=== PATIENT | male | born 1950 | race Caucasian/White ===

== ENCOUNTER → 2024-03-08 09:50 | Outpatient (REF) | payer MEDICARE, OTHER, SELFPAY ==
[2024-03-08 14:44] LABS: Albumin 4.2 g/dl (3.5-5.0); Blood Urea Nitrogen 36 mg/dl (9-20); Calcium 9.9 mg/dl (8.4-10.2); Carbon Dioxide 25 mmol/L (22-30); Chloride 101 mmol/L (98-107); Glucose 124 mg/dl (70-99); HDL Cholesterol 44 mg/dl; LDL Cholesterol, Calculated 93 mg/dl; Magnesium 2.2 mg/dl (1.6-2.3); Phosphorus 4.2 mg/dl (2.5-4.5); Potassium 4.4 mmol/L (3.5-5.1); Sodium 137 mmol/L (135-145); Total Cholesterol 161 mg/dl (50-199); Triglyceride 122 mg/dl (10-149); Very Low Density Lipoprotein 24 mg/dl (0-30); eGFR 29.07
[2024-03-08 16:13] LABS: Vitamin D, 25-OH*** 88.9 ng/mL (30-80)
[2024-03-08 16:55] LABS: Free T4 1.22 ng/dl (0.78-2.19)
== END ==
LOC: REG 09:50
PROVIDERS: ATTENDING PHYSICIAN Internal Medicine; FAMILY PHYSICIAN Internal Medicine; REFERRING PHYSICIAN Internal Medicine Cardiovascular Disease
DX: I25.5 Ischemic cardiomyopathy (principal); I10 Essential (primary) hypertension; N25.81 Secondary hyperparathyroidism of renal origin; N18.32 Chronic kidney disease, stage 3b; E87.3 Alkalosis; E87.6 Hypokalemia
CPT/HCPCS: 36415; 80061; 80069; 82306; 83735; 84439; 84443

== ENCOUNTER → 2024-05-04 15:22 | Outpatient (REF) | payer MEDICARE, OTHER, SELFPAY | LOC: RCS 15:22 | PROVIDERS: ATTENDING PHYSICIAN Internal Medicine Cardiovascular Disease; FAMILY PHYSICIAN Internal Medicine | DX: I25.5 Ischemic cardiomyopathy (principal) | CPT/HCPCS: 93306 ==

== ENCOUNTER 2024-07-07 16:34 | Inpatient (IN) | payer MEDICARE, OTHER, SELFPAY ==
[2024-07-07] VITALS (10 sets, daily range): BP systolic 110–149; BP diastolic 63–77; BMI 23.1
--- NOTE | 2024-07-07 13:05 | ED.GENMED ---
History of Present Illness
General
Chief Complaint: Swelling
Source: patient
Exam Limitations: none
Time Seen by Provider: 07/07/24 12:24
Nursing documentation reviewed up to this point in time: agreed with
History of Present Illness
History of Present Illness:
Patient with history of CAD and congestive heart failure on Lasix, presents ED secondary to increased leg swelling despite increased Lasix recently, along with worsening kidney function. Denies chest pain. Patient reports intermittent shortness of
breath. Denies nausea or vomiting. Denies fever. Denies recent travel or surgery. Denies back pain. Denies leg pain.
Past History
Past History
ED Past Medical History: Arrthythmia (paf), CAD, Cancer (prostate), HTN, Hypercholesterolemia, ND and Other (BRIHGT)
ED Past Surgical History: Cardiac (ablation, cah, pacer)
Social History
Tobacco: Non-smoker
Alcohol: Occasional
Drug: None
Personal:
Living: with family
Review of Systems
Review of Systems
Allergies reviewed?: Yes
All Other Systems: ROS reviewed and negative except as documented in HPI and ROS
Constitutional: Reports no symptoms
EENT: Reports no symptoms
Respiratory: Reports trouble breathing; Denies cough
Cardiac: Reports no symptoms
ABD/GI: Reports no symptoms
Musculoskeletal: Reports edema
Skin: Reports no symptoms
Neurological: Reports no symptoms
Phy Exam
Physical Exam
Physical Exam:
Physical Exam
General: no apparent distress, not acutely ill. afebrile
Head: nc/at. eomi
Neck: supple. normal range of motion.
Heart: s1/s2 regular rate and rhythm, no murmur. equal radial pulses.
Lungs: no acute respiratory distress. diminished breath sounds bilaterally
Abdomen: normal bowel sounds. not tender.
Neuro: alert and oriented. no focal neurological deficits
Skin: no rash
Psychiatric: well kept. interactive and cooperative
Extremities: LE edema, R>L. no calf tenderness.
Scores
Heart Failure Risk
Heart Failure Risk Score: Yes
History of Stroke or TIA: No
History of intubation for respiratory distress: No
Heart rate on ED arrival >/= 110: No
SaO2 <90% on arrival on room air: No
HR >/=110 during 3min walk test (or too ill to perform test): No
ECG has acute ischemic changes: No
Urea >/=12mmol/L (BUN 33.6mg/dL): No
Serum CO2>/=35mmol/L: No
Troponin I or T elevated to ND Level (0.4mg/dL): No
NT-proBNP >/=5,000ng/L (5,000pg/ml): Yes
HF Risk Score: 1
Admission Status: MEDIUM RISK 5.1% Consider observation or discharge to home with homecare & f/u visit to PCP/Food Service Counter Clerk, or SNF for treatment
Course
Orders/Labs/Results
Orders:
Orders
07/07/24 Breakfast
Cholesterol Lowering
At Your Request: Full Participation
Fluid Restriction: 1200 mL/day (40 oz)
Cholesterol Lowering: Sodium, 2 Gram
07/07/24 13:17
Complete Blood Count/With Diff Urgent
07/07/24 14:42
Basic Metabolic Panel Urgent
Magnesium Urgent
NT-proBNP Urgent
07/07/24 15:33
CR Chest - 2 Views Stat
Comment:
Reason For Exam: sob
07/07/24 15:35
EKG [Electrocardiogram (*1)] Stat
Reason for Study: Atrial Fibrillation
07/07/24 15:37
Admit/Transfer Patient As Directed
Co-Sign Provider:
Level of Care: Inpatient admission
Assign to:: Telemetry
Physician / Group: sheu
Diagnosis: CHF exacerbation
Reason for Telemetry: Subacute Heart Failure
Date to Stop Telemetry: 07/09/24
Time to Stop Telemetry: 11:00
Reason for Hospitalization: CHF exacerbation
Expected length of stay greater than two midnights?: Yes
ELOS- Estimated Length of Stay in days: 3
I certify the patient meets the requirements for IP care: Yes
PRN Pain Medication Management As Directed
May give lesser potent ordered pain med per pt: Yes
preference::
Protocol:: Medication orders for pain may be administered in a
manner that supports deferring to patient preference
when the pt is:
- Requesting an ordered lesser potent pain medication.
Least to most potent pain medications are defined
as: acetaminophen < NSAID < tramadol < opioids
(morphine, oxycodone, hydromorphone).
- Requesting a lesser dose of the same medication IF
ORDERED.
- Requesting a less intrusive route of administration
if both routes are prescribed by the provider (PO <
IV).
07/07/24 15:38
Code Status As Directed
Resuscitation Status: Full Code
07/07/24 18:49
Albuterol [ProAIR HFA INHALER] 1 puff INH R Q6HPRN PRN
Atorvastatin [Lipitor] 20 mg PO QPM
Ipratropium/Albuterol Sulfate [Duoneb] 3 ml INH R Q6HPRN PRN
Melatonin 5 mg PO HSPRN PRN
Montelukast Sodium [Singulair] 10 mg PO QPM
Rivaroxaban [Xarelto] 15 mg PO QPM
07/07/24 18:49
CARDIOLOGY CONSULT Routine
Consulting Provider: Avila Gillis
Was physician already notified: Yes
HF DIETARY CONSULT Routine
HF EDUCATOR CONSULT Routine
Comment:
Activity As Directed
Activity Level: As Tolerated
Intake/ Output As Directed
Frequency: Per unit guidelines
Patient Education As Directed
Type: CHF folder
Comment: give on admission. Document in Interdisciplinary Education record
Sleep Apnea Assessment by RN As Directed
Comment:
Physician Instructions:
Venous Foot Pumps As Directed
Location: Bilateral feet
Vital Signs As Directed
Frequency: Other
Additional Instructions:: Q12 or per unit guidelines if more frequent.
Weight As Directed
Frequency: Daily
Type of Scale: Standing Scale
Comment: Daily morning weight. If unable to stand, use balanced bed scale.
Weight As Directed
Frequency: Once
Type of Scale: Standing Scale
Comment: Upon Admission. If unable to stand, use balanced bed scale.
Pulse Ox/cont/shift [RESP] Routine
Quantity: 1
Special Instructions: Daily pulse oximetry at rest. If greater than 92% at rest also obtain pulse oximetry
while ambulating as tolerated.
Ot Eval And Treat Routine
Pt Eval And Treat Routine
Activity Level: As Tolerated
Venous Doppler Lwr Ext Rt [US Periph Venous LOWER Ext RT] Urgent
Comment:
Reason For Exam: RIght LE edema
DX Deep Vein Thrombosis Video Routine
07/07/24 19:00
Midodrine [ProAmatine] 10 mg PO TID @ 0800,1200,1700
07/07/24 19:03
Artificial Tears (Pf) [Refresh Eye Drops (Pf)] 1 drops BOTH EYES Q6HPRN PRN
07/07/24 20:00
Budesonide/Formoterol 160/4.5 [Symbicort 160/4.5 Mcg Inhaler] 2 puff INH R BID
Potassium Chloride [KCl] 20 meq PO BID
07/07/24 22:00
Diphenhydramine [Benadryl] 25 mg PO HS
Metoprolol Xl [Toprol Xl] 12.5 mg PO HS
07/08/24 06:00
Basic Metabolic Panel IN AM
Cardiovascular Evaluation IN AM
Complete Blood Count/No Diff IN AM
[id number]-[id number] IN AM
Magnesium IN AM
TSH Reflex To Free T4 IN AM
07/08/24 08:00
Amiodarone [Pacerone] 200 mg PO DAILY
Aspirin Chewable [Low Strength Aspirin] 81 mg PO DAILY
Pantoprazole [Protonix] 40 mg PO DAILY
Sertraline HCl [Zoloft] 25 mg PO DAILY
07/09/24 06:00
Basic Metabolic Panel IN AM
Complete Blood Count/No Diff IN AM
07/09/24 11:00
DC Protocol for Telemetry ONCE
07/10/24 06:00
Basic Metabolic Panel IN AM
Complete Blood Count/No Diff IN AM
07/11/24 06:00
Complete Blood Count/No Diff IN AM
07/12/24 06:00
Complete Blood Count/No Diff IN AM
Abnormal Lab Results
07/07/24 07/07/24
13:17 14:42
RBC 4.13 L 10^6/uL
(4.70-6.10)
Hgb 10.4 L g/dL
(13.0-18.0)
Hct 33.3 L %
(39.0-52.0)
MCH 25.2 L pg
(27.0-31.0)
MCHC 31.2 L g/dL
(33.0-37.0)
RDW 16.0 H %
(11.5-14.5)
MPV 13.1 H fL
(7.4-10.4)
Absolute Lymphs (auto) 0.9 L 10^3/uL
(1.2-3.4)
Absolute Monos (auto) 1.0 H 10^3/uL
(0.1-0.6)
Lymphocytes % 14.5 L %
(20.5-51.1)
Monocytes % 15.9 H %
(1.7-9.3)
BUN 46 H mg/dl
(9-20)
Creatinine 2.3 H mg/dL
(0.7-1.3)
07/07/24 13:17
07/07/24 14:42
Vital Signs
Initial and Last Documented VS:
Initial Vital Signs
Temp Pulse Resp BP Pulse Ox
97.9 F 65 16 149/76 100
07/07/24 11:47 07/07/24 11:47 07/07/24 11:47 07/07/24 11:47 07/07/24 11:47
Last Documented Vital Signs
Temp Pulse Resp BP Pulse Ox
98.5 F 66 20 124/63 98
07/07/24 19:00 07/07/24 20:30 07/07/24 20:30 07/07/24 20:19 07/07/24 17:59
MDM/Problems Addressed
MDM/Problems Addressed:
Patient with worsening lower extremity edema despite increasing Lasix as an outpatient. In light of patient's chronic kidney disease, patient will be admitted for IV diuresis, at recommendation of cardiology
*EKG
Interpreted by ED Provider?: Yes
EKG Intrepretation Date: 07/07/24
Heart Rate: 63
Rhythm: sinus
QRS Pattern: right bundle branch block
*Critical Care Note
Total Time (30-74mins, 75-104mins- exclusive of procedures): Not Applicable
ED Attending Note
-
Portions of this chart may have been created with voice recognition software.� Occasional wrong word or��sound alike� substitutions may have occurred due to the inherent limitations of voice recognition software.
Discharge Plan
Departure
Patient Disposition: Admit
Date of Disposition: 07/07/24
Time of Disposition: 15:08
Admit to: Telemetry
Presentation/result/management discussed w/ accepting MD/DO: Hospitalist
Discharge Problem:
Fluid overload
Interventions
Interventions:
*Risk Screen - Suicide Last Done: 07/07/24 13:21
*General Assessment Last Done: 07/07/24 13:21
*Neglect/Abuse Screening Last Done: 07/07/24 13:21
*ED COVID-19 Vaccine History Last Done: 07/07/24 13:23
ED- Cardiac Assessment Last Done: 07/07/24 13:23
ED- Pulmonary Assessment Last Done: 07/07/24 13:23
ED-Skin Assessment Last Done: 07/07/24 13:23
[2024-07-07 14:08] LABS: Hematocrit 33.3 % (39.0-52.0); Hemoglobin 10.4 g/dL (13.0-18.0); Mean Corp Hgb Conc. 31.2 g/dL (33.0-37.0); Mean Corpuscular Hgb 25.2 pg (27.0-31.0); Mean Corpuscular Volume 80.6 fL (80.0-94.0); Mean Platelet Volume 13.1 fL (7.4-10.4); Red Blood Cell Count 4.13 10^6/uL (4.70-6.10)
[2024-07-07 14:25] LABS: % Basophils 0.8 % (0-2); % Eosinophils 0.5 % (0-6); % Immature Granulocytes 0.5 % (0-0.5); % Lymphocytes 14.5 % (20.5-51.1); % Monocytes 15.9 % (1.7-9.3); % Neutrophils 67.8 % (42.2-75.2); Absolute Basophils 0.1 10^3/uL (0-0.2); Absolute Lymphocytes 0.9 10^3/uL (1.2-3.4); Absolute Neutrophils 4.1 10^3/uL (1.4-6.5); Nucleated Red Blood Cells % 0 % (-)
[2024-07-07 14:49] LABS: Platelet Count 154 10^3/uL (130-400)
[2024-07-07 15:10] LABS: Blood Urea Nitrogen 46 mg/dl (9-20); Calcium 9.2 mg/dl (8.4-10.2); Carbon Dioxide 28 mmol/L (22-30); Chloride 101 mmol/L (98-107); Estimated Creatinine Clearance 27 ml/min; Glucose 95 mg/dl (70-99); Magnesium 1.9 mg/dl (1.6-2.3); Potassium 4.4 mmol/L (3.5-5.1); Sodium 140 mmol/L (135-145); eGFR 28.89
[2024-07-07 15:12] LABS: NT-proBNP 10100 pg/ml
--- NOTE | 2024-07-07 15:17 | HPS.HSE ---
Addendum entered and electronically signed by Amelia Peguero MD 07/08/24 01:07:
date of service 07/07/24
I saw and examined the patient.
The SLEEVER or PA's note was reviewed and I agree with the note.
Comment:
74M CAD HFrEF AICD CKD p/w increased leg swelling and weight gain 2 weeks despite increased Lasix. Denies respiratory issues, ambulatory with cane at baseline. Noted significantly elevated BNP. Likely acute on chronic HFrEF
Physical Exam
General: Well Developed, Well Nourished and No Apparent Distress
HEENT: NormoCephalic, Moist mucous membranes and Atraumatic
Respiratory: Clear
Cardiac: S1/S2 and Regular Rhythm; No Murmur or Rub
GI: Soft, Non Tender, Non Distended and Normal Bowel Sounds; No Organomegaly
Musculoskeletal: No Clubbing, No Cyanosis, b/l lower ext edema +2 pitting R calf appears bigger than Left no calf tenderness
Skin: No Rash
Neuro: AO x 3 and Nonfocal/grossly intact
Psych: Calm
# Worsening lower extremities edema likely CHF exacerbation
# History of ischemic cardiomyopathy
# Anemia of chronic disease
# Chronic kidney disease stage 3B
# History of CAD status post CABG. Will continue with aspirin.
#. Paroxysmal atrial fibrillation
#History of prostate cancer status post robotic prostatectomy.
# Essential hypertension with a history of orthostatic hypotension
#. Gastroesophageal reflux disease
# Obstructive sleep apnea on BiPAP 07/15
#HLD
#anxiety
IV lasix diuresis
daily weights I/O
venous duplex appreciated RLE neg for DVT
Cardio Nephro eval
PT/OT
cont Xarelto Amiodarone
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
Original Note:
Family Physician
-
Family Physician: Talib Song
Chief Complaint
-
LE edema
History of Present Illness
74 year old with history of CAD and congestive heart failure on Lasix, presents ED secondary to increased leg swelling despite increased Lasix. patient stated LE swelling for past two weeks. his Lasix was increased since the with no relief in
his symptoms. he gained 4-5lbs Denies chest pain. Denies short of breath , Denies nausea or vomiting. Denies fever.
In ER noted elevated BNP. Admitting for further management
Medical History
Past Medical History
Past Medical History: Reports Other
Additional Past Medical History:
Stage IIIa chronic kidney disease
Atrial fibrillation
Hypertension
Ischemic cardiomyopathy
Hyperlipidemia
Chronic heart failure
Defibrillator
Sleep apnea
BPH
Orthostatic hypotension
Hyperparathyroidism
Past Surgical History: Reports Other
Additional Past Surgical History:
Coronary artery bypass graft x 3 vessels
Left carotid stent
Right carotid stent
Inguinal hernia repair with mesh
Prostatectomy
Social History
Tobacco: Former Smoker
Alcohol: Occasional
Drug: None
Family History
Family History: Not pertinent
Allergies / Home Medications
Allergies reflects when Allergies were last updated in [facility].
Home Medications with original date entered in [facility]
Allergy/Medication List:
Allergies
Allergy/AdvReac Type Severity Reaction Status Date / Time
Iodinated Contrast Media Allergy Hives Verified 07/07/24 11:49
[IV Dye, Iodine Containing
Contrast ]
iodine Allergy Hives Verified 07/07/24 11:49
potassium clavulanate Allergy Itching Verified 07/07/24 11:49
[From Augmentin]
seasonal Allergy sneezing Uncoded 07/07/24 11:49
Home Medications
coenzyme [id number] 100 mg-100 unit capsule 100 mg PO NOON Supplement 01/10/15
omega [id number]-fish oil 300 mg-1,000 mg capsule (Fish Oil) 2 ea PO NOON Supplement 02/19/17
budesonide-formoterol HFA 160 mcg-4.5 mcg/actuation aerosol inhaler (Symbicort) 2 puff inhalation R BID Lung/breathing issues 11/30/19
albuterol sulfate 90 mcg/actuation aerosol inhaler 1 puff inhalation R Q4HPRN PRN sob 06/23/20
amiodarone 200 mg tablet (Pacerone) 200 mg PO DAILY Heart disease/condition 06/23/20
melatonin 5 mg tablet 5 mg PO HSPRN PRN sleep 06/23/20
metoprolol succinate 25 mg tablet,extended release 24 hr 12.5 mg PO HS Blood pressure 06/23/20
multivitamin with folic acid 400 mcg tablet (Tab-A-Rickey) 1 tab PO NOON Supplement 06/23/20
nitroglycerin 0.4 mg sublingual tablet 0.4 mg sublingual [id number] PRN chest pain 06/23/20
sertraline 25 mg tablet 25 mg PO DAILY Mental Health/Anxiety 06/23/20
aspirin 81 mg chewable tablet 81 mg PO DAILY Blood clot prevention/tx 06/30/20
pantoprazole 40 mg tablet,delayed release 40 mg PO DAILY Gastrointestinal issue ##0 06/30/20
docusate sodium 100 mg capsule 100 mg PO PRN PRN constipation 08/08/20
furosemide 20 mg tablet 40 mg PO BID AT 0800,1600 Fluid retention/Swelling 08/08/20
midodrine 5 mg tablet 5 mg PO TID Blood pressure 08/08/20
potassium chloride 20 mEq tablet,extended release(part/cryst) (Klor-Con M) 20 meq PO BID Supplement 08/08/20
rivaroxaban 15 mg tablet (Xarelto) 15 mg PO QPM Blood clot prevention/tx 08/08/20
metolazone 2.5 mg tablet 2.5 mg PO WEEKLY Heart Failure 03/13/23
montelukast 10 mg tablet (Singulair) 10 mg PO DAILY 03/13/23
cholecalciferol (vitamin D3) 25 mcg (1,000 unit) capsule (Vitamin D3) 25 mcg PO DAILY 03/18/23
Review of Systems
-
Constitutional: Reports No Symptoms
EENT: Reports No Symptoms
Respiratory: Reports No Symptoms
Cardiac: Reports No Symptoms
Abdomen/GI: Reports No Symptoms
: Reports No Symptoms
Musculoskeletal: Reports Edema (Lower extremities edema)
Skin: Reports No Symptoms
Neurological: Reports No Symptoms
Endocrine: Reports No Symptoms
Hematologic/Lymphatic: Reports No Symptoms
Psych: Reports No Symptoms
Physical Exam
Vital Signs
Vital Signs
Temp Pulse Resp BP Pulse Ox
97.9 F 57 21 110/73 98
07/07/24 11:47 07/07/24 14:15 07/07/24 14:15 07/07/24 13:02 07/07/24 14:15
Physical Exam
General: Well Developed, Well Nourished and No Apparent Distress
HEENT: NormoCephalic, Moist mucous membranes and Atraumatic
Respiratory: Clear
Cardiac: S1/S2 and Regular Rhythm; No Murmur or Rub
GI: Soft, Non Tender, Non Distended and Normal Bowel Sounds; No Organomegaly
Rectal: Deferred by Provider
Musculoskeletal: No Clubbing, No Cyanosis and Other (Right lower extremities +3 edema)
Skin: No Rash
Neuro: AO x 3 and Nonfocal/grossly intact
Psych: Calm
Laboratory Results
-
07/07/24 13:17
07/07/24 14:42
Laboratory Results
Total Bilirubin Cancelled 07/07/24 13:17
AST Cancelled 07/07/24 13:17
ALT Cancelled 07/07/24 13:17
Alkaline Phosphatase Cancelled 07/07/24 13:17
Data Reviewed
-
Lab Data: Labs Reviewed by me
Impression/Plan
-
# Worsening lower extremities edema likely CHF exacerbation
# History of ischemic cardiomyopathy
-proBNP 10 100
-Recent echo on 05/04 with Normal left ventricular size. Severely reduced systolic function. LV ejection
fraction is 30%.
-IV Lasix 4o bid continued
-Strict RACHEL
-Daily weight
-Fluid restriction
-Cardiology consult
# Anemia of chronic disease
-Hemoglobin stable at 10.4
-No active bleeding
-Continue to monitor
# Chronic kidney disease stage 3B
-Creatinine 2.3
-Continue to monitor
# History of CAD status post CABG. Will continue with aspirin.
#. Paroxysmal atrial fibrillation. We will continue with Xarelto
and amiodarone.
-Obtain EKG
#History of prostate cancer status post robotic prostatectomy.
# Essential hypertension with a history of hypotension. We will
continue with Toprol and Midodrine.
#. Gastroesophageal reflux disease. Continue PPI.
# Obstructive sleep apnea on BiPAP 07/15. Continue with outpatient
inhalers.
#HLD
-statin continued
#anxiety
-sertraline continued
#DVT prophylaxis: The patient is on Xarelto which will be
continued.
#.The patient is a full code.
--- NOTE | 2024-07-07 16:38 | CON.CAR ---
Addendum entered and electronically signed by Esau Kramer MD 07/07/24 17:59:
I saw and examined the patient.
The Finance Business Partner's note was reviewed and I agree with the note.
Comment: Briefly, 74-year-old man past medical history history of ischemic cardiomyopathy and heart failure with reduced ejection fraction status post AICD who presents with weight gain and worsening lower extremity edema concerning for
decompensated heart failure
Presentation seems most consistent with right-sided heart failure, patient is not hypoxic and chest x-ray does not show any overt pulmonary edema or pleural effusions
However proBNP is elevated over 10,000 and he does have significant lower extremity edema
Plan for IV diuresis 40 mg twice daily
Monitor renal function closely given CKD
Continue low-dose beta-ulices
Renal function will likely limit additional GDMT. Would consider hydralazine/nitrate, but may be limited by chronic hypotension.
Original Note:
Consultation
Consultation Request
Date/Time Consultation Requested: 07/07/24
Date/Time Consultation Performed: 07/07/24
Requesting Provider: Darshana RAYGOZA
Performing Provider: Preeti Holder PA-C for Dr. Kramer
Reason for Consultation: CHF
Medical History
-
Chief Complaint: LE edema
History of Present Illness:
Patient came to [facility] today with increased LE edema and cardiology has been consulted for acute CHF. Patient with PMH of CABG 09/2010 with COLEMAN to LAD and SVG seq to OM and PLB. He then had a Xience JENIFFER to the sequential SVG in 10/29/11. He was then
admitted to 12/20/19 until 12/29/19 with plan for redo sternotomy and CABG with SVG to OM and then to the PLB of the RCA. He had RV tear and repair as a complication. His CABG ended up being a left saphenous vein as sequential graft to LAD then to
OM1. He had a newly reduced EF 15% at that time and developed cardiorenal syndrome and cardiogenic shock. He was transferred to [place] for LVAD evaluation 12/29/19 and was hospitalized for 46 days and was ultimately not an LVAD candidate, but was
diuresed and had a [place] single chamber ICD placed. He then went to [facility] acute care rehab. He continues to follow with Dr. Gillis in the office and was seen 06/25/24 and recommend admission for IV diuresis, but patient declined so that
he could have previously scheduled cataract surgery in August 19 and so his lasix was increased from 20mg daily to 20mg BID for 1 week. Patient called the office today to report no improvement and increased LE edema with weight up to 157.9
lbs today and he was recommended to go to the ER for admission. Cre is 2.3 in the ER today which is close to his baseline. Weight is up another 8 lbs from last office visit.
PMH:
chronic HFrEF
ICM EF 30% by echo 05/04/24
h/o Cardiorenal syndrome
CKD 4
CAD
s/p CABG x 3 (COLEMAN - LAD, seq SVG to OM1 to RPLB) 09/19
s/p PCI with JENIFFER to SVG to OM1 to RPLB 10/29/11
s/p acute inferior CO S/P PCI with RCA stent (02/19/17)
s/p Re-op CABG x 2 (left saphenous vein as sequential graft to LAD then to OM1) vein graft tear, anterior wall of RV tear and divided COLEMAN at time of CABG 12/20/19
h/o long admission (46 days) to [place] for LVAD eval and eventual ICD placement at time of complicated redo CABG 12/2019
h/o left groin abscess with flap closure and VAC treatment 06/2020
s/p [employer] single chamber ICD
Paroxysmal Afib
s/p PVI 08/04/17
Chronic Xarelto OAC
HTN
Orthostasis on midodrine
Hyperlipidemia
Former tobacco use
ELI
GERD/Caballero's esophagus
S/p Schatzki's ring dilatation
Severe LAUREN stenosis S/p stent (01/10/2015)
Severe LICA stenosis S/p stent (10/05/2010)
Hx Prostate Ca S/p robotic prostatectomy (2009)
s/p right inguinal herniorrhaphy (1992)
Past Medical History
Past Medical History: Other (in HPI)
Past Surgical History: Cardiac (ABG) and Other (prostatectomy, herniorrhaphy, B/L carotid stents)
Social History
Tobacco: Former Smoker
Alcohol: None
Drug: None
Personal:
Living: With Family
Family History
Family History: CAD
Allergies / Home Medications
Allergy/AdvReac Type Severity Reaction Status Date / Time
Iodinated Contrast Media Allergy Hives Verified 07/07/24 11:49
[IV Dye, Iodine Containing
Contrast ]
iodine Allergy Hives Verified 07/07/24 11:49
potassium clavulanate Allergy Itching Verified 07/07/24 11:49
[From Augmentin]
seasonal Allergy sneezing Uncoded 07/07/24 11:49
�Medication �Instructions �Recorded �Confirmed �Type
omega 1-wkc-fmi-fish oil 300 2 ea PO NOON Supplement 02/19/17 07/07/24 History
mg-1,000 mg capsule (Fish Oil)
amiodarone 200 mg tablet (Pacerone) 200 mg PO DAILY Heart 06/23/20 07/07/24 History
disease/condition
melatonin 5 mg tablet 5 mg PO HSPRN PRN sleep 06/23/20 07/07/24 History
metoprolol succinate 25 mg 12.5 mg PO HS Blood pressure 06/23/20 07/07/24 History
tablet,extended release 24 hr
multivitamin with folic acid 400 1 tab PO NOON Supplement 06/23/20 07/07/24 History
mcg tablet (Tab-A-Rickey)
nitroglycerin 0.4 mg sublingual 0.4 mg sublingual [id number] PRN 06/23/20 07/07/24 History
tablet chest pain
sertraline 25 mg tablet 25 mg PO DAILY Mental 06/23/20 07/07/24 History
Health/Anxiety
aspirin 81 mg chewable tablet 81 mg PO DAILY Blood clot 06/30/20 07/07/24 Rx
prevention/tx
pantoprazole 40 mg tablet,delayed 40 mg PO DAILY Gastrointestinal 06/30/20 07/07/24 Rx
release issue ##0
docusate sodium 100 mg capsule 100 mg PO DAILYPRN PRN constipation 08/08/20 07/07/24 History
potassium chloride 20 mEq 20 meq PO BID Supplement 08/08/20 07/07/24 History
tablet,extended
release(part/cryst) (Klor-Con M)
rivaroxaban 15 mg tablet (Xarelto) 15 mg PO QPM Blood clot 08/08/20 07/07/24 History
prevention/tx
montelukast 10 mg tablet 10 mg PO QPM 03/13/23 07/07/24 History
(Singulair)
albuterol sulfate 90 mcg/actuation 1 inh inhalation R Q6HPRN PRN sob 07/07/24 07/07/24 History
aerosol inhaler
atorvastatin 20 mg tablet 20 mg PO QPM 07/07/24 07/07/24 History
budesonide-formoterol HFA 160 2 puff inhalation R BID 07/07/24 07/07/24 History
mcg-4.5 mcg/actuation aerosol
inhaler (Symbicort)
cholecalciferol (vitamin D3) 50 100 mcg PO DAILY 07/07/24 07/07/24 History
mcg (2,000 unit) tablet (Vitamin
D3)
coenzyme Q10 100 mg capsule 100 mg PO DAILY 07/07/24 07/07/24 History
(CoQ-10)
diphenhydramine 25 1 tab PO HS 07/07/24 07/07/24 History
mg-acetaminophen 500 mg tablet
(Tylenol PM Extra Strength)
furosemide 40 mg tablet 40 mg PO BID 07/07/24 07/07/24 History
ipratropium 0.5 mg-albuterol 3 mg 3 ml inhalation R Q6HPRN PRN sob 07/07/24 07/07/24 History
(2.5 mg base)/3 mL nebulization
soln
midodrine 10 mg tablet 10 mg PO TID 07/07/24 07/07/24 History
peg 400-propylene glycol (PF) 0.4 1 drp BOTH EYES Q6HPRN PRN dry eyes 07/07/24 07/07/24 History
%-0.3 % eye drops in a dropperette
(Systane (PF))
Review of Systems
-
History Source: Patient
All other systems: Negative unless noted
Physical Exam
Vital Signs
Temp Pulse Resp BP Pulse Ox
97.9 F 62 16 122/70 98
07/07/24 11:47 07/07/24 16:00 07/07/24 16:00 07/07/24 16:00 07/07/24 16:00
Lab Results
07/07/24 13:17
07/07/24 14:42
Fkn-[id number] Pept 20921 pg/ml 07/07/24 14:42
Physical Exam
General: No Apparent Distress and Comfortable
HEENT: Normocephalic, Anicteric and Moist Mucous Membranes
Respiratory: Crackles (LLB)
Cardiac: S1/S2, Irregular Rhythm and Murmur
GI: Soft, Non Tender, Non Distended and Normal Bowel Sounds
Musculoskeletal: No Clubbing, No Cyanosis and Edema (2+ of B/L LE)
Skin: Warm, Dry and Other (scattered ecchymoses of B/L UE and back)
Neuro: AO x 3
Impression / Plan
-
PCP: Dr. Song
Cardiology: Dr. Gillis
IMPRESSION:
Presentation with LE edema
Acute on chronic HFrEF
ICM EF 30% by echo 05/04/24
h/o Cardiorenal syndrome
CKD 4
CAD
s/p CABG x 3 (COLEMAN - LAD, seq SVG to OM1 to RPLB) 09/19
s/p PCI with JENIFFER to SVG to OM1 to RPLB 10/29/11
s/p acute inferior CO S/P PCI with RCA stent (02/19/17)
s/p Re-op CABG x 2 (left saphenous vein as sequential graft to LAD then to OM1) vein graft tear, anterior wall of RV tear and divided COLEMAN at time of CABG 12/20/19
h/o long admission (46 days) to [place] for LVAD eval and eventual ICD placement at time of complicated redo CABG 12/2019
h/o left groin abscess with flap closure and VAC treatment 06/2020
s/p [place] single chamber ICD
Paroxysmal Afib
s/p PVI 08/04/17
Chronic Xarelto OAC
HTN
Orthostasis on midodrine
Hyperlipidemia
Former tobacco use
ELI
GERD/Caballero's esophagus
S/p Schatzki's ring dilatation
Severe LAUREN stenosis S/p stent (01/10/2015)
Severe LICA stenosis S/p stent (10/05/2010)
Hx Prostate Ca S/p robotic prostatectomy (2009)
s/p right inguinal herniorrhaphy (1992)
ECHO 12/23/19: with severe left ventricular systolic dysfunction ejection fraction 15�20%. New compared to preoperative echocardiogram
Echo at [place] 02/2020: EF 36%
Echo 06/26/20: Mildly dilated LV, EF 25-30%, inferior, septal, anteroseptal, apical akinesis with hypokinesis remaining. EF was 40% by Valle, 25-30% visually, mildly dilated and hypokinetic RV, ICD wire, dilated left atrium, mild MR, aortic
sclerosis, moderate TR, pulmonary artery pressure 37-42 mmHg
Echo 05/04/24: EF 30%, akinesis of the septum and inferior de jesus, stage III diastolic dysfunction, moderate to severe MR, moderate TR with PAP 45 mmHg
PLAN:
-Patient presents with worsening LE edema and acute HF with h/o cardiorenal syndrome. Agree with Lasix 40 mg IV BID diuresis for now. Patient was taking Lasix 20mg daily prior to admission (although his med list has po lasix 40mg BID, he states his
baseline dose in 20mg daily). If no significant diuresis overnight then consider increasing dose.
-awaiting CXR
-Cont outpatient dose of midodrine 10 mg TID
-consider Nephrology consult
-Cre is 2.3 in the ER on 07/07/24 which is close to his baseline.
-At last office visit he was recommended admission and consideration for RHC, hold off for now as appears to be clearly volume overloaded
-Also recently recommended a THANH to reassess MR and evaluated for possible MitraClip, would wait until he has diuresed more and consider repeating echo to reassess. He is not keen on procedures at this time
-Known paroxysmal Afib, but none was seen on device check in the office 06/25/24.
-Cont renally dosed Xarelto 15 mg daily. CrCl is 27.
-d/w patient and son at bedside
.
Data Reviewed
-
EKG: Tracing Personally Visualized and interpreted
Medical Tests (Nuc Med, Echo etc): Report Reviewed by me
Labs: Labs Reviewed by me
Old Records: Reviewed
--- NOTE | 2024-07-07 17:09 | W.CON.NEPH ---
Consultation
-
Date/Time Consultation Requested: 07/07/24 1644
Date/Time Consultation Performed: 07/07/24 1715
Requesting Provider: Darshana Nolasco
Performing Provider: Alley Alvarez
Reason for Consultation: CKD
Medical History
-
Chief Complaint: increasing leg edema
History of Present Illness:
The patient is 74 years of age who has ischemic cardiomyopathy s/p CABG, EF 30% on lasix, mod to severe MR, mod TR, on lasix, CKD stage 2 baseline cr [address] Garcia, chr orthostatic hypotension on midodrine therapy, Afib on low dose BB, Amio
and with Xarelto, GERD on PPI, prostate ca s/p surgery who lately noticed increasing LE edema despite increase in lasix dose 20mg BID by cards from 06/25. he was asked to come to ER if no response noted. he gained 4-5lbs and Denies chest pain or
short of breath. , Denies nausea or vomiting. Denies fever, has increased cough for few days. He first noticed wt gain after he completed steroid course in April. took extra lasix in May with little improvement but never went back to his DW. He
also has decreased appetite. HIs cr is at 2.3 today.
Past Medical History
. CAD
s/p CABG x 3 (COLEMAN - LAD, seq SVG to OM1 to RPLB) 09/19
s/p PCI with JENIFFER to SVG to OM1 to RPLB 10/29/11
s/p acute inferior MO S/P PCI with RCA stent (02/19/17)
s/p Re-op CABG x 2 (left saphenous vein as sequential graft to LAD then to OM1) vein graft tear, anterior wall of RV tear and divided COLEMAN at time of CABG 12/20/19h/o long admission (46 days) to [place] for LVAD eval and eventual ICD placement at time
of complicated redo CABG 12/2019
h/o left groin abscess with flap closure and VAC treatment 06/2020
. Prostate cancer, status post prostatectomy in 2009.
. Bilateral internal carotid artery stenoses, status post stents, right in 2014, left in 2009.
. Paroxysmal atrial fibrillation, status post ablation in 2016 and cardioversion in 2019.
.Caballero's esophagus.
.Schatzki's ring dilatation.
.Sleep apnea
.Right inguinal herniorrhaphy with mesh.
.GERD.
.Hyperlipidemia.
.Hypertension.
.Prediabetes.
.Urinary incontinence.
.Biventricular ICD in 2019.
CKD4
Past Surgical History: Other (Coronary artery bypass graft x 3 vessels Left carotid stent Right carotid stent Inguinal hernia repair with mesh Prostatectomy)
Social History
He resides at home with his . 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 Negligible remote smoking history as a teenager.
Tobacco: Non-Smoker
Alcohol: Occasional
Personal:
Living: With Family
Employment: Retired
Family History
Father sustained an MO at 59, at 89.
Mother at 92 with CAD and hypertension.
Allergies / Home Medications
Allergy/AdvReac Type Severity Reaction Status Date / Time
Iodinated Contrast Media Allergy Hives Verified 07/07/24 11:49
[IV Dye, Iodine Containing
Contrast ]
iodine Allergy Hives Verified 07/07/24 11:49
potassium clavulanate Allergy Itching Verified 07/07/24 11:49
[From Augmentin]
seasonal Allergy sneezing Uncoded 07/07/24 11:49
�Medication �Instructions �Recorded �Confirmed �Type
omega 3-uvt-atu-fish oil 300 2 ea PO NOON Supplement 02/19/17 07/07/24 History
mg-1,000 mg capsule (Fish Oil)
amiodarone 200 mg tablet (Pacerone) 200 mg PO DAILY Heart 06/23/20 07/07/24 History
disease/condition
melatonin 5 mg tablet 5 mg PO HSPRN PRN sleep 06/23/20 07/07/24 History
metoprolol succinate 25 mg 12.5 mg PO HS Blood pressure 06/23/20 07/07/24 History
tablet,extended release 24 hr
multivitamin with folic acid 400 1 tab PO NOON Supplement 06/23/20 07/07/24 History
mcg tablet (Tab-A-Rickey)
nitroglycerin 0.4 mg sublingual 0.4 mg sublingual [id number] PRN 06/23/20 07/07/24 History
tablet chest pain
sertraline 25 mg tablet 25 mg PO DAILY Mental 06/23/20 07/07/24 History
Health/Anxiety
aspirin 81 mg chewable tablet 81 mg PO DAILY Blood clot 06/30/20 07/07/24 Rx
prevention/tx
pantoprazole 40 mg tablet,delayed 40 mg PO DAILY Gastrointestinal 06/30/20 07/07/24 Rx
release issue ##0
docusate sodium 100 mg capsule 100 mg PO DAILYPRN PRN constipation 08/08/20 07/07/24 History
potassium chloride 20 mEq 20 meq PO BID Supplement 08/08/20 07/07/24 History
tablet,extended
release(part/cryst) (Klor-Con M)
rivaroxaban 15 mg tablet (Xarelto) 15 mg PO QPM Blood clot 08/08/20 07/07/24 History
prevention/tx
montelukast 10 mg tablet 10 mg PO QPM 03/13/23 07/07/24 History
(Singulair)
albuterol sulfate 90 mcg/actuation 1 inh inhalation R Q6HPRN PRN sob 07/07/24 07/07/24 History
aerosol inhaler
atorvastatin 20 mg tablet 20 mg PO QPM 07/07/24 07/07/24 History
budesonide-formoterol HFA 160 2 puff inhalation R BID 07/07/24 07/07/24 History
mcg-4.5 mcg/actuation aerosol
inhaler (Symbicort)
cholecalciferol (vitamin D3) 50 100 mcg PO DAILY 07/07/24 07/07/24 History
mcg (2,000 unit) tablet (Vitamin
D3)
coenzyme Q10 100 mg capsule 100 mg PO DAILY 07/07/24 07/07/24 History
(CoQ-10)
diphenhydramine 25 1 tab PO HS 07/07/24 07/07/24 History
mg-acetaminophen 500 mg tablet
(Tylenol PM Extra Strength)
furosemide 40 mg tablet 40 mg PO BID 07/07/24 07/07/24 History
ipratropium 0.5 mg-albuterol 3 mg 3 ml inhalation R Q6HPRN PRN sob 07/07/24 07/07/24 History
(2.5 mg base)/3 mL nebulization
soln
midodrine 10 mg tablet 10 mg PO TID 07/07/24 07/07/24 History
peg 400-propylene glycol (PF) 0.4 1 drp BOTH EYES Q6HPRN PRN dry eyes 07/07/24 07/07/24 History
%-0.3 % eye drops in a dropperette
(Systane (PF))
Review of Systems
-
All complete 12 point ROS have been inquired and found negative other than stated in HPI
Physical Exam
Vital Signs
Vital Signs
Temp Pulse Resp BP Pulse Ox
97.9 F 62 16 122/70 98
07/07/24 11:47 07/07/24 16:00 07/07/24 16:00 07/07/24 16:00 07/07/24 16:00
Lab Results
WBC 6.0 10^3/uL (4.8-10.8) 07/07/24 13:17
RBC 4.13 10^6/uL (4.70-6.10) L 07/07/24 13:17
Hgb 10.4 g/dL (13.0-18.0) L 07/07/24 13:17
Hct 33.3 % (39.0-52.0) L 07/07/24 13:17
Plt Count 154 10^3/uL (130-400) 07/07/24 13:17
Sodium 140 mmol/L (135-145) 07/07/24 14:42
Potassium 4.4 mmol/L (3.5-5.1) 07/07/24 14:42
Chloride 101 mmol/L (98-107) 07/07/24 14:42
Carbon Dioxide 28 mmol/L (22-30) 07/07/24 14:42
BUN 46 mg/dl (9-20) H 07/07/24 14:42
Creatinine 2.3 mg/dL (0.7-1.3) H 07/07/24 14:42
eGFR 28.89 07/07/24 14:42
Glucose 95 mg/dl (70-99) 07/07/24 14:42
Calcium 9.2 mg/dl (8.4-10.2) 07/07/24 14:42
Pcz-[id number]-Bpeqlqdzjjz Pept 04793 pg/ml 07/07/24 14:42
Albumin Cancelled 07/07/24 13:17
CXR:
IMPRESSION:
No acute cardiopulmonary abnormality.
Physical Exam
General: Awake, Alert, Oriented, AOx3 and No Distress
HEENT: EOMI, Anicteric, Neck Supple and Trachea Midline
Respiratory: Clear, Normal Excursion and Nonlabored Respirations
Cardiac: S1/S2 and Regular Rate/Rhythm
Breast: Deferred by me
Abdomen: Soft, Nontender and Nondistended
Musculoskeletal: No Cyanosis and Edema (2+)
Skin: No Rash
Neuro: Nonfocal/Grossly Intact
Psych: Mood/afflect pleasant, Insight/judgement good and Appropriate
Data Reviewed
-
Radiology: Image Personally Visualized and interpreted, Report Reviewed by me and Discussed with Patient
Labs: Labs Reviewed by me and Discussed with Patient
Assessment/Plan
-
IMP:
Acute on chronic HFrEF
ICM EF 30% by echo 05/04/24
h/o Cardiorenal syndrome
Ischemic cardiomyopathy EF 30%, DD stage3, mod to severe MR, mod TR
CKD 4-baseline cr 2, Dr Garcia
CAD complex history s/p CABG
s/p [employer] single chamber ICD
Paroxysmal Afib
HTN
Orthostasis on midodrine
Hyperlipidemia
Former tobacco use
ELI
GERD/Caballero's esophagus
S/p Schatzki's ring dilatation
Severe LAUREN stenosis S/p stent (01/10/2015)
Severe LICA stenosis S/p stent (10/05/2010)
Hx Prostate Ca S/p robotic prostatectomy (2009)
Plan;
A/w increasing LE edema despite increasing lasix
CKD-cr seem to be stable at baseline
cont IV lasix per cards
BP stable, cont midodrine with known orthostatic hypotension
follow labs , if cr increases may consider RHC
agree likely benefit from eval of MR
d/w pt
[2024-07-07] MEDS: ProAmatine 10 MG PO (20:28)
[2024-07-07] MEDS: KCL 20 MEQ PO (20:28)
[2024-07-07] MEDS: LIPITOR 20 MG PO (20:29)
[2024-07-07] MEDS: LASIX 40 MG IV (20:29)
[2024-07-07] MEDS: XARELTO 15 MG PO (20:29)
[2024-07-07] MEDS: SINGULAIR 10 MG PO (20:29)
[2024-07-07] MEDS: SYMBICORT 160/4.5 MCG INHALER 2 PUFF INH (21:49)
[2024-07-07] MEDS: MELATONIN 5 MG PO (22:16)
[2024-07-07] MEDS: TYLENOL 500 MG PO (22:16)
[2024-07-07] MEDS: BENADRYL 25 MG PO (22:16)
[2024-07-07] MEDS: TOPROL XL 12.5 MG PO (22:16)
[2024-07-08] VITALS (13 sets, daily range): BP systolic 105–125; BP diastolic 62–83; PULSE 2–67; BMI 22.1
[2024-07-08 06:39] LABS: Hematocrit 28.9 % (39.0-52.0); Hemoglobin 9.1 g/dL (13.0-18.0); Mean Corp Hgb Conc. 31.5 g/dL (33.0-37.0); Mean Corpuscular Hgb 24.8 pg (27.0-31.0); Mean Corpuscular Volume 78.7 fL (80.0-94.0); Mean Platelet Volume 12.9 fL (7.4-10.4); Platelet Count 139 10^3/uL (130-400); Red Blood Cell Count 3.67 10^6/uL (4.70-6.10); Red Cell Dist. Width 15.9 % (11.5-14.5); White Blood Cell Count 5.3 10^3/uL (4.8-10.8)
[2024-07-08 07:13] LABS: ALT (SGPT) 34 U/L (0-50); AST (SGOT) 39 U/L (17-59); Albumin 3.4 g/dl (3.5-5.0); Alkaline Phosphatase 109 U/L (38-126); Blood Urea Nitrogen 46 mg/dl (9-20); Calcium 9.1 mg/dl (8.4-10.2); Carbon Dioxide 27 mmol/L (22-30); Chloride 101 mmol/L (98-107); Direct Bilirubin 0.7 mg/dl (0.0-0.4); Estimated Creatinine Clearance 29 ml/min; Glucose 83 mg/dl (70-99); HDL Cholesterol 32 mg/dl; LDL Cholesterol, Calculated 44 mg/dl; Potassium 3.9 mmol/L (3.5-5.1); Sodium 140 mmol/L (135-145); Total Bilirubin 1.2 mg/dl (0.2-1.3); Total Cholesterol 90 mg/dl (50-199); Triglyceride 74 mg/dl (10-149); Very Low Density Lipoprotein 14 mg/dl (0-30); eGFR 32.22
[2024-07-08] MEDS: SYMBICORT 160/4.5 MCG INHALER 2 PUFF INH ×2 (08:00→19:27)
[2024-07-08] MEDS: PACERONE 200 MG PO (08:51)
[2024-07-08] MEDS: ZOLOFT 25 MG PO (08:51)
[2024-07-08] MEDS: PROTONIX 40 MG PO (08:51)
[2024-07-08] MEDS: KCL 20 MEQ PO ×2 (08:53→20:50)
[2024-07-08] MEDS: LASIX 40 MG IV ×3 (08:53→17:41)
[2024-07-08] MEDS: LOW STRENGTH ASPIRIN 81 MG PO (08:53)
--- NOTE | 2024-07-08 09:01 | W.PN.HOSP.TC ---
Today's Communication/Plan
-
IV Lasix.
Assessment / Plan
Assessment / Plan
Physical exam:
General: Acute on chronically ill
HEENT: Normocephalic, Atraumatic and Moist Mucous Membranes
Respiratory: Clear to Auscultation except few crackles in the bases; Negative Wheezes, or Rhonchi
Cardiac: Regular Rhythm and S1/S2
GI: Soft, Nontender and Nondistended
Musculoskeletal: No Clubbing, No Cyanosis and presence of bilateral edema
Neuro: Awake, Alert and Oriented
Psych: Calm
A/P:
# Worsening lower extremities edema likely CHF exacerbation
# History of ischemic cardiomyopathy
-proBNP 10 100
-Recent echo on 05/04 with Normal left ventricular size. Severely reduced systolic function. LV ejection
fraction is 30%.
-IV Lasix 4o bid continued
-Strict RACHEL
-Daily weight
-Fluid restriction
-Cardiology consult appreciated
# Anemia of chronic disease
-Hemoglobin stable at 10.4--> 9.1
-No active bleeding
-Continue to monitor
# Chronic kidney disease stage 3B
-Creatinine 2.3--> 2.1
-Continue to monitor
-Nephrology consult appreciated
# History of CAD status post CABG. Will continue with aspirin.
#. Paroxysmal atrial fibrillation. We will continue with Xarelto
and amiodarone.
-Obtain EKG
#History of prostate cancer status post robotic prostatectomy.
# Essential hypertension with a history of hypotension. We will
continue with Toprol and Midodrine.
#. Gastroesophageal reflux disease. Continue PPI.
# Obstructive sleep apnea on BiPAP 07/15. Continue with outpatient
inhalers.
#HLD
-statin continued
#anxiety
-sertraline continued
#DVT prophylaxis: The patient is on Xarelto which will be
continued.
#.The patient is a full code.
Anticipated Discharge: > 48 hours
Subjective/Interval History
-
Date of Service: July 08, 2024
Patient feels better overall, less shortness of breath, no chest pain. Afebrile
Objective Data
-
Labs:
Laboratory Results
07/08/24
06:06
WBC 5.3
Hgb 9.1 L
Hct 28.9 L
Plt Count 139
Sodium 140
Potassium 3.9
Chloride 101
Carbon Dioxide 27
BUN 46 H
Creatinine 2.1 H
Glucose 83
Calcium 9.1
Total Bilirubin 1.2
AST 39
ALT 34
Alkaline Phosphatase 109
Vital Signs:
Vital Signs
Temp Pulse Resp BP Pulse Ox
98.5 F 61 17 117/70 98
07/07/24 19:00 07/08/24 08:53 07/08/24 08:15 07/08/24 08:53 07/07/24 17:59
I&O
07/07/24 07/08/24 07/09/24
06:59 06:59 06:59
Output Total 1225 / 1225
Balance -1225 / -1225
[2024-07-08] MEDS: ProAmatine 10 MG PO ×3 (09:02→17:42)
--- NOTE | 2024-07-08 12:34 | CM ---
CM reviewed medical records. CM met with patient and son in room. Patient confirmed that he lives with his who is currently recovering from a fall and pelvic fracture. Patient has had a history of VN with [facility]. Patient has been to Acute Rehab
at [place]. Patient is active with his PCP. Patient uses [facility] in [place]
Patient is agreeable to [facility]. Referral sent to [facility] via material liaison.
--- NOTE | 2024-07-08 12:47 | W.PN.CARDCBS ---
Addendum entered and electronically signed by Ayde Whaley MD 07/08/24 14:00:
I saw and examined the patient.
The Grain Drier Operator's note was reviewed and I agree with the note.
Comment: Patient seen and independently examined by me. He presented with heart failure with reduced ejection fraction. He is diuresing. He is feeling better overall. Still with some edema. Guideline directed medical therapy is limited given
low blood pressure. He also has chronic kidney disease. Continue diuresis. Will give an extra dose of IV Lasix today. Discussed with the patient and his son at the bedside. Continue to follow electrolytes. Hopefully he will be nearing
euvolemic status tomorrow. He will then follow-up with usual char filter tank tender head to determine next steps in management given cardiomyopathy with heart failure with reduced ejection fraction, moderate to severe MR with comorbidities.
Original Note:
Today's Communication / Plan
-
continue IV diuresis
follow Cr
Impression / Plan
-
PCP: Dr. Song
Cardiology: Dr. Gillis
IMPRESSION:
Presentation with LE edema
Acute on chronic HFrEF
ICM EF 30% by echo 05/04/24
h/o Cardiorenal syndrome
CKD 4
CAD
s/p CABG x 3 (COLEMAN - LAD, seq SVG to OM1 to RPLB) 09/19
s/p PCI with JENIFFER to SVG to OM1 to RPLB 10/29/11
s/p acute inferior HI S/P PCI with RCA stent (02/19/17)
s/p Re-op CABG x 2 (left saphenous vein as sequential graft to LAD then to OM1) vein graft tear, anterior wall of RV tear and divided COLEMAN at time of CABG 12/20/19
h/o long admission (46 days) to [facility] for LVAD eval and eventual ICD placement at time of complicated redo CABG 12/2019
h/o left groin abscess with flap closure and VAC treatment 06/2020
s/p [employer] single chamber ICD
Paroxysmal Afib
s/p PVI 08/04/17
Chronic Xarelto OAC
HTN
Orthostasis on midodrine
Hyperlipidemia
Former tobacco use
ELI
GERD/Caballero's esophagus
S/p Schatzki's ring dilatation
Severe LAUREN stenosis S/p stent (01/10/2015)
Severe LICA stenosis S/p stent (10/05/2010)
Hx Prostate Ca S/p robotic prostatectomy (2009)
s/p right inguinal herniorrhaphy (1992)
ECHO 12/23/19: with severe left ventricular systolic dysfunction ejection fraction 15�20%. New compared to preoperative echocardiogram
Echo at [facility] 02/2020: EF 36%
Echo 06/26/20: Mildly dilated LV, EF 25-30%, inferior, septal, anteroseptal, apical akinesis with hypokinesis remaining. EF was 40% by Valle, 25-30% visually, mildly dilated and hypokinetic RV, ICD wire, dilated left atrium, mild MR, aortic
sclerosis, moderate TR, pulmonary artery pressure 37-42 mmHg
Echo 05/04/24: EF 30%, akinesis of the septum and inferior de jesus, stage III diastolic dysfunction, moderate to severe MR, moderate TR with PAP 45 mmHg
PLAN:
-Patient presents with worsening LE edema and acute HF with h/o cardiorenal syndrome.
-He is responding well to IV Lasix diuresis. Will give additional IV dose 40mg now. He was taking 20 mg daily prior to admission.
-creatinine improved slightly to 2.1. baseline Cr 2-2.5.
-CXR without acute abnormality
-Cont outpatient dose of midodrine 10 mg TID
-Also recently recommended a THANH to reassess MR and evaluated for possible MitraClip, would wait until he has diuresed more and consider repeating echo to reassess. He is not keen on procedures at this time
-Known paroxysmal Afib, but none was seen on device check in the office 06/25/24.
-Cont renally dosed Xarelto 15 mg daily. CrCl is 27.
-d/w patient and son at bedside
.
Progress Note - Bun Panner
Subjective
Date of Service: July 08, 2024
diuresing well. LE edema improving
Objective
Labs:
07/08/24 06:06
07/08/24 06:06
Labs
Hgb 9.1 g/dL (13.0-18.0) L 07/08/24 06:06
Hct 28.9 % (39.0-52.0) L 07/08/24 06:06
Plt Count 139 10^3/uL (130-400) 07/08/24 06:06
Sodium 140 mmol/L (135-145) 07/08/24 06:06
Potassium 3.9 mmol/L (3.5-5.1) 07/08/24 06:06
BUN 46 mg/dl (9-20) H 07/08/24 06:06
Creatinine 2.1 mg/dL (0.7-1.3) H 07/08/24 06:06
Glucose 83 mg/dl (70-99) 07/08/24 06:06
Vital Signs and I&O:
Vital Signs
Temp Pulse Resp BP Pulse Ox
98.5 F 63 13 105/68 98
07/07/24 19:00 07/08/24 12:46 07/08/24 11:45 07/08/24 12:46 07/07/24 17:59
Vital Signs
Temp Pulse Resp BP Pulse Ox
98.5 F 63 13 105/68 98
07/07/24 19:00 07/08/24 12:46 07/08/24 11:45 07/08/24 12:46 07/07/24 17:59
Intake & Output
07/06/24 07/07/24 07/08/24 07/09/24
07:59 07:59 07:59 07:59
Output Total 1225 / 1225
Balance -1225 / -1225
Physical Exam
Physical Exam
GEN: No distress, awake, alert, oriented x3
HEENT: supple, anicteric, mmm, eomi
LUNGS: CTA B/L, no wheezes/rales
CV: Reg, S1/S2, 2/6 syst LSB
ABD: soft, BS+, NT/ND
EXT: No cyanosis, clubbing. 1+ edema of B/L LE
NEURO: Gross non-focal
SKIN: Warm, pink, dry. No rash
--- NOTE | 2024-07-08 13:00 | W.PN.NEPH.PH ---
Today's Communication / Plan
-
cont diuresis
follow labs
Assessment/Plan
-
IMP:
Acute on chronic HFrEF
ICM EF 30% by echo 05/04/24
h/o Cardiorenal syndrome
Ischemic cardiomyopathy EF 30%, DD stage3, mod to severe MR, mod TR
CKD 4-baseline cr 2, Dr Garcia
CAD complex history s/p CABG
s/p [employer] single chamber ICD
Paroxysmal Afib
HTN
Orthostasis on midodrine
Hyperlipidemia
Former tobacco use
ELI
GERD/Caballero's esophagus
S/p Schatzki's ring dilatation
Severe LAUREN stenosis S/p stent (01/10/2015)
Severe LICA stenosis S/p stent (10/05/2010)
Hx Prostate Ca S/p robotic prostatectomy (2009)
Plan;
A/w increasing LE edema despite increasing lasix
CKD-cr seem to be stable at baseline
cont IV lasix per cards
BP stable, cont midodrine with known orthostatic hypotension
follow labs
possible eval for mitral clip when more stabilized
follow h/h-decreasing on AC
d/w pt
-
-
Date of Service: July 08, 2024
CC / HPI / ROS
-
Chief Complaint:
ckd
History of Present Illness:
cr better at 2.1
k at 3.9
wt decreasing
hb low at 9.1
Review of Systems:
no cp or sob at rest
edema improving
Labs
-
Labs:
WBC 5.3 10^3/uL (4.8-10.8) 07/08/24 06:06
RBC 3.67 10^6/uL (4.70-6.10) L 07/08/24 06:06
Hgb 9.1 g/dL (13.0-18.0) L 07/08/24 06:06
Hct 28.9 % (39.0-52.0) L 07/08/24 06:06
Plt Count 139 10^3/uL (130-400) 07/08/24 06:06
Sodium 140 mmol/L (135-145) 07/08/24 06:06
Potassium 3.9 mmol/L (3.5-5.1) 07/08/24 06:06
Chloride 101 mmol/L (98-107) 07/08/24 06:06
Carbon Dioxide 27 mmol/L (22-30) 07/08/24 06:06
BUN 46 mg/dl (9-20) H 07/08/24 06:06
Creatinine 2.1 mg/dL (0.7-1.3) H 07/08/24 06:06
eGFR 32.22 07/08/24 06:06
Glucose 83 mg/dl (70-99) 07/08/24 06:06
Calcium 9.1 mg/dl (8.4-10.2) 07/08/24 06:06
Rhp-G-Uqlsutmpyny Pept 00024 pg/ml 07/07/24 14:42
Albumin 3.4 g/dl (3.5-5.0) L 07/08/24 06:06
Physical Exam
-
Vital Signs:
Vital Signs
Temp Pulse Resp BP Pulse Ox
98.5 F 62 13 105/68 98
07/07/24 19:00 07/08/24 12:57 07/08/24 11:45 07/08/24 12:57 07/07/24 17:59
Cardiovascular:: Regular rate and rhythm
Respiratory:: Bilateral: CTA
Lung Excursion:: Normal
Abdomen:: Nontender and Soft
Extremity Edema:: +1: Bilateral:
Farah Catheter: No
[2024-07-08] MEDS: LIPITOR 20 MG PO (17:43)
[2024-07-08] MEDS: SINGULAIR 10 MG PO (17:44)
[2024-07-08] MEDS: XARELTO 15 MG PO (18:57)
--- NOTE | 2024-07-08 19:32 | PTCARENOTE ---
Pt recieved from ED. AAOx3. VSS WNL. Oriented to unit. Plan of care ongoing.
[2024-07-08] MEDS: TYLENOL 500 MG PO (22:11)
[2024-07-08] MEDS: TOPROL XL 12.5 MG PO (22:11)
[2024-07-08] MEDS: BENADRYL 25 MG PO (22:11)
[2024-07-09 03:06] VITALS: BP 118/69
[2024-07-09 05:15] VITALS: BMI 21.6
[2024-07-09 06:28] LABS: Hematocrit 30.8 % (39.0-52.0); Hemoglobin 9.8 g/dL (13.0-18.0); Mean Corp Hgb Conc. 31.8 g/dL (33.0-37.0); Mean Corpuscular Hgb 25.3 pg (27.0-31.0); Mean Corpuscular Volume 79.6 fL (80.0-94.0); Mean Platelet Volume 12.7 fL (7.4-10.4); Platelet Count 150 10^3/uL (130-400); Red Blood Cell Count 3.87 10^6/uL (4.70-6.10); White Blood Cell Count 5.2 10^3/uL (4.8-10.8)
[2024-07-09 06:54] LABS: Blood Urea Nitrogen 40 mg/dl (9-20); Calcium 9.1 mg/dl (8.4-10.2); Carbon Dioxide 32 mmol/L (22-30); Chloride 99 mmol/L (98-107); Estimated Creatinine Clearance 28 ml/min; Glucose 88 mg/dl (70-99); Potassium 3.5 mmol/L (3.5-5.1); Sodium 142 mmol/L (135-145); eGFR 32.22
[2024-07-09 06:56] LABS: Iron < 20 ug/dl (49-181)
[2024-07-09 07:00] VITALS: BP 132/66
[2024-07-09 07:03] LABS: Total Iron Binding Capacity 436 ug/dl (261-462)
[2024-07-09] MEDS: SYMBICORT 160/4.5 MCG INHALER 2 PUFF INH (07:19)
[2024-07-09] MEDS: ProAmatine 10 MG PO ×3 (08:42→16:36)
[2024-07-09] MEDS: LOW STRENGTH ASPIRIN 81 MG PO (08:42)
[2024-07-09] MEDS: PROTONIX 40 MG PO (08:42)
[2024-07-09] MEDS: ZOLOFT 25 MG PO (08:43)
[2024-07-09] MEDS: PACERONE 200 MG PO (08:43)
[2024-07-09] MEDS: KCL 20 MEQ PO (08:43)
[2024-07-09] MEDS: LASIX 40 MG IV (08:45)
--- NOTE | 2024-07-09 09:39 | W.PN.HOSP.TC ---
Addendum entered and electronically signed by Reagan Barrientos MD 07/11/24 14:10:
CKD stage IV
Original Note:
Today's Communication/Plan
-
Discharge planning today
Assessment / Plan
Assessment / Plan
Physical exam:
General: Acute on chronically ill
HEENT: Normocephalic, Atraumatic and Moist Mucous Membranes
Respiratory: Clear to Auscultation except few crackles in the bases; Negative Wheezes, or Rhonchi
Cardiac: Regular Rhythm and S1/S2
GI: Soft, Nontender and Nondistended
Musculoskeletal: No Clubbing, No Cyanosis and presence of bilateral edema
Neuro: Awake, Alert and Oriented
Psych: Calm
A/P:
# Worsening lower extremities edema likely acute on chronic systolic congestive heart failure
# History of ischemic cardiomyopathy
-Improved
-proBNP 10 100
-Recent echo on 05/04 with Normal left ventricular size. Severely reduced systolic function. LV ejection
fraction is 30%.
-Change IV Lasix to oral Lasix 40 mg twice a day
-Not a candidate for JANE inhibitor or ARB due to renal failure
-Strict RACHEL
-Daily weight
-Fluid restriction
-Cardiology consult appreciated--> cardiology and nephrology cleared for discharge today
# Anemia of chronic disease
-Hemoglobin stable at 10.4--> 9.1--> 9.8
-No active bleeding
-Continue to monitor
# Chronic kidney disease stage 3B
-Creatinine 2.3--> 2.1
-Continue to monitor
-Nephrology consult appreciated
# History of CAD status post CABG. Will continue with aspirin.
#. Paroxysmal atrial fibrillation. We will continue with Xarelto
and amiodarone.
-Obtain EKG
#History of prostate cancer status post robotic prostatectomy.
# Essential hypertension with a history of hypotension. We will
continue with Toprol and Midodrine.
#. Gastroesophageal reflux disease. Continue PPI.
# Obstructive sleep apnea on BiPAP 07/15. Continue with outpatient
inhalers.
#HLD
-statin continued
#anxiety
-sertraline continued
#DVT prophylaxis: The patient is on Xarelto which will be
continued.
#.The patient is a full code.
Anticipated Discharge: Today
Subjective/Interval History
-
Date of Service: July 09, 2024
No new complaints. No chest pain or shortness or shortness of breath
Objective Data
-
Labs:
Laboratory Results
07/09/24
05:22
WBC 5.2
Hgb 9.8 L
Hct 30.8 L
Plt Count 150
Sodium 142
Potassium 3.5
Chloride 99
Carbon Dioxide 32 H
BUN 40 H
Creatinine 2.1 H
Glucose 88
Calcium 9.1
Vital Signs:
Vital Signs
Temp Pulse Resp BP Pulse Ox
97.5 F 63 16 132/66 98
07/09/24 07:00 07/09/24 08:42 07/09/24 07:21 07/09/24 08:42 07/09/24 07:21
I&O
07/08/24 07/09/24 07/10/24
06:59 06:59 06:59
Intake Total 240 / 240
Output Total 1225 / 1225 2150 / 215
Balance -1225 / -1225 -1909 / -1909
--- NOTE | 2024-07-09 10:28 | W.PN.CARDCBS ---
Addendum entered and electronically signed by Esau Kramer MD 07/09/24 15:53:
I saw and examined the patient.
The Spraying Machine Operator's note was reviewed and I agree with the note.
Comment: Briefly, 74-year-old man past medical history of heart failure with reduced ejection fraction and CKD presenting in decompensated heart failure
His main complaint was lower extremity edema which has resolved with IV diuresis
Weight is down and creatinine is stable
Plan to transition to oral Lasix PO 40mg BID, appreciate nephrology input
Stable cardiac status, we will sign off, please recall with questions
Outpatient follow-up has been arranged
Original Note:
Today's Communication / Plan
-
Transition to PO lasix 40mg BID
BMP in 1 week
Follow up arranged
Impression / Plan
-
PCP: Dr. Song
Cardiology: Dr. Gillis
IMPRESSION:
Presentation with LE edema
Acute on chronic HFrEF
ICM EF 30% by echo 05/04/24
h/o Cardiorenal syndrome
CKD 4
CAD
s/p CABG x 3 (COLEMAN - LAD, seq SVG to OM1 to RPLB) 09/19
s/p PCI with JENIFFER to SVG to OM1 to RPLB 10/29/11
s/p acute inferior DC S/P PCI with RCA stent (02/19/17)
s/p Re-op CABG x 2 (left saphenous vein as sequential graft to LAD then to OM1) vein graft tear, anterior wall of RV tear and divided COLEMAN at time of CABG 12/20/19
h/o long admission (46 days) to [facility] for LVAD eval and eventual ICD placement at time of complicated redo CABG 12/2019
h/o left groin abscess with flap closure and VAC treatment 06/2020
s/p [employer] single chamber ICD
Paroxysmal Afib
s/p PVI 08/04/17
Chronic Xarelto OAC
HTN
Orthostasis on midodrine
Hyperlipidemia
Former tobacco use
ELI
GERD/Caballero's esophagus
S/p Schatzki's ring dilatation
Severe LAUREN stenosis S/p stent (01/10/2015)
Severe LICA stenosis S/p stent (10/05/2010)
Hx Prostate Ca S/p robotic prostatectomy (2009)
s/p right inguinal herniorrhaphy (1992)
ECHO 12/23/19: with severe left ventricular systolic dysfunction ejection fraction 15�20%. New compared to preoperative echocardiogram
Echo at [facility] 02/2020: EF 36%
Echo 06/26/20: Mildly dilated LV, EF 25-30%, inferior, septal, anteroseptal, apical akinesis with hypokinesis remaining. EF was 40% by Valle, 25-30% visually, mildly dilated and hypokinetic RV, ICD wire, dilated left atrium, mild MR, aortic
sclerosis, moderate TR, pulmonary artery pressure 37-42 mmHg
Echo 05/04/24: EF 30%, akinesis of the septum and inferior de jesus, stage III diastolic dysfunction, moderate to severe MR, moderate TR with PAP 45 mmHg
PLAN:
-Patient presented with worsening LE edema and acute HF with h/o cardiorenal syndrome.
-Diuresed with IV lasix 40mg BID. Weight down 3lbs overnight, 10 lbs this admission if initial weight accurate. Down to 142 lbs 07/09.
-Creat stable at 2.1. Appears euvolemic on exam. Will transition to PO lasix 40mg BID. Check BMP in 1 week.
-Continue midodrine 10mg TID. BP stable.
-Most recent echo with EF 30% and moderate to severe MR. Discussions have been ongoing as OP to consider THANH as part of MitraClip eval. Will assess as OP.
-Known paroxysmal Afib, but none was seen on device check in the office 06/25/24.
-Cont renally dosed Xarelto 15 mg daily. CrCl is 27.
-Follow up arranged.
Progress Note - Varnishing Machine Operator
Subjective
Date of Service: July 09, 2024
Feeling much better. Edema improved.
Objective
Labs:
07/09/24 05:22
07/09/24 05:22
Labs
Hgb 9.8 g/dL (13.0-18.0) L 07/09/24 05:22
Hct 30.8 % (39.0-52.0) L 07/09/24 05:22
Plt Count 150 10^3/uL (130-400) 07/09/24 05:22
Sodium 142 mmol/L (135-145) 07/09/24 05:22
Potassium 3.5 mmol/L (3.5-5.1) 07/09/24 05:22
BUN 40 mg/dl (9-20) H 07/09/24 05:22
Creatinine 2.1 mg/dL (0.7-1.3) H 07/09/24 05:22
Glucose 88 mg/dl (70-99) 07/09/24 05:22
Vital Signs and I&O:
Vital Signs
Temp Pulse Resp BP Pulse Ox
97.5 F 63 16 132/66 98
07/09/24 07:00 07/09/24 08:42 07/09/24 07:21 07/09/24 08:42 07/09/24 07:21
Vital Signs
Temp Pulse Resp BP Pulse Ox
97.5 F 63 16 132/66 98
07/09/24 07:00 07/09/24 08:42 07/09/24 07:21 07/09/24 08:42 07/09/24 07:21
Intake & Output
07/07/24 07/08/24 07/09/24 07/10/24
06:59 06:59 06:59 06:59
Intake Total 240 / 240
Output Total 1225 / 1225 2150 / 2150
Balance -1225 / -1225 -1910 / -1909
Physical Exam
Physical Exam
GEN: No distress, awake, alert, oriented x3
HEENT: supple, anicteric, mmm, eomi
LUNGS: CTA B/L, no wheezes/rales
CV: Reg, S1/S2, 2/6 syst LSB
ABD: soft, BS+, NT/ND
EXT: No cyanosis, clubbing, or edema
NEURO: Gross non-focal
SKIN: Warm, pink, dry. No rash
--- NOTE | 2024-07-09 10:53 | W.HF.CON ---
Heart Failure
- LV Function
Left ventricular function study result: LV Ejection fraction </= 35% (ECHO 05/04/24)
Ejection Fraction Percentage: 30
- ARNI
Patient already on ARNI: No
Heart Failure ARNI Contraindication: Hypotension, Worsening Renal Function
- ACEI/ARB
Patient already on ACEI/ARB: No
Heart Failure ACEI/ARB Contraindication: Hypotension, Worsening Renal Function
- Beta Eduard
Patient already on Evidence Based Beta Eduard: Yes
- Mineralocorticord Receptor Antagonist
Patient already on MRA: No
Heart Failure MRA Contraindication: Acute Renal Insufficiency, Hypotension
- SGLT-2 Inhibitor
Patient already on SGLT-2 Inhibitor: No
Heart Failure SGLT-2 Inhibitor Contraindication: Patient Refusal
- Afib Anticoagulation
Patient already on Anticoagulation for Afib: Yes
- NYHA CHF Classification
NYHA CHF Classification Level: Class III - Symptoms w/ min exertion, interferes w/ nml daily activity
- ACC/AHA Stage
ACC/AHA Stage: Stage C: Symptomatic Heart Failure
[2024-07-09 11:21] VITALS: BP 111/62
--- NOTE | 2024-07-09 12:25 | VNURNOTE ---
Home Health Liaison met with patient at bedside to discuss [facility] nurse/therapy, visits, schedule and homebound status. Patient is agreeable and understands that visits at home will be 2-3 x per week to assess and teach medical management. He reports
his spouse is current with [facility].
He declined [facility] brochure. Patient is aware that [facility] will contact them for start of care in 1-2 days after discharge from .
[facility] referral completed in [facility].
--- NOTE | 2024-07-09 12:51 | W.PN.NEPH.PH ---
Today's Communication / Plan
-
po lasix
Assessment/Plan
-
IMP:
Acute on chronic HFrEF
ICM EF 30% by echo 05/04/24
h/o Cardiorenal syndrome
Ischemic cardiomyopathy EF 30%, DD stage3, mod to severe MR, mod TR
CKD 4-baseline cr 2, Dr Garcia
CAD complex history s/p CABG
s/p [employer] single chamber ICD
Paroxysmal Afib
HTN
Orthostasis on midodrine
Hyperlipidemia
Former tobacco use
ELI
GERD/Caballero's esophagus
S/p Schatzki's ring dilatation
Severe LAUREN stenosis S/p stent (01/10/2015)
Severe LICA stenosis S/p stent (10/05/2010)
Hx Prostate Ca S/p robotic prostatectomy (2009)
Plan;
continue midodrine
po lasix BID
f/u Dr. Garcia as before
dc planning
-
-
Date of Service: July 09, 2024
CC / HPI / ROS
-
Chief Complaint:
ckd
History of Present Illness:
cr better at 2.1 stable
k normal
on midodrine with stable BP
hb low at 9.8 stable
Review of Systems:
no cp or sob at rest
edema improved
Labs
-
Labs:
WBC 5.2 10^3/uL (4.8-10.8) 07/09/24 05:22
RBC 3.87 10^6/uL (4.70-6.10) L 07/09/24 05:22
Hgb 9.8 g/dL (13.0-18.0) L 07/09/24 05:22
Hct 30.8 % (39.0-52.0) L 07/09/24 05:22
Plt Count 150 10^3/uL (130-400) 07/09/24 05:22
Sodium 142 mmol/L (135-145) 07/09/24 05:22
Potassium 3.5 mmol/L (3.5-5.1) 07/09/24 05:22
Chloride 99 mmol/L (98-107) 07/09/24 05:22
Carbon Dioxide 32 mmol/L (22-30) H 07/09/24 05:22
BUN 40 mg/dl (9-20) H 07/09/24 05:22
Creatinine 2.1 mg/dL (0.7-1.3) H 07/09/24 05:22
eGFR 32.22 07/09/24 05:22
Glucose 88 mg/dl (70-99) 07/09/24 05:22
Calcium 9.1 mg/dl (8.4-10.2) 07/09/24 05:22
Dry-H-Moabkpxcpon Pept 29191 pg/ml 07/07/24 14:42
Albumin 3.4 g/dl (3.5-5.0) L 07/08/24 06:06
Physical Exam
-
Vital Signs:
Vital Signs
Temp Pulse Resp BP Pulse Ox
97.6 F 67 16 111/62 100
07/09/24 11:21 07/09/24 11:21 07/09/24 11:21 07/09/24 11:21 07/09/24 11:21
Cardiovascular:: Regular rate and rhythm
Respiratory:: Bilateral: CTA
Lung Excursion:: Normal
Abdomen:: Nontender and Soft
Bowel Sounds:: Normal
Extremity Edema:: +1: Right: and None: Left:
--- NOTE | 2024-07-09 12:59 | PN.CDI ---
CDI
- -
CDI:
Physician Documentation Request
Admit Date: 07/07/24 16:34
Dear Doctor Floyd,
Patient admitted with heart failure. Noted to have a history of CKD.
Hospitalist progress notes refer to the CKD as stage 3B.
Nephrology as CKD 4
In an attempt to clarify potentially conflicting documentation, please clarify which of the following accurately represents the patient's renal status:
____ - CKD 3b
____ - CKD 4
____ - Other
Stages of Chronic Kidney Disease*
Level Description GFR
G1 Normal or High >90
G2 Mildly decreased 60-89
G3a Mildly to moderately decreased 45-59
G3b Moderately to severely decreased 30-44
G4 Severely decreased 15-29
G5 Kidney failure <15
Use of terms such as suspected, likely, concern for, or probable (associated with a specific diagnosis that is being evaluated, monitored, or treated as if it exists) are acceptable and can be coded in the inpatient setting, when documented at the
time of discharge.
Thank you,
Tessa Gorman RN, BSN
CDI Specialist
tiger text
Please use your independent medical judgment in providing your response.
*Source: Kidney Disease: Improving Global Outcomes (KDIGO) 2012
--- NOTE | 2024-07-09 14:43 | W.DCSUMMARY ---
Discharge Summary
Discharge Data
Date of Admission: 07/07/24
Date of Discharge: 07/09/24
-
Pending Results: No
Hospital Course
Patient is 74 years old male with history of ischemic cardiomyopathy, CAD, chronic heart failure with reduced ejection fraction around 30% status post AICD, CKD, hypotension on midodrine, paroxysmal atrial fibrillation on chronic anticoagulation,
presented to the hospital with shortness of breath found to be in heart failure exacerbation. Patient was treated with IV Lasix. Cardiology and nephrology were consulted. GDMT medications were limited by renal failure and hypotension. Patient
improved substantially. Weight down appropriately. Nephrology was okay with switch to oral diuretics. Cardiology switched to oral diuretics and cleared him for discharge today. Creatinine 2.1 upon discharge. No other events were noticed. He is
going to be discharged in relatively stable condition today.
Discharge duration: 35-minutes
Discharge Plan
-
Patient Disposition: Home (Routine Discharge)
Discharge Diagnosis/Procedures: Acute on chronic systolic congestive heart failure. Chronic kidney disease stage IV. Cardiorenal syndrome. Paroxysmal atrial fibrillation. Coronary artery disease.
Diet: 2 Gram Sodium
Activity: As tolerated
Blood Work: Please PCP to order CBC, BMP within 1 week
Specialty Instructions: Weigh Daily- Call MD for wt gain/loss 3 lbs overnight/5 lbs in 1 week
Instructions: *[facility] Heart Failure Instructions
Referrals:
Mirna Agosto CRNP [Specified Professional Personl] - 07/22/24 9:00 am (You have a cardiology follow up appointment at the [place] office with Dr. Gillis's nurse practitioner, Mirna. Please call with questions. )
Justice Cespedes MD [Active] - 07/16/24 2:00 pm
Talib Song DO [Family Provider] - in less than 1 week
Prescriptions:
Continued
omega 7-moo-hsp-fish oil [Fish Oil] 1 EACH capsule
2 ea PO NOON
amiodarone [Pacerone] 200 MG tablet
200 mg PO DAILY
nitroglycerin 0.4 MG tablet, sublingual
0.4 mg sublingual [id number] PRN (Reason: chest pain)
sertraline 25 MG tablet
25 mg PO DAILY
metoprolol succinate 25 MG tablet extended release 24 hr
12.5 mg PO HS
melatonin 5 MG tablet
5 mg PO HSPRN PRN (Reason: sleep)
multivitamin with folic acid [Tab-A-Rickey] 1 TABLET tablet
1 tab PO NOON
aspirin 81 MG tablet,chewable
81 mg PO DAILY 0RF
pantoprazole 40 MG tablet,delayed release (DR/EC)
40 mg PO DAILY Qty: 0 0RF
potassium chloride [Klor-Con M20] 20 MEQ tablet,ER particles/crystals
20 meq PO BID
docusate sodium 100 MG capsule
100 mg PO DAILYPRN PRN (Reason: constipation)
Xarelto 15 MG tablet
15 mg PO QPM
montelukast [Singulair] 10 mg Tablet
10 mg PO QPM
furosemide 40 mg Tablet
40 mg PO BID
atorvastatin 20 mg Tablet
20 mg PO QPM
ipratropium-albuterol 0.5 mg-3 mg(2.5 mg base)/3 mL Solution For Nebulization
3 ml INHALATION R Q6HPRN PRN (Reason: sob)
albuterol sulfate 90 mcg/actuation Hfa Aerosol Inhaler
1 inh INHALATION R Q6HPRN PRN (Reason: sob)
diphenhydramine-acetaminophen [Tylenol PM Extra Strength] 25-500 mg Tablet
1 tab PO HS
midodrine 10 mg Tablet
10 mg PO TID
coenzyme Q10 [CoQ-10] 100 mg Capsule
100 mg PO DAILY
Systane (PF) 0.4-0.3 % Dropperette
1 drp BOTH EYES Q6HPRN PRN (Reason: dry eyes)
budesonide-formoterol [Symbicort] 160-4.5 mcg/actuation Hfa Aerosol Inhaler
2 puff INHALATION R BID
cholecalciferol (vitamin D3) [Vitamin D3] 50 mcg (2,000 unit) Tablet
100 mcg PO DAILY
Discharge Orders:
Discharge Patient (As Directed); Ordered 07/09/24
Ordered By: Reagan Barrientos
Discharge Date and Time
Discharge Date/Time: 07/09/24 17:27
Print Language: ROMANSH
[2024-07-09 15:03] VITALS: BP 102/55
--- NOTE | 2024-07-09 15:46 | CM ---
Chart reviewed and CM and spoke with the patient and his spouse at the bedside. Porfirio lives with his , Kathleen, in a one story home with four entry steps. The patient uses a single point cane with ambulation; he is current with [facility]; no
history of SNF or inpatient rehab.
CM continues to be available to patient/family and is monitoring medical plan for needs at discharge.
Plan: Discharge to home with resumption of [facility] services.
[2024-07-09 16:21] VITALS: BP 102/55
[2024-07-09] MEDS: LASIX 40 MG PO (16:36)
== END 2024-07-09 17:27 | disposition home health service (06) | DRG 291 ==
LOC: 4 EAST ACU 16:34
PROVIDERS: Registered Nurse; ADMITTING PHYSICIAN Internal Medicine; ATTENDING PHYSICIAN Hospitalist; CONSULT PHYSICIAN Internal Medicine; CONSULT PHYSICIAN Internal Medicine Cardiovascular Disease; EMERGENCY PHYSICIAN Emergency Medicine; FAMILY PHYSICIAN Internal Medicine
DX: I13.0 Hypertensive heart and chronic kidney disease with heart failure and stage 1 through stage 4 chronic kidney disease, or unspecified chronic kidney disease (principal); I50.23 Acute on chronic systolic (congestive) heart failure; N18.4 Chronic kidney disease, stage 4 (severe); I48.0 Paroxysmal atrial fibrillation; I25.5 Ischemic cardiomyopathy; D63.1 Anemia in chronic kidney disease; I25.10 Atherosclerotic heart disease of native coronary artery without angina pectoris; Z79.01 Long term (current) use of anticoagulants; Z79.82 Long term (current) use of aspirin; Z95.5 Presence of coronary angioplasty implant and graft; Z95.810 Presence of automatic (implantable) cardiac defibrillator
CPT/HCPCS: 71046; 80048; 80053; 80061; 82248; 82728; 83540; 83550; 83735; 83880; 84439; 84443; 85025; 85027; 93005; 93971; 94640; 94660; 97116; 97162; 99284

== ENCOUNTER → 2024-07-15 17:36 | Outpatient (REF) | payer MEDICARE, OTHER, SELFPAY ==
[2024-07-15 19:57] LABS: Blood Urea Nitrogen 46 mg/dl (9-20); Calcium 9.6 mg/dl (8.4-10.2); Carbon Dioxide 24 mmol/L (22-30); Chloride 99 mmol/L (98-107); Glucose 104 mg/dl (70-99); Potassium 4.8 mmol/L (3.5-5.1); Sodium 140 mmol/L (135-145); eGFR 32.22
== END ==
LOC: CLAB 17:36
PROVIDERS: ATTENDING PHYSICIAN Internal Medicine
DX: I50.23 Acute on chronic systolic (congestive) heart failure (principal); N18.4 Chronic kidney disease, stage 4 (severe)
CPT/HCPCS: 36415; 80048

== ENCOUNTER → 2024-09-07 10:33 | Outpatient (REF) | payer MEDICARE, OTHER, SELFPAY ==
[2024-09-07 12:14] LABS: % Basophils 0.6 % (0-2); % Immature Granulocytes 0.3 % (0-0.5); % Lymphocytes 19.9 % (20.5-51.1); % Monocytes 13.2 % (1.7-9.3); Absolute Eosinophils 0.1 10^3/uL (0-0.7); Absolute Lymphocytes 1.4 10^3/uL (1.2-3.4); Absolute Monocytes 0.9 10^3/uL (0.1-0.6); Absolute Neutrophils 4.6 10^3/uL (1.4-6.5); Hemoglobin 9.5 g/dL (13.0-18.0); Mean Corp Hgb Conc. 28.8 g/dL (33.0-37.0); Mean Corpuscular Hgb 21.4 pg (27.0-31.0); Mean Corpuscular Volume 74.5 fL (80.0-94.0); Nucleated Red Blood Cells % 0.4 % (-); Platelet Count 178 10^3/uL (130-400); Red Blood Cell Count 4.43 10^6/uL (4.70-6.10); Red Cell Dist. Width 20.3 % (11.5-14.5)
[2024-09-07 12:33] LABS: Total Iron Binding Capacity 479 ug/dl (261-462)
[2024-09-07 12:35] LABS: Iron < 20 ug/dl (49-181)
[2024-09-07 13:17] LABS: Ferritin 23.7 ng/ml (17.9-464.0)
== END ==
LOC: REG 10:33
PROVIDERS: ATTENDING PHYSICIAN Internal Medicine; OTHER PHYSICIAN Internal Medicine; OTHER PHYSICIAN Internal Medicine Cardiovascular Disease
DX: D64.9 Anemia, unspecified (principal)
CPT/HCPCS: 36415; 82728; 83540; 83550; 85025

== ENCOUNTER 2024-09-15 09:32 | Day surgery (SDC) | payer MEDICARE, OTHER, SELFPAY ==
[2024-09-15 07:32] VITALS: BMI 24.7
[2024-09-15 07:33] VITALS: BP 129/83
[2024-09-15] MEDS: AKTEN OPHTHALMIC GEL 1 ML OPHTH (07:54)
[2024-09-15] MEDS: ACUVAIL 1 DROPS OPHTH (07:54)
[2024-09-15] MEDS: CYCLOGYL 1% EYE DROPS 1 DROP OPHTH (07:54)
[2024-09-15] MEDS: PRED FORTE 1% EYE DROPS 1 DROP OPHTH (07:54)
[2024-09-15 07:55] VITALS: BMI 24.7
[2024-09-15] MEDS: ALCAINE 0.5% EYE DROPS 1 DROP OPHTH (07:55)
[2024-09-15] MEDS: NEO-SYNEPHRINE 2.5% OPH SOL. 1 DROP OPHTH (07:55)
[2024-09-15] MEDS: MYDRIACYL 1 DROP OPHTH (07:55)
[2024-09-15] MEDS: POLYTRIM OPHTHALMIC SOLUTION 1 DROP OPHTH (07:55)
[2024-09-15 07:56] VITALS: BP 129/83
[2024-09-15 10:24] VITALS: BP 121/64
[2024-09-15 10:40] VITALS: BP 124/64
== END 2024-09-15 10:54 | disposition home or self-care (01) ==
LOC: SDS 09:32
PROVIDERS: ATTENDING PHYSICIAN Ophthalmology
DX: H25.812 Combined forms of age-related cataract, left eye (principal)
CPT/HCPCS: 66984; V2632

== ENCOUNTER 2024-09-23 06:41 | Day surgery (SDC) | payer MEDICARE, OTHER, SELFPAY ==
[2024-09-23] MEDS: MYDRIACYL 1 DROP OPHTH (13:02)
[2024-09-23] MEDS: NEO-SYNEPHRINE 2.5% OPH SOL. 1 DROP OPHTH (13:02)
[2024-09-23] MEDS: CYCLOGYL 1% EYE DROPS 1 DROP OPHTH (13:02)
[2024-09-23] MEDS: PRED FORTE 1% EYE DROPS 1 DROP OPHTH (13:03)
[2024-09-23] MEDS: ALCAINE 0.5% EYE DROPS 1 DROP OPHTH (13:03)
[2024-09-23] MEDS: ACUVAIL 1 DROPS OPHTH (13:03)
[2024-09-23] MEDS: AKTEN OPHTHALMIC GEL 1 ML OPHTH (13:03)
[2024-09-23] MEDS: POLYTRIM OPHTHALMIC SOLUTION 1 DROP OPHTH (13:04)
[2024-09-23 13:05] VITALS: BMI 24.7
[2024-09-23 13:06] VITALS: BMI 24.7
[2024-09-23 13:12] VITALS: BP 135/71
[2024-09-23 14:29] VITALS: BP 143/83
[2024-09-23 14:50] VITALS: BP 132/83
== END 2024-09-23 15:04 | disposition home or self-care (01) ==
LOC: SDS 06:41
PROVIDERS: ATTENDING PHYSICIAN Ophthalmology
DX: H25.811 Combined forms of age-related cataract, right eye (principal)
CPT/HCPCS: 66984

== ENCOUNTER 2024-10-04 20:58 | Inpatient (IN) | payer MEDICARE, OTHER, SELFPAY ==
[2024-10-04] VITALS (7 sets, daily range): BP systolic 121–130; BP diastolic 71–82; BMI 25.1
--- NOTE | 2024-10-04 16:02 | ED.GENMED ---
ED Provider Triage
<Deandra Peterson SENIOR CONTROLS ANALYST - Last Filed: 10/04/24 16:08>
-
Patient seen by provider in Triage?: Seen in Triage
Attestation: A medical screening examination has been initiated by a qualified medical provider. Based on the assessment performed at this time, it has been determined that an emergent medical condition may exist and the patient has been informed
that further medical evaluation and possible additional diagnostic testing may be needed.
HPI: 74 yo male here from Cardiology office saw Dr. Alves and sent here for 'edema.' From the hips all the way down to the toes, increasing over past 3-4 weeks. About 3 weeks ago, PCP increased Furosemide from 20 mg daily to 40 mg - and 20 mg
the other days
Gained 15 lbs past 3 months
Denies CP,SOB
GENERAL: Alert , in no apparent distress
EYE: No visual abnormalities.
ENT: No visible abnormalities.
LUNGS: No acute respiratory distress
NEUROLOGICAL: Alert and oriented
SKIN: Skin intact. No visible changes.
MUSCULOSKELETAL: Moving extremities normally
PSYCH: Normal and appropriate interaction.
This is a medical evaluation conducted in person to initiate diagnostic evaluation and provide initial therapeutics. Please see further documentation by the treating clinician.
History of Present Illness
<Deandra Peterson SENIOR CONTROLS ANALYST - Last Filed: 10/04/24 16:08>
General
Chief Complaint: Swelling
Time Seen by Provider: 10/04/24 18:06
<IDALMIS Zuñiga - Last Filed: 10/04/24 20:56>
General
Source: patient
Exam Limitations: none
History of Present Illness
History of Present Illness:
This is a 74 year old male that comes in with c/o leg edema. States that he went to see the [facility] today and was sent to the ER. State that from the waist down he has edema. States that this started 3 weeks ago and that he has increased
15pounds in the past 3 months. States that he has had chills, some SOB, abd pain, headache and he has very little urine output. Denies any fever, chest pain, nausea, vomiting, diarrhea, dizziness, urinary burning.
Past History
<Deandra Peterson NP - Last Filed: 10/04/24 16:08>
Past History
ED Past Medical History: Arrthythmia (paf), CAD, Cancer (prostate), HTN, Hypercholesterolemia, [place] and Other (BRIGHT)
ED Past Surgical History: Cardiac (ablation, cah, pacer)
Social History
Tobacco: Non-smoker
Alcohol: Occasional
Drug: None
Personal:
Living: with family
<IDALMIS Zuñiga - Last Filed: 10/04/24 20:56>
Past History
ED Past Medical History: Arrthythmia (Atrial fib), Asthma, CAD, CHF, GERD, HTN, Hypercholesterolemia, [place], Psychiatric (Anxiety, ) and Other (Headache, Numbness arms and legs. Sleep apnea, Bipap, Caballero's esophagus, Hiatal hernia, Eczema, Iron def
anemia)
ED Past Surgical History: Cardiac (Defib, CABG, Stents, Left and right carotid stents, ), Urological (Prostatectomy, ) and Other (Hemorrhoids, cataracts, Deviated septum, Hernia repair, )
Social History
Tobacco: Non-smoker
Alcohol: None
Personal:
Living: with family
Review of Systems
<IDALMIS Zuñiga - Last Filed: 10/04/24 20:56>
Review of Systems
All Other Systems: ROS reviewed and negative except as documented in HPI and ROS
Constitutional: Reports chills; Denies fever
EENT: Reports no symptoms
Respiratory: Reports trouble breathing; Denies cough
Cardiac: Reports no symptoms; Denies chest pain
ABD/GI: Reports abdominal pain; Denies nausea, vomiting or diarrhea
: Reports other (Very little urine output)
Musculoskeletal: Reports edema (Feet into thighs)
Skin: Reports no symptoms
Neurological: Reports headache; Denies dizzy
Psychiatric: Reports no symptoms
Phy Exam
<IDALMIS Zuñiga - Last Filed: 10/04/24 20:56>
General Physical Exam
General Presentation: no apparent distress
General age: appears stated age
General Skin: warm and dry
General Habitus: elderly
General Mental: alert
General Hydration: appears well hydrated
ENT Exam
ENT Exam: TM's normal, pharynx normal and neck supple
Eye Exam
Eye Exam: EOMI
Cardiovascular Exam
Cardiovascular Exam: regular rate/rhythm, normal peripheral pulses and other (Murmur)
Pulmonary Exam
Pulmonary Exam: no respiratory distress, chest non tender, no rhonchi, no wheezing, no cough and other (Fine rales at bases with Decreased breath sounds left base)
Gastrointestinal Exam
Gastrointestinal Exam: normal bowel sounds, non tender, soft, no organomegaly, no pulsatile mass and non distended
Musculoskeletal Exam
Musculoskeletal Exam: full ROM and edema ( Bilateral Pitting edema +2 from feet into thighs)
Skin Exam
Skin Exam: normal color, warm/dry, no rash and no petechia
Psychiatric Exam
Psychiatric Exam: normal mood/affect
Scores
<IDALMIS Zuñiga - Last Filed: 10/04/24 20:56>
Heart Failure Risk
Heart Failure Risk Score: Yes
History of Stroke or TIA: No
History of intubation for respiratory distress: No
Heart rate on ED arrival >/= 110: No
SaO2 <90% on arrival on room air: No
HR >/=110 during 3min walk test (or too ill to perform test): Yes
ECG has acute ischemic changes: No
Urea >/=12mmol/L (BUN 33.6mg/dL): Yes
Serum CO2>/=35mmol/L: No
Troponin I or T elevated to [place] Level (0.4mg/dL): No
NT-proBNP >/=5,000ng/L (5,000pg/ml): Yes
HF Risk Score: 4
Admission Status: HIGH RISK 26.1% Consider SNF treatment or admission to hospital
<Matt Herbert DO - Last Filed: 10/04/24 23:28>
Heart Failure Risk
HF Risk Score: 4
Admission Status: HIGH RISK 26.1% Consider SNF treatment or admission to hospital
Course
<Deandra Peterson, SENIOR CONTROLS ANALYST - Last Filed: 10/04/24 16:08>
Orders/Labs/Results
Orders:
Orders
10/04/24 Dinner
Cholesterol Lowering
At Your Request: Full Participation
Cholesterol Lowering: Sodium, 2 Gram
10/04/24 15:54
Electrocardiogram (*1) Urgent
Reason for Study: Heart Failure, Left
10/04/24 15:55
EKG- Treatment ONCE
10/04/24 16:13
Complete Blood Count/With Diff Urgent
Comprehensive Metabolic Panel Urgent
NT-proBNP Urgent
Troponin I Urgent
10/04/24 18:40
CR Chest - 2 Views Urgent
Comment:
Reason For Exam: SOB
10/04/24 18:51
Furosemide [Lasix] 40 mg IV NOW STA
10/04/24 19:38
Urinalysis Reflex To Culture Urgent
Date Specimen was Collected: 10/04/24
Time Specimen was Collected: 19:37
10/04/24 20:13
Admit/Transfer Patient As Directed
Co-Sign Provider:
Level of Care: Inpatient admission
Assign to:: Telemetry
Physician / Group: hospitalist
Diagnosis: CHF exacerbation
Reason for Telemetry: Subacute Heart Failure
Date to Stop Telemetry: 10/06/24
Time to Stop Telemetry: 11:00
Reason for Hospitalization: heart failure
Expected length of stay greater than two midnights?: Yes
ELOS- Estimated Length of Stay in days: 2
I certify the patient meets the requirements for IP care: Yes
10/04/24 20:14
PRN Pain Medication Management As Directed
May give lesser potent ordered pain med per pt: Yes
preference::
Protocol:: Medication orders for pain may be administered in a
manner that supports deferring to patient preference
when the pt is:
- Requesting an ordered lesser potent pain medication.
Least to most potent pain medications are defined
as: acetaminophen < NSAID < tramadol < opioids
(morphine, oxycodone, hydromorphone).
- Requesting a lesser dose of the same medication IF
ORDERED.
- Requesting a less intrusive route of administration
if both routes are prescribed by the provider (PO <
IV).
10/04/24 20:16
Code Status As Directed
Resuscitation Status: Full Code
10/04/24 22:22
Acetaminophen [Tylenol] 650 mg PO Q6HPRN PRN
Artificial Tears (Pf) [Refresh Eye Drops (Pf)] 1 drops BOTH EYES Q6HPRN PRN
Docusate Sodium [Colace] 100 mg PO DAILYPRN PRN
Ipratropium/Albuterol Sulfate [Duoneb] 3 ml INH R Q6HPRN PRN
Montelukast Sodium [Singulair] 10 mg PO HS
Nitroglycerin Sublingual [Nitrostat (Sublingual)] 0.4 mg SL [id number] PRN
[id number] See Dose Instructions OPHTH TID
10/04/24 22:22
VTE Contraindication Routine
VTE Mechanical Device Contraindication: Medical Contraindication
Pharmocologic Contraindication: Medical Contraindication
Comment: on xarelto
Activity As Directed
Activity Level: With Assistance
Intake/ Output As Directed
Frequency: Per unit guidelines
Patient Education As Directed
Type: CHF folder
Comment: give on admission. Document in Interdisciplinary Education record
Sleep Apnea Assessment by RN As Directed
Comment:
Physician Instructions:
Vital Signs As Directed
Frequency: Other
Additional Instructions:: Q12 or per unit guidelines if more frequent.
Weight As Directed
Frequency: Daily
Type of Scale: Standing Scale
Comment: Daily morning weight. If unable to stand, use balanced bed scale.
Weight As Directed
Frequency: Once
Type of Scale: Standing Scale
Comment: Upon Admission. If unable to stand, use balanced bed scale.
Pulse Ox/cont/shift [RESP] Routine
Quantity: 1
Special Instructions: Daily pulse oximetry at rest. If greater than 92% at rest also obtain pulse oximetry
while ambulating as tolerated.
10/05/24 06:00
Basic Metabolic Panel IN AM
Magnesium IN AM
10/05/24 08:00
Amiodarone [Pacerone] 200 mg PO DAILY
Aspirin Chewable [Low Strength Aspirin] 81 mg PO DAILY
Budesonide/Formoterol 160/4.5 [Symbicort 160/4.5 Mcg Inhaler] 2 puff INH R BID
Cholecalciferol (Vitamin D3) [VITAMIN D3 (cholecalciferol)] 100 mcg PO DAILY
Furosemide [Lasix] 60 mg PO BID AT 0800,1600
Metoprolol Xl [Toprol Xl] 12.5 mg PO BID
Midodrine [ProAmatine] 10 mg PO TID @ 0800,1200,1700
Pantoprazole [Protonix] 40 mg PO DAILY
Sertraline HCl [Zoloft] 25 mg PO DAILY
10/05/24 12:00
Ferrous Sulfate [Feosol] 325 mg PO NOON
10/05/24 18:00
Atorvastatin [Lipitor] 20 mg PO QPM
Rivaroxaban [Xarelto] 15 mg PO QPM
10/06/24 06:00
Basic Metabolic Panel IN AM
10/06/24 11:00
DC Protocol for Telemetry ONCE
10/07/24 06:00
Basic Metabolic Panel IN AM
Abnormal Lab Results
10/04/24
16:13
Hgb 11.5 L g/dL
(13.0-18.0)
MCV 78.7 L fL
(80.0-94.0)
MCH 22.5 L pg
(27.0-31.0)
MCHC 28.6 L g/dL
(33.0-37.0)
RDW 25.7 H %
(11.5-14.5)
Absolute Monos (auto) 0.7 H 10^3/uL
(0.1-0.6)
Monocytes % 12.1 H %
(1.7-9.3)
Potassium 5.4 H mmol/L
(3.5-5.1)
BUN 40 H mg/dl
(9-20)
Creatinine 2.5 H mg/dL
(0.7-1.3)
Glucose 100 H mg/dl
(70-99)
Total Bilirubin 1.9 H mg/dl
(0.2-1.3)
10/04/24 16:13
10/04/24 16:13
Vital Signs
Initial and Last Documented VS:
Initial Vital Signs
Temp Pulse Resp BP Pulse Ox
98 F 66 16 130/82 100
10/04/24 15:50 10/04/24 15:50 10/04/24 15:50 10/04/24 15:50 10/04/24 15:50
Last Documented Vital Signs
Temp Pulse Resp BP Pulse Ox
97.5 F 53 15 127/78 100
10/04/24 22:40 10/04/24 23:00 10/04/24 21:45 10/04/24 22:40 10/04/24 22:40
<IDALMIS Zuñiga - Last Filed: 10/04/24 20:56>
Orders/Labs/Results
Orders:
Orders
10/04/24 Dinner
Cholesterol Lowering
At Your Request: Full Participation
Cholesterol Lowering: Sodium, 2 Gram
10/04/24 15:54
Electrocardiogram (*1) Urgent
Reason for Study: Heart Failure, Left
10/04/24 15:55
EKG- Treatment ONCE
10/04/24 16:13
Complete Blood Count/With Diff Urgent
Comprehensive Metabolic Panel Urgent
NT-proBNP Urgent
Troponin I Urgent
10/04/24 18:40
CR Chest - 2 Views Urgent
Comment:
Reason For Exam: SOB
10/04/24 18:51
Furosemide [Lasix] 40 mg IV NOW STA
10/04/24 19:38
Urinalysis Reflex To Culture Urgent
Date Specimen was Collected: 10/04/24
Time Specimen was Collected: 19:37
10/04/24 20:13
Admit/Transfer Patient As Directed
Co-Sign Provider:
Level of Care: Inpatient admission
Assign to:: Telemetry
Physician / Group: hospitalist
Diagnosis: CHF exacerbation
Reason for Telemetry: Subacute Heart Failure
Date to Stop Telemetry: 10/06/24
Time to Stop Telemetry: 11:00
Reason for Hospitalization: heart failure
Expected length of stay greater than two midnights?: Yes
ELOS- Estimated Length of Stay in days: 2
I certify the patient meets the requirements for IP care: Yes
10/04/24 20:14
PRN Pain Medication Management As Directed
May give lesser potent ordered pain med per pt: Yes
preference::
Protocol:: Medication orders for pain may be administered in a
manner that supports deferring to patient preference
when the pt is:
- Requesting an ordered lesser potent pain medication.
Least to most potent pain medications are defined
as: acetaminophen < NSAID < tramadol < opioids
(morphine, oxycodone, hydromorphone).
- Requesting a lesser dose of the same medication IF
ORDERED.
- Requesting a less intrusive route of administration
if both routes are prescribed by the provider (PO <
IV).
10/04/24 20:16
Code Status As Directed
Resuscitation Status: Full Code
10/04/24 22:22
Acetaminophen [Tylenol] 650 mg PO Q6HPRN PRN
Artificial Tears (Pf) [Refresh Eye Drops (Pf)] 1 drops BOTH EYES Q6HPRN PRN
Docusate Sodium [Colace] 100 mg PO DAILYPRN PRN
Ipratropium/Albuterol Sulfate [Duoneb] 3 ml INH R Q6HPRN PRN
Montelukast Sodium [Singulair] 10 mg PO HS
Nitroglycerin Sublingual [Nitrostat (Sublingual)] 0.4 mg SL [id number] PRN
[id number]-ufptuyne-[id number] See Dose Instructions OPHTH TID
10/04/24 22:22
VTE Contraindication Routine
VTE Mechanical Device Contraindication: Medical Contraindication
Pharmocologic Contraindication: Medical Contraindication
Comment: on xarelto
Activity As Directed
Activity Level: With Assistance
Intake/ Output As Directed
Frequency: Per unit guidelines
Patient Education As Directed
Type: CHF folder
Comment: give on admission. Document in Interdisciplinary Education record
Sleep Apnea Assessment by RN As Directed
Comment:
Physician Instructions:
Vital Signs As Directed
Frequency: Other
Additional Instructions:: Q12 or per unit guidelines if more frequent.
Weight As Directed
Frequency: Daily
Type of Scale: Standing Scale
Comment: Daily morning weight. If unable to stand, use balanced bed scale.
Weight As Directed
Frequency: Once
Type of Scale: Standing Scale
Comment: Upon Admission. If unable to stand, use balanced bed scale.
Pulse Ox/cont/shift [RESP] Routine
Quantity: 1
Special Instructions: Daily pulse oximetry at rest. If greater than 92% at rest also obtain pulse oximetry
while ambulating as tolerated.
10/05/24 06:00
Basic Metabolic Panel IN AM
Magnesium IN AM
10/05/24 08:00
Amiodarone [Pacerone] 200 mg PO DAILY
Aspirin Chewable [Low Strength Aspirin] 81 mg PO DAILY
Budesonide/Formoterol 160/4.5 [Symbicort 160/4.5 Mcg Inhaler] 2 puff INH R BID
Cholecalciferol (Vitamin D3) [VITAMIN D3 (cholecalciferol)] 100 mcg PO DAILY
Furosemide [Lasix] 60 mg PO BID AT 0800,1600
Metoprolol Xl [Toprol Xl] 12.5 mg PO BID
Midodrine [ProAmatine] 10 mg PO TID @ 0800,1200,1700
Pantoprazole [Protonix] 40 mg PO DAILY
Sertraline HCl [Zoloft] 25 mg PO DAILY
10/05/24 12:00
Ferrous Sulfate [Feosol] 325 mg PO NOON
10/05/24 18:00
Atorvastatin [Lipitor] 20 mg PO QPM
Rivaroxaban [Xarelto] 15 mg PO QPM
10/06/24 06:00
Basic Metabolic Panel IN AM
10/06/24 11:00
DC Protocol for Telemetry ONCE
10/07/24 06:00
Basic Metabolic Panel IN AM
Abnormal Lab Results
10/04/24
16:13
Hgb 11.5 L g/dL
(13.0-18.0)
MCV 78.7 L fL
(80.0-94.0)
MCH 22.5 L pg
(27.0-31.0)
MCHC 28.6 L g/dL
(33.0-37.0)
RDW 25.7 H %
(11.5-14.5)
Absolute Monos (auto) 0.7 H 10^3/uL
(0.1-0.6)
Monocytes % 12.1 H %
(1.7-9.3)
Potassium 5.4 H mmol/L
(3.5-5.1)
BUN 40 H mg/dl
(9-20)
Creatinine 2.5 H mg/dL
(0.7-1.3)
Glucose 100 H mg/dl
(70-99)
Total Bilirubin 1.9 H mg/dl
(0.2-1.3)
10/04/24 16:13
10/04/24 16:13
Anemia, Chronic renal insufficiency, Glucose nonfasting. Total genny elevation. Troponin <0.020 (elevated in prior troponin most likely due to Kidney function), Pro-BNP 19,800, Urine negative for infection.
Vital Signs
Initial and Last Documented VS:
Initial Vital Signs
Temp Pulse Resp BP Pulse Ox
98 F 66 16 130/82 100
10/04/24 15:50 10/04/24 15:50 10/04/24 15:50 10/04/24 15:50 10/04/24 15:50
Last Documented Vital Signs
Temp Pulse Resp BP Pulse Ox
97.5 F 53 15 127/78 100
10/04/24 22:40 10/04/24 23:00 10/04/24 21:45 10/04/24 22:40 10/04/24 22:40
<Matt Herbert, DO - Last Filed: 10/04/24 23:28>
Orders/Labs/Results
Orders:
Orders
10/04/24 Dinner
Cholesterol Lowering
At Your Request: Full Participation
Cholesterol Lowering: Sodium, 2 Gram
10/04/24 15:54
Electrocardiogram (*1) Urgent
Reason for Study: Heart Failure, Left
10/04/24 15:55
EKG- Treatment ONCE
10/04/24 16:13
Complete Blood Count/With Diff Urgent
Comprehensive Metabolic Panel Urgent
NT-proBNP Urgent
Troponin I Urgent
10/04/24 18:40
CR Chest - 2 Views Urgent
Comment:
Reason For Exam: SOB
10/04/24 18:51
Furosemide [Lasix] 40 mg IV NOW STA
10/04/24 19:38
Urinalysis Reflex To Culture Urgent
Date Specimen was Collected: 10/04/24
Time Specimen was Collected: 19:37
10/04/24 20:13
Admit/Transfer Patient As Directed
Co-Sign Provider:
Level of Care: Inpatient admission
Assign to:: Telemetry
Physician / Group: hospitalist
Diagnosis: CHF exacerbation
Reason for Telemetry: Subacute Heart Failure
Date to Stop Telemetry: 10/06/24
Time to Stop Telemetry: 11:00
Reason for Hospitalization: heart failure
Expected length of stay greater than two midnights?: Yes
ELOS- Estimated Length of Stay in days: 2
I certify the patient meets the requirements for IP care: Yes
10/04/24 20:14
PRN Pain Medication Management As Directed
May give lesser potent ordered pain med per pt: Yes
preference::
Protocol:: Medication orders for pain may be administered in a
manner that supports deferring to patient preference
when the pt is:
- Requesting an ordered lesser potent pain medication.
Least to most potent pain medications are defined
as: acetaminophen < NSAID < tramadol < opioids
(morphine, oxycodone, hydromorphone).
- Requesting a lesser dose of the same medication IF
ORDERED.
- Requesting a less intrusive route of administration
if both routes are prescribed by the provider (PO <
IV).
10/04/24 20:16
Code Status As Directed
Resuscitation Status: Full Code
10/04/24 22:22
Acetaminophen [Tylenol] 650 mg PO Q6HPRN PRN
Artificial Tears (Pf) [Refresh Eye Drops (Pf)] 1 drops BOTH EYES Q6HPRN PRN
Docusate Sodium [Colace] 100 mg PO DAILYPRN PRN
Ipratropium/Albuterol Sulfate [Duoneb] 3 ml INH R Q6HPRN PRN
Montelukast Sodium [Singulair] 10 mg PO HS
Nitroglycerin Sublingual [Nitrostat (Sublingual)] 0.4 mg SL [id number] PRN
[id number] See Dose Instructions OPHTH TID
10/04/24 22:22
VTE Contraindication Routine
VTE Mechanical Device Contraindication: Medical Contraindication
Pharmocologic Contraindication: Medical Contraindication
Comment: on xarelto
Activity As Directed
Activity Level: With Assistance
Intake/ Output As Directed
Frequency: Per unit guidelines
Patient Education As Directed
Type: CHF folder
Comment: give on admission. Document in Interdisciplinary Education record
Sleep Apnea Assessment by RN As Directed
Comment:
Physician Instructions:
Vital Signs As Directed
Frequency: Other
Additional Instructions:: Q12 or per unit guidelines if more frequent.
Weight As Directed
Frequency: Daily
Type of Scale: Standing Scale
Comment: Daily morning weight. If unable to stand, use balanced bed scale.
Weight As Directed
Frequency: Once
Type of Scale: Standing Scale
Comment: Upon Admission. If unable to stand, use balanced bed scale.
Pulse Ox/cont/shift [RESP] Routine
Quantity: 1
Special Instructions: Daily pulse oximetry at rest. If greater than 92% at rest also obtain pulse oximetry
while ambulating as tolerated.
10/05/24 06:00
Basic Metabolic Panel IN AM
Magnesium IN AM
10/05/24 08:00
Amiodarone [Pacerone] 200 mg PO DAILY
Aspirin Chewable [Low Strength Aspirin] 81 mg PO DAILY
Budesonide/Formoterol 160/4.5 [Symbicort 160/4.5 Mcg Inhaler] 2 puff INH R BID
Cholecalciferol (Vitamin D3) [VITAMIN D3 (cholecalciferol)] 100 mcg PO DAILY
Furosemide [Lasix] 60 mg PO BID AT 0800,1600
Metoprolol Xl [Toprol Xl] 12.5 mg PO BID
Midodrine [ProAmatine] 10 mg PO TID @ 0800,1200,1700
Pantoprazole [Protonix] 40 mg PO DAILY
Sertraline HCl [Zoloft] 25 mg PO DAILY
10/05/24 12:00
Ferrous Sulfate [Feosol] 325 mg PO NOON
10/05/24 18:00
Atorvastatin [Lipitor] 20 mg PO QPM
Rivaroxaban [Xarelto] 15 mg PO QPM
10/06/24 06:00
Basic Metabolic Panel IN AM
10/06/24 11:00
DC Protocol for Telemetry ONCE
10/07/24 06:00
Basic Metabolic Panel IN AM
Abnormal Lab Results
10/04/24
16:13
Hgb 11.5 L g/dL
(13.0-18.0)
MCV 78.7 L fL
(80.0-94.0)
MCH 22.5 L pg
(27.0-31.0)
MCHC 28.6 L g/dL
(33.0-37.0)
RDW 25.7 H %
(11.5-14.5)
Absolute Monos (auto) 0.7 H 10^3/uL
(0.1-0.6)
Monocytes % 12.1 H %
(1.7-9.3)
Potassium 5.4 H mmol/L
(3.5-5.1)
BUN 40 H mg/dl
(9-20)
Creatinine 2.5 H mg/dL
(0.7-1.3)
Glucose 100 H mg/dl
(70-99)
Total Bilirubin 1.9 H mg/dl
(0.2-1.3)
10/04/24 16:13
10/04/24 16:13
Vital Signs
Initial and Last Documented VS:
Initial Vital Signs
Temp Pulse Resp BP Pulse Ox
98 F 66 16 130/82 100
10/04/24 15:50 10/04/24 15:50 10/04/24 15:50 10/04/24 15:50 10/04/24 15:50
Last Documented Vital Signs
Temp Pulse Resp BP Pulse Ox
97.5 F 53 15 127/78 100
10/04/24 22:40 10/04/24 23:00 10/04/24 21:45 10/04/24 22:40 10/04/24 22:40
<IDALMIS Zuñiga - Last Filed: 10/04/24 20:56>
MDM/Problems Addressed
Differential Diagnosis Includes:
CHF, Bilateral leg edema.
MDM/Problems Addressed:
This is a 74 year old male that comes in with c/o bilateral leg edema. Patient went to see the [facility] today and sent in for further evaluation.
Will check labs. Chest x-ray, and explained to patient that he will most likely be admitted as his Pro-BNP is very elevated and he needs to have this fluid removed.
Hospitalist notified about admission.
Chronic conditions affecting care: CAD (CHF) and Kidney disease
Acute Exacerbation and/or Progression of Chronic Illness: CAD and Kidney disease
<IDALMIS Zuñiga - Last Filed: 10/04/24 20:56>
*Radiology
Radiology exam reviewed: preliminary read by ED provider (Chest- Left sided pleural effusion. )
*Pulse Oximetry
Patient hypoxic: no
*EKG
Interpreted by ED Provider?: Yes
Heart Rate: 58
Rate: bradycardiac
Rhythm: sinus
[place]: normal axis
Interval: normal interval
QRS Pattern: right bundle branch block
Ischemia: T-wave inversion (V1, V2, V3, )
*Inclusion Intern Interpretation
Rate: bradycardiac
Heart Rate: 58
*Critical Care Note
Total Time (30-74mins, 75-104mins- exclusive of procedures): Not Applicable
ED Attending Note
<Deandra Peterson NP - Last Filed: 10/04/24 16:08>
-
Portions of this chart may have been created with voice recognition software.� Occasional wrong word or��sound alike� substitutions may have occurred due to the inherent limitations of voice recognition software.
Discharge Plan
Departure
Patient Disposition: Admit
Date of Disposition: 10/04/24
Time of Disposition: 20:01
Admit to: Telemetry
Presentation/result/management discussed w/ accepting MD/DO: Hospitalist
Patient with high blood pressure during this ER visit?: No
Condition: Good
Covid-19: Not Applicable
Discharge Problem:
Bilateral edema of lower extremity, Pleural effusion on left
Interventions
Interventions:
*Risk Screen - Suicide Last Done: 10/04/24 15:52
*General Assessment Last Done: 10/04/24 21:54
*Neglect/Abuse Screening Last Done: 10/04/24 15:52
ED- Fall Risk Assessment Last Done: 10/04/24 21:54
*ED COVID-19 Vaccine History Last Done: 10/04/24 15:52
*Nursing Disposition Last Done: 10/04/24 21:54
ED- Cardiac Assessment Last Done: 10/04/24 18:54
ED- Pulmonary Assessment Last Done: 10/04/24 18:54
ED-Skin Assessment Last Done: 10/04/24 18:54
Discharge Date and Time
Discharge Date/Time: 10/04/24 21:55
[2024-10-04 16:40] LABS: ALT (SGPT) 23 U/L (0-50); AST (SGOT) 34 U/L (17-59); Albumin 3.8 g/dl (3.5-5.0); Alkaline Phosphatase 118 U/L (38-126); Blood Urea Nitrogen 40 mg/dl (9-20); Calcium 9.2 mg/dl (8.4-10.2); Carbon Dioxide 22 mmol/L (22-30); Chloride 99 mmol/L (98-107); Glucose 100 mg/dl (70-99); Potassium 5.4 mmol/L (3.5-5.1); Sodium 136 mmol/L (135-145); Total Bilirubin 1.9 mg/dl (0.2-1.3); Total Protein 6.9 g/dl (6.3-8.2); eGFR 26.14
[2024-10-04 16:43] LABS: Hematocrit 40.2 % (39.0-52.0); Hemoglobin 11.5 g/dL (13.0-18.0); Mean Corp Hgb Conc. 28.6 g/dL (33.0-37.0); Mean Corpuscular Hgb 22.5 pg (27.0-31.0); Mean Corpuscular Volume 78.7 fL (80.0-94.0); Red Blood Cell Count 5.11 10^6/uL (4.70-6.10); Red Cell Dist. Width 25.7 % (11.5-14.5)
[2024-10-04 16:52] LABS: NT-proBNP 19800 pg/ml
[2024-10-04 16:57] LABS: % Basophils 0.7 % (0-2); % Eosinophils 0.5 % (0-6); % Immature Granulocytes 0.2 % (0-0.5); % Lymphocytes 21.9 % (20.5-51.1); % Monocytes 12.1 % (1.7-9.3); % Neutrophils 64.6 % (42.2-75.2); Absolute Lymphocytes 1.3 10^3/uL (1.2-3.4); Absolute Monocytes 0.7 10^3/uL (0.1-0.6); Absolute Neutrophils 3.9 10^3/uL (1.4-6.5); Normal RBC Morphology No; Nucleated Red Blood Cells % 0 % (-); Platelet Count 179 10^3/uL (130-400)
[2024-10-04 16:58] LABS: Acanthocytes 2+; Anisocytosis 1+; Hypochromasia 2+; Macrocytosis 1+; Ovalocytes 1+; Poikilocytosis 2+
[2024-10-04 19:57] LABS: Urine Albumin Negative (Neg - Trace); Urine Bilirubin Negative (Negative); Urine Character Clear (Clear); Urine Color Yellow; Urine Glucose Negative (Negative); Urine Ketone Negative (Negative); Urine Leukocyte Negative (Negative); Urine Nitrite Negative (Negative); Urine Occult Blood Negative (Negative); Urine Urobilinogen 1+ (Neg - 1+)
--- NOTE | 2024-10-04 20:35 | HPS.HSE ---
Family Physician
-
Family Physician: Talib Song
Chief Complaint
-
Lower extremity swelling
History of Present Illness
This is an 84-year-old male with past medical history of ischemic cardiomyopathy, CAD, CHF with a EF of 30% status post AICD paroxysmal atrial fibrillation and intermittent hypotension requiring midodrine who presents to the emergency department
from cardiology clinic with ongoing left lower extremity swelling.
Patient was last admitted in June with volume overload and BRIGHT. He responded to IV Lasix, GDMT was limited due to hypotension. He was discharged on oral Lasix. On patient's current regimen appears that he has been gaining weight. He has leg
edema bilaterally into the thighs. He was seen by timber feller today and sent in. He has about a 15 pound weight gain. Denies shortness of breath or worsening dyspnea on exertion. Has poor appetite and some urinary urgency without frequency or
dysuria. Reports some weak stream. No pelvic or abdominal discomfort. Denies constipation. Is on Lasix 40 mg twice daily more recently 3 times a week and once daily the rest of the week due in part to soft BPs.
In the emergency department his blood pressure was 126/80 with a pulse of 59. Your oxygen saturation was normal on room air. ECG shows a sinus bradycardia at a rate of 58. Troponin was negative. Xray with mod left pleural effusion. BNP was
increased to 19,000. CBC was unremarkable. Chemistries notable for a BUN of 40 and a creatinine of 2.5. Potassium was 5.4.
Medical History
Past Medical History
Past Medical History: Reports Arrhythmia (Proximal atrial fibrillation), Asthma, CAD, CHF (EF 30% status post AICD), COPD and GERD
Past Surgical History: Reports Other
Social History
Tobacco: Former Smoker
Alcohol: None
Drug: None
Living: With Family
Employment: Retired
Family History
Family History: Not pertinent
Allergies / Home Medications
Allergies reflects when Allergies were last updated in [employer].
Home Medications with original date entered in [employer]
Allergy/Medication List:
Allergies
Allergy/AdvReac Type Severity Reaction Status Date / Time
Iodinated Contrast Media Allergy Hives Verified 09/23/24 12:59
[IV Dye, Iodine Containing
Contrast ]
iodine Allergy Hives Verified 09/23/24 12:59
pollen extracts Allergy seasonal Verified 09/23/24 12:59
allergies
potassium clavulanate Allergy Itching Verified 09/23/24 12:59
[From Augmentin]
Home Medications
omega 3-zda-yxq-fish oil 300 mg-1,000 mg capsule (Fish Oil) 2 ea PO NOON Supplement 02/19/17
amiodarone 200 mg tablet (Pacerone) 200 mg PO DAILY Heart disease/condition 06/23/20
metoprolol succinate 25 mg tablet,extended release 24 hr 12.5 mg PO BID Blood pressure 06/23/20
multivitamin with folic acid 400 mcg tablet (Tab-A-Rickey) 1 tab PO NOON Supplement 06/23/20
nitroglycerin 0.4 mg sublingual tablet 0.4 mg sublingual [id number] PRN chest pain 06/23/20
sertraline 25 mg tablet 25 mg PO DAILY Mental Health 06/23/20
aspirin 81 mg chewable tablet 81 mg PO DAILY Blood clot prevention/tx 06/30/20
pantoprazole 40 mg tablet,delayed release 40 mg PO DAILY Gastrointestinal issue ##0 06/30/20
docusate sodium 100 mg capsule 100 mg PO DAILYPRN PRN constipation 08/08/20
potassium chloride 20 mEq tablet,extended release(part/cryst) (Klor-Con M) 20 meq PO BID Electrolyte Repletion 08/08/20
rivaroxaban 15 mg tablet (Xarelto) 15 mg PO QPM Blood clot prevention/tx 08/08/20
montelukast 10 mg tablet (Singulair) 10 mg PO HS asthma 03/13/23
albuterol sulfate 90 mcg/actuation aerosol inhaler 2 inh inhalation R Q6HPRN PRN sob 07/07/24
budesonide-formoterol HFA 160 mcg-4.5 mcg/actuation aerosol inhaler (Symbicort) 2 puff inhalation R BID Lung/Breathing Issues 07/07/24
cholecalciferol (vitamin D3) 50 mcg (2,000 unit) tablet (Vitamin D3) 100 mcg PO DAILY Supplement 07/07/24
coenzyme Q10 100 mg capsule (CoQ-10) 100 mg PO DAILY Supplement 07/07/24
furosemide 40 mg tablet 40 mg PO MOWEFR@0900,1200 Fluid Retention/Swelling 07/07/24
ipratropium 0.5 mg-albuterol 3 mg (2.5 mg base)/3 mL nebulization soln 3 ml inhalation R Q6HPRN PRN sob 07/07/24
midodrine 10 mg tablet 10 mg PO TID Blood Pressure 07/07/24
peg 400-propylene glycol (PF) 0.4 %-0.3 % eye drops in a dropperette (Systane (PF)) 1 drp BOTH EYES Q6HPRN PRN dry eyes 07/07/24
acetaminophen 325 mg tablet (Tylenol) 650 mg PO Q4HPRN PRN mild pain 09/13/24
ferrous sulfate 325 mg (65 mg iron) tablet (iron) 325 mg PO NOON 09/13/24
prednisolone 1 %-moxifloxacin 0.5 %-bromfenac 0.075 % eye drops susp 1 drp ophthalmic (eye) TID 09/20/24
atorvastatin 20 mg tablet 20 mg PO QPM 10/04/24
furosemide 40 mg tablet 40 mg PO SUTUTHSA 10/04/24
prednisolone 1 %-moxifloxacin 0.5 %-bromfenac 0.075 % eye drops susp 2 drp ophthalmic (eye) TID 10/04/24
Review of Systems
-
History Source: Patient
Constitutional: Reports No Symptoms
EENT: Reports No Symptoms
Respiratory: Reports No Symptoms
Cardiac: Reports No Symptoms
Abdomen/GI: Reports No Symptoms
: Reports No Symptoms
Musculoskeletal: Reports Edema
Skin: Reports No Symptoms
Neurological: Reports No Symptoms
Endocrine: Reports No Symptoms
Hematologic/Lymphatic: Reports No Symptoms
Psych: Reports No Symptoms
Physical Exam
Vital Signs
Vital Signs
Temp Pulse Resp BP Pulse Ox
98 F 59 18 126/79 100
10/04/24 15:50 10/04/24 18:49 10/04/24 18:53 10/04/24 18:49 10/04/24 18:49
Physical Exam
General: Well Developed, Well Nourished, No Apparent Distress and Comfortable
HEENT: NormoCephalic, Anicteric, Moist mucous membranes and Atraumatic
Respiratory: Clear
Cardiac: S1/S2 and Bradycardia
GI: Soft, Non Tender, Non Distended and Normal Bowel Sounds
Rectal: Deferred by Provider
Genito-urinary: Deferred by me
Musculoskeletal: No Clubbing, No Cyanosis, Edema, Left Lower Extremity and Edema, Right Lower Extremity
Skin: Warm
Neuro: AO x 3
Hematologic/Lymphatic: No Lymphadenopathy
Psych: Calm
Laboratory Results
-
10/04/24 16:13
10/04/24 16:13
Laboratory Results
Total Bilirubin 1.9 mg/dl (0.2-1.3) H 10/04/24 16:13
AST 34 U/L (17-59) 10/04/24 16:13
ALT 23 U/L (0-50) 10/04/24 16:13
Alkaline Phosphatase 118 U/L (38-126) 10/04/24 16:13
Troponin I 0.020 ng/ml 10/04/24 16:13
Data Reviewed
-
Diagnostic Radiology: Report Reviewed by me
Medical Tests (Nuc Med, Echo, EKG etc): Image Personally Visualized and interpreted
Lab Data: Labs Reviewed by me
Old Records: Reviewed
Impression/Plan
-
IMPRESSION:
74 y.o with ischemic cardiomyopathy, CHF EF 30% s/p AICD, mod-severe MR, RV hypokinesis presenting to ED with volume overload. Anasarca with likely got edema. L. mod. pleural effusion. Likely has biventricular failure. Renal function appears
preserved. No SOB.
PLAN:
1. CHF Exacerbation - Right and left sided failures with minimal pulmonary symptoms. Anasarcic.
- admit to telemetry
- IV lasix to 60mg iv bid for now
- last echo within the last 4 months, hold pending cardiology consult
- daily weight and i/os
- fluid restriction
- midodrine tid
- continue low dose metoprolol succinate bid. Cannot give additional GDMT due to BP
- bladder scan for pvr
- cardiology consultation
- nephrology consultation
2. AFIB - rate controlled
- continue metoprolol
- continue Xarelto
3. CKD - stable
- avoid nephrotoxins
- nephrology consultation
DVT PPX - on ppx
Code status - full code
[2024-10-04] MEDS: LASIX 40 MG IV (21:24)
--- NOTE | 2024-10-04 22:35 | PTCARENOTE ---
Pt. received from the ED via stretcher. Pt. AOx3, no complaints of pain at this time. Tele reading angelo olivares in the 50s, BP 127/78. This RN verbalizes plan of care, patient and son verbalize understanding. Pt. oriented to room. Call velazquez within
reach. Continuing to monitor at this time.
[2024-10-04] MEDS: SINGULAIR 10 MG PO (22:50)
[2024-10-05] VITALS (9 sets, daily range): BP systolic 112–124; BP diastolic 62–74; PULSE 2–55; BMI 25.1
--- NOTE | 2024-10-05 03:00 | PTCARENOTE ---
pt VSS, no acute changes in assessment. SB 50s. B/L radial and DP pulses palpable. heart tones clear. B/L breath sounds present. POX 99% on room air. bowel sounds audible. pt voiding without difficulty. PIV intact and patent. see worklist for full
assessment, VS, and interventions. pt sleeping between care.
[2024-10-05 06:06] LABS: Blood Urea Nitrogen 39 mg/dl (9-20); Calcium 8.5 mg/dl (8.4-10.2); Carbon Dioxide 25 mmol/L (22-30); Chloride 102 mmol/L (98-107); Estimated Creatinine Clearance 27 ml/min; Glucose 75 mg/dl (70-99); Magnesium 2.1 mg/dl (1.6-2.3); Potassium 4.4 mmol/L (3.5-5.1); Sodium 138 mmol/L (135-145); eGFR 28.89
[2024-10-05] MEDS: SYMBICORT 160/4.5 MCG INHALER 2 PUFF INH ×2 (07:44→19:14)
[2024-10-05] MEDS: PROTONIX 40 MG PO (08:32)
[2024-10-05] MEDS: ProAmatine 10 MG PO ×3 (08:32→16:33)
[2024-10-05] MEDS: LOW STRENGTH ASPIRIN 81 MG PO (08:33)
[2024-10-05] MEDS: VITAMIN D3 (cholecalciferol) 100 MCG PO (08:33)
[2024-10-05] MEDS: TOPROL XL 12.5 MG PO ×2 (08:33→19:58)
[2024-10-05] MEDS: LASIX 60 MG PO (08:33)
[2024-10-05] MEDS: ZOLOFT 25 MG PO (08:33)
[2024-10-05] MEDS: PACERONE 200 MG PO (08:34)
--- NOTE | 2024-10-05 09:25 | W.PN.CARDCBS ---
Addendum entered and electronically signed by Ayde Whaley MD 10/05/24 18:03:
I saw and examined the patient.
The Clay Miner's note was reviewed and I agree with the note.
Comment: He continues with volume overload. He denies chest pain and feels his breathing at rest is stable but does note edema. Lower extremity edema on exam noted. Crackles at the bases bilateral.
Echocardiogram: LVEF 25 to 30% with D-shaped interventricular septum consistent with RV pressure and volume overload. Enlarged right ventricular size. Moderate right ventricular hypokinesis. Thickened mitral valve leaflets. Moderate, to severe
likely severe mitral regurgitation. Moderate tricuspid regurgitation. Estimated pulmonary artery pressure of 15-20 mmHg, tricuspid jet may be underestimated.
Recurrent heart failure in the setting of heart failure with reduced ejection fraction, chronic kidney disease which is felt to be relatively stable and moderate to severe likely severe mitral regurgitation now with right ventricular dilation and
dysfunction in part related to increased volume.
-Continue diuresis
-Continue to follow input/output and daily weights
-Heart failure teaching
-Guideline directed medical therapy is limited because of hypotension and need for midodrine
-Consider assessment for mitral valve clip if a candidate. Discussed with patient and he understands at some point if he wishes to proceed he would need transesophageal echo. Discuss with primary wood shop teacher. We did discuss that this would be
more for quality of life at this time and to try to avoid frequent hospitalizations.
Original Note:
Today's Communication / Plan
-
transitioned to IV lasix 40mg BID
echo
continue toprol, midodrine
Impression / Plan
-
Please refer to office note dated 10/04/24
PCP: Dr. Song
Cardiology: Dr. Gillis
IMPRESSION:
Presentation with LE edema, weight gain
Acute on chronic HFrEF
ICM EF 30% by echo 05/04/24
h/o Cardiorenal syndrome
CKD 4
CAD
s/p CABG x 3 (COLEMAN - LAD, seq SVG to OM1 to RPLB) 09/19
s/p PCI with JENIFFER to SVG to OM1 to RPLB 10/29/11
s/p acute inferior CO S/P PCI with RCA stent (02/19/17)
s/p Re-op CABG x 2 (left saphenous vein as sequential graft to LAD then to OM1) vein graft tear, anterior wall of RV tear and divided COLEMAN at time of CABG 12/20/19
h/o long admission (46 days) to [facility] for LVAD eval and eventual ICD placement at time of complicated redo CABG 12/2019
h/o left groin abscess with flap closure and VAC treatment 06/2020
s/p [employer] single chamber ICD
Paroxysmal Afib
s/p PVI 08/04/17
Chronic Xarelto OAC
HTN
Orthostasis on midodrine
Hyperlipidemia
Former tobacco use
ELI
GERD/Caballero's esophagus
S/p Schatzki's ring dilatation
Severe LAUREN stenosis S/p stent (01/10/2015)
Severe LICA stenosis S/p stent (10/05/2010)
Hx Prostate Ca S/p robotic prostatectomy (2009)
s/p right inguinal herniorrhaphy (1992)
s/p B/L cataract surgery 09/2024
ECHO 12/23/19: with severe left ventricular systolic dysfunction ejection fraction 15�20%. New compared to preoperative echocardiogram
Echo at [facility] 02/2020: EF 36%
Echo 06/26/20: Mildly dilated LV, EF 25-30%, inferior, septal, anteroseptal, apical akinesis with hypokinesis remaining. EF was 40% by Valle, 25-30% visually, mildly dilated and hypokinetic RV, ICD wire, dilated left atrium, mild MR, aortic
sclerosis, moderate TR, pulmonary artery pressure 37-42 mmHg
Echo 05/04/24: EF 30%, akinesis of the septum and inferior de jesus, stage III diastolic dysfunction, moderate to severe MR, moderate TR with PAP 45 mmHg
PLAN:
-Patient presented with worsening LE edema and acute HF with h/o cardiorenal syndrome, despite reported poor appetite the last several weeks. proBNP and CXR with small to mod L pleural effusion.
-transitioned patient to IV lasix 40mg BID. Cr slightly improved to 2.3 on 10/05, follow with diuresis. dry weight last admission was 142 pounds if accurate, today 165 pounds.
-hypotension and CKD has limited GDMT. continue BB and midodrine 10mg TID.
-last echo from 04/2024 with results as above. repeat echo today. being considered for HTANH/yudith clip eval
-SB on review of tele. continue OP toprol, amiodarone
-Cont renally dosed Xarelto 15 mg daily.
-last remote device check from 09/02/24 well functioning, 12 years battery life, no VT noted.
-d/w nursing
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
Subjective
Date of Service: October 05, 2024
reports good urine output this AM
Objective
Labs:
10/04/24 16:13
10/05/24 05:25
Labs
Hgb 11.5 g/dL (13.0-18.0) L 10/04/24 16:13
Hct 40.2 % (39.0-52.0) 10/04/24 16:13
Plt Count 179 10^3/uL (130-400) 10/04/24 16:13
Sodium 138 mmol/L (135-145) 10/05/24 05:25
Potassium 4.4 mmol/L (3.5-5.1) 10/05/24 05:25
BUN 39 mg/dl (9-20) H 10/05/24 05:25
Creatinine 2.3 mg/dL (0.7-1.3) H 10/05/24 05:25
Glucose 75 mg/dl (70-99) 10/05/24 05:25
Troponins
10/04/24
16:13
Troponin I 0.020
Vital Signs and I&O:
Vital Signs
Temp Pulse Resp BP Pulse Ox
97.7 F 63 16 118/71 99
10/05/24 08:02 10/05/24 08:34 10/05/24 08:02 10/05/24 08:34 10/05/24 08:02
Vital Signs
Temp Pulse Resp BP Pulse Ox
97.7 F 63 16 118/71 99
10/05/24 08:02 10/05/24 08:34 10/05/24 08:02 10/05/24 08:34 10/05/24 08:02
Physical Exam
Physical Exam
GEN: No distress, awake, alert, oriented x3. cachectic
HEENT: supple, anicteric, mmm, eomi
LUNGS: Crackles B/L bases, no wheezes
CV: Reg and elise, S1/S2, 2/6 murmur
ABD: soft, BS+, NT/ND
EXT: No cyanosis, clubbing. 2-3+ edema of B/L LE to thigh
NEURO: Gross non-focal
SKIN: Warm, pink, dry. No rash.
[2024-10-05] MEDS: FEOSOL 325 MG PO (11:01)
--- NOTE | 2024-10-05 11:28 | W.CON.NEPH ---
Consultation
-
Date/Time Consultation Requested: 10/05/2024 7:00 AM
Date/Time Consultation Performed: [id number] AM
Requesting Provider: Dr. Grove
Performing Provider: Dr. Reza
Reason for Consultation: Chronic kidney disease stage IV
Medical History
-
Chief Complaint: CKD stage 4
History of Present Illness:
The patient is a 74-year-old male who with a past medical history of chronic kidney disease stage IV maintains a baseline creatinine in the low twos. He has a history of ischemic cardiomyopathy and is maintained on chronic diuretic therapy. His
underlying ejection fraction was 30% and he has undergone previous AICD. He has a history of paroxysmal atrial fibrillation and is chronically maintained on amiodarone. He is at baseline hemodynamically unstable and is maintained on 10 mg of
midodrine 3 times daily. He presented to the hospital from the cardiology clinic with increasing lower extremity edema. He has had significant edema and 15 pound weight gain. He denies any associated shortness of breath. He has had poor appetite
and some urinary urgency with dysuria on presentation to the hospital his creatinine was at 2.5 which is within his baseline. Nephrology was consulted for CKD stage IV
Past Medical History
Ischemic cardiomyopathy with ejection fraction of 30 percent
. CAD
s/p CABG x 3 (COLEMAN - LAD, seq SVG to OM1 to RPLB) 09/19
s/p PCI with JENIFFER to SVG to OM1 to RPLB 10/29/11
s/p acute inferior MO S/P PCI with RCA stent (02/19/17)
s/p Re-op CABG x 2 (left saphenous vein as sequential graft to LAD then to OM1) vein graft tear, anterior wall of RV tear and divided COLEMAN at time of CABG 12/20/19h/o long admission (46 days) to [facility] for LVAD eval and eventual ICD placement at time
of complicated redo CABG 12/2019
h/o left groin abscess with flap closure and VAC treatment 06/2020
. Prostate cancer, status post prostatectomy in 2009.
. Bilateral internal carotid artery stenoses, status post stents, right in 2014, left in 2009.
. Paroxysmal atrial fibrillation, status post ablation in 2016 and cardioversion in 2019.
.Caballero's esophagus.
.Schatzki's ring dilatation.
.Sleep apnea
.Right inguinal herniorrhaphy with mesh.
.GERD.
.Hyperlipidemia.
. Chronic hypotension on midodrine
.Prediabetes.
.Urinary incontinence.
.Biventricular ICD in 2019.
CKD4 ~2.3
Past Surgical History: Other (Coronary artery bypass graft x 3 vessels Left carotid stent Right carotid stent Inguinal hernia repair with mesh Prostatectomy)
Social History
He resides at home with his . 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 Negligible remote smoking history as a teenager.
Tobacco: Non-Smoker
Alcohol: Occasional
Personal:
Living: With Family
Employment: Retired
Family History
Father sustained an MO at 59, at 89.
Mother at 92 with CAD and hypertension.
Allergies / Home Medications
Allergy/AdvReac Type Severity Reaction Status Date / Time
Iodinated Contrast Media Allergy Hives Verified 09/23/24 12:59
[IV Dye, Iodine Containing
Contrast ]
iodine Allergy Hives Verified 09/23/24 12:59
pollen extracts Allergy seasonal Verified 09/23/24 12:59
allergies
potassium clavulanate Allergy Itching Verified 09/23/24 12:59
[From Augmentin]
�Medication �Instructions �Recorded �Confirmed �Type
omega 2-juc-ovl-fish oil 300 2 ea PO NOON Supplement 02/19/17 10/04/24 History
mg-1,000 mg capsule (Fish Oil)
amiodarone 200 mg tablet (Pacerone) 200 mg PO DAILY Heart 06/23/20 10/04/24 History
disease/condition
metoprolol succinate 25 mg 12.5 mg PO BID Blood pressure 06/23/20 10/04/24 History
tablet,extended release 24 hr
multivitamin with folic acid 400 1 tab PO NOON Supplement 06/23/20 10/04/24 History
mcg tablet (Tab-A-Rickey)
nitroglycerin 0.4 mg sublingual 0.4 mg sublingual [id number] PRN 06/23/20 10/04/24 History
tablet chest pain
sertraline 25 mg tablet 25 mg PO DAILY Mental Health 06/23/20 10/04/24 History
aspirin 81 mg chewable tablet 81 mg PO DAILY Blood clot 06/30/20 10/04/24 Rx
prevention/tx
pantoprazole 40 mg tablet,delayed 40 mg PO DAILY Gastrointestinal 06/30/20 10/04/24 Rx
release issue ##0
docusate sodium 100 mg capsule 100 mg PO DAILYPRN PRN constipation 08/08/20 10/04/24 History
potassium chloride 20 mEq 20 meq PO BID Electrolyte Repletion 08/08/20 10/04/24 History
tablet,extended
release(part/cryst) (Klor-Con M)
rivaroxaban 15 mg tablet (Xarelto) 15 mg PO QPM Blood clot 08/08/20 10/04/24 History
prevention/tx
montelukast 10 mg tablet 10 mg PO HS asthma 03/13/23 10/04/24 History
(Singulair)
albuterol sulfate 90 mcg/actuation 2 inh inhalation R Q6HPRN PRN sob 07/07/24 10/04/24 History
aerosol inhaler
budesonide-formoterol HFA 160 2 puff inhalation R BID 07/07/24 10/04/24 History
mcg-4.5 mcg/actuation aerosol Lung/Breathing Issues
inhaler (Symbicort)
cholecalciferol (vitamin D3) 50 100 mcg PO DAILY Supplement 07/07/24 10/04/24 History
mcg (2,000 unit) tablet (Vitamin
D3)
coenzyme Q10 100 mg capsule 100 mg PO DAILY Supplement 07/07/24 10/04/24 History
(CoQ-10)
furosemide 40 mg tablet 40 mg PO MOWEFR@0900,1200 Fluid 07/07/24 10/04/24 History
Retention/Swelling
ipratropium 0.5 mg-albuterol 3 mg 3 ml inhalation R Q6HPRN PRN sob 07/07/24 10/04/24 History
(2.5 mg base)/3 mL nebulization
soln
midodrine 10 mg tablet 10 mg PO TID Blood Pressure 07/07/24 10/04/24 History
peg 400-propylene glycol (PF) 0.4 1 drp BOTH EYES Q6HPRN PRN dry eyes 07/07/24 10/04/24 History
%-0.3 % eye drops in a dropperette
(Systane (PF))
acetaminophen 325 mg tablet 650 mg PO Q4HPRN PRN mild pain 09/13/24 10/04/24 History
(Tylenol)
ferrous sulfate 325 mg (65 mg 325 mg PO NOON 09/13/24 10/04/24 History
iron) tablet (iron)
prednisolone 1 %-moxifloxacin 0.5 1 drp ophthalmic (eye) TID 09/20/24 10/04/24 History
%-bromfenac 0.075 % eye drops susp
atorvastatin 20 mg tablet 20 mg PO QPM 10/04/24 10/04/24 History
furosemide 40 mg tablet 40 mg PO SUTUTHSA 10/04/24 10/04/24 History
prednisolone 1 %-moxifloxacin 0.5 2 drp ophthalmic (eye) TID 10/04/24 10/04/24 History
%-bromfenac 0.075 % eye drops susp
Review of Systems
-
History Source: Patient
All other systems: Negative unless noted
Constitutional: Weight Gain
Musculoskeletal: Edema
Physical Exam
Vital Signs
Vital Signs
Temp Pulse Resp BP Pulse Ox
97.6 F 59 16 124/71 99
10/05/24 11:03 10/05/24 11:02 10/05/24 11:03 10/05/24 11:02 10/05/24 11:03
Lab Results
10/04/24 16:13
10/05/24 05:25
WBC 6.0 10^3/uL (4.8-10.8) 10/04/24 16:13
RBC 5.11 10^6/uL (4.70-6.10) 10/04/24 16:13
Hgb 11.5 g/dL (13.0-18.0) L 10/04/24 16:13
Hct 40.2 % (39.0-52.0) 10/04/24 16:13
Plt Count 179 10^3/uL (130-400) 10/04/24 16:13
Sodium 138 mmol/L (135-145) 10/05/24 05:25
Potassium 4.4 mmol/L (3.5-5.1) 10/05/24 05:25
Chloride 102 mmol/L (98-107) 10/05/24 05:25
Carbon Dioxide 25 mmol/L (22-30) 10/05/24 05:25
BUN 39 mg/dl (9-20) H 10/05/24 05:25
Creatinine 2.3 mg/dL (0.7-1.3) H 10/05/24 05:25
eGFR 28.89 10/05/24 05:25
Glucose 75 mg/dl (70-99) 10/05/24 05:25
Calcium 8.5 mg/dl (8.4-10.2) 10/05/24 05:25
Blv-H-Bgcmnaxlfnl Pept 13157 pg/ml 10/04/24 16:13
Albumin 3.8 g/dl (3.5-5.0) 10/04/24 16:13
Physical Exam
General: AOx3, Nontoxic , NAD
HEENT: PERRL, EOMI, Anicteric, Conjunctivae Clear, Ear/Nose Intact, Hearing Normal, Oropharynx Clear/Moist, Dentition Intact, Facial Symmetry, Neck Supple, Neck: Trachea Midline, No JVD and No Thyromegaly, no Bruits
Respiratory: coasrse to auscultation bilaterally with decreased breath sounds to the bases and with normal lung excursion
Cardiac: S1/S2 and Regular with ELEANOR
Breast: Deferred by me
Abdomen: Soft, Nontender, Nondistended, Normal Bowel Sounds and No Hepatosplenomegaly
Rectal: Deferred by Provider
Genito-urinary: No Costovertebral Tenderness
Extremities: No Clubbing, No Cyanosis and 2-3 plus pitting Edema
Skin: No Rash or open lesions
Neuro: Nonfocal/Grossly Intact, CN II-XII (Intact) and Strength (Musculoskeletal exam 5 out of 5 both upper and lower extremities)
Hematologic/Lymphatic: No Cervical Lymphadenopathy, No Submandibular Lymphadenopathy and No Supraclavicular Lymphadenopathy
Psych: Mood/afflect pleasant, Insight/judgement good and Appropriate
Vascular: plus 2 pedal and radial pulses
Data Reviewed
-
Radiology: Image Personally Visualized and interpreted (Chest x-ray notes left anterior chest wall ICD hyperinflated lung colby no pulmonary edema)
Labs: Labs Reviewed by me (BMP CBC, UA bland)
Old Records: Reviewed (Old records reviewed creatinine 2.4 as of 09/02/2024 per review in electronic record)
Assessment/Plan
-
Impression:
Cardiorenal syndrome decompensated
CKD stage IV with baseline creatinine 2.4
Ischemic cardiomyopathy EF 30%, DD stage3, mod to severe MR, mod TR
CAD complex history s/p CABG
s/p [employer] single chamber ICD
Paroxysmal Afib
HTN
Orthostasis on midodrine
Hyperlipidemia
Former tobacco use
ELI
GERD/Caballero's esophagus
S/p Schatzki's ring dilatation
Severe LAUREN stenosis S/p stent (01/10/2015)
Severe LICA stenosis S/p stent (10/05/2010)
Hx Prostate Ca S/p robotic prostatectomy (2009)
Plan:
-Patient's kidney function is at his baseline
-There is very little we have to offer other than to maintain IV diuretics as hemodynamically tolerated
-Currently on 40 mg IV twice daily of Lasix
-Obtain postvoid bladder scan to assess for possible obstructive component
-Urinalysis is completely bland
-Maintain midodrine for hemodynamic support
--- NOTE | 2024-10-05 12:21 | CM ---
spoke to pt in room, he is prev indep, lives with his in a 1 story home with 5 steps to enter. he has a cane and a walker he uses. he denies any dc planning needs. plan is for dc to home when medically stable.
[2024-10-05] MEDS: LASIX 40 MG IV (15:04)
--- NOTE | 2024-10-05 16:41 | W.PN.HOSP.TC ---
Today's Communication/Plan
-
see note
Assessment / Plan
Assessment / Plan
TTE 10/05
Normal left ventricular chamber size. Mild concentric left ventricular
hypertrophy. Severely reduced left ventricular systolic function. Akinesis of
the septum and inferior de jesus. Hypokinesis of the apex. LV ejection fraction
is 25-30% by visual assessment. D-shaped interventricular septum in systole
and diastole consistent with RV pressure and volume overload.
Enlarged right ventricular size. Moderate right ventricular hypokinesis.
Mitral valve opens normally. Thickened mitral valve leaflets. Moderate, to
severe likely severe mitral regurgitation.
Trileaflet aortic valve. Thickened aortic valve with normal leaflet excursion.
No aortic regurgitation is seen.
Tricuspid valve opens normally. Moderate tricuspid regurgitation. Estimated
pulmonary artery pressure of 15-20 mmHg, assuming a right atrial pressure of 3
mmHg.

1. Acute on chronic combined systolic/diastolic heart failure
-Significant weight gain of approx ~ 25 lbs from baseline weight
-Patient oral Lasix dose was adjusted by cardiology office unfortunately continued to have worsening leg swelling
-No significant pulmonary edema/hypoxia at presentation
-Repeat echocardiogram showing EF 25 to 30% with stage III diastolic dysfunction.
-Patient currently on IV Lasix 40 mg twice daily
-GDMT limited by patient hypotension
-Follow weight and creatinine
-Cardiology following and help appreciated
2. Paroxysmal atrial fibrillation
-History of pulmonary vein isolation.
-Maintained on amiodarone/Xarelto
3. CKD stage IIIb/IV
History of cardiorenal syndrome
-Creatinine/GFR trend reviewed and patient GFR ranges between 25-35 range
-Renal function close to baseline, continue monitoring with need of high-dose of diuretics
-Nephrology involved by cardiology services, help appreciated
Coronary disease with history of bypass
History of revision bypass with complicated hospital course
History of inguinal access site abscess
Status post ICD placement
Obstructive sleep apnea
History of prostate cancer status post prostatectomy
History of bilateral cataract surgery
History of Schatzki's ring
DVTPPX -xarelto
Full code
Total time spent : 54 mins
I personally saw and examined the patient.
I have reviewed all diagnostic interpretations and treatment plans as written.
Time includes patient management by me, time spent at the patients bedside, time to review lab and imaging results, discussing patient care, documentation in the medical record, and time spent with the family or caregiver and discussing care plan
with RN/Consultants.
Anticipated Discharge: 24 - 48 hours
Subjective/Interval History
-
Date of Service: October 05, 2024
denies having dyspnea
not on o2
Objective Data
-
Labs:
Laboratory Results
10/05/24
05:25
Sodium 138
Potassium 4.4
Chloride 102
Carbon Dioxide 25
BUN 39 H
Creatinine 2.3 H
Glucose 75
Calcium 8.5
Vital Signs:
Vital Signs
Temp Pulse Resp BP Pulse Ox
97.8 F 58 15 117/62 94
10/05/24 15:00 10/05/24 16:33 10/05/24 15:00 10/05/24 16:33 10/05/24 15:00
Review of Systems
-
All other systems: Reviewed and negative (Except presented in subjective)
Physical Exam
-
General: No Apparent Distress and Comfortable
HEENT: Negative Oxygen
Respiratory: Clear to Auscultation
Cardiac: Regular Rhythm and S1/S2; Negative Murmur or Rub
GI: Soft, Nontender, Nondistended and Normal Bowel Sounds
Musculoskeletal: Edema, Right Lower Extrem and Edema, Left Lower Extrem
Neuro: Awake, Alert, Oriented, No Motor Deficits and Nonfocal/Grossly Intact
Psych: Calm
--- NOTE | 2024-10-05 16:51 | PTCARENOTE ---
Patient PO lasix switched to IV; Patient voiding in bathroom, does not want to use urinal to measure UOP; Patient remains on room air, bradycardic with HR in the 50s; Patient denies pain, nausea, and/or vomiting throughout this shift; Plan of care
ongoing
[2024-10-05] MEDS: LIPITOR 20 MG PO (17:01)
[2024-10-05] MEDS: XARELTO 15 MG PO (17:01)
--- NOTE | 2024-10-05 21:50 | PTCARENOTE ---
Received patient at change of shift. SB on the monitor, HR in the 50s. VSS. Educated pt on the importance of measuring I&Os, pt verbalizes understanding. No complaints from pt at this time. Call velazquez within reach.
[2024-10-05] MEDS: SINGULAIR 10 MG PO (22:56)
[2024-10-06] VITALS (11 sets, daily range): BP systolic 105–123; BP diastolic 59–78; PULSE 2–61; BMI 25.1; BMI 25.2
[2024-10-06 06:14] LABS: Blood Urea Nitrogen 40 mg/dl (9-20); Calcium 8.6 mg/dl (8.4-10.2); Carbon Dioxide 23 mmol/L (22-30); Chloride 100 mmol/L (98-107); Estimated Creatinine Clearance 28 ml/min; Glucose 83 mg/dl (70-99); Potassium 4.1 mmol/L (3.5-5.1); Sodium 136 mmol/L (135-145); eGFR 30.47
[2024-10-06] MEDS: SYMBICORT 160/4.5 MCG INHALER 2 PUFF INH ×2 (08:06→17:56)
[2024-10-06] MEDS: LOW STRENGTH ASPIRIN 81 MG PO (08:39)
[2024-10-06] MEDS: VITAMIN D3 (cholecalciferol) 100 MCG PO (08:39)
[2024-10-06] MEDS: ZOLOFT 25 MG PO (08:39)
[2024-10-06] MEDS: PROTONIX 40 MG PO (08:39)
[2024-10-06] MEDS: PACERONE 200 MG PO (08:41)
[2024-10-06] MEDS: TOPROL XL 12.5 MG PO ×2 (08:41→19:41)
[2024-10-06] MEDS: LASIX 40 MG IV (08:42)
[2024-10-06] MEDS: ProAmatine 10 MG PO ×3 (08:42→17:46)
--- NOTE | 2024-10-06 09:19 | PTCARENOTE ---
Received patient at change of shift; Patient denies pain this morning, endorses dyspnea on exertion; coupon manifest clerk demonstrates sinus bradycardia; Patient reports voiding in the bathroom, refusing to utilize urinal and/or bedside commode so that
urine output can be measured; Patient intermittently refuses bladder scan but verbalizes understanding to call staff if he feels bladder distention or if he feels he is not fully emptying; Call velazquez within reach; Plan of care ongoing
[2024-10-06] MEDS: FEOSOL 325 MG PO (11:24)
--- NOTE | 2024-10-06 11:36 | W.PN.NEPH.PH ---
Today's Communication / Plan
-
increase lasix to 80 BID
Assessment/Plan
-
Impression:
Cardiorenal syndrome decompensated
CKD stage IV with baseline creatinine 2.4
Ischemic cardiomyopathy EF 30%, DD stage3, mod to severe MR, mod TR
CAD complex history s/p CABG
s/p [employer] single chamber ICD
Paroxysmal Afib
HTN
Orthostasis on midodrine
Hyperlipidemia
Former tobacco use
ELI
GERD/Caballero's esophagus
S/p Schatzki's ring dilatation
Severe LAUREN stenosis S/p stent (01/10/2015)
Severe LICA stenosis S/p stent (10/05/2010)
Hx Prostate Ca S/p robotic prostatectomy (2009)
Plan:
-Patient's kidney function is at his baseline
-There is very little we have to offer other than to maintain IV diuretics as hemodynamically tolerated
-Currently on 40 mg IV twice daily of Lasix
wt only little change and persistent edema concern from severe MR, cards follows
will need to increase diuretics
postvoid bladder scan only 118cc
-Urinalysis is completely bland
-Maintain midodrine for hemodynamic support
-
-
Date of Service: October 06, 2024
CC / HPI / ROS
-
Chief Complaint:
CKD
History of Present Illness:
cr down 2.2, wt slightly down
Bp stable
k normal
Review of Systems:
no cp
sob and edema no change
Labs
-
Labs:
WBC 6.0 10^3/uL (4.8-10.8) 10/04/24 16:13
RBC 5.11 10^6/uL (4.70-6.10) 10/04/24 16:13
Hgb 11.5 g/dL (13.0-18.0) L 10/04/24 16:13
Hct 40.2 % (39.0-52.0) 10/04/24 16:13
Plt Count 179 10^3/uL (130-400) 10/04/24 16:13
Sodium 136 mmol/L (135-145) 10/06/24 05:16
Potassium 4.1 mmol/L (3.5-5.1) 10/06/24 05:16
Chloride 100 mmol/L (98-107) 10/06/24 05:16
Carbon Dioxide 23 mmol/L (22-30) 10/06/24 05:16
BUN 40 mg/dl (9-20) H 10/06/24 05:16
Creatinine 2.2 mg/dL (0.7-1.3) H 10/06/24 05:16
eGFR 30.47 10/06/24 05:16
Glucose 83 mg/dl (70-99) 10/06/24 05:16
Calcium 8.6 mg/dl (8.4-10.2) 10/06/24 05:16
Rmv-N-Uegxorelayb Pept 02206 pg/ml 10/04/24 16:13
Albumin 3.8 g/dl (3.5-5.0) 10/04/24 16:13
Physical Exam
-
Vital Signs:
Vital Signs
Temp Pulse Resp BP Pulse Ox
98 F 59 16 123/78 95
10/06/24 10:58 10/06/24 11:24 10/06/24 10:58 10/06/24 11:24 10/06/24 10:58
Cardiovascular:: Regular rate and rhythm
Respiratory:: Bilateral: CTA (decreased)
Lung Excursion:: Normal
Abdomen:: Nontender and Soft
Extremity Edema:: +3: Bilateral:
Farah Catheter: No
--- NOTE | 2024-10-06 11:51 | CM ---
Addendum entered by PASCUAL Givens 10/06/24 14:47:
Met w/ pt. and spouse at bedside.
Pt. expects to be here thru Friday, as he is anticipating a procedure on Friday.
We discussed DC plans. He would agree to referral to [facility]. He has used their services in the past and would like for them again.
Will send referral.
Plan: HOME w/ [facility] once stable.
Original Note:
CM following for DC planning needs.
Attempted to m/w patient on this date but patient was sleeping soundly.
Reviewed initial assessment; patient resides in a private 1 story home w/ 5 JOSÉ. Functionally, patient is indep. at baseline w/ ADLs, mobility with use of a SPC or RW.
Antic. DC to home once medically stable.
Will follow for DC planning needs.
--- NOTE | 2024-10-06 13:33 | W.PN.HOSP.TC ---
Today's Communication/Plan
-
Continue diuresis
Continue monitoring weight/creatinine
Assessment / Plan
Assessment / Plan
TTE 10/05
Normal left ventricular chamber size. Mild concentric left ventricular
hypertrophy. Severely reduced left ventricular systolic function. Akinesis of
the septum and inferior de jesus. Hypokinesis of the apex. LV ejection fraction
is 25-30% by visual assessment. D-shaped interventricular septum in systole
and diastole consistent with RV pressure and volume overload.
Enlarged right ventricular size. Moderate right ventricular hypokinesis.
Mitral valve opens normally. Thickened mitral valve leaflets. Moderate, to
severe likely severe mitral regurgitation.
Trileaflet aortic valve. Thickened aortic valve with normal leaflet excursion.
No aortic regurgitation is seen.
Tricuspid valve opens normally. Moderate tricuspid regurgitation. Estimated
pulmonary artery pressure of 15-20 mmHg, assuming a right atrial pressure of 3
mmHg.

1. Acute on chronic combined systolic/diastolic heart failure
-Significant weight gain of approx ~ 25 lbs from baseline weight
-Patient oral Lasix dose was adjusted by cardiology office unfortunately continued to have worsening leg swelling
-No significant pulmonary edema/hypoxia at presentation
-Repeat echocardiogram showing EF 25 to 30% with stage III diastolic dysfunction.
-Patient currently on IV Lasix 40 mg twice daily
-GDMT limited by patient hypotension
-Follow weight and creatinine
-Cardiology following and help appreciated
2. Paroxysmal atrial fibrillation
-History of pulmonary vein isolation.
-Maintained on amiodarone/Xarelto
3. CKD stage IIIb/IV
History of cardiorenal syndrome
-Creatinine/GFR trend reviewed and patient GFR ranges between 25-35 range
-Renal function close to baseline, continue monitoring with need of high-dose of diuretics
-Nephrology involved by cardiology services, help appreciated
Coronary disease with history of bypass
History of revision bypass with complicated hospital course
History of inguinal access site abscess
Status post ICD placement
Obstructive sleep apnea
History of prostate cancer status post prostatectomy
History of bilateral cataract surgery
History of Schatzki's ring
DVTPPX -xarelto
Full code
Anticipated Discharge: > 48 hours
Subjective/Interval History
-
Date of Service: October 06, 2024
No episodes of dizziness/chest discomfort/shortness of breath/palpitation
Objective Data
-
Labs:
Laboratory Results
10/06/24
05:16
Sodium 136
Potassium 4.1
Chloride 100
Carbon Dioxide 23
BUN 40 H
Creatinine 2.2 H
Glucose 83
Calcium 8.6
Vital Signs:
Vital Signs
Temp Pulse Resp BP Pulse Ox
98 F 62 16 123/78 95
10/06/24 10:58 10/06/24 12:00 10/06/24 10:58 10/06/24 11:24 10/06/24 10:58
I&O
10/05/24 10/06/24 10/07/24
06:59 06:59 06:59
Intake Total 240 / 240
Balance 240 / 240
Review of Systems
-
Respiratory: Reports No Symptoms
Cardiac: Reports No Symptoms
Abdomen/GI: Reports No Symptoms
Physical Exam
-
General: No Apparent Distress and Comfortable
HEENT: Negative Oxygen
Respiratory: Clear to Auscultation
Cardiac: Regular Rhythm and S1/S2; Negative Murmur or Rub
GI: Soft, Nontender, Nondistended and Normal Bowel Sounds
Musculoskeletal: Edema, Right Lower Extrem and Edema, Left Lower Extrem
Neuro: Awake, Alert, Oriented, No Motor Deficits and Nonfocal/Grossly Intact
Psych: Calm
[2024-10-06] MEDS: LASIX 80 MG IV (15:22)
--- NOTE | 2024-10-06 16:51 | W.PN.CARDCBS ---
Today's Communication / Plan
-
Increase Lasix to 80 mg IV twice daily. Can also use metolazone to help diurese.
Creat stable at 2.2 and improving
Continue Toprol, amiodarone, midodrine, and Xarelto.
Will proceed with THANH on Friday to consider mitral clip.
Impression / Plan
-
Please refer to office note dated 10/04/24
PCP: Dr. Song
Cardiology: Dr. Gillis
IMPRESSION:
Presentation with LE edema, weight gain
Acute on chronic HFrEF
ICM EF 30% by echo 05/04/24
h/o Cardiorenal syndrome
CKD 4
CAD
s/p CABG x 3 (COLEMAN - LAD, seq SVG to OM1 to RPLB) 09/19
s/p PCI with JENIFFER to SVG to OM1 to RPLB 10/29/11
s/p acute inferior NC S/P PCI with RCA stent (02/19/17)
s/p Re-op CABG x 2 (left saphenous vein as sequential graft to LAD then to OM1) vein graft tear, anterior wall of RV tear and divided COLEMAN at time of CABG 12/20/19
h/o long admission (46 days) to [facility] for LVAD eval and eventual ICD placement at time of complicated redo CABG 12/2019
h/o left groin abscess with flap closure and VAC treatment 06/2020
s/p [employer] single chamber ICD
Paroxysmal Afib
s/p PVI 08/04/17
Chronic Xarelto OAC
HTN
Orthostasis on midodrine
Hyperlipidemia
Former tobacco use
ELI
GERD/Caballero's esophagus
S/p Schatzki's ring dilatation
Severe LAUREN stenosis S/p stent (01/10/2015)
Severe LICA stenosis S/p stent (10/05/2010)
Hx Prostate Ca S/p robotic prostatectomy (2009)
s/p right inguinal herniorrhaphy (1992)
s/p B/L cataract surgery 09/2024
ECHO 12/23/19: with severe left ventricular systolic dysfunction ejection fraction 15�20%. New compared to preoperative echocardiogram
Echo at [facility] 02/2020: EF 36%
Echo 06/26/20: Mildly dilated LV, EF 25-30%, inferior, septal, anteroseptal, apical akinesis with hypokinesis remaining. EF was 40% by Valle, 25-30% visually, mildly dilated and hypokinetic RV, ICD wire, dilated left atrium, mild MR, aortic
sclerosis, moderate TR, pulmonary artery pressure 37-42 mmHg
Echo 05/04/24: EF 30%, akinesis of the septum and inferior de jesus, stage III diastolic dysfunction, moderate to severe MR, moderate TR with PAP 45 mmHg
Echo October 05, 2024, EF 25 to 30%, enlarged right ventricle with moderate RV hypokinesis, moderate to severe MR, moderate TR
PLAN:
-Patient presented with worsening LE edema and acute HF with h/o cardiorenal syndrome, despite reported poor appetite the last several weeks. proBNP and CXR with small to mod L pleural effusion.
-At this increase Lasix to 80 mg IV twice daily. Creatinine is improved and down to 2.2. He remains markedly volume overloaded.
-Echo with severe mitral regurgitation. Will proceed with THANH on Friday to evaluate for possible MitraClip.
-hypotension and CKD has limited GDMT. continue BB and midodrine 10mg TID.
-SB on review of tele. continue OP toprol, amiodarone
-Cont renally dosed Xarelto 15 mg daily.
-last remote device check from 09/02/24 well functioning, 12 years battery life, no VT noted.
Progress Note - Roller Checker
Subjective
Date of Service: October 06, 2024
He remains volume overloaded and has not been diuresing much. No chest pains.
Objective
Labs:
10/04/24 16:13
10/06/24 05:16
Labs
Hgb 11.5 g/dL (13.0-18.0) L 10/04/24 16:13
Hct 40.2 % (39.0-52.0) 10/04/24 16:13
Plt Count 179 10^3/uL (130-400) 10/04/24 16:13
Sodium 136 mmol/L (135-145) 10/06/24 05:16
Potassium 4.1 mmol/L (3.5-5.1) 10/06/24 05:16
BUN 40 mg/dl (9-20) H 10/06/24 05:16
Creatinine 2.2 mg/dL (0.7-1.3) H 10/06/24 05:16
Glucose 83 mg/dl (70-99) 10/06/24 05:16
Troponins
10/04/24
16:13
Troponin I 0.020
Vital Signs and I&O:
Vital Signs
Temp Pulse Resp BP Pulse Ox
98.2 F 61 16 117/78 98
10/06/24 15:49 10/06/24 15:22 10/06/24 15:49 10/06/24 15:22 10/06/24 15:49
Vital Signs
Temp Pulse Resp BP Pulse Ox
98.2 F 61 16 117/78 98
10/06/24 15:49 10/06/24 15:22 10/06/24 15:49 10/06/24 15:22 10/06/24 15:49
Intake & Output
10/04/24 10/05/24 10/06/24 10/07/24
06:59 06:59 06:59 06:59
Intake Total 240 / 240
Balance 240 / 240
Physical Exam
Physical Exam
GEN: No distress, awake, Ox3
HEENT: supple, anicteric, mmm
LUNGS: scatt rhonchi
CV: Reg, S1/S2, 2/6 syst LSB, S3+
ABD: soft, BS+, NT/ND
EXT: +2 edema
NEURO: Gross non-focal
SKIN: No rash
[2024-10-06] MEDS: LIPITOR 20 MG PO (17:46)
[2024-10-06] MEDS: XARELTO 15 MG PO (17:46)
--- NOTE | 2024-10-06 20:47 | PTCARENOTE ---
Received patient at change of shift. Awake, alert, and oriented, sitting in bed. BP 105/69, SB 50s, 98% on room air. Discussed moving to different unit for the night and plan of care. Patient verbalized understanding. Call velazquez within reach.
[2024-10-06] MEDS: SINGULAIR 10 MG PO (22:15)
[2024-10-07 03:45] VITALS: BP 129/80
[2024-10-07 05:35] VITALS: BMI 25.2
[2024-10-07 07:24] LABS: Blood Urea Nitrogen 38 mg/dl (9-20); Calcium 8.6 mg/dl (8.4-10.2); Carbon Dioxide 25 mmol/L (22-30); Chloride 98 mmol/L (98-107); Estimated Creatinine Clearance 31 ml/min; Glucose 85 mg/dl (70-99); Potassium 3.5 mmol/L (3.5-5.1); Sodium 136 mmol/L (135-145); eGFR 34.16
[2024-10-07 07:35] VITALS: BP 131/70
[2024-10-07] MEDS: LOW STRENGTH ASPIRIN 81 MG PO (07:42)
[2024-10-07] MEDS: VITAMIN D3 (cholecalciferol) 100 MCG PO (07:42)
[2024-10-07] MEDS: PROTONIX 40 MG PO (07:42)
[2024-10-07] MEDS: ZOLOFT 25 MG PO (07:42)
[2024-10-07] MEDS: SYMBICORT 160/4.5 MCG INHALER 2 PUFF INH ×2 (07:53→17:59)
[2024-10-07] MEDS: ProAmatine 10 MG PO ×3 (08:44→16:05)
[2024-10-07] MEDS: LASIX 80 MG IV ×2 (08:45→16:05)
[2024-10-07] MEDS: TOPROL XL 12.5 MG PO ×2 (08:45→20:00)
[2024-10-07] MEDS: PACERONE 200 MG PO (08:52)
--- NOTE | 2024-10-07 09:02 | W.PN.CARDCBS ---
Today's Communication / Plan
-
Continue Lasix 80 mg IV twice daily. Creatinine improved to 2.0.
N.p.o. for THANH in a.m.
Impression / Plan
-
Please refer to office note dated 10/04/24
PCP: Dr. Song
Cardiology: Dr. Gillis
IMPRESSION:
Presentation with LE edema, weight gain
Acute on chronic HFrEF
ICM EF 30% by echo 05/04/24
h/o Cardiorenal syndrome
CKD 4
CAD
s/p CABG x 3 (COLEMAN - LAD, seq SVG to OM1 to RPLB) 09/19
s/p PCI with JENIFFER to SVG to OM1 to RPLB 10/29/11
s/p acute inferior NE S/P PCI with RCA stent (02/19/17)
s/p Re-op CABG x 2 (left saphenous vein as sequential graft to LAD then to OM1) vein graft tear, anterior wall of RV tear and divided COLEMAN at time of CABG 12/20/19
h/o long admission (46 days) to [facility] for LVAD eval and eventual ICD placement at time of complicated redo CABG 12/2019
h/o left groin abscess with flap closure and VAC treatment 06/2020
s/p [employer] single chamber ICD
Paroxysmal Afib
s/p PVI 08/04/17
Chronic Xarelto OAC
HTN
Orthostasis on midodrine
Hyperlipidemia
Former tobacco use
ELI
GERD/Caballero's esophagus
S/p Schatzki's ring dilatation
Severe LAUREN stenosis S/p stent (01/10/2015)
Severe LICA stenosis S/p stent (10/05/2010)
Hx Prostate Ca S/p robotic prostatectomy (2009)
s/p right inguinal herniorrhaphy (1992)
s/p B/L cataract surgery 09/2024
ECHO 12/23/19: with severe left ventricular systolic dysfunction ejection fraction 15�20%. New compared to preoperative echocardiogram
Echo at [facility] 02/2020: EF 36%
Echo 06/26/20: Mildly dilated LV, EF 25-30%, inferior, septal, anteroseptal, apical akinesis with hypokinesis remaining. EF was 40% by Valle, 25-30% visually, mildly dilated and hypokinetic RV, ICD wire, dilated left atrium, mild MR, aortic
sclerosis, moderate TR, pulmonary artery pressure 37-42 mmHg
Echo 05/04/24: EF 30%, akinesis of the septum and inferior de jesus, stage III diastolic dysfunction, moderate to severe MR, moderate TR with PAP 45 mmHg
Echo October 05, 2024, EF 25 to 30%, enlarged right ventricle with moderate RV hypokinesis, moderate to severe MR, moderate TR
PLAN:
-Patient presented with worsening LE edema and acute HF with h/o cardiorenal syndrome, despite reported poor appetite the last several weeks. proBNP and CXR with small to mod L pleural effusion.
-Continue Lasix to 80 mg IV twice daily. Creatinine is improved and down to 2.0. He remains markedly volume overloaded. May need Zaroxolyn to help augment diuresis.
-Echo with severe mitral regurgitation. Will proceed with THANH on Friday to evaluate for possible MitraClip.
-hypotension and CKD has limited GDMT. continue BB and midodrine 10mg TID.
-Will have comp field case manager check on cost of Farxiga. GFR is 25-30.
-SB on review of tele. continue OP toprol, amiodarone
-Cont renally dosed Xarelto 15 mg daily.
-last remote device check from 09/02/24 well functioning, 12 years battery life, no VT noted.
Progress Note - Boat Pilot
Subjective
Date of Service: October 07, 2024
Breathing is improving. Slowly diuresing. No chest pains.
Objective
Labs:
10/04/24 16:13
10/07/24 06:34
Labs
Hgb 11.5 g/dL (13.0-18.0) L 10/04/24 16:13
Hct 40.2 % (39.0-52.0) 10/04/24 16:13
Plt Count 179 10^3/uL (130-400) 10/04/24 16:13
Sodium 136 mmol/L (135-145) 10/07/24 06:34
Potassium 3.5 mmol/L (3.5-5.1) 10/07/24 06:34
BUN 38 mg/dl (9-20) H 10/07/24 06:34
Creatinine 2.0 mg/dL (0.7-1.3) H 10/07/24 06:34
Glucose 85 mg/dl (70-99) 10/07/24 06:34
Troponins
10/04/24
16:13
Troponin I 0.020
Vital Signs and I&O:
Vital Signs
Temp Pulse Resp BP Pulse Ox
97.8 F 62 18 131/70 96
10/07/24 07:35 10/07/24 08:52 10/07/24 08:07 10/07/24 08:52 10/07/24 08:07
Vital Signs
Temp Pulse Resp BP Pulse Ox
97.8 F 62 18 131/70 96
10/07/24 07:35 10/07/24 08:52 10/07/24 08:07 10/07/24 08:52 10/07/24 08:07
Intake & Output
10/05/24 10/06/24 10/07/24 10/08/24
06:59 06:59 06:59 06:59
Intake Total 720 / 720
Output Total 300 / 300
Balance 420 / 420
Physical Exam
Physical Exam
GEN: No distress, awake, Ox3
HEENT: supple, anicteric, mmm
LUNGS: CTA, no wheezes/rales
CV: Reg, S1/S2, 2/6 syst apex, S3+
ABD: soft, BS+, NT/ND
EXT: No edema
NEURO: Gross non-focal
SKIN: No rash
--- NOTE | 2024-10-07 11:13 | W.PN.HOSP.TC ---
Today's Communication/Plan
-
see note
Assessment / Plan
Assessment / Plan
TTE 10/05
Normal left ventricular chamber size. Mild concentric left ventricular
hypertrophy. Severely reduced left ventricular systolic function. Akinesis of
the septum and inferior de jesus. Hypokinesis of the apex. LV ejection fraction
is 25-30% by visual assessment. D-shaped interventricular septum in systole
and diastole consistent with RV pressure and volume overload.
Enlarged right ventricular size. Moderate right ventricular hypokinesis.
Mitral valve opens normally. Thickened mitral valve leaflets. Moderate, to
severe likely severe mitral regurgitation.
Trileaflet aortic valve. Thickened aortic valve with normal leaflet excursion.
No aortic regurgitation is seen.
Tricuspid valve opens normally. Moderate tricuspid regurgitation. Estimated
pulmonary artery pressure of 15-20 mmHg, assuming a right atrial pressure of 3
mmHg.

1. Acute on chronic combined systolic/diastolic heart failure
-Significant weight gain of approx ~ 25 lbs from baseline weight
-Patient oral Lasix dose was adjusted by cardiology office unfortunately continued to have worsening leg swelling
-No significant pulmonary edema/hypoxia at presentation
-Repeat echocardiogram showing EF 25 to 30% with stage III diastolic dysfunction.
-GDMT limited by patient hypotension
-Follow weight and creatinine
-Cardiology following and help appreciated
-Lasix dose been increased yesterday to IV 80mg/bid - adding metolazone 5mg x1 dose today as weight did not change much
-Cardio planning to do THANH tomorrow
2. Paroxysmal atrial fibrillation
-History of pulmonary vein isolation.
-Maintained on amiodarone/Xarelto
3. CKD stage IIIb/IV
History of cardiorenal syndrome
-Creatinine/GFR trend reviewed and patient GFR ranges between 25-35 range
-Renal function close to baseline, continue monitoring with need of high-dose of diuretics
-Nephrology involved by cardiology services, help appreciated
Coronary disease with history of bypass
History of revision bypass with complicated hospital course
History of inguinal access site abscess
Status post ICD placement
Obstructive sleep apnea
History of prostate cancer status post prostatectomy
History of bilateral cataract surgery
History of Schatzki's ring
DVTPPX -xarelto
Full code
Anticipated Discharge: > 48 hours
Subjective/Interval History
-
Date of Service: October 07, 2024
no complains overnight
Objective Data
-
Labs:
Laboratory Results
10/07/24
06:34
Sodium 136
Potassium 3.5
Chloride 98
Carbon Dioxide 25
BUN 38 H
Creatinine 2.0 H
Glucose 85
Calcium 8.6
Vital Signs:
Vital Signs
Temp Pulse Resp BP Pulse Ox
97.8 F 62 18 131/70 96
10/07/24 07:35 10/07/24 08:52 10/07/24 08:07 10/07/24 08:52 10/07/24 08:07
I&O
10/06/24 10/07/24 10/08/24
06:59 06:59 06:59
Intake Total 720 / 720
Output Total 300 / 300
Balance 420 / 420
Review of Systems
-
Respiratory: Reports No Symptoms
Cardiac: Reports No Symptoms
Abdomen/GI: Reports No Symptoms
Physical Exam
-
General: No Apparent Distress and Comfortable
HEENT: Negative Oxygen
Respiratory: Clear to Auscultation
Cardiac: Regular Rhythm and S1/S2; Negative Murmur or Rub
GI: Soft, Nontender, Nondistended and Normal Bowel Sounds
Musculoskeletal: Edema, Right Lower Extrem and Edema, Left Lower Extrem
Neuro: Awake, Alert, Oriented, No Motor Deficits and Nonfocal/Grossly Intact
Psych: Calm
[2024-10-07 11:25] VITALS: BP 131/66
[2024-10-07] MEDS: FEOSOL 325 MG PO (11:34)
--- NOTE | 2024-10-07 13:52 | W.PN.NEPH.PH ---
Today's Communication / Plan
-
lasix 80 BID and metolazone
Assessment/Plan
-
Impression:
Cardiorenal syndrome decompensated
CKD stage IV with baseline creatinine 2.4
Ischemic cardiomyopathy EF 30%, DD stage3, mod to severe MR, mod TR
CAD complex history s/p CABG
s/p [employer] single chamber ICD
Paroxysmal Afib
HTN
Orthostasis on midodrine
Hyperlipidemia
Former tobacco use
ELI
GERD/Caballero's esophagus
S/p Schatzki's ring dilatation
Severe LAUREN stenosis S/p stent (01/10/2015)
Severe LICA stenosis S/p stent (10/05/2010)
Hx Prostate Ca S/p robotic prostatectomy (2009)
Plan:
-Patient's kidney function is at his baseline
-There is very little we have to offer other than to maintain IV diuretics as hemodynamically tolerated
-Currently on 80 mg IV twice daily of Lasix, agree adding metolazone
wt no change and persistent edema concern from severe MR, cards follows, for THANH tomorrow
-Maintain midodrine for hemodynamic support
d/w pt , maintain FR
-
-
Date of Service: October 07, 2024
CC / HPI / ROS
-
Chief Complaint:
CKD
History of Present Illness:
cr down 2.2, wt no change
Bp stable
k normal 3.5
Review of Systems:
no cp
sob and edema no change
Labs
-
Labs:
WBC 6.0 10^3/uL (4.8-10.8) 10/04/24 16:13
RBC 5.11 10^6/uL (4.70-6.10) 10/04/24 16:13
Hgb 11.5 g/dL (13.0-18.0) L 10/04/24 16:13
Hct 40.2 % (39.0-52.0) 10/04/24 16:13
Plt Count 179 10^3/uL (130-400) 10/04/24 16:13
Sodium 136 mmol/L (135-145) 10/07/24 06:34
Potassium 3.5 mmol/L (3.5-5.1) 10/07/24 06:34
Chloride 98 mmol/L (98-107) 10/07/24 06:34
Carbon Dioxide 25 mmol/L (22-30) 10/07/24 06:34
BUN 38 mg/dl (9-20) H 10/07/24 06:34
Creatinine 2.0 mg/dL (0.7-1.3) H 10/07/24 06:34
eGFR 34.16 10/07/24 06:34
Glucose 85 mg/dl (70-99) 10/07/24 06:34
Calcium 8.6 mg/dl (8.4-10.2) 10/07/24 06:34
Vfn-J-Ykiteclkixl Pept 50172 pg/ml 10/04/24 16:13
Albumin 3.8 g/dl (3.5-5.0) 10/04/24 16:13
Physical Exam
-
Vital Signs:
Vital Signs
Temp Pulse Resp BP Pulse Ox
97.6 F 60 16 131/66 96
10/07/24 11:25 10/07/24 11:34 10/07/24 11:25 10/07/24 11:34 10/07/24 11:25
Cardiovascular:: Regular rate and rhythm
Respiratory:: Bilateral: CTA (anteriorly, decreased at bases)
Lung Excursion:: Normal
Abdomen:: Nontender and Soft
Extremity Edema:: +3: Bilateral:
Farah Catheter: No
[2024-10-07 15:54] VITALS: BP 119/65
[2024-10-07] MEDS: ZAROXOLYN 5 MG PO (16:04)
--- NOTE | 2024-10-07 16:42 | PTCARENOTE ---
Addendum entered by Cassie Calvo RN 10/07/24 19:16:
Ordered to keep an eye on patient- pattern finisher RN notified. Left arm elevated.
Original Note:
Patient noted to have edema and warmth to left forearm at this time. No complaints of pain. Dr. Grove notified.
[2024-10-07] MEDS: LIPITOR 20 MG PO (17:15)
[2024-10-07] MEDS: XARELTO 15 MG PO (17:15)
[2024-10-07 19:09] LABS: Potassium 3.4 mmol/L (3.5-5.1)
[2024-10-07 19:40] VITALS: BP 124/70
[2024-10-07] MEDS: SINGULAIR 10 MG PO (22:06)
[2024-10-07 22:10] VITALS: BP 132/70
[2024-10-07] MEDS: KCL 40 MEQ PO (22:38)
[2024-10-08] VITALS (12 sets, daily range): BP systolic 101–128; BP diastolic 54–74; PULSE 2–66; BMI 24.8
[2024-10-08] MEDS: SYMBICORT 160/4.5 MCG INHALER 2 PUFF INH ×2 (07:15→18:14)
[2024-10-08] MEDS: VITAMIN D3 (cholecalciferol) 100 MCG PO (07:46)
[2024-10-08] MEDS: PROTONIX 40 MG PO (07:47)
[2024-10-08] MEDS: PACERONE 200 MG PO (07:47)
[2024-10-08] MEDS: TOPROL XL 12.5 MG PO ×2 (07:47→20:15)
[2024-10-08] MEDS: LOW STRENGTH ASPIRIN 81 MG PO (07:47)
[2024-10-08] MEDS: ProAmatine 10 MG PO ×3 (07:47→16:26)
[2024-10-08] MEDS: ZOLOFT 25 MG PO (07:47)
[2024-10-08] MEDS: LASIX 80 MG IV ×2 (07:48→16:25)
--- NOTE | 2024-10-08 08:00 | PTCARENOTE ---
During shift report this a.m. nightshift BRIGIDA Waite stated she removed IV from left arm; during assessment noted patient kerlix wrap on LUE c/d/i.
--- NOTE | 2024-10-08 08:35 | PTCARENOTE ---
Addendum entered by Oly Mackey RN 10/08/24 10:58:
At 10:30 patient returned from [employer] on stretcher with [facility], verbal report received at bedside, patient ambulated to bathroom/returned to bed with assist x2.
Original Note:
At 08:05 confirmed via telephone with Pam in [employer] to give all PO meds to patient this a.m.; telephone report given to [employer] BR[facility], and 08:35 [facility] arrived on 2S and transported patient with chart in bed for THANH.
[2024-10-08 08:50] LABS: Blood Urea Nitrogen 37 mg/dl (9-20); Carbon Dioxide 28 mmol/L (22-30); Chloride 95 mmol/L (98-107); Estimated Creatinine Clearance 31 ml/min; Glucose 82 mg/dl (70-99); Potassium 3.3 mmol/L (3.5-5.1); Sodium 136 mmol/L (135-145); eGFR 34.16
--- NOTE | 2024-10-08 09:14 | CM ---
Reviewed the chart notes. Patient for THANH today per cardiology. CM continues to be available to patient/family and is monitoring medical plan for needs at discharge.
Plan: Discharge plans will depend on the patient's progress.
--- NOTE | 2024-10-08 09:42 | W.PN.CARDCBS ---
Today's Communication / Plan
-
THANH with severe MR and severe TR. EF 20 to 25%. He ultimately may be a candidate for MitraClip.
For now continue aggressive IV diuresis with IV Lasix and metolazone.
Creatinine improved and down to 2.0.
Continue Toprol and midodrine.
Remains in sinus.
Impression / Plan
-
Please refer to office note dated 10/04/24
PCP: Dr. Song
Cardiology: Dr. Gillis
IMPRESSION:
Presentation with LE edema, weight gain
Acute on chronic HFrEF
ICM EF 30% by echo 05/04/24
h/o Cardiorenal syndrome
CKD 4
CAD
s/p CABG x 3 (COLEMAN - LAD, seq SVG to OM1 to RPLB) 09/19
s/p PCI with JENIFFER to SVG to OM1 to RPLB 10/29/11
s/p acute inferior SD S/P PCI with RCA stent (02/19/17)
s/p Re-op CABG x 2 (left saphenous vein as sequential graft to LAD then to OM1) vein graft tear, anterior wall of RV tear and divided COLEMAN at time of CABG 12/20/19
h/o long admission (46 days) to [place] for LVAD eval and eventual ICD placement at time of complicated redo CABG 12/2019
h/o left groin abscess with flap closure and VAC treatment 06/2020
s/p [employer] single chamber ICD
Paroxysmal Afib
s/p PVI 08/04/17
Chronic Xarelto OAC
HTN
Orthostasis on midodrine
Hyperlipidemia
Former tobacco use
ELI
GERD/Caballero's esophagus
S/p Schatzki's ring dilatation
Severe LAUREN stenosis S/p stent (01/10/2015)
Severe LICA stenosis S/p stent (10/05/2010)
Hx Prostate Ca S/p robotic prostatectomy (2009)
s/p right inguinal herniorrhaphy (1992)
s/p B/L cataract surgery 09/2024
ECHO 12/23/19: with severe left ventricular systolic dysfunction ejection fraction 15�20%. New compared to preoperative echocardiogram
Echo at [place] 02/2020: EF 36%
Echo 06/26/20: Mildly dilated LV, EF 25-30%, inferior, septal, anteroseptal, apical akinesis with hypokinesis remaining. EF was 40% by [place], 25-30% visually, mildly dilated and hypokinetic RV, ICD wire, dilated left atrium, mild MR, aortic
sclerosis, moderate TR, pulmonary artery pressure 37-42 mmHg
Echo 05/04/24: EF 30%, akinesis of the septum and inferior de jesus, stage III diastolic dysfunction, moderate to severe MR, moderate TR with PAP 45 mmHg
Echo October 05, 2024, EF 25 to 30%, enlarged right ventricle with moderate RV hypokinesis, moderate to severe MR, moderate TR
PLAN:
-THANH with severe MR. Will be candidate for Mitraclip. Will begin eval. Will discuss with team plans for cath.
-Patient presented with worsening LE edema and acute HF with h/o cardiorenal syndrome, despite reported poor appetite the last several weeks. proBNP and CXR with small to mod L pleural effusion.
-Continue Lasix to 80 mg IV twice daily with metolazone. Weight is improving.Creatinine is improved and down to 2.0.
-Echo with severe mitral regurgitation. Will proceed with THANH on Friday to evaluate for possible MitraClip.
-hypotension and CKD has limited GDMT. continue BB and midodrine 10mg TID.
-Will have case management rn check on cost of Farxiga. GFR is 25-30.
-SB on review of tele. continue OP toprol, amiodarone
-Cont renally dosed Xarelto 15 mg daily.
-last remote device check from 09/02/24 well functioning, 12 years battery life, no VT noted.
Progress Note - Tobacco Flavorer
Subjective
Date of Service: October 08, 2024
Breathing is overall improved. He is diuresing
Objective
Labs:
10/04/24 16:13
10/08/24 08:24
Labs
Hgb 11.5 g/dL (13.0-18.0) L 10/04/24 16:13
Hct 40.2 % (39.0-52.0) 10/04/24 16:13
Plt Count 179 10^3/uL (130-400) 10/04/24 16:13
Sodium 136 mmol/L (135-145) 10/08/24 08:24
Potassium 3.3 mmol/L (3.5-5.1) L 10/08/24 08:24
BUN 37 mg/dl (9-20) H 10/08/24 08:24
Creatinine 2.0 mg/dL (0.7-1.3) H 10/08/24 08:24
Glucose 82 mg/dl (70-99) 10/08/24 08:24
Vital Signs and I&O:
Vital Signs
Temp Pulse Resp BP Pulse Ox
97.9 F 65 16 125/65 98
10/08/24 07:30 10/08/24 07:48 10/08/24 07:30 10/08/24 07:48 10/08/24 08:00
Vital Signs
Temp Pulse Resp BP Pulse Ox
97.9 F 65 16 125/65 98
10/08/24 07:30 10/08/24 07:48 10/08/24 07:30 10/08/24 07:48 10/08/24 08:00
Intake & Output
10/06/24 10/07/24 10/08/24 10/09/24
06:59 06:59 06:59 06:59
Intake Total 720 / 720 720 / 720
Output Total 300 / 300 1650 / 1650
Balance 420 / 420 -930 / -930
Physical Exam
Physical Exam
GEN: No distress, awake, Ox3
HEENT: supple, anicteric, mmm
LUNGS: CTA, no wheezes/rales
CV: Reg, S1/S2, 2/6 syst LSB, S3+
ABD: soft, BS+, NT/ND
EXT: ++ edema
NEURO: Gross non-focal
SKIN: No rash
--- NOTE | 2024-10-08 12:10 | W.PN.NEPH.PH ---
Today's Communication / Plan
-
lasix metolazone
replace k
Assessment/Plan
-
Impression:
Cardiorenal syndrome decompensated
CKD stage IV with baseline creatinine 2.4
Ischemic cardiomyopathy EF 30%, DD stage3, mod to severe MR, mod TR
CAD complex history s/p CABG
s/p [employer] single chamber ICD
Paroxysmal Afib
HTN
Orthostasis on midodrine
Hyperlipidemia
Former tobacco use
ELI
GERD/Caballero's esophagus
S/p Schatzki's ring dilatation
Severe LAUREN stenosis S/p stent (01/10/2015)
Severe LICA stenosis S/p stent (10/05/2010)
Hx Prostate Ca S/p robotic prostatectomy (2009)
Plan:
-Patient's kidney function is at his baseline
-There is very little we have to offer other than to maintain IV diuretics as hemodynamically tolerated
-Currently on 80 mg IV twice daily of Lasix, and metolazone
wt slow to improve and persistent edema concern from severe MR, cards follows, s/p THANH today
considering mitral clip
-Maintain midodrine for hemodynamic support
follow bladder scan, treat constipation
d/w pt and family , maintain FR
-
-
Date of Service: October 08, 2024
CC / HPI / ROS
-
Chief Complaint:
CKD
History of Present Illness:
cr down 2.. wt decreasing
Bp stable
k low 3.3
Review of Systems:
no cp
no sob at rrest and edema no change
Labs
-
Labs:
WBC 6.0 10^3/uL (4.8-10.8) 10/04/24 16:13
RBC 5.11 10^6/uL (4.70-6.10) 10/04/24 16:13
Hgb 11.5 g/dL (13.0-18.0) L 10/04/24 16:13
Hct 40.2 % (39.0-52.0) 10/04/24 16:13
Plt Count 179 10^3/uL (130-400) 10/04/24 16:13
Sodium 136 mmol/L (135-145) 10/08/24 08:24
Chloride 95 mmol/L (98-107) L 10/08/24 08:24
Carbon Dioxide 28 mmol/L (22-30) 10/08/24 08:24
BUN 37 mg/dl (9-20) H 10/08/24 08:24
Creatinine 2.0 mg/dL (0.7-1.3) H 10/08/24 08:24
eGFR 34.16 10/08/24 08:24
Glucose 82 mg/dl (70-99) 10/08/24 08:24
Calcium 9.0 mg/dl (8.4-10.2) 10/08/24 08:24
Wfo-E-Zkzwepytsqm Pept 46171 pg/ml 10/04/24 16:13
Albumin 3.8 g/dl (3.5-5.0) 10/04/24 16:13
Physical Exam
-
Vital Signs:
Vital Signs
Temp Pulse Resp BP Pulse Ox
97.6 F 68 17 128/71 99
10/08/24 11:45 10/08/24 11:45 10/08/24 11:45 10/08/24 11:45 10/08/24 11:45
Cardiovascular:: Regular rate and rhythm
Respiratory:: Bilateral: CTA (decreased)
Lung Excursion:: Normal
Abdomen:: Nontender and Soft
Extremity Edema:: +3: Bilateral:
Farah Catheter: No
[2024-10-08] MEDS: FEOSOL 325 MG PO (12:15)
[2024-10-08] MEDS: COLACE 100 MG PO (12:18)
[2024-10-08] MEDS: KCL 40 MEQ PO (12:18)
--- NOTE | 2024-10-08 13:15 | W.PN.HOSP.TC ---
Today's Communication/Plan
-
Continue diuretics
Follow weight and creatinine
Left upper extremity venous Doppler
Assessment / Plan
Assessment / Plan
TTE 10/05
Normal left ventricular chamber size. Mild concentric left ventricular
hypertrophy. Severely reduced left ventricular systolic function. Akinesis of
the septum and inferior de jesus. Hypokinesis of the apex. LV ejection fraction
is 25-30% by visual assessment. D-shaped interventricular septum in systole
and diastole consistent with RV pressure and volume overload.
Enlarged right ventricular size. Moderate right ventricular hypokinesis.
Mitral valve opens normally. Thickened mitral valve leaflets. Moderate, to
severe likely severe mitral regurgitation.
Trileaflet aortic valve. Thickened aortic valve with normal leaflet excursion.
No aortic regurgitation is seen.
Tricuspid valve opens normally. Moderate tricuspid regurgitation. Estimated
pulmonary artery pressure of 15-20 mmHg, assuming a right atrial pressure of 3
mmHg.

1. Acute on chronic combined systolic/diastolic heart failure
-Significant weight gain of approx ~ 25 lbs from baseline weight
-Patient oral Lasix dose was adjusted by cardiology office unfortunately continued to have worsening leg swelling
-No significant pulmonary edema/hypoxia at presentation
-Repeat echocardiogram showing EF 25 to 30% with stage III diastolic dysfunction.
-GDMT limited by patient hypotension
-Follow weight and creatinine
-Cardiology following and help appreciated
-Patient currently on IV Lasix 80 mg twice daily. Metolazone 5 mg daily added to regimen
2. Paroxysmal atrial fibrillation
-History of pulmonary vein isolation.
-Maintained on amiodarone/Xarelto
3. CKD stage IIIb/IV
History of cardiorenal syndrome
-Creatinine/GFR trend reviewed and patient GFR ranges between 25-35 range
-Renal function close to baseline, continue monitoring with need of high-dose of diuretics
-Nephrology involved by cardiology services, help appreciated
4. Hypokalemia
-Replace as needed, follow-up BMP pending for afternoon.
5. Severe MR/TR
-Patient underwent THANH today
-Patient possibly in eventual candidate for MitraClip placement for MV
6. Left arm swelling
-Already on Xarelto and suspecting superficial thrombosis from peripheral IV line/blood draw
-Left upper extremity venous Doppler ordered
Coronary disease with history of bypass
History of revision bypass with complicated hospital course
History of inguinal access site abscess
Status post ICD placement
Obstructive sleep apnea
History of prostate cancer status post prostatectomy
History of bilateral cataract surgery
History of Schatzki's ring
DVTPPX -xarelto
Full code
Anticipated Discharge: > 48 hours
Subjective/Interval History
-
Date of Service: October 08, 2024
new left arm swelling
afebrile in night
no other problems
Objective Data
-
Labs:
Laboratory Results
10/08/24 10/08/24
08:24 17:00
Sodium 136
Potassium 3.3 L Pending
Chloride 95 L
Carbon Dioxide 28
BUN 37 H
Creatinine 2.0 H
Glucose 82
Calcium 9.0
Vital Signs:
Vital Signs
Temp Pulse Resp BP Pulse Ox
98 F 71 16 123/74 98
10/08/24 12:45 10/08/24 12:45 10/08/24 12:45 10/08/24 12:45 10/08/24 12:45
I&O
10/07/24 10/08/24 10/09/24
06:59 06:59 06:59
Intake Total 720 / 720 720 / 720
Output Total 300 / 300 1650 / 1650
Balance 420 / 420 -930 / -930
Review of Systems
-
Respiratory: Reports No Symptoms
Cardiac: Reports No Symptoms
Abdomen/GI: Reports No Symptoms
Physical Exam
-
General: No Apparent Distress and Comfortable
HEENT: Negative Oxygen
Respiratory: Clear to Auscultation
Cardiac: Regular Rhythm and S1/S2; Negative Murmur or Rub
GI: Soft, Nontender and Nondistended
Musculoskeletal: Edema, Left Upper Extrem, Edema, Right Lower Extrem and Edema, Left Lower Extrem
Neuro: Awake, Alert, Oriented, No Motor Deficits and Nonfocal/Grossly Intact
Psych: Calm
[2024-10-08] MEDS: ZAROXOLYN 5 MG PO (15:12)
[2024-10-08 17:47] LABS: Potassium 3.1 mmol/L (3.5-5.1)
[2024-10-08] MEDS: LIPITOR 20 MG PO (18:03)
[2024-10-08] MEDS: XARELTO 15 MG PO (18:03)
[2024-10-08] MEDS: SINGULAIR 10 MG PO (22:01)
[2024-10-08] MEDS: KCL 20 MEQ PO ×2 (22:01→22:23)
[2024-10-09] VITALS (7 sets, daily range): BP systolic 110–126; BP diastolic 61–74; PULSE 2; BMI 23.7
--- NOTE | 2024-10-09 01:18 | PTCARENOTE ---
Patient rang call velazquez to alert staff he had a mild bloody nose, stated his sinuses have been dry for a few days and he has had intermittent scant nose bleeds. He stated doctor's are already aware this has been happening. Nose bleed did stop within
a couple minutes, but patient wanted to take a break from his bipap. Will update providers as needed and report to day shift RN in the morning. Assessment on going, no other changes in status at this time.
[2024-10-09 06:04] LABS: Blood Urea Nitrogen 37 mg/dl (9-20); Calcium 8.8 mg/dl (8.4-10.2); Carbon Dioxide 29 mmol/L (22-30); Chloride 92 mmol/L (98-107); Estimated Creatinine Clearance 33 ml/min; Glucose 75 mg/dl (70-99); Potassium 3.1 mmol/L (3.5-5.1); Sodium 137 mmol/L (135-145); eGFR 36.33
[2024-10-09] MEDS: SYMBICORT 160/4.5 MCG INHALER 2 PUFF INH ×2 (07:38→19:09)
[2024-10-09] MEDS: PACERONE 200 MG PO (08:27)
[2024-10-09] MEDS: ProAmatine 10 MG PO ×3 (08:27→16:58)
[2024-10-09] MEDS: TOPROL XL 12.5 MG PO ×2 (08:29→19:33)
[2024-10-09] MEDS: ZAROXOLYN 5 MG PO (08:29)
[2024-10-09] MEDS: KCL 40 MEQ PO ×2 (08:29→12:03)
[2024-10-09] MEDS: ZOLOFT 25 MG PO (08:29)
[2024-10-09] MEDS: VITAMIN D3 (cholecalciferol) 100 MCG PO (08:30)
[2024-10-09] MEDS: PROTONIX 40 MG PO (08:30)
[2024-10-09] MEDS: LOW STRENGTH ASPIRIN 81 MG PO (08:30)
[2024-10-09] MEDS: LASIX 80 MG IV ×2 (08:31→16:57)
--- NOTE | 2024-10-09 10:46 | W.PN.NEPH.PH ---
Today's Communication / Plan
-
Maintain diuresis
Follow creatinine and potassium
Extra potassium provided today
Assessment/Plan
-
Impression:
Cardiorenal syndrome decompensated
CKD stage IV with baseline creatinine 2.4
Ischemic cardiomyopathy EF 30%, DD stage3, mod to severe MR, mod TR
CAD complex history s/p CABG
s/p [employer] single chamber ICD
Paroxysmal Afib
HTN
Orthostasis on midodrine
Hyperlipidemia
Former tobacco use
ELI
GERD/Caballero's esophagus
S/p Schatzki's ring dilatation
Severe LAUREN stenosis S/p stent (01/10/2015)
Severe LICA stenosis S/p stent (10/05/2010)
Hx Prostate Ca S/p robotic prostatectomy (2009)
Plan:
-Patient's kidney function is at his baseline ~1.9
-There is very little we have to offer other than to maintain IV diuretics as hemodynamically tolerated
-Currently on 80 mg IV twice daily of Lasix, and metolazone
-Replete potassium for total of 80 mill equivalents today
wt improved and persistent edema concern from severe MR, cards follows, s/p THANH yesterday
considering mitral clip
-Maintain midodrine for hemodynamic support
follow bladder scan, treat constipation
d/w pt and family , maintain FR
-
-
Date of Service: October 09, 2024
CC / HPI / ROS
-
Chief Complaint:
CKD
History of Present Illness:
cr down 1.9.. wt decreasing
Bp stable
k low 3.1
Review of Systems:
no cp
no sob at rest and edema no change
Weights down
Labs
-
Labs:
WBC 6.0 10^3/uL (4.8-10.8) 10/04/24 16:13
RBC 5.11 10^6/uL (4.70-6.10) 10/04/24 16:13
Hgb 11.5 g/dL (13.0-18.0) L 10/04/24 16:13
Hct 40.2 % (39.0-52.0) 10/04/24 16:13
Plt Count 179 10^3/uL (130-400) 10/04/24 16:13
Sodium 137 mmol/L (135-145) 10/09/24 04:56
Potassium 3.1 mmol/L (3.5-5.1) L 10/09/24 04:56
Chloride 92 mmol/L (98-107) L 10/09/24 04:56
Carbon Dioxide 29 mmol/L (22-30) 10/09/24 04:56
BUN 37 mg/dl (9-20) H 10/09/24 04:56
Creatinine 1.9 mg/dL (0.7-1.3) H 10/09/24 04:56
eGFR 36.33 10/09/24 04:56
Glucose 75 mg/dl (70-99) 10/09/24 04:56
Calcium 8.8 mg/dl (8.4-10.2) 10/09/24 04:56
Yft-Z-Idbfkjivesm Pept 91909 pg/ml 10/04/24 16:13
Albumin 3.8 g/dl (3.5-5.0) 10/04/24 16:13
Physical Exam
-
Vital Signs:
Vital Signs
Temp Pulse Resp BP Pulse Ox
98.0 F 69 16 120/61 96
10/09/24 07:54 10/09/24 07:54 10/09/24 07:54 10/09/24 07:54 10/09/24 07:54
Cardiovascular:: Regular rate and rhythm
Respiratory:: Bilateral: CTA (decreased)
Lung Excursion:: Normal
Abdomen:: Nontender and Soft
Extremity Edema:: +3: Bilateral:
Farah Catheter: No
[2024-10-09 10:48] LABS: Phosphorus 3.8 mg/dl (2.5-4.5)
[2024-10-09] MEDS: FEOSOL 325 MG PO (12:03)
--- NOTE | 2024-10-09 12:50 | W.PN.HOSP.TC ---
Today's Communication/Plan
-
see note
Assessment / Plan
Assessment / Plan
TTE 10/05
Normal left ventricular chamber size. Mild concentric left ventricular
hypertrophy. Severely reduced left ventricular systolic function. Akinesis of
the septum and inferior de jesus. Hypokinesis of the apex. LV ejection fraction
is 25-30% by visual assessment. D-shaped interventricular septum in systole
and diastole consistent with RV pressure and volume overload.
Enlarged right ventricular size. Moderate right ventricular hypokinesis.
Mitral valve opens normally. Thickened mitral valve leaflets. Moderate, to
severe likely severe mitral regurgitation.
Trileaflet aortic valve. Thickened aortic valve with normal leaflet excursion.
No aortic regurgitation is seen.
Tricuspid valve opens normally. Moderate tricuspid regurgitation. Estimated
pulmonary artery pressure of 15-20 mmHg, assuming a right atrial pressure of 3
mmHg.
THANH 10/07
Left ventricle is mildly dilated. Moderately reduced left ventricular systolic
function. Global hypokinesis with inferior apical akinesis. Paradoxical septal
motion is present. LVEF 25 to 30%.
Mildly dilated right ventricle with mild RV hypokinesis.
Mildly dilated left atrium.
Mildly thickened mitral valve leaflets. The posterior leaflet is restricted.
There is an eccentric jet of severe mitral regurgitation. Mean mitral gradient
1 mmHg. MR ERO by [place] 0.37 cm sq, MR regurgitant volume 65 mL. The origin of
the MR jet is found diffusely at the at the P2 and P3 scallop. Posterior
leaflet length 13 to 15 mm. Mitral valve area by 3D planimetry 6.42 cm sq.
Severe tricuspid regurgitation.

1. Acute on chronic combined systolic/diastolic heart failure
-Significant weight gain of approx ~ 25 lbs from baseline weight
-Patient oral Lasix dose was adjusted by cardiology office unfortunately continued to have worsening leg swelling
-No significant pulmonary edema/hypoxia at presentation
-Repeat echocardiogram showing EF 25 to 30% with stage III diastolic dysfunction.
-GDMT limited by patient hypotension
-Follow weight and creatinine
-Cardiology following and help appreciated
-Maintain on IV Lasix 80mg twice daily and metolazone 5 mg daily
2. Paroxysmal atrial fibrillation
-History of pulmonary vein isolation.
-Maintained on amiodarone/Xarelto
3. CKD stage IIIb/IV
History of cardiorenal syndrome
-Creatinine/GFR trend reviewed and patient GFR ranges between 25-35 range
-Renal function close to baseline, continue monitoring with need of high-dose of diuretics
-Nephrology involved by cardiology services, help appreciated
4. Hypokalemia
-Replace as needed, follow-up BMP pending for afternoon.
5. Severe MR/TR
-Patient underwent THANH today
-Patient possibly in eventual candidate for MitraClip placement for MV
6. Left arm swelling
-Already on Xarelto
-Left upper extremity venous Doppler neg for VTE
7. Hypokalemia
-on k 40mg/d, replace prn
-mag wnl
Coronary disease with history of bypass
History of revision bypass with complicated hospital course
History of inguinal access site abscess
Status post ICD placement
Obstructive sleep apnea
History of prostate cancer status post prostatectomy
History of bilateral cataract surgery
History of Schatzki's ring
DVTPPX -xarelto
Full code
Anticipated Discharge: > 48 hours
Subjective/Interval History
-
Date of Service: October 09, 2024
no complains overnight
left arm swelling better
Objective Data
-
Labs:
Laboratory Results
10/09/24
04:56
Sodium 137
Potassium 3.1 L
Chloride 92 L
Carbon Dioxide 29
BUN 37 H
Creatinine 1.9 H
Glucose 75
Calcium 8.8
Vital Signs:
Vital Signs
Temp Pulse Resp BP Pulse Ox
97.8 F 67 16 125/66 98
10/09/24 11:51 10/09/24 11:51 10/09/24 11:51 10/09/24 11:51 10/09/24 11:51
I&O
10/08/24 10/09/24 10/10/24
06:59 06:59 06:59
Intake Total 720 / 720 720 / 720
Output Total 1650 / 1650 2900 / 2900
Balance -930 / -930 -2180 / -2180
Review of Systems
-
Respiratory: Reports No Symptoms
Cardiac: Reports No Symptoms
Abdomen/GI: Reports No Symptoms
Physical Exam
-
General: No Apparent Distress and Comfortable
HEENT: Negative Oxygen
Respiratory: Clear to Auscultation
Cardiac: Regular Rhythm and S1/S2; Negative Murmur or Rub
GI: Soft, Nontender and Nondistended
Musculoskeletal: Edema, Left Upper Extrem, Edema, Right Lower Extrem and Edema, Left Lower Extrem
Neuro: Awake, Alert, Oriented, No Motor Deficits and Nonfocal/Grossly Intact
Psych: Calm
--- NOTE | 2024-10-09 14:17 | W.PN.CARDCBS ---
Today's Communication / Plan
-
Continue IV diuresis
Replete K greater than 4, mag greater than 2
Continue telemetry
Further discussions regarding candidacy for MitraClip next week with valve team
Impression / Plan
-
Please refer to office note dated 10/04/24
PCP: Dr. Song
Cardiology: Dr. Gillis
IMPRESSION:
Acute on chronic HFrEF, Decompensated cardiorenal syndrome with ischemic cardiomyopathy and severe mitral regurgitation
ICM EF 30% by echo 05/04/24
h/o Cardiorenal syndrome
CKD 4
CAD
s/p CABG x 3 (COLEMAN - LAD, seq SVG to OM1 to RPLB) 09/19
s/p PCI with JENIFFER to SVG to OM1 to RPLB 10/29/11
s/p acute inferior [place] S/P PCI with RCA stent (02/19/17)
s/p Re-op CABG x 2 (left saphenous vein as sequential graft to LAD then to OM1) vein graft tear, anterior wall of RV tear and divided COLEMAN at time of CABG 12/20/19
h/o long admission (46 days) to [facility] for LVAD eval and eventual ICD placement at time of complicated redo CABG 12/2019
h/o left groin abscess with flap closure and VAC treatment 06/2020
s/p [place] single chamber ICD
Paroxysmal Afib
s/p PVI 08/04/17
Chronic Xarelto OAC
HTN
Orthostasis on midodrine
Hyperlipidemia
Former tobacco use
ELI
GERD/Caballero's esophagus
S/p Schatzki's ring dilatation
Severe LAUREN stenosis S/p stent (01/10/2015)
Severe LICA stenosis S/p stent (10/05/2010)
Hx Prostate Ca S/p robotic prostatectomy (2009)
s/p right inguinal herniorrhaphy (1992)
s/p B/L cataract surgery 09/2024
ECHO 12/23/19: with severe left ventricular systolic dysfunction ejection fraction 15�20%. New compared to preoperative echocardiogram
Echo at [facility] 02/2020: EF 36%
Echo 06/26/20: Mildly dilated LV, EF 25-30%, inferior, septal, anteroseptal, apical akinesis with hypokinesis remaining. EF was 40% by Valle, 25-30% visually, mildly dilated and hypokinetic RV, ICD wire, dilated left atrium, mild MR, aortic
sclerosis, moderate TR, pulmonary artery pressure 37-42 mmHg
Echo 05/04/24: EF 30%, akinesis of the septum and inferior de jesus, stage III diastolic dysfunction, moderate to severe MR, moderate TR with PAP 45 mmHg
Echo October 05, 2024, EF 25 to 30%, enlarged right ventricle with moderate RV hypokinesis, moderate to severe MR, moderate TR
PLAN:
Acute on chronic HFrEF, Decompensated cardiorenal syndrome with ischemic cardiomyopathy and severe mitral regurgitation
-THANH with severe MR with plan for MitraClip evaluation. Will discuss further with valve team on Friday
-Continue IV diuretics as hemodynamically tolerated; renal function remained stable.
-Appreciate nephrology input
-SB on review of tele. continue OP toprol, amiodarone
-Cont renally dosed Xarelto 15 mg daily.
-last remote device check from 09/02/24 well functioning, 12 years battery life, no VT noted.
Will follow with you
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
Subjective
Date of Service: October 09, 2024
Seen and examined with family including and son in the room. Feels well following transesophageal echocardiogram and denies throat pain. Reviewed findings and plan for MitraClip evaluation with valve team. He denies chest pain or pressure.
Shortness of breath is stable.
Objective
Labs:
10/04/24 16:13
10/09/24 04:56
Labs
Hgb 11.5 g/dL (13.0-18.0) L 10/04/24 16:13
Hct 40.2 % (39.0-52.0) 10/04/24 16:13
Plt Count 179 10^3/uL (130-400) 10/04/24 16:13
Sodium 137 mmol/L (135-145) 10/09/24 04:56
Potassium 3.1 mmol/L (3.5-5.1) L 10/09/24 04:56
BUN 37 mg/dl (9-20) H 10/09/24 04:56
Creatinine 1.9 mg/dL (0.7-1.3) H 10/09/24 04:56
Glucose 75 mg/dl (70-99) 10/09/24 04:56
Vital Signs and I&O:
Vital Signs
Temp Pulse Resp BP Pulse Ox
97.8 F 67 16 125/66 98
10/09/24 11:51 10/09/24 11:51 10/09/24 11:51 10/09/24 11:51 10/09/24 11:51
Vital Signs
Temp Pulse Resp BP Pulse Ox
97.8 F 67 16 125/66 98
10/09/24 11:51 10/09/24 11:51 10/09/24 11:51 10/09/24 11:51 10/09/24 11:51
Intake & Output
10/07/24 10/08/24 10/09/24 10/10/24
06:59 06:59 06:59 06:59
Intake Total 720 / 720 720 / 720 720 / 720
Output Total 300 / 300 1650 / 1650 2900 / 2900
Balance 420 / 420 -930 / -930 -2180 / -2180
Physical Exam
Physical Exam
GEN: No distress, awake, Ox3
HEENT: supple, anicteric, mmm
LUNGS: CTA, no wheezes/rales
CV: Reg, S1/S2, 2/6 syst LSB, S3+
ABD: soft, BS+, NT/ND
EXT: ++ edema
NEURO: Gross non-focal
SKIN: No rash
[2024-10-09] MEDS: XARELTO 15 MG PO (17:00)
[2024-10-09] MEDS: LIPITOR 20 MG PO (17:00)
[2024-10-09] MEDS: SINGULAIR 10 MG PO (21:32)
[2024-10-10] VITALS (7 sets, daily range): BP systolic 109–136; BP diastolic 61–79; BMI 23.2
[2024-10-10 07:38] LABS: Blood Urea Nitrogen 43 mg/dl (9-20); Calcium 8.8 mg/dl (8.4-10.2); Carbon Dioxide 34 mmol/L (22-30); Chloride 90 mmol/L (98-107); Estimated Creatinine Clearance 33 ml/min; Glucose 96 mg/dl (70-99); Potassium 3.1 mmol/L (3.5-5.1); Sodium 135 mmol/L (135-145); eGFR 36.33
[2024-10-10] MEDS: SYMBICORT 160/4.5 MCG INHALER 2 PUFF INH ×2 (07:38→18:18)
[2024-10-10] MEDS: VITAMIN D3 (cholecalciferol) 100 MCG PO (08:15)
[2024-10-10] MEDS: KCL 40 MEQ PO ×2 (08:15→16:18)
[2024-10-10] MEDS: ZAROXOLYN 5 MG PO (08:15)
[2024-10-10] MEDS: LOW STRENGTH ASPIRIN 81 MG PO (08:15)
[2024-10-10] MEDS: PROTONIX 40 MG PO (08:16)
[2024-10-10] MEDS: ZOLOFT 25 MG PO (08:16)
[2024-10-10] MEDS: TOPROL XL 12.5 MG PO ×2 (08:16→19:22)
[2024-10-10] MEDS: PACERONE 200 MG PO (08:16)
[2024-10-10] MEDS: LASIX 80 MG IV ×2 (08:19→16:19)
[2024-10-10] MEDS: ProAmatine 10 MG PO ×3 (08:19→16:18)
[2024-10-10] MEDS: FEOSOL 325 MG PO (12:32)
--- NOTE | 2024-10-10 13:31 | W.PN.HOSP.TC ---
Today's Communication/Plan
-
replace 20meq K, gets 40meq in morning
f/u renal function
Assessment / Plan
Assessment / Plan
TTE 10/05
Normal left ventricular chamber size. Mild concentric left ventricular
hypertrophy. Severely reduced left ventricular systolic function. Akinesis of
the septum and inferior de jesus. Hypokinesis of the apex. LV ejection fraction
is 25-30% by visual assessment. D-shaped interventricular septum in systole
and diastole consistent with RV pressure and volume overload.
Enlarged right ventricular size. Moderate right ventricular hypokinesis.
Mitral valve opens normally. Thickened mitral valve leaflets. Moderate, to
severe likely severe mitral regurgitation.
Trileaflet aortic valve. Thickened aortic valve with normal leaflet excursion.
No aortic regurgitation is seen.
Tricuspid valve opens normally. Moderate tricuspid regurgitation. Estimated
pulmonary artery pressure of 15-20 mmHg, assuming a right atrial pressure of 3
mmHg.
THANH 10/07
Left ventricle is mildly dilated. Moderately reduced left ventricular systolic
function. Global hypokinesis with inferior apical akinesis. Paradoxical septal
motion is present. LVEF 25 to 30%.
Mildly dilated right ventricle with mild RV hypokinesis.
Mildly dilated left atrium.
Mildly thickened mitral valve leaflets. The posterior leaflet is restricted.
There is an eccentric jet of severe mitral regurgitation. Mean mitral gradient
1 mmHg. MR ERO by [place]isa 0.37 cm sq, MR regurgitant volume 65 mL. The origin of
the MR jet is found diffusely at the at the P2 and P3 scallop. Posterior
leaflet length 13 to 15 mm. Mitral valve area by 3D planimetry 6.42 cm sq.
Severe tricuspid regurgitation.

1. Acute on chronic combined systolic/diastolic heart failure
-Significant weight gain of approx ~ 25 lbs from baseline weight
-Patient oral Lasix dose was adjusted by cardiology office unfortunately continued to have worsening leg swelling
-No significant pulmonary edema/hypoxia at presentation
-Repeat echocardiogram showing EF 25 to 30% with stage III diastolic dysfunction.
-GDMT limited by patient hypotension
-Follow weight and creatinine
-Cardiology following and help appreciated
-Maintain on IV Lasix 80mg twice daily and metolazone 5 mg daily
2. Paroxysmal atrial fibrillation
-History of pulmonary vein isolation.
-Maintained on amiodarone/Xarelto
3. CKD stage IIIb/IV
History of cardiorenal syndrome
-Creatinine/GFR trend reviewed and patient GFR ranges between 25-35 range
-Renal function close to baseline, continue monitoring with need of high-dose of diuretics
-Nephrology involved by cardiology services, help appreciated
4. Hypokalemia
-Replace as needed, follow-up BMP pending for afternoon.
5. Severe MR/TR
-Patient underwent THANH today
-Patient possibly in eventual candidate for MitraClip placement for MV
6. Left arm swelling
-Already on Xarelto
-Left upper extremity venous Doppler neg for VTE
7. Hypokalemia
-on k 40mg/d, adding 20meq K today
-mag wnl
Coronary disease with history of bypass
History of revision bypass with complicated hospital course
History of inguinal access site abscess
Status post ICD placement
Obstructive sleep apnea
History of prostate cancer status post prostatectomy
History of bilateral cataract surgery
History of Schatzki's ring
DVTPPX -xarelto
Full code
Anticipated Discharge: > 48 hours
Subjective/Interval History
-
Date of Service: October 10, 2024
no new complains overnight
left arm swelling is better
Objective Data
-
Labs:
Laboratory Results
10/10/24
06:38
Sodium 135
Potassium 3.1 L
Chloride 90 L
Carbon Dioxide 34 H
BUN 43 H
Creatinine 1.9 H
Glucose 96
Calcium 8.8
Vital Signs:
Vital Signs
Temp Pulse Resp BP Pulse Ox
98.4 F 64 16 129/70 94
10/10/24 12:27 10/10/24 12:32 10/10/24 12:27 10/10/24 12:32 10/10/24 12:27
I&O
10/09/24 10/10/24 10/11/24
06:59 06:59 06:59
Intake Total 720 / 720 1180 / 1180
Output Total 2900 / 2900 2625 / 2625
Balance -2180 / -2180 -1445 / -1445
Review of Systems
-
Respiratory: Reports No Symptoms
Cardiac: Reports No Symptoms
Abdomen/GI: Reports No Symptoms
Physical Exam
-
General: No Apparent Distress and Comfortable
HEENT: Negative Oxygen
Respiratory: Clear to Auscultation
Cardiac: Regular Rhythm and S1/S2; Negative Murmur or Rub
GI: Soft, Nontender and Nondistended
Musculoskeletal: Edema, Right Lower Extrem and Edema, Left Lower Extrem
Neuro: Awake, Alert, Oriented, No Motor Deficits and Nonfocal/Grossly Intact
Psych: Calm
[2024-10-10] MEDS: KCL 20 MEQ PO (13:44)
--- NOTE | 2024-10-10 13:51 | W.PN.NEPH.PH ---
Today's Communication / Plan
-
Replete potassium: additional 40 meq to be given at 4pm (60 mEq already given)
Maintain diuresis
Follow BMP
Assessment/Plan
-
Impression:
Cardiorenal syndrome decompensated
CKD stage IV with baseline creatinine 2.4
Ischemic cardiomyopathy EF 30%, DD stage3, mod to severe MR, mod TR
CAD complex history s/p CABG
s/p [employer] single chamber ICD
Paroxysmal Afib
HTN
Orthostasis on midodrine
Hyperlipidemia
Former tobacco use
ELI
GERD/Caballero's esophagus
S/p Schatzki's ring dilatation
Severe LAUREN stenosis S/p stent (01/10/2015)
Severe LICA stenosis S/p stent (10/05/2010)
Hx Prostate Ca S/p robotic prostatectomy (2009)
Plan:
-Patient's kidney function is at his baseline ~1.9
-Remains grossly nonoliguric approximately 2600 cc
-Replete potassium
-=weights down
-There is very little we have to offer other than to maintain IV diuretics as hemodynamically tolerated
-Currently on 80 mg IV twice daily of Lasix, and metolazone
-wt improved and persistent edema concern from severe MR, cards follows, s/p THANH yesterday
considering mitral clip
-Maintain midodrine for hemodynamic support
follow bladder scan, treat constipation
d/w pt and family , maintain FR
-
-
Date of Service: October 10, 2024
CC / HPI / ROS
-
Chief Complaint:
CKD
History of Present Illness:
cr down 1.9.. wt decreasing
Bp stable on oppodo-[id number]-[id number] midodrine
k low 3.1
Review of Systems:
no cp
no sob at rest and edema no change
Weights down 5kg
Labs
-
Labs:
WBC 6.0 10^3/uL (4.8-10.8) 10/04/24 16:13
RBC 5.11 10^6/uL (4.70-6.10) 10/04/24 16:13
Hgb 11.5 g/dL (13.0-18.0) L 10/04/24 16:13
Hct 40.2 % (39.0-52.0) 10/04/24 16:13
Plt Count 179 10^3/uL (130-400) 10/04/24 16:13
Sodium 135 mmol/L (135-145) 10/10/24 06:38
Potassium 3.1 mmol/L (3.5-5.1) L 10/10/24 06:38
Chloride 90 mmol/L (98-107) L 10/10/24 06:38
Carbon Dioxide 34 mmol/L (22-30) H 10/10/24 06:38
BUN 43 mg/dl (9-20) H 10/10/24 06:38
Creatinine 1.9 mg/dL (0.7-1.3) H 10/10/24 06:38
eGFR 36.33 10/10/24 06:38
Glucose 96 mg/dl (70-99) 10/10/24 06:38
Calcium 8.8 mg/dl (8.4-10.2) 10/10/24 06:38
Phosphorus 3.8 mg/dl (2.5-4.5) 10/09/24 04:56
Hqo-Z-Tddsvrvqihw Pept 82990 pg/ml 10/04/24 16:13
Albumin 3.8 g/dl (3.5-5.0) 10/04/24 16:13
Physical Exam
-
Vital Signs:
Vital Signs
Temp Pulse Resp BP Pulse Ox
98.4 F 64 16 129/70 94
10/10/24 12:27 10/10/24 12:32 12/01/24 12:27 10/10/24 12:32 10/10/24 12:27
Cardiovascular:: Regular rate and rhythm
Respiratory:: Bilateral: CTA (decreased)
Lung Excursion:: Normal
Abdomen:: Nontender and Soft
Extremity Edema:: +2: Bilateral:
Farah Catheter: No
--- NOTE | 2024-10-10 15:02 | W.PN.CARDCBS ---
Today's Communication / Plan
-
Continue current diuretics with comanagement from nephrology
Follow BMP and replete electrolytes as needed
MitraClip discussion/evaluation ongoing
Impression / Plan
-
PCP: Dr. Song
Cardiology: Dr. Gillis
IMPRESSION:
Acute on chronic HFrEF, Decompensated cardiorenal syndrome with ischemic cardiomyopathy and severe mitral regurgitation
ICM EF 30% by echo 05/04/24
h/o Cardiorenal syndrome
CKD 4
CAD
s/p CABG x 3 (COLEMAN - LAD, seq SVG to OM1 to RPLB) 09/19
s/p PCI with JENIFFER to SVG to OM1 to RPLB 10/29/11
s/p acute inferior [place] S/P PCI with RCA stent (02/19/17)
s/p Re-op CABG x 2 (left saphenous vein as sequential graft to LAD then to OM1) vein graft tear, anterior wall of RV tear and divided COLEMAN at time of CABG 12/20/19
h/o long admission (46 days) to [place] [facility] for LVAD eval and eventual ICD placement at time of complicated redo CABG 12/2019
h/o left groin abscess with flap closure and VAC treatment 06/2020
s/p [place] single chamber ICD
Paroxysmal Afib
s/p PVI 08/04/17
Chronic Xarelto OAC
HTN
Orthostasis on midodrine
Hyperlipidemia
Former tobacco use
ELI
GERD/Caballero's esophagus
S/p Schatzki's ring dilatation
Severe LAUREN stenosis S/p stent (01/10/2015)
Severe LICA stenosis S/p stent (10/05/2010)
Hx Prostate Ca S/p robotic prostatectomy (2009)
s/p right inguinal herniorrhaphy (1992)
s/p B/L cataract surgery 09/2024
ECHO 12/23/19: with severe left ventricular systolic dysfunction ejection fraction 15�20%. New compared to preoperative echocardiogram
Echo at [place] [facility] 02/2020: EF 36%
Echo 06/26/20: Mildly dilated LV, EF 25-30%, inferior, septal, anteroseptal, apical akinesis with hypokinesis remaining. EF was 40% by Valle, 25-30% visually, mildly dilated and hypokinetic RV, ICD wire, dilated left atrium, mild MR, aortic
sclerosis, moderate TR, pulmonary artery pressure 37-42 mmHg
Echo 05/04/24: EF 30%, akinesis of the septum and inferior de jesus, stage III diastolic dysfunction, moderate to severe MR, moderate TR with PAP 45 mmHg
Echo October 05, 2024, EF 25 to 30%, enlarged right ventricle with moderate RV hypokinesis, moderate to severe MR, moderate TR
PLAN:
Acute on chronic HFrEF, Decompensated cardiorenal syndrome with ischemic cardiomyopathy and severe mitral regurgitation
-THANH with severe MR with plan for MitraClip evaluation. Will discuss further with valve team on Friday
-Continue IV diuretics as hemodynamically tolerated; renal function remained stable.
-Replete potassium
-Appreciate nephrology input
-SB on review of tele. continue OP toprol, amiodarone
-Cont renally dosed Xarelto 15 mg daily.
-last remote device check from 09/02/24 well functioning, 12 years battery life, no VT noted.
Will follow with you
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
Subjective
Date of Service: October 10, 2024
Patient seen and examined with no new complaints.Denies chest pain or pressure. Denies dizziness/lightheadedness. Denies shortness of breath at rest however does have shortness of breath with activity. No significant change to his edema.
Objective
Labs:
10/04/24 16:13
10/10/24 06:38
Labs
Hgb 11.5 g/dL (13.0-18.0) L 10/04/24 16:13
Hct 40.2 % (39.0-52.0) 10/04/24 16:13
Plt Count 179 10^3/uL (130-400) 10/04/24 16:13
Sodium 135 mmol/L (135-145) 10/10/24 06:38
Potassium 3.1 mmol/L (3.5-5.1) L 10/10/24 06:38
BUN 43 mg/dl (9-20) H 10/10/24 06:38
Creatinine 1.9 mg/dL (0.7-1.3) H 10/10/24 06:38
Glucose 96 mg/dl (70-99) 10/10/24 06:38
Vital Signs and I&O:
Vital Signs
Temp Pulse Resp BP Pulse Ox
98.4 F 64 16 129/70 94
10/10/24 12:27 10/10/24 12:32 10/10/24 12:27 10/10/24 12:32 10/10/24 12:27
Vital Signs
Temp Pulse Resp BP Pulse Ox
98.4 F 64 16 129/70 94
10/10/24 12:27 10/10/24 12:32 10/10/24 12:27 10/10/24 12:32 10/10/24 12:27
Intake & Output
10/08/24 10/09/24 10/10/24 10/11/24
06:59 06:59 06:59 06:59
Intake Total 720 / 720 720 / 720 1180 / 1180
Output Total 1650 / 1650 2900 / 2900 2625 / 2625
Balance -930 / -930 -2180 / -2180 -1445 / -1445
Physical Exam
Physical Exam
GEN: No distress, awake, Ox3
HEENT: mmm
LUNGS: CTA, no wheezes/rales
CV: Reg, S1/S2, 2/6 syst LSB, S3+
ABD: soft, BS+, NT/ND
EXT: ++ edema
[2024-10-10] MEDS: FLUSH (NSS) 1 FLUSH IV (16:20)
[2024-10-10] MEDS: XARELTO 15 MG PO (17:32)
[2024-10-10] MEDS: LIPITOR 20 MG PO (17:32)
[2024-10-10] MEDS: SINGULAIR 10 MG PO (23:04)
[2024-10-11 02:44] VITALS: BP 113/63
[2024-10-11 06:00] VITALS: BMI 23.0
[2024-10-11 07:07] LABS: Blood Urea Nitrogen 52 mg/dl (9-20); Calcium 8.9 mg/dl (8.4-10.2); Carbon Dioxide 33 mmol/L (22-30); Chloride 89 mmol/L (98-107); Estimated Creatinine Clearance 34 ml/min; Glucose 88 mg/dl (70-99); Magnesium 2.2 mg/dl (1.6-2.3); Potassium 3.9 mmol/L (3.5-5.1); Sodium 136 mmol/L (135-145); eGFR 38.77
[2024-10-11] MEDS: SYMBICORT 160/4.5 MCG INHALER 2 PUFF INH ×2 (07:43→19:48)
[2024-10-11 08:17] VITALS: BP 124/70
[2024-10-11] MEDS: KCL 40 MEQ PO (08:20)
[2024-10-11] MEDS: ProAmatine 10 MG PO ×3 (08:20→17:39)
[2024-10-11] MEDS: TOPROL XL 12.5 MG PO ×2 (08:21→21:14)
[2024-10-11] MEDS: LOW STRENGTH ASPIRIN 81 MG PO (08:21)
[2024-10-11] MEDS: PACERONE 200 MG PO (08:21)
[2024-10-11] MEDS: PROTONIX 40 MG PO (08:21)
[2024-10-11] MEDS: ZAROXOLYN 5 MG PO (08:21)
[2024-10-11] MEDS: ZOLOFT 25 MG PO (08:22)
[2024-10-11] MEDS: VITAMIN D3 (cholecalciferol) 100 MCG PO (08:22)
[2024-10-11] MEDS: LASIX 80 MG IV ×2 (08:22→17:39)
--- NOTE | 2024-10-11 08:37 | W.PN.HOSP.TC ---
Today's Communication/Plan
-
see bold
Assessment / Plan
Assessment / Plan
HPI: 84-year-old male with past medical history of ischemic cardiomyopathy, CAD, CHF with a EF of 30% status post AICD paroxysmal atrial fibrillation and intermittent hypotension requiring midodrine who presents to the emergency department from
cardiology clinic with ongoing left lower extremity swelling.
1. Acute on chronic combined systolic/diastolic heart failure
-Significant weight gain of approx ~ 25 lbs from baseline weight
-Patient oral Lasix dose was adjusted by cardiology office unfortunately continued to have worsening leg swelling
-No significant pulmonary edema/hypoxia at presentation
-Repeat echocardiogram showing EF 25 to 30% with stage III diastolic dysfunction.
-GDMT limited by patient hypotension
-Appreciate cardiology and nephrology input, continue IV Lasix 80mg twice daily and metolazone 5 mg daily
-Trend creatinine, trend daily weights
2. Paroxysmal atrial fibrillation
-History of pulmonary vein isolation.
-Maintained on amiodarone, hold Xarelto for poss cath
3. CKD stage IIIb/IV
History of cardiorenal syndrome
-Creatinine/GFR trend reviewed and patient GFR ranges between 25-35 range
-Appreciate nephrology input, renal function close to baseline, continue monitoring with need of high-dose of diuretics
4. Hypokalemia
-Replace as needed
5. Severe MR/TR
-Status post THANH 10/07/24
-Patient possibly in eventual candidate for MitraClip placement for MV
-For poss cath
6. Left arm swelling
-Left upper extremity venous Doppler neg for VTE
Coronary disease with history of bypass
History of revision bypass with complicated hospital course
History of inguinal access site abscess
Status post ICD placement
Obstructive sleep apnea
History of prostate cancer status post prostatectomy
History of bilateral cataract surgery
History of Schatzki's ring
DVTPPX - holding xarelto
Full code
Total time spent to see the patient on the floor, examine the patient, review data and lab results, discuss treatment plan with patient, nursing staff around 39 minutes.
Physical Exam
General: No acute distress
HEENT: Normocephalic, Atraumatic, EOMI, MMM
Respiratory: Clear to auscultation bilaterally
Cardiac: Normal S1/S2, Regular Rate and Rhythm, +murmur
GI: Soft, Nontender, Nondistended, Normal Bowel Sounds
Extremities: No Clubbing, Cyanosis, or Edema
Neuro: Nonfocal/Grossly Intact
Psych: Calm, Cooperative
Derm: No Visible lesions
Anticipated Discharge: > 48 hours
Subjective/Interval History
-
Date of Service: October 11, 2024
Patient reports shortness of breath has resolved. No dyspnea with activity. No lightheadedness, no dizziness. No fever, no vomiting.
Objective Data
-
Labs:
Laboratory Results
10/11/24
04:45
Sodium 136
Potassium 3.9 D
Chloride 89 L
Carbon Dioxide 33 H
BUN 52 H
Creatinine 1.8 H
Glucose 88
Calcium 8.9
Vital Signs:
Vital Signs
Temp Pulse Resp BP Pulse Ox
97.5 F 67 16 124/70 96
10/11/24 08:17 10/11/24 08:17 10/11/24 08:17 10/11/24 08:17 10/11/24 08:17
I&O
10/10/24 10/11/24 10/12/24
06:59 06:59 06:59
Intake Total 1180 / 1180 900 / 900
Output Total 2625 / 2625 1900 / 1900
Balance -1445 / -1445 -1000 / -1000
--- NOTE | 2024-10-11 09:49 | W.PN.CARDCBS ---
Today's Communication / Plan
-
THANH this admit with severe MR with plan for MitraClip evaluation. Evaluation ongoing. Will discuss with interventional cardiology regarding possible cath. Hold Xarelto in anticipation. Cr is the best he has had in last 4 yrs.
Cont IV lasix diuresis. Wt continues to come down. Cr slightly improved
Replete lytes as needed
Appreciate renal input.
Remains sinus on tele. Cont Toprol and Amiodarone.
Will hold renally dosed Xarelto 15 mg daily in anticipation of possible cath.
Impression / Plan
-
PCP: Dr. Song
Cardiology: Dr. Gillis
IMPRESSION:
Acute on chronic HFrEF, Decompensated cardiorenal syndrome with ischemic cardiomyopathy and severe mitral regurgitation
ICM EF 30% by echo 05/04/24
h/o Cardiorenal syndrome
CKD 4
CAD
s/p CABG x 3 (COLEMAN - LAD, seq SVG to OM1 to RPLB) 09/19
s/p PCI with JENIFFER to SVG to OM1 to RPLB 10/29/11
s/p acute inferior [place] S/P PCI with RCA stent (02/19/17)
s/p Re-op CABG x 2 (left saphenous vein as sequential graft to LAD then to OM1) vein graft tear, anterior wall of RV tear and divided COLEMAN at time of CABG 12/20/19
h/o long admission (46 days) to [facility] for LVAD eval and eventual ICD placement at time of complicated redo CABG 12/2019
h/o left groin abscess with flap closure and VAC treatment 06/2020
s/p [place] single chamber ICD
Paroxysmal Afib
s/p PVI 08/04/17
Chronic Xarelto OAC
HTN
Orthostasis on midodrine
Hyperlipidemia
Former tobacco use
ELI
GERD/Caballero's esophagus
S/p Schatzki's ring dilatation
Severe LAUREN stenosis S/p stent (01/10/2015)
Severe LICA stenosis S/p stent (10/05/2010)
Hx Prostate Ca S/p robotic prostatectomy (2009)
s/p right inguinal herniorrhaphy (1992)
s/p B/L cataract surgery 09/2024
ECHO 12/23/19: with severe left ventricular systolic dysfunction ejection fraction 15�20%. New compared to preoperative echocardiogram
Echo at [facility] 02/2020: EF 36%
Echo 06/26/20: Mildly dilated LV, EF 25-30%, inferior, septal, anteroseptal, apical akinesis with hypokinesis remaining. EF was 40% by Valle, 25-30% visually, mildly dilated and hypokinetic RV, ICD wire, dilated left atrium, mild MR, aortic
sclerosis, moderate TR, pulmonary artery pressure 37-42 mmHg
Echo 05/04/24: EF 30%, akinesis of the septum and inferior de jesus, stage III diastolic dysfunction, moderate to severe MR, moderate TR with PAP 45 mmHg
Echo October 05, 2024, EF 25 to 30%, enlarged right ventricle with moderate RV hypokinesis, moderate to severe MR, moderate TR
Plan:
Acute on chronic HFrEF, Decompensated cardiorenal syndrome with ischemic cardiomyopathy and severe mitral regurgitation
THANH this admit with severe MR with plan for MitraClip evaluation. Evaluation ongoing. Will discuss with interventional cardiology regarding possible cath. Hold Xarelto in anticipation. Cr is the best he has had in last 4 yrs.
Cont IV lasix diuresis. Wt continues to come down. Cr slightly improved
Replete lytes as needed
Appreciate renal input.
Remains sinus on tele. Cont Toprol and Amiodarone.
Will hold renally dosed Xarelto 15 mg daily in anticipation of possible cath.
Last remote device check from 09/02/24 well functioning, 12 years battery life, no VT noted.
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
Subjective
Date of Service: October 11, 2024
Pt seen and examined. No complaints. No chest pain or shortness of breath.
Objective
Labs:
10/04/24 16:13
10/11/24 04:45
Labs
Hgb 11.5 g/dL (13.0-18.0) L 10/04/24 16:13
Hct 40.2 % (39.0-52.0) 10/04/24 16:13
Plt Count 179 10^3/uL (130-400) 10/04/24 16:13
Sodium 136 mmol/L (135-145) 10/11/24 04:45
Potassium 3.9 mmol/L (3.5-5.1) D 10/11/24 04:45
BUN 52 mg/dl (9-20) H 10/11/24 04:45
Creatinine 1.8 mg/dL (0.7-1.3) H 10/11/24 04:45
Glucose 88 mg/dl (70-99) 10/11/24 04:45
Vital Signs and I&O:
Vital Signs
Temp Pulse Resp BP Pulse Ox
97.5 F 67 16 124/70 96
10/11/24 08:17 10/11/24 08:17 10/11/24 08:17 10/11/24 08:17 10/11/24 08:17
Vital Signs
Temp Pulse Resp BP Pulse Ox
97.5 F 67 16 124/70 96
10/11/24 08:17 10/11/24 08:17 10/11/24 08:17 10/11/24 08:17 10/11/24 08:17
Intake & Output
10/09/24 10/10/24 10/11/24 10/12/24
06:59 06:59 06:59 06:59
Intake Total 720 / 720 1180 / 1180 900 / 900
Output Total 2900 / 2900 2625 / 2625 1900 / 1900
Balance -2180 / -2180 -1445 / -1445 -1000 / -1000
Physical Exam
Physical Exam
General: No acute distress, AAOX3
Neck: Negative JVD
Heart: Regular, Negative S3 positive S1/S2, Negative S4, No murmur
Lungs: CTA b/l, negative wheezes/rales/rhonchi
Abd: Positive BS, NT/ND, neg rebound/rigidity/guarding
Ext: Negative cyanosis/clubbing/edema
Neuro: nonfocal
[2024-10-11] MEDS: FEOSOL 325 MG PO (11:55)
[2024-10-11 11:57] VITALS: BP 91/59
--- NOTE | 2024-10-11 12:18 | W.PN.NEPH.PH ---
Today's Communication / Plan
-
cont diuresis
Assessment/Plan
-
Impression:
Cardiorenal syndrome decompensated
CKD stage IV with baseline creatinine 2.4
Ischemic cardiomyopathy EF 30%, DD stage3, mod to severe MR, mod TR
CAD complex history s/p CABG
s/p [employer] single chamber ICD
Paroxysmal Afib
HTN
Orthostasis on midodrine
Hyperlipidemia
Former tobacco use
ELI
GERD/Caballero's esophagus
S/p Schatzki's ring dilatation
Severe LAUREN stenosis S/p stent (01/10/2015)
Severe LICA stenosis S/p stent (10/05/2010)
Hx Prostate Ca S/p robotic prostatectomy (2009)
Plan:
-Patient's kidney function is at his baseline ~1.8
-Remains grossly nonoliguric
k fine on replacements
weights down still hypervolemic
Currently on 80 mg IV twice daily of Lasix and metolazone
concern from severe MR, cards follows, considering mitral clip and planning heart cath prior
-Maintain midodrine for hemodynamic support
d/w pt , maintain FR
-
-
Date of Service: October 11, 2024
CC / HPI / ROS
-
Chief Complaint:
CKD
History of Present Illness:
cr down 1.8.. wt decreasing
Bp stable on mortbl-jhh-tbrrk midodrine
k low 3.9
Review of Systems:
no cp
no sob at rest and edema improving
Weights down 5
Labs
-
Labs:
WBC 6.0 10^3/uL (4.8-10.8) 10/04/24 16:13
RBC 5.11 10^6/uL (4.70-6.10) 10/04/24 16:13
Hgb 11.5 g/dL (13.0-18.0) L 10/04/24 16:13
Hct 40.2 % (39.0-52.0) 10/04/24 16:13
Plt Count 179 10^3/uL (130-400) 10/04/24 16:13
Sodium 136 mmol/L (135-145) 10/11/24 04:45
Potassium 3.9 mmol/L (3.5-5.1) D 10/11/24 04:45
Chloride 89 mmol/L (98-107) L 10/11/24 04:45
Carbon Dioxide 33 mmol/L (22-30) H 10/11/24 04:45
BUN 52 mg/dl (9-20) H 10/11/24 04:45
Creatinine 1.8 mg/dL (0.7-1.3) H 10/11/24 04:45
eGFR 38.77 10/11/24 04:45
Glucose 88 mg/dl (70-99) 10/11/24 04:45
Calcium 8.9 mg/dl (8.4-10.2) 10/11/24 04:45
Phosphorus 3.8 mg/dl (2.5-4.5) 10/09/24 04:56
Njr-X-Lbhelucdbee Pept 14438 pg/ml 10/04/24 16:13
Albumin 3.8 g/dl (3.5-5.0) 10/04/24 16:13
Physical Exam
-
Vital Signs:
Vital Signs
Temp Pulse Resp BP Pulse Ox
97.7 F 62 16 91/59 95
10/11/24 11:57 10/11/24 11:57 10/11/24 11:57 10/11/24 11:57 10/11/24 11:57
Cardiovascular:: Regular rate and rhythm
Respiratory:: Bilateral: CTA
Lung Excursion:: Normal
Abdomen:: Nontender and Soft
Extremity Edema:: +2: Bilateral:
Farah Catheter: No
--- NOTE | 2024-10-11 14:25 | CM ---
Chart reviewed
Diuresing
Cardiology and nephrology following
Per Cards - poss cath
Plan - TBD based on pts needs and . progress. CM to follow
[2024-10-11 15:25] VITALS: BP 134/75
[2024-10-11] MEDS: LIPITOR 20 MG PO (17:38)
[2024-10-11 19:32] VITALS: BP 112/63
[2024-10-11] MEDS: SINGULAIR 10 MG PO (21:14)
[2024-10-11 23:15] VITALS: BP 110/59
[2024-10-12] VITALS (12 sets, daily range): BP systolic 93–126; BP diastolic 35–76; PULSE 2–67; BMI 23.4
[2024-10-12] MEDS: SYMBICORT 160/4.5 MCG INHALER 2 PUFF INH ×2 (07:54→19:25)
[2024-10-12 08:27] LABS: Blood Urea Nitrogen 54 mg/dl (9-20); Carbon Dioxide 40 mmol/L (22-30); Chloride 85 mmol/L (98-107); Estimated Creatinine Clearance 36 ml/min; Glucose 93 mg/dl (70-99); Sodium 135 mmol/L (135-145); eGFR 41.52
--- NOTE | 2024-10-12 08:47 | W.PN.HOSP.TC ---
Today's Communication/Plan
-
For cardiac catheterization today
Assessment / Plan
Assessment / Plan
HPI: 84-year-old male with past medical history of ischemic cardiomyopathy, CAD, CHF with a EF of 30% status post AICD paroxysmal atrial fibrillation and intermittent hypotension requiring midodrine who presents to the emergency department from
cardiology clinic with ongoing left lower extremity swelling.
1. Acute on chronic combined systolic/diastolic heart failure
-Significant weight gain of approx ~ 25 lbs from baseline weight
-Patient oral Lasix dose was adjusted by cardiology office unfortunately continued to have worsening leg swelling
-No significant pulmonary edema/hypoxia at presentation
-Repeat echocardiogram showing EF 25 to 30% with stage III diastolic dysfunction.
-GDMT limited by patient hypotension
-Appreciate cardiology and nephrology input, continue metolazone 5 mg daily
-10/12, nephrology recommends holding IV Lasix secondary to metabolic alkalosis, Diamox ordered
-Trend creatinine, trend daily weights
2. Paroxysmal atrial fibrillation
-History of pulmonary vein isolation.
-Maintained on amiodarone, hold Xarelto for cardiac catheterization 10/12
3. CKD stage IIIb/IV
History of cardiorenal syndrome
-Creatinine/GFR trend reviewed and patient GFR ranges between 25-35 range
-Appreciate nephrology input, renal function close to baseline, continue monitoring with need of high-dose of diuretics
4. Hypokalemia
-Replace as needed
5. Severe MR/TR
-Status post THANH 10/07/24
-Patient possibly in eventual candidate for MitraClip placement for MV
-For cardiac catheterization 10/12 as part of MitraClip workup
6. Left arm swelling
-Left upper extremity venous Doppler neg for VTE
Coronary disease with history of bypass
History of revision bypass with complicated hospital course
History of inguinal access site abscess
Status post ICD placement
Obstructive sleep apnea
History of prostate cancer status post prostatectomy
History of bilateral cataract surgery
History of Schatzki's ring
DVTPPX - holding xarelto
Full code
Total time spent to see the patient on the floor, examine the patient, review data and lab results, discuss treatment plan with patient, nursing staff around 36 minutes.
Physical Exam
General: No acute distress
HEENT: Normocephalic, Atraumatic, EOMI, MMM
Respiratory: Clear to auscultation bilaterally
Cardiac: Normal S1/S2, Regular Rate and Rhythm, +murmur
GI: Soft, Nontender, Nondistended, Normal Bowel Sounds
Extremities: No Clubbing, Cyanosis
Pitting bilateral lower extremity edema noted
Neuro: Nonfocal/Grossly Intact
Psych: Calm, Cooperative
Anticipated Discharge: > 48 hours
Subjective/Interval History
-
Date of Service: October 12, 2024
Objective Data
-
Labs:
Laboratory Results
10/12/24
07:15
Sodium 135
Potassium 3.0 L
Chloride 85 L
Carbon Dioxide 40 H
BUN 54 H
Creatinine 1.7 H
Glucose 93
Calcium 9.0
Vital Signs:
Vital Signs
Temp Pulse Resp BP Pulse Ox
98.0 F 83 24 93/50 96
10/12/24 07:08 10/12/24 08:03 10/12/24 08:03 10/12/24 07:08 10/12/24 08:03
I&O
10/11/24 10/12/24 10/13/24
06:59 06:59 06:59
Intake Total 900 / 900 680 / 680
Output Total 1900 / 1900 1000 / 1000
Balance -1000 / -1000 -320 / -320
[2024-10-12] MEDS: ProAmatine 10 MG PO ×3 (08:48→17:05)
[2024-10-12] MEDS: PACERONE 200 MG PO (08:48)
[2024-10-12] MEDS: ZAROXOLYN 5 MG PO (08:48)
[2024-10-12] MEDS: KCL 40 MEQ PO ×3 (08:48→19:54)
[2024-10-12] MEDS: VITAMIN D3 (cholecalciferol) 100 MCG PO (08:48)
[2024-10-12] MEDS: LOW STRENGTH ASPIRIN 81 MG PO (08:48)
[2024-10-12] MEDS: TOPROL XL 12.5 MG PO ×2 (08:49→19:55)
[2024-10-12] MEDS: PROTONIX 40 MG PO (08:51)
[2024-10-12] MEDS: ZOLOFT 25 MG PO (08:51)
[2024-10-12] MEDS: LASIX 80 MG IV (08:51)
--- NOTE | 2024-10-12 11:44 | W.PN.NEPH.PH ---
Today's Communication / Plan
-
see plan
met alkalosis, diamox
hold diuretics Pm dose
Assessment/Plan
-
Impression:
Cardiorenal syndrome decompensated
CKD stage IV with baseline creatinine 2.4
Ischemic cardiomyopathy EF 30%, DD stage3, mod to severe MR, mod TR
CAD complex history s/p CABG
s/p [employer] single chamber ICD
Paroxysmal Afib
HTN
Orthostasis on midodrine
Hyperlipidemia
Former tobacco use
ELI
GERD/Caballero's esophagus
S/p Schatzki's ring dilatation
Severe LAUREN stenosis S/p stent (01/10/2015)
Severe LICA stenosis S/p stent (10/05/2010)
Hx Prostate Ca S/p robotic prostatectomy (2009)
Plan:
-Patient's kidney function is at his baseline ~1.7
-Remains grossly nonoliguric
hypokalemia-replace k, total 80meq today
worsening met alkalosis, holding lasix and metolazone , will add diamox
weights no change, still hypervolemic
recheck labs later today
severe MR, cards follows, considering mitral clip and planning heart cath
-Maintain midodrine for hemodynamic support
d/w pt , maintain FR
-
-
Date of Service: October 12, 2024
CC / HPI / ROS
-
Chief Complaint:
CKD
History of Present Illness:
cr down 1.7.. wt no change
Bp stable on grclsf-nlg-feuqi midodrine
k low 3
Review of Systems:
no cp
no sob at rest and edema improving
Labs
-
Labs:
WBC 6.0 10^3/uL (4.8-10.8) 10/04/24 16:13
RBC 5.11 10^6/uL (4.70-6.10) 10/04/24 16:13
Hgb 11.5 g/dL (13.0-18.0) L 10/04/24 16:13
Hct 40.2 % (39.0-52.0) 10/04/24 16:13
Plt Count 179 10^3/uL (130-400) 10/04/24 16:13
Sodium 135 mmol/L (135-145) 10/12/24 07:15
Potassium 3.0 mmol/L (3.5-5.1) L 10/12/24 07:15
Chloride 85 mmol/L (98-107) L 10/12/24 07:15
Carbon Dioxide 40 mmol/L (22-30) H 10/12/24 07:15
BUN 54 mg/dl (9-20) H 10/12/24 07:15
Creatinine 1.7 mg/dL (0.7-1.3) H 10/12/24 07:15
eGFR 41.52 10/12/24 07:15
Glucose 93 mg/dl (70-99) 10/12/24 07:15
Calcium 9.0 mg/dl (8.4-10.2) 10/12/24 07:15
Phosphorus 3.8 mg/dl (2.5-4.5) 10/09/24 04:56
Dwz-S-Ezrquamrzgv Pept 24933 pg/ml 10/04/24 16:13
Albumin 3.8 g/dl (3.5-5.0) 10/04/24 16:13
Physical Exam
-
Vital Signs:
Vital Signs
Temp Pulse Resp BP Pulse Ox
98.0 F 83 24 93/50 96
10/12/24 07:08 10/12/24 08:03 10/12/24 08:03 10/12/24 07:08 10/12/24 08:03
Cardiovascular:: Regular rate and rhythm (JVD+)
Respiratory:: Bilateral: CTA
Lung Excursion:: Normal
Abdomen:: Nontender and Soft
Extremity Edema:: +2: Bilateral:
Farah Catheter: No
[2024-10-12] MEDS: FEOSOL 325 MG PO (12:34)
[2024-10-12] MEDS: DIAMOX 125 MG PO (12:34)
--- NOTE | 2024-10-12 14:43 | CM ---
Reviewed the chart notes and spoke with the patient, spouse at the bedside and the son via speaker phone. The patient's cath procedure was cancelled today. Patient and family are concerned as to why the procedure was cancelled. Per RN, the
cardiology [employer] said cardiology will be up around 2pm to discuss plans. Informed family. Patient requesting VN/PT at discharge. Patient requested VN. Referral sent via [facility]. CM continues to be available to patient/family and is monitoring
medical plan for needs at discharge.
Plan: Discharge to home with VN services.
--- NOTE | 2024-10-12 16:41 | W.PN.CARDCBS ---
Today's Communication / Plan
-
Plan:
1. Patient presenting with acute on chronic systolic and diastolic heart failure exacerbation in the setting of known ischemic cardiomyopathy and chronic heart failure with reduced LVEF, possible cardiorenal syndrome with echocardiogram now showing
severe mitral and tricuspid regurgitation.
2. Continued aggressive IV diuresis with close monitoring of renal function and goal-directed medical therapy for underlying cardiomyopathy. Continue to replace electrolytes as warranted.
3. Plan to meet with structural heart team to discuss anatomical feasibility and appropriateness of MitraClip given significant comorbid conditions, severe frailty, severe LV dysfunction with LVEF down to 20-25% in the setting of severe mitral
regurgitation and severe tricuspid regurgitation, CKD stage IV tomorrow morning and discuss next steps afterwards as relayed to patient and his at bedside today.
4. Hold off on heart catheterization for now given patient has had no angina with no significant changes in LVEF. Presenting troponin was 0.02.
5. For now continue to hold Xarelto until discussion is had tomorrow morning. Of note, patient is on renally dosed Xarelto at 15 mg daily.
6. Of note, Last remote device check from 09/02/24 well functioning, 12 years battery life, no VT noted.
All of the above was discussed in detail with patient and his at bedside along with nursing. Given patient has significant cardiac comorbid conditions, we will help facilitate transfer to IVU as the more appropriate unit to closely monitor on
telemetry.
Sapna Ryan MD, [facility]
Impression / Plan
-
PCP: Dr. Song
Cardiology: Dr. Gillis
IMPRESSION:
Acute on chronic HFrEF, Decompensated cardiorenal syndrome with ischemic cardiomyopathy and severe mitral regurgitation
ICM EF 30% by echo 05/04/24
h/o Cardiorenal syndrome
CKD 4
CAD
s/p CABG x 3 (COLEMAN - LAD, seq SVG to OM1 to RPLB) 09/19
s/p PCI with JENIFFER to SVG to OM1 to RPLB 10/29/11
s/p acute inferior CA S/P PCI with RCA stent (02/19/17)
s/p Re-op CABG x 2 (left saphenous vein as sequential graft to LAD then to OM1) vein graft tear, anterior wall of RV tear and divided COLEMAN at time of CABG 12/20/19
h/o long admission (46 days) to [place] for LVAD eval and eventual ICD placement at time of complicated redo CABG 12/2019
h/o left groin abscess with flap closure and VAC treatment 06/2020
s/p [employer] single chamber ICD
Paroxysmal Afib
s/p PVI 08/04/17
Chronic Xarelto OAC
HTN
Orthostasis on midodrine
Hyperlipidemia
Former tobacco use
ELI
GERD/Caballero's esophagus
S/p Schatzki's ring dilatation
Severe LAUREN stenosis S/p stent (01/10/2015)
Severe LICA stenosis S/p stent (10/05/2010)
Hx Prostate Ca S/p robotic prostatectomy (2009)
s/p right inguinal herniorrhaphy (1992)
s/p B/L cataract surgery 09/2024
ECHO 12/23/19: with severe left ventricular systolic dysfunction ejection fraction 15�20%. New compared to preoperative echocardiogram
Echo at [place] 02/2020: EF 36%
Echo 06/26/20: Mildly dilated LV, EF 25-30%, inferior, septal, anteroseptal, apical akinesis with hypokinesis remaining. EF was 40% by [place], 25-30% visually, mildly dilated and hypokinetic RV, ICD wire, dilated left atrium, mild MR, aortic
sclerosis, moderate TR, pulmonary artery pressure 37-42 mmHg
Echo 05/04/24: EF 30%, akinesis of the septum and inferior de jesus, stage III diastolic dysfunction, moderate to severe MR, moderate TR with PAP 45 mmHg
Echo October 05, 2024, EF 25 to 30%, enlarged right ventricle with moderate RV hypokinesis, moderate to severe MR, moderate TR
Plan:
1. Patient presenting with acute on chronic systolic and diastolic heart failure exacerbation in the setting of known ischemic cardiomyopathy and chronic heart failure with reduced LVEF, possible cardiorenal syndrome with echocardiogram now showing
severe mitral and tricuspid regurgitation.
2. Continued aggressive IV diuresis with close monitoring of renal function and goal-directed medical therapy for underlying cardiomyopathy. Continue to replace electrolytes as warranted.
3. Plan to meet with structural heart team to discuss anatomical feasibility and appropriateness of MitraClip given significant comorbid conditions, severe frailty, severe LV dysfunction with LVEF down to 20-25% in the setting of severe mitral
regurgitation and severe tricuspid regurgitation, CKD stage IV tomorrow morning and discuss next steps afterwards as relayed to patient and his at bedside today.
4. Hold off on heart catheterization for now given patient has had no angina with no significant changes in LVEF. Presenting troponin was 0.02.
5. For now continue to hold Xarelto until discussion is had tomorrow morning. Of note, patient is on renally dosed Xarelto at 15 mg daily.
6. Of note, Last remote device check from 09/02/24 well functioning, 12 years battery life, no VT noted.
Sapna Ryan MD, [facility]
Progress Note - Fitness Supervisor
Subjective
Date of Service: October 12, 2024
Overall patient's breathing has improved. He is extremely frustrated in regards to overall unclarity of treatment plan as he was in the impression that he will be undergoing a MitraClip today.
Objective
Labs:
10/04/24 16:13
Labs
Hgb 11.5 g/dL (13.0-18.0) L 10/04/24 16:13
Hct 40.2 % (39.0-52.0) 10/04/24 16:13
Plt Count 179 10^3/uL (130-400) 10/04/24 16:13
Sodium 135 mmol/L (135-145) 10/12/24 07:15
Potassium 3.0 mmol/L (3.5-5.1) L 10/12/24 07:15
BUN 54 mg/dl (9-20) H 10/12/24 07:15
Creatinine 1.7 mg/dL (0.7-1.3) H 10/12/24 07:15
Glucose 93 mg/dl (70-99) 10/12/24 07:15
Vital Signs and I&O:
Vital Signs
Temp Pulse Resp BP Pulse Ox
98.0 F 65 16 126/65 97
10/12/24 16:30 10/12/24 16:30 10/12/24 16:30 10/12/24 16:30 10/12/24 16:30
Vital Signs
Temp Pulse Resp BP Pulse Ox
98.0 F 65 16 126/65 97
10/12/24 16:30 10/12/24 16:30 10/12/24 16:30 10/12/24 16:30 10/12/24 16:30
Intake & Output
10/10/24 10/11/24 10/12/24 10/13/24
06:59 06:59 06:59 06:59
Intake Total 1180 / 1180 900 / 900 680 / 680
Output Total 2625 / 2625 1900 / 1900 1000 / 1000
Balance -1445 / -1445 -1000 / -1000 -320 / -320
Physical Exam
Physical Exam
General: No acute distress, AAOX3, thin, frail
Neck: Negative +
Regular, Negative S3 positive S1/S2, Negative S4, 2/6 HSM at apex
Lungs: fine bibasilar rales
Abd: Positive BS, NT/ND, neg rebound/rigidity/guarding
Ext: Negative cyanosis/clubbing/edema
Neuro: nonfocal
--- NOTE | 2024-10-12 16:58 | PTCARENOTE ---
Pt to be transferred to IVU, report given to Vlad no questions.
[2024-10-12] MEDS: LIPITOR 20 MG PO (17:05)
--- NOTE | 2024-10-12 17:52 | PTCARENOTE ---
Patient received from [address] [place] [address]. He is AO x 3. SR HR in the 60's, BP 106/61%, denies shortness of breath at rest. Fine crackles right base. +1 dependent pitting edema. at bedside, call velazquez in reach
--- NOTE | 2024-10-12 21:10 | PTCARENOTE ---
Received patient at change of shift. Patient awake, alert, and oriented sitting in bed with son bedside. BP 101/57, NSR 60s with 1st degree, BBB, and long Qt, 97% on room air. Discussed calling RN when needing to get up to void, as well as fluid
restriction of 1200 mL. Patient verbalized understanding. Call velazquez within reach.
[2024-10-12 21:21] LABS: Albumin 3.1 g/dl (3.5-5.0); Phosphorus 3.2 mg/dl (2.5-4.5)
[2024-10-12] MEDS: SINGULAIR 10 MG PO (22:24)
[2024-10-13] VITALS (16 sets, daily range): BP systolic 88–114; BP diastolic 56–89; PULSE 61; BMI 21.9
[2024-10-13] MEDS: SYMBICORT 160/4.5 MCG INHALER 2 PUFF INH ×2 (07:34→19:53)
[2024-10-13] MEDS: LOW STRENGTH ASPIRIN 81 MG PO (08:59)
[2024-10-13] MEDS: ProAmatine 10 MG PO ×2 (08:59→12:57)
[2024-10-13] MEDS: KCL 40 MEQ PO (08:59)
[2024-10-13] MEDS: ZAROXOLYN 5 MG PO (09:01)
[2024-10-13] MEDS: PROTONIX 40 MG PO (09:01)
[2024-10-13] MEDS: ZOLOFT 25 MG PO (09:01)
[2024-10-13] MEDS: VITAMIN D3 (cholecalciferol) 100 MCG PO (09:01)
--- NOTE | 2024-10-13 09:08 | W.PN.HOSP.TC ---
Today's Communication/Plan
-
For right heart cardiac catheterization today
Assessment / Plan
Assessment / Plan
HPI: 84-year-old male with past medical history of ischemic cardiomyopathy, CAD, CHF with a EF of 30% status post AICD paroxysmal atrial fibrillation and intermittent hypotension requiring midodrine who presents to the emergency department from
cardiology clinic with ongoing left lower extremity swelling.
1. Acute on chronic combined systolic/diastolic heart failure
-Significant weight gain of approx ~ 25 lbs from baseline weight
-Patient oral Lasix dose was adjusted by cardiology office unfortunately continued to have worsening leg swelling
-No significant pulmonary edema/hypoxia at presentation
-Repeat echocardiogram showing EF 25 to 30% with stage III diastolic dysfunction.
-GDMT limited by patient hypotension
-Appreciate cardiology and nephrology input, continue metolazone 5 mg daily
-10/12, nephrology recommends holding IV Lasix secondary to metabolic alkalosis, s/p Diamox 10/12
-Trend creatinine, trend daily weights
2. Paroxysmal atrial fibrillation
-History of pulmonary vein isolation.
-Maintained on amiodarone, hold Xarelto for RHC 10/13
3. CKD stage IIIb/IV
History of cardiorenal syndrome
-Creatinine/GFR trend reviewed and patient GFR ranges between 25-35 range
-Appreciate nephrology input, renal function close to baseline, continue monitoring with need of high-dose of diuretics
4. Hypokalemia
-Repleted, f/u today's BMP
5. Severe MR/TR
-Status post THANH 10/07/24
-Patient possibly in eventual candidate for MitraClip placement for MV
-Not a candidate for MitraClip
6. Left arm swelling
-Left upper extremity venous Doppler neg for VTE
7. Nonsustained ventricular tachycardia
-Patient was asymptomatic
-Continue metoprolol succ 12.5 mg twice a day, repleted potassium
Coronary disease with history of bypass
History of revision bypass with complicated hospital course
History of inguinal access site abscess
Status post ICD placement
Obstructive sleep apnea
History of prostate cancer status post prostatectomy
History of bilateral cataract surgery
History of Schatzki's ring
DVTPPX - holding xarelto
Full code
Total time spent to see the patient on the floor, examine the patient, review data and lab results, discuss treatment plan with patient, nursing staff around 39 minutes.
Physical Exam
General: No acute distress
HEENT: Normocephalic, Atraumatic, EOMI, MMM
Respiratory: Clear to auscultation bilaterally
Cardiac: Normal S1/S2, Regular Rate and Rhythm, +murmur
GI: Soft, Nontender, Nondistended, Normal Bowel Sounds
Extremities: No Clubbing, Cyanosis
Pitting bilateral lower extremity edema noted
Neuro: Nonfocal/Grossly Intact
Psych: Calm, Cooperative
Anticipated Discharge: Within 24 hours
Subjective/Interval History
-
Date of Service: October 12, 2024
Denies chest pain, denies dyspnea with activity. Feels fatigued with walking. No fever, no vomiting.
Objective Data
-
Labs:
Laboratory Results
10/12/24 10/12/24
07:15 16:00
Sodium 135 Pending
Potassium 3.0 L Pending
Chloride 85 L Pending
Carbon Dioxide 40 H Pending
BUN 54 H Pending
Creatinine 1.7 H Pending
Glucose 93 Pending
Calcium 9.0 Pending
Vital Signs:
Vital Signs
Temp Pulse Resp BP Pulse Ox
97.7 F 74 16 120/63 94
10/12/24 11:48 10/12/24 11:48 10/12/24 11:48 10/12/24 11:48 10/12/24 11:48
I&O
10/11/24 10/12/24 10/13/24
06:59 06:59 06:59
Intake Total 900 / 900 680 / 680
Output Total 1900 / 1900 1000 / 1000
Balance -1000 / -1000 -320 / -320
--- NOTE | 2024-10-13 10:49 | W.PN.NEPH.PH ---
Today's Communication / Plan
-
Holding diuretic
Follow-up lab
Replete potassium as necessary
C
Assessment/Plan
-
Impression:
Cardiorenal syndrome decompensated
CKD stage IV with baseline creatinine 2.4
Ischemic cardiomyopathy EF 30%, DD stage3, mod to severe MR, mod TR
CAD complex history s/p CABG
s/p [employer] single chamber ICD
Paroxysmal Afib
HTN
Orthostasis on midodrine
Hyperlipidemia
Former tobacco use
ELI
GERD/Caballero's esophagus
S/p Schatzki's ring dilatation
Severe LAUREN stenosis S/p stent (01/10/2015)
Severe LICA stenosis S/p stent (10/05/2010)
Hx Prostate Ca S/p robotic prostatectomy (2009)
Plan:
-Patient's kidney function is at his baseline ~1.7 as of yesterday
-Remains grossly nonoliguric, weights down holding diuretics due to hypokalemia and contraction alkalosis
hypokalemia-replace k as needed
worsening met alkalosis, holding lasix and metolazone , may need to add diamox
severe MR, cards follows, considering mitral clip and planning heart cath
-Maintain midodrine for hemodynamic support
d/w pt , maintain FR
-
-
Date of Service: October 13, 2024
CC / HPI / ROS
-
Chief Complaint:
CKD
History of Present Illness:
cr down 1.7.. wt no change
Bp low on kwbhsc-hod-umbsb midodrine
k was low 3
Review of Systems:
no cp
no sob at rest and edema improving
weights down to 65kg
Labs
-
Labs:
WBC 6.0 10^3/uL (4.8-10.8) 10/04/24 16:13
RBC 5.11 10^6/uL (4.70-6.10) 10/04/24 16:13
Hgb 11.5 g/dL (13.0-18.0) L 10/04/24 16:13
Hct 40.2 % (39.0-52.0) 10/04/24 16:13
Plt Count 179 10^3/uL (130-400) 10/04/24 16:13
eGFR Cancelled 10/12/24 18:49
Phosphorus Cancelled 10/12/24 18:49
Nwl-X-Vcmjrirqbhf Pept 32247 pg/ml 10/04/24 16:13
Albumin Cancelled 10/12/24 18:49
Physical Exam
-
Vital Signs:
Vital Signs
Temp Pulse Resp BP Pulse Ox
97.5 F 64 16 88/56 96
10/13/24 09:07 10/13/24 08:59 10/13/24 09:07 10/13/24 08:59 10/13/24 09:07
Cardiovascular:: Regular rate and rhythm (JVD+)
Respiratory:: Bilateral: CTA
Lung Excursion:: Normal
Abdomen:: Nontender and Soft
Extremity Edema:: +1: Bilateral:
Farah Catheter: No
[2024-10-13] MEDS: TOPROL XL 12.5 MG PO (11:22)
[2024-10-13] MEDS: PACERONE 200 MG PO (11:22)
--- NOTE | 2024-10-13 12:39 | W.PN.CARDCBS ---
Addendum entered and electronically signed by Sapna Ryan MD 10/13/24 17:08:
I saw and examined the patient.
The Music Education Adjunct Professor's note was reviewed and I agree with the note.
Comment: Overall patient continues to remain stable with no acute complaints.
Vital signs and lab work reviewed. On exam patient is thin, frail, in no acute distress, regular rate, normal S1 and S2, positive S3, 2 out of 6 holosystolic murmur loudest at the apex, decreased breath sounds at the bilateral bases, abdomen is
soft, nontender, nondistended with active bowel sounds, warm extremities
Recommendations:
1. We had an extensive discussion regarding his case and review THANH imaging as part of the MitraClip team and given his age, advanced/end-stage ischemic cardiomyopathy with severe LV dysfunction, severe mitral and tricuspid regurgitation,
cardiorenal syndrome and CKD stage IV, frailty, anatomy of the mitral valve with a broad base jet, we do not think he is a candidate for MitraClip and his anatomy is not amenable to obtain a promising result to make any significant clinical
improvement. In the setting I do not think the benefits of offering/attempting a MitraClip in this patient outweigh the risk of general anesthesia and the procedure in general.
2. In this setting I had a discussion with his outpatient investment professional over the phone and then with patient, his and his 2 sons that we are overall left with limited options. We could continue medical therapy and use a right heart
catheterization to help further optimize treatment as to be work towards getting him discharged from this hospitalization based on PT/OT recs versus along with medical therapy/optimization consideration for follow-up as an outpatient at the LVAD
clinic at [facility].
3. After extensive discussions within the family, patient expresses that he would not want to undergo an LVAD or evaluation regarding this. Therefore we have agreed to move forward with a right heart catheterization after discussing the potential
risk and benefits in the hopes to optimize medications to the best of our ability.
4. They do understand the consequences of this decision that puts him at higher risk for having recurrent heart failure admissions with worsening morbidity and mortality.
5. They will think through within the family's options to remain full code versus pursuing DNR in the near future.
6. In the interim based on the right heart cath numbers with elevated filling pressures, we will continue IV diuresis for another 24 to 48 hours with close monitoring of the renal function and repletion of electrolytes as warranted.
7. In the setting of reduced cardiac output with elevated SVR, I would like to attempt some medication changes by decreasing his midodrine from 10 to 5 mg 3 times daily while holding his Toprol for now as his negative inotrope. Depending on if he
tolerates this we would attempt to add hydralazine 10 mg 3 times daily and uptitrate this to allow for afterload reduction and improved for flow as best possible.
8. Unless patient is symptomatic, given elevated SVR with borderline blood pressures I would allow/except systolic blood pressures at 85 to 90 mmHg as long as he does not become lightheaded or otherwise symptomatic from this.
9. Depending on all of the above we can further discuss if there is any role for home inotropes for palliation and not as a bridge to any advanced therapies.
Sapna Ryan MD, [facility], [facility]
Original Note:
Today's Communication / Plan
-
MR anatomy not favorable for clip
Impression / Plan
-
PCP: Dr. Song
Cardiology: Dr. Gillis
IMPRESSION:
Acute on chronic HFrEF
Decompensated cardiorenal syndrome with ischemic cardiomyopathy and severe mitral regurgitation
ICM EF 30% by echo 05/04/24
h/o Cardiorenal syndrome
CKD 4
CAD
s/p CABG x 3 (COLEMAN - LAD, seq SVG to OM1 to RPLB) 09/19
s/p PCI with JENIFFER to SVG to OM1 to RPLB 10/29/11
s/p acute inferior [place] S/P PCI with RCA stent (02/19/17)
s/p Re-op CABG x 2 (left saphenous vein as sequential graft to LAD then to OM1) vein graft tear, anterior wall of RV tear and divided COLEMAN at time of CABG 12/20/19
h/o long admission (46 days) to [facility] for LVAD eval and eventual ICD placement at time of complicated redo CABG 12/2019
h/o left groin abscess with flap closure and VAC treatment 06/2020
s/p Blanco-Scientific single chamber ICD
Paroxysmal Afib
s/p PVI 08/04/17
Chronic Xarelto OAC
HTN
Orthostasis on midodrine
Hyperlipidemia
Former tobacco use
ELI
GERD/Caballero's esophagus
S/p Schatzki's ring dilatation
Severe LAUREN stenosis S/p stent (01/10/2015)
Severe LICA stenosis S/p stent (10/05/2010)
Hx Prostate Ca S/p robotic prostatectomy (2009)
s/p right inguinal herniorrhaphy (1992)
s/p B/L cataract surgery 09/2024
Hypokalemia
ECHO 12/23/19: with severe left ventricular systolic dysfunction ejection fraction 15�20%. New compared to preoperative echocardiogram
Echo at [facility] 02/2020: EF 36%
Echo 06/26/20: Mildly dilated LV, EF 25-30%, inferior, septal, anteroseptal, apical akinesis with hypokinesis remaining. EF was 40% by Valle, 25-30% visually, mildly dilated and hypokinetic RV, ICD wire, dilated left atrium, mild MR, aortic
sclerosis, moderate TR, pulmonary artery pressure 37-42 mmHg
Echo 05/04/24: EF 30%, akinesis of the septum and inferior de jesus, stage III diastolic dysfunction, moderate to severe MR, moderate TR with PAP 45 mmHg
Echo 10/05/24: EF 25 to 30%, enlarged right ventricle with moderate RV hypokinesis, moderate to severe MR, moderate TR
Plan:
-Patient with acute on chronic HF on admission and weight is down 21 lbs with Lasix 80 mg IV BID diuresis this admission. Lasix IV on hold starting 10/12/24 PM dur to hypokalemia and contraction alkalosis. Nephrology following as well
-Patient was taking Lasix 40 mg BID MWF and 40 mg daily all other days prior to admission
-Dry weight at last HF d/c on 07/09/24 was 142 lbs and patient weighs 144 lbs on 10/13/24
-EF 25% by echo 10/05/24.
-Outpatient dose of Toprol XL 12.5 mg BID has been continued this admission and most doses are being given.
-Patient is not chronically on JANE/ARB/ARNI due to CKD 4
-Outpatient dose of midodrine 10 mg TID has been continued
-Patient with severe MR and THANH repeated 10/07/24 and confirmed severe MR with EF 20%. Patient was evaluated for MitraClip and his case was discussed at structural heart team meeting 10/13/24 and his anatomy is not favorable to clip. Patient was told
results of meeting 10/13/24 AM. Option of evaluation at tertiary care center offered.
-Patient with known paroxysmal Afib and has been in SR this admission with usual dose of amiodarone 200 mg daily
-Outpatient dose of Xarelto 15 mg daily on hold pending plans for tertiary care eval, last dose was 10/10/24.
HPI: He has a PMH of prostate CA, carotid stent and CABG 09/2010 with COLEMAN to LAD and SVG seq to OM and PLB. He then had a Xience JENIFFER to the sequential SVG in 10/29/11. He was then admitted to 12/20/19 until 12/29/19 with plan for redo sternotomy
and CABG with SVG to OM and then to the PLB of the RCA. He had RV tear and repair as a complication. His CABG ended up being a left saphenous vein as sequential graft to LAD then to OM1. He received transfusion and was noted to have ST elevations
post-op and a bedside echo showed similar findings to the intra-op THANH. with septal and inferior dyskinesia. He was started on dobutamine and went into Afib/flutter. He has known paroxysmal Afib with previous PVI. He was CV'd POD #3 to SR and echo
then revealed a newly reduced LVEF 15-20% with new WMA. He developed cardiorenal syndrome and cardiogenic shock. He was transferred to [facility] for LVAD evaluation 12/29/19. He was hospitalized for 46 days and was ultimately not an LVAD candidate, but
was diuresed and had a Blanco-Scientific single chamber ICD placed. He then went to [facility] acute care rehab and since then has been at home. He had left groin washout with Sartorious flap creation and VAC placement 06/23/20. Now coming in with acute HF
and eval for MitraClip.
Progress Note - Furniture Manager
Subjective
Date of Service: October 13, 2024
He feels the same, less SOB, but still weak
Objective
Labs:
10/04/24 16:13
Labs
Hgb 11.5 g/dL (13.0-18.0) L 10/04/24 16:13
Hct 40.2 % (39.0-52.0) 10/04/24 16:13
Plt Count 179 10^3/uL (130-400) 10/04/24 16:13
Sodium Cancelled 10/13/24 11:18
Potassium Cancelled 10/13/24 11:18
BUN Cancelled 10/13/24 11:18
Creatinine Cancelled 10/13/24 11:18
Glucose Cancelled 10/13/24 11:18
Vital Signs and I&O:
Vital Signs
Temp Pulse Resp BP Pulse Ox
98.2 F 62 16 101/56 100
10/13/24 11:55 10/13/24 12:00 10/13/24 11:55 10/13/24 11:53 10/13/24 11:55
Vital Signs
Temp Pulse Resp BP Pulse Ox
98.2 F 62 16 101/56 100
10/13/24 11:55 10/13/24 12:00 10/13/24 11:55 10/13/24 11:53 10/13/24 11:55
Intake & Output
10/11/24 10/12/24 10/13/24 10/14/24
06:59 06:59 06:59 06:59
Intake Total 900 / 900 680 / 680 120 / 120
Output Total 1900 / 1900 1000 / 1000 550 / 550 175 / 175
Balance -1000 / -1000 -320 / -320 -430 / -430 -175 / -175
Physical Exam
Physical Exam
General: NAD. AAO x3
Skin: No rash
HEENT: EOMI
Heart: SR on tele
Lungs: RA, no audible wheeze
Abdomen: ND
Extremities: No edema B/L
Neuro: Grossly nonfocal.
[2024-10-13] MEDS: FEOSOL PO (12:58)
--- NOTE | 2024-10-13 13:13 | CM ---
Chart reviewed. Patient is independent of ADLS, lives with his in a ST, ambulates with a SPC and RW. Referral sent to [facility]. Plan is for the patient to return home with [facility]. CM to follow
[2024-10-13 15:38] LABS: Blood Urea Nitrogen 50 mg/dl (9-20); Carbon Dioxide 39 mmol/L (22-30); Chloride 86 mmol/L (98-107); Estimated Creatinine Clearance 30 ml/min; Glucose 90 mg/dl (70-99); Magnesium 2.1 mg/dl (1.6-2.3); Potassium 3.7 mmol/L (3.5-5.1); Sodium 135 mmol/L (135-145); eGFR 34.16
--- NOTE | 2024-10-13 16:07 | PTCARENOTE ---
Pt left for labor specialist. Report given to Emilia ALLRED. Family at bedside updated.
--- NOTE | 2024-10-13 16:49 | ITS.CL.CATH ---
Event Marketing Manager - Catheterization
Cardiac Catheterization
Procedure Report:
RIGHT HEART CATHETERIZATION
Date of Procedure: October 13, 2024
Referring: Sapna Ryan MD
INDICATION: Assess invasive hemodynamics in the setting of severe ischemic cardiomyopathy
Hemodynamics (mmHg):
RA (m) : 19 with v waves to 25
RV (s/d,m) : 34/8, 18
PA (s/d, m) : 35/18, 25
PCWP (m) : 18, with v waves to 24
PA saturation: 42.5% on room air
AO saturation: 97.0% on room air
SVC saturation: 43.9% on room air
Cardiac Output : 2.90 L/min
Cardiac Index : 1.63 L/min/m-2
Systemic vascular resistance: 1877 dsc^(-5)
Pulmonary vascular resistance: 2.76 woo unit
Heart rate: 63 bpm
RADIATION SUMMARY: Fluoro Time (min): 1.0, Dose (mGy): 5.32, DAP (Gy.cm2) : 0.96
CONCLUSION:
1. Significantly elevated right and left-sided filling pressures (right worse than left) with reduced cardiac output in the setting of elevated systemic vascular resistance.
Copy to: Reinaldo Gillis
Sapna Ryan MD, [facility], [facility]
--- NOTE | 2024-10-13 17:16 | PTCARENOTE ---
pt returned from experimental machining lab manager. Right brachial site CDI, weak radial pulse noted. Educated on expected OOB time. Son at bedside updated, call velazquez within reach.
[2024-10-13] MEDS: ProAmatine PO (17:52)
[2024-10-13] MEDS: LIPITOR 20 MG PO (17:54)
[2024-10-13] MEDS: ProAmatine 5 MG PO (17:55)
--- NOTE | 2024-10-13 20:48 | PTCARENOTE ---
Pt. received at change of shift. Pt. AOx3, tele reading sinus elise/NSR 50s-60s with BBB. Pt. O2 saturation fluctuating 80s-90s on room air, pt. placed on 2L NC, patient's oxygen saturation now 97-100%. BP 100s-110s/60s. This RN explained plan of
care to patient, patient verbalizes understanding. Call velazquez within reach. Continuing to monitor at this time.
[2024-10-13] MEDS: SINGULAIR 10 MG PO (22:50)
[2024-10-14] VITALS (11 sets, daily range): BP systolic 93–114; BP diastolic 56–79; PULSE 60; O2SAT 95; BMI 21.4
[2024-10-14 03:38] LABS: Blood Urea Nitrogen 55 mg/dl (9-20); Calcium 8.7 mg/dl (8.4-10.2); Carbon Dioxide 39 mmol/L (22-30); Chloride 88 mmol/L (98-107); Estimated Creatinine Clearance 29 ml/min; Glucose 90 mg/dl (70-99); Magnesium 2.2 mg/dl (1.6-2.3); Potassium 3.7 mmol/L (3.5-5.1); Sodium 136 mmol/L (135-145); eGFR 34.16
[2024-10-14] MEDS: SYMBICORT 160/4.5 MCG INHALER 2 PUFF INH ×2 (07:44→20:06)
[2024-10-14] MEDS: ZOLOFT 25 MG PO (07:52)
[2024-10-14] MEDS: ZAROXOLYN 5 MG PO (07:52)
[2024-10-14] MEDS: PROTONIX 40 MG PO (07:52)
[2024-10-14] MEDS: LOW STRENGTH ASPIRIN 81 MG PO (07:52)
[2024-10-14] MEDS: ProAmatine 5 MG PO ×3 (07:52→16:13)
[2024-10-14] MEDS: VITAMIN D3 (cholecalciferol) 100 MCG PO (07:52)
[2024-10-14] MEDS: KCL 40 MEQ PO (07:52)
[2024-10-14] MEDS: PACERONE 200 MG PO (07:52)
[2024-10-14] MEDS: FLUSH (NSS) 1 FLUSH IV (07:53)
--- NOTE | 2024-10-14 09:10 | W.PN.HOSP.TC ---
Today's Communication/Plan
-
see bold
Assessment / Plan
Assessment / Plan
HPI: 84-year-old male with past medical history of ischemic cardiomyopathy, CAD, CHF with a EF of 30% status post AICD paroxysmal atrial fibrillation and intermittent hypotension requiring midodrine who presents to the emergency department from
cardiology clinic with ongoing left lower extremity swelling.
1. Acute on chronic combined systolic/diastolic heart failure
-Significant weight gain of approx ~ 25 lbs from baseline weight
-Patient oral Lasix dose was adjusted by cardiology office unfortunately continued to have worsening leg swelling
-No significant pulmonary edema/hypoxia at presentation
-Repeat echocardiogram showing EF 25 to 30% with stage III diastolic dysfunction.
-GDMT limited by patient hypotension
-10/13, cardiac catheterization showed pulmonary capillary wedge pressure 18 cardiac index 1.6
-Appreciate cardiology and nephrology input, stop metolazone 5 mg daily
-10/14, resumed Lasix 80 mg IV twice daily with Diamox to 50 mg twice daily secondary to contraction alkalosis
-10/14, hydralazine added
-Trend creatinine, trend daily weights
2. Paroxysmal atrial fibrillation
-History of pulmonary vein isolation.
-Maintained on amiodarone, resume Xarelto
-10/14 Discontinue Toprol XL
3. CKD stage IIIb/IV
History of cardiorenal syndrome
-Creatinine/GFR trend reviewed and patient GFR ranges between 25-35 range
-Appreciate nephrology input, renal function close to baseline, continue monitoring with need of high-dose of diuretics
4. Hypokalemia
-Replete prn
5. Severe MR/TR
-Status post THANH 10/07/24
-Patient possibly in eventual candidate for MitraClip placement for MV
-Not a candidate for MitraClip
6. Left arm swelling
-Left upper extremity venous Doppler neg for VTE
7. Nonsustained ventricular tachycardia
-Patient was asymptomatic
-12/5 Discontinue Toprol XL
8. Hypotension
-Midodrine decreased to 5 mg 3 times daily
9. Poor oral intake
-Start Ensure twice daily
10. Weakness
-PT recommends home care
Coronary disease with history of bypass
History of revision bypass with complicated hospital course
History of inguinal access site abscess
Status post ICD placement
Obstructive sleep apnea
History of prostate cancer status post prostatectomy
History of bilateral cataract surgery
History of Schatzki's ring
DVTPPX - xarelto
Full code
Total time spent to see the patient on the floor, examine the patient, review data and lab results, discuss treatment plan with patient, nursing staff around 50 minutes.
Physical Exam
General: No acute distress
HEENT: Normocephalic, Atraumatic, EOMI, MMM
Respiratory: Clear to auscultation bilaterally
Cardiac: Normal S1/S2, Regular Rate and Rhythm, +murmur
GI: Soft, Nontender, Nondistended, Normal Bowel Sounds
Extremities: No Clubbing, Cyanosis
Pitting bilateral lower extremity edema noted
Neuro: Nonfocal/Grossly Intact
Psych: Calm, Cooperative
Anticipated Discharge: 24 - 48 hours
Subjective/Interval History
-
Date of Service: October 14, 2024
Patient denies chest pain, denies shortness of breath. No dyspnea with activity. He feels tired when walking. No fever, no vomiting.
Objective Data
-
Labs:
Laboratory Results
10/14/24
02:18
Sodium 136
Potassium 3.7
Chloride 88 L
Carbon Dioxide 39 H
BUN 55 H
Creatinine 2.0 H
Glucose 90
Calcium 8.7
Vital Signs:
Vital Signs
Temp Pulse Resp BP Pulse Ox
98 F 57 16 114/70 94
10/14/24 06:47 10/14/24 07:46 10/14/24 07:46 10/14/24 06:49 10/14/24 07:46
I&O
10/13/24 10/14/24 10/15/24
06:59 06:59 06:59
Intake Total 120 / 120 100 / 100
Output Total 550 / 550 575 / 575
Balance -430 / -430 -475 / -475
--- NOTE | 2024-10-14 09:12 | PTCARENOTE ---
The patient is aaox3, vss, 99% on RA. Sinus elise with a prolong QT is noted on the monitor. His right brachial dressing is c/d/i. He has no complaints of SOB. However he does have an occasional moist productive cough that produces clear phlegm. His
scab on the bridge of his nose was bleeding, I cleaned the area and applied a small silicon boarder foam.
--- NOTE | 2024-10-14 11:39 | CM ---
Chart reviewed. Patient is independent of ADLS, lives with his in a [address], [address], ambulates with a RW and SPC. Plan is for the [facility]. CM to follow
--- NOTE | 2024-10-14 12:24 | W.PN.CARDCBS ---
Addendum entered and electronically signed by Prasad Saeed MD 10/14/24 12:49:
I saw and examined the patient.
The DRIVER MERCHANDISER or PA's note was reviewed and I agree with the note.
Comment: General: Well developed, well nourished in NAD.
Neck: Supple, no JVD, HJR, carotids +2 B/L, no bruits bilaterally.
Heart: Non displaced PMI, RRR, no murmurs, No S3, S4, no rubs.
Lungs: Scattered rhonchi
Extremities: No clubbing, cyanosis or edema bilaterally.
Neuro: Grossly nonfocal, awake, alert and oriented x3.
He feels better with diuresis. Hold metalozone and restart lasix and follow RI closely. restart Xarelto
Original Note:
Today's Communication / Plan
-
Hold metolazone
Restart Lasix 80 mg IV BID
Toprol XL stopped
Midodrine reduced to 5 mg TID
New to hydralazine 10 mg TID
Restart Xarelto 15 mg daily
Impression / Plan
-
PCP: Dr. Song
Cardiology: Dr. Gillis
IMPRESSION:
Acute on chronic HFrEF
Decompensated cardiorenal syndrome with ischemic cardiomyopathy and severe mitral regurgitation
ICM EF 30% by echo 05/04/24
h/o Cardiorenal syndrome
CKD 4
CAD
s/p CABG x 3 (COLEMAN - LAD, seq SVG to OM1 to RPLB) 09/19
s/p PCI with JENIFFER to SVG to OM1 to RPLB 10/29/11
s/p acute inferior [place] S/P PCI with RCA stent (02/19/17)
s/p Re-op CABG x 2 (left saphenous vein as sequential graft to LAD then to OM1) vein graft tear, anterior wall of RV tear and divided COLEMAN at time of CABG 12/20/19
h/o long admission (46 days) to [place] for LVAD eval and eventual ICD placement at time of complicated redo CABG 12/2019
h/o left groin abscess with flap closure and VAC treatment 06/2020
s/p [employer] single chamber ICD
Paroxysmal Afib
s/p PVI 08/04/17
Chronic Xarelto OAC
HTN
Orthostasis on midodrine
Hyperlipidemia
Former tobacco use
ELI
GERD/Caballero's esophagus
S/p Schatzki's ring dilatation
Severe LAUREN stenosis S/p stent (01/10/2015)
Severe LICA stenosis S/p stent (10/05/2010)
Hx Prostate Ca S/p robotic prostatectomy (2009)
s/p right inguinal herniorrhaphy (1992)
s/p B/L cataract surgery 09/2024
Hypokalemia
ECHO 12/23/19: with severe left ventricular systolic dysfunction ejection fraction 15�20%. New compared to preoperative echocardiogram
Echo at [place] 02/2020: EF 36%
Echo 06/26/20: Mildly dilated LV, EF 25-30%, inferior, septal, anteroseptal, apical akinesis with hypokinesis remaining. EF was 40% by Valle, 25-30% visually, mildly dilated and hypokinetic RV, ICD wire, dilated left atrium, mild MR, aortic
sclerosis, moderate TR, pulmonary artery pressure 37-42 mmHg
Echo 05/04/24: EF 30%, akinesis of the septum and inferior de jesus, stage III diastolic dysfunction, moderate to severe MR, moderate TR with PAP 45 mmHg
Echo 10/05/24: EF 25 to 30%, enlarged right ventricle with moderate RV hypokinesis, moderate to severe MR, moderate TR
Plan:
-Patient had RHC on 10/13/2024 that showed significantly elevated right and left-sided filling pressures but the right was worse than the left, and reduced cardiac output (2.9) and an elevated SVR of 1877.
-Weight is down 25 lbs with Lasix 80 mg IV BID diuresis this admission, but Lasix IV was put on hold starting 10/12/24 PM due to hypokalemia and contraction alkalosis. Will restart Lasix 80 mg IV BID 10/14/24
-Patient was taking Lasix 40 mg BID MWF and 40 mg daily all other days prior to admission
-Hold metolazone 5 mg daily as of 10/14/24
-Plan is to continue ongoing attempts at IV diuresis with daily monitoring of labs.
-Midodrine dose decreased to 5 mg TID 10/14/24
-Outpatient dose of Toprol XL 12.5 mg BID placed on hold given it is a negative inotrope
-Patient is not chronically on JANE/ARB/ARNI due to CKD 4
-Given elevated SVR we will try adding hydralazine 10 mg TID 10/14/24
-Patient and family were told on 10/13/2024 that the patient is not a candidate for MitraClip given his age, CKD, cardiorenal syndrome, end-stage cardiomyopathy with severe LV dysfunction and concomitant TR. patient and family were informed that
limited options remain but would include ongoing PT/OT with medical therapy and optimization and transfer to rehab versus home or another option of an outpatient evaluation for LVAD support. The patient is not interested in LVAD evaluation.
-Patient remains a full code, but code status was reviewed with the family and they were encouraged to consider CODE STATUS including possibly pursuing a DNR in the near future.
-Patient with known paroxysmal Afib and has been in SR this admission with usual dose of amiodarone 200 mg daily
-Outpatient dose of Xarelto 15 mg daily resumed by va 10/14/24
HPI: He has a PMH of prostate CA, carotid stent and CABG 09/2010 with COLEMAN to LAD and SVG seq to OM and PLB. He then had a Xience JENIFFER to the sequential SVG in 10/29/11. He was then admitted to 12/20/19 until 12/29/19 with plan for redo sternotomy
and CABG with SVG to OM and then to the PLB of the RCA. He had RV tear and repair as a complication. His CABG ended up being a left saphenous vein as sequential graft to LAD then to OM1. He received transfusion and was noted to have ST elevations
post-op and a bedside echo showed similar findings to the intra-op THANH. with septal and inferior dyskinesia. He was started on dobutamine and went into Afib/flutter. He has known paroxysmal Afib with previous PVI. He was CV'd POD #3 to SR and echo
then revealed a newly reduced LVEF 15-20% with new WMA. He developed cardiorenal syndrome and cardiogenic shock. He was transferred to [place] for LVAD evaluation 12/29/19. He was hospitalized for 46 days and was ultimately not an LVAD candidate, but
was diuresed and had a [employer] single chamber ICD placed. He then went to [facility] acute care rehab and since then has been at home. He had left groin washout with Sartorious flap creation and VAC placement 06/23/20. Now coming in with acute HF
and eval for MitraClip.
Progress Note - Alumnae Secretary
Subjective
Date of Service: October 14, 2024
He feels the same, tired, no chest pain
Objective
Labs:
10/04/24 16:13
10/14/24 02:18
Labs
Hgb 11.5 g/dL (13.0-18.0) L 10/04/24 16:13
Hct 40.2 % (39.0-52.0) 10/04/24 16:13
Plt Count 179 10^3/uL (130-400) 10/04/24 16:13
Sodium 136 mmol/L (135-145) 10/14/24 02:18
Potassium 3.7 mmol/L (3.5-5.1) 10/14/24 02:18
BUN 55 mg/dl (9-20) H 10/14/24 02:18
Creatinine 2.0 mg/dL (0.7-1.3) H 10/14/24 02:18
Glucose 90 mg/dl (70-99) 10/14/24 02:18
Vital Signs and I&O:
Vital Signs
Temp Pulse Resp BP Pulse Ox
98.8 F 60 20 100/59 93
10/14/24 11:11 10/14/24 11:13 10/14/24 11:11 10/14/24 11:13 10/14/24 11:11
Vital Signs
Temp Pulse Resp BP Pulse Ox
98.8 F 60 20 100/59 93
10/14/24 11:11 10/14/24 11:13 10/14/24 11:11 10/14/24 11:13 10/14/24 11:11
Intake & Output
10/12/24 10/13/24 10/14/24 10/15/24
06:59 06:59 06:59 06:59
Intake Total 680 / 680 120 / 120 100 / 100 240 / 240
Output Total 1000 / 1000 550 / 550 575 / 575
Balance -320 / -320 -430 / -430 -475 / -475 240 / 240
Physical Exam
Physical Exam
General: NAD. AAO x3
Skin: No rash
HEENT: EOMI
Heart: SR on tele
Lungs: RA, no audible wheeze
Abdomen: ND
Extremities: No edema B/L
Neuro: Grossly nonfocal.
[2024-10-14] MEDS: FEOSOL 325 MG PO (12:27)
--- NOTE | 2024-10-14 12:27 | W.PN.NEPH.PH ---
Today's Communication / Plan
-
80 mg IV Lasix twice daily to be reinitiated
Diamox to be provided twice daily for 6 doses in regards to contraction alkalosis
Assessment/Plan
-
Impression:
Cardiorenal syndrome decompensated
CKD stage IV with baseline creatinine 2.4
Ischemic cardiomyopathy EF 30%, DD stage3, mod to severe MR, mod TR
CAD complex history s/p CABG
s/p [email or web address] single chamber ICD
Paroxysmal Afib
HTN
Orthostasis on midodrine
Hyperlipidemia
Former tobacco use
ELI
GERD/Caballero's esophagus
S/p Schatzki's ring dilatation
Severe LAUREN stenosis S/p stent (01/10/2015)
Severe LICA stenosis S/p stent (10/05/2010)
Hx Prostate Ca S/p robotic prostatectomy (2009)
Plan:
-Patient's kidney function is at 2, nonoliguric ~400cc, weights down
-Remains grossly nonoliguric, weights down holding diuretics due to hypokalemia and contraction alkalosis
-hypokalemia-replace k as needed
Metabolic alkalosis persists, will add Diamox x 6 doses
severe MR, cards follows, considering mitral clip and planning heart cath
-Maintain midodrine for hemodynamic support
-Status post right heart cath procedure pulmonary capillary wedge pressure 18 cardiac index 1.6
-Cardiology to reinitiate diuresis with 80 mg IV twice daily, discussed with cardiology
-
-
-
Date of Service: October 14, 2024
CC / HPI / ROS
-
Chief Complaint:
CKD
History of Present Illness:
Creatinine up to 2.
Bp low on yukpjm-ngn-mwibx midodrine
Review of Systems:
no cp
no sob at rest and edema improving
weights down to 63.7kg
Labs
-
Labs:
WBC 6.0 10^3/uL (4.8-10.8) 10/04/24 16:13
RBC 5.11 10^6/uL (4.70-6.10) 10/04/24 16:13
Hgb 11.5 g/dL (13.0-18.0) L 10/04/24 16:13
Hct 40.2 % (39.0-52.0) 10/04/24 16:13
Plt Count 179 10^3/uL (130-400) 10/04/24 16:13
Sodium 136 mmol/L (135-145) 10/14/24 02:18
Potassium 3.7 mmol/L (3.5-5.1) 10/14/24 02:18
Chloride 88 mmol/L (98-107) L 10/14/24 02:18
Carbon Dioxide 39 mmol/L (22-30) H 10/14/24 02:18
BUN 55 mg/dl (9-20) H 10/14/24 02:18
Creatinine 2.0 mg/dL (0.7-1.3) H 10/14/24 02:18
eGFR 34.16 10/14/24 02:18
Glucose 90 mg/dl (70-99) 10/14/24 02:18
Calcium 8.7 mg/dl (8.4-10.2) 10/14/24 02:18
Phosphorus Cancelled 10/12/24 18:49
Lcx-L-Kgbbhtepmjl Pept 87755 pg/ml 10/04/24 16:13
Albumin Cancelled 10/12/24 18:49
Physical Exam
-
Vital Signs:
Vital Signs
Temp Pulse Resp BP Pulse Ox
98.8 F 60 20 100/59 93
10/14/24 11:11 10/14/24 11:13 10/14/24 11:11 10/14/24 11:13 10/14/24 11:11
Cardiovascular:: Regular rate and rhythm (JVD+)
Respiratory:: Bilateral: CTA
Lung Excursion:: Normal
Abdomen:: Nontender and Soft
Extremity Edema:: +1: Bilateral:
Farah Catheter: No
--- NOTE | 2024-10-14 13:51 | PN.CDI ---
CDI
- -
CDI:
Physician Documentation Request
Admit Date: 10/04/24 20:58
Dear Doctor Do,
Patient admitted for acute on chronic heart failure.
Laboratory Tests
10/12/24 10/13/24
07:15 15:10
Creatinine 1.7 H 2.0 H
Clarify which of the following accurately represents the patient's renal status:
BRIGHT
Rise in creatinine
Other
Criteria for BRIGHT*
1 Increase in serum creatinine by > or = to 0.3 mg/dL (> or = to 26.5 micromol/L) within 48 hours, OR
2 Increase in serum creatinine to > or = to 1.5 times baseline, which is known or presumed to have occurred within 7 days, OR
3 Urine volume < 0.5 nL/kg/hour for six hours
Use of terms such as suspected, likely, concern for, or probable (associated with a specific diagnosis that is being evaluated, monitored, or treated as if it exists) are acceptable and can be coded in the inpatient setting, when documented at the
time of discharge.
Thank you,
Magi Shin RN, BSN
CDI Specialist
Available via [place] text
Please use your independent medical judgment in providing your response.
*Source: Kidney Disease: Improving Global Outcomes (KDIGO) 2012
[2024-10-14] MEDS: LASIX 80 MG IV (14:04)
[2024-10-14] MEDS: FLUSH (NSS) 2 FLUSH IV (14:04)
[2024-10-14] MEDS: APRESOLINE 10 MG PO ×2 (16:13→22:43)
[2024-10-14] MEDS: XARELTO 15 MG PO (18:11)
[2024-10-14] MEDS: LIPITOR 20 MG PO (18:11)
[2024-10-14] MEDS: DIAMOX 250 MG PO (19:31)
--- NOTE | 2024-10-14 21:08 | PTCARENOTE ---
Pt. received at change of shift. Pt. seen and assessed in room. Pt. AOx3, tele reading sinus elise/NSR w 1st degree AVB. This RN explained plan of care to patient and heart failure education. Pt. verbalizes understanding. Call velazquez within reach.
Continuing to monitor at this time.
[2024-10-14] MEDS: SINGULAIR 10 MG PO (22:43)
[2024-10-15] VITALS (9 sets, daily range): BP systolic 105–114; BP diastolic 59–70; PULSE 66; O2SAT 99; BMI 21.5
[2024-10-15 03:37] LABS: Blood Urea Nitrogen 54 mg/dl (9-20); Calcium 8.7 mg/dl (8.4-10.2); Chloride 85 mmol/L (98-107); Estimated Creatinine Clearance 26 ml/min; Glucose 98 mg/dl (70-99); Potassium 3.1 mmol/L (3.5-5.1); Sodium 135 mmol/L (135-145); eGFR 30.47
[2024-10-15 03:49] LABS: Carbon Dioxide 33 mmol/L (22-30)
[2024-10-15] MEDS: SYMBICORT 160/4.5 MCG INHALER 2 PUFF INH ×2 (07:47→17:59)
[2024-10-15] MEDS: VITAMIN D3 (cholecalciferol) 100 MCG PO (08:16)
[2024-10-15] MEDS: ProAmatine 5 MG PO ×3 (08:16→16:11)
[2024-10-15] MEDS: KCL 40 MEQ PO ×4 (08:16→22:17)
[2024-10-15] MEDS: ZOLOFT 25 MG PO (08:16)
[2024-10-15] MEDS: LOW STRENGTH ASPIRIN 81 MG PO (08:16)
[2024-10-15] MEDS: APRESOLINE 10 MG PO ×3 (08:16→22:18)
[2024-10-15] MEDS: PACERONE 200 MG PO (08:16)
[2024-10-15] MEDS: DIAMOX 250 MG PO ×2 (08:16→20:03)
[2024-10-15] MEDS: PROTONIX 40 MG PO (08:16)
[2024-10-15] MEDS: LASIX 80 MG IV ×2 (08:16→16:11)
[2024-10-15] MEDS: FLUSH (NSS) 2 FLUSH IV ×2 (08:18→16:12)
--- NOTE | 2024-10-15 08:58 | W.PN.HOSP.TC ---
Today's Communication/Plan
-
see bold
Assessment / Plan
Assessment / Plan
HPI: 84-year-old male with past medical history of ischemic cardiomyopathy, CAD, CHF with a EF of 30% status post AICD paroxysmal atrial fibrillation and intermittent hypotension requiring midodrine who presents to the emergency department from
cardiology clinic with ongoing left lower extremity swelling.
1. Acute on chronic combined systolic/diastolic heart failure
-Significant weight gain of approx ~ 25 lbs from baseline weight
-Patient oral Lasix dose was adjusted by cardiology office unfortunately continued to have worsening leg swelling
-No significant pulmonary edema/hypoxia at presentation
-Repeat echocardiogram showing EF 25 to 30% with stage III diastolic dysfunction.
-GDMT limited by patient hypotension
-10/13, cardiac catheterization showed pulmonary capillary wedge pressure 18 cardiac index 1.6
-Appreciate cardiology and nephrology input, status post metolazone 5 mg daily
-Currently on Lasix 80 mg IV twice daily and Diamox, continue while in the hospital
-Upon discharge, transition to Lasix 80 mg p.o. twice daily
-Trend creatinine, trend daily weights
-Cardiology recommends discontinuing atorvastatin and hydralazine upon discharge
-Patient wishes to be discharged to rehab, and enroll into palliative care
-Awaiting bed at [facility], plan for discharge to [facility] on 10/18
2. Paroxysmal atrial fibrillation
-History of pulmonary vein isolation.
-Maintained on amiodarone, resumed Xarelto
-10/14 Discontinued Toprol XL
3. CKD stage IIIb/IV
History of cardiorenal syndrome
-Creatinine/GFR trend reviewed and patient GFR ranges between 25-35 range
-Appreciate nephrology input, renal function close to baseline, continue monitoring with need of high-dose of diuretics
4. Hypokalemia
-Replete prn
5. Severe MR/TR
-Status post THANH 10/07/24
-Patient possibly in eventual candidate for MitraClip placement for MV
-Not a candidate for MitraClip
6. Left arm swelling
-Left upper extremity venous Doppler neg for VTE
7. Nonsustained ventricular tachycardia
-Patient was asymptomatic
-10/14 Discontinued Toprol XL
8. Hypotension
-Midodrine decreased to 5 mg 3 times daily
9. Poor oral intake
-Started Ensure twice daily
10. Weakness
-PT recommends home care, plan for discharge to [facility]
11. Epistaxis
-Bactroban to the nares 3 times daily
Coronary disease with history of bypass
History of revision bypass with complicated hospital course
History of inguinal access site abscess
Status post ICD placement
Obstructive sleep apnea
History of prostate cancer status post prostatectomy
History of bilateral cataract surgery
History of Schatzki's ring
DVTPPX - xarelto
Full code
Updated at bedside 10/15
Total time spent to see the patient on the floor, examine the patient, review data and lab results, discuss treatment plan with patient, nursing staff around 51 minutes.
Physical Exam
General: No acute distress
HEENT: Normocephalic, Atraumatic, EOMI, MMM
Respiratory: Clear to auscultation bilaterally
Cardiac: Normal S1/S2, Regular Rate and Rhythm, +murmur
GI: Soft, Nontender, Nondistended, Normal Bowel Sounds
Extremities: No Clubbing, Cyanosis
Pitting bilateral lower extremity edema noted
Neuro: Nonfocal/Grossly Intact
Psych: Calm, Cooperative
Anticipated Discharge: > 48 hours
Subjective/Interval History
-
Date of Service: October 15, 2024
Patient had bilateral epistaxis. No chest pain, no shortness of breath. No fever, no vomiting.
Objective Data
-
Labs:
Laboratory Results
10/15/24
02:34
Sodium 135
Potassium 3.1 L
Chloride 85 L
Carbon Dioxide 33 H
BUN 54 H
Creatinine 2.2 H
Glucose 98
Calcium 8.7
Vital Signs:
Vital Signs
Temp Pulse Resp BP Pulse Ox
97.6 F 68 16 113/65 95
10/15/24 07:01 10/15/24 07:50 10/15/24 07:50 10/15/24 07:00 10/15/24 07:50
I&O
10/14/24 10/15/24 10/16/24
06:59 06:59 06:59
Intake Total 100 / 100 580 / 580
Output Total 575 / 575 1025 / 1025
Balance -475 / -475 -445 / -445
[2024-10-15] MEDS: OCEAN, SALINE MIST 2 SPRAYS NASAL (09:49)
--- NOTE | 2024-10-15 09:52 | PTCARENOTE ---
The patient is aaox3, vss, 97% on RA. NSR with a1st degree AVB and a prolong Qt noted on the monitor. He has no complaints of pain. He does get dyspneic with activity. He has been scratching the inside of his nose and it leads to some nose bleeding
at times. He states that his nose is dry. [place] saline spray administered as ordered.
--- NOTE | 2024-10-15 12:12 | W.PN.NEPH.PH ---
Today's Communication / Plan
-
hospice eval -cards discussed and pt agrees
Assessment/Plan
-
Impression:
Cardiorenal syndrome decompensated
CKD stage IV with baseline creatinine 2.4
Ischemic cardiomyopathy EF 30%, DD stage3, mod to severe MR, mod TR
CAD complex history s/p CABG
s/p [employer] single chamber ICD
Paroxysmal Afib
HTN
Orthostasis on midodrine
Hyperlipidemia
Former tobacco use
ELI
GERD/Caballero's esophagus
S/p Schatzki's ring dilatation
Severe LAUREN stenosis S/p stent (01/10/2015)
Severe LICA stenosis S/p stent (10/05/2010)
Hx Prostate Ca S/p robotic prostatectomy (2009)
Plan:
-Patient's kidney function is at 2.2-relatively stable
nonoliguric, weights no change
met alkalosis is better with diamox
replace k
cont lasix 80mg IV BID_at d/c cont same dose PO
reviewed with cards-seem to have end stage heart disease and pt plans to have hospice
-Maintain midodrine for hemodynamic support-dose decreased to 5mg TID on 10/13(home 10mg)
d/w cards, nursing and pt
-
-
Date of Service: October 15, 2024
CC / HPI / ROS
-
Chief Complaint:
CKD
History of Present Illness:
Creatinine up to 2.2, k low 3.1
Bp low on clccoc-itr-hvprl midodrine
wt no change
met alkalosis better at 33
Review of Systems:
no cp
no sob at rest and edema improving
weights down 10kg since admit
Labs
-
Labs:
WBC 6.0 10^3/uL (4.8-10.8) 10/04/24 16:13
RBC 5.11 10^6/uL (4.70-6.10) 10/04/24 16:13
Hgb 11.5 g/dL (13.0-18.0) L 10/04/24 16:13
Hct 40.2 % (39.0-52.0) 10/04/24 16:13
Plt Count 179 10^3/uL (130-400) 10/04/24 16:13
Sodium 135 mmol/L (135-145) 10/15/24 02:34
Potassium 3.1 mmol/L (3.5-5.1) L 10/15/24 02:34
Chloride 85 mmol/L (98-107) L 10/15/24 02:34
Carbon Dioxide 33 mmol/L (22-30) H 10/15/24 02:34
BUN 54 mg/dl (9-20) H 10/15/24 02:34
Creatinine 2.2 mg/dL (0.7-1.3) H 10/15/24 02:34
eGFR 30.47 10/15/24 02:34
Glucose 98 mg/dl (70-99) 10/15/24 02:34
Calcium 8.7 mg/dl (8.4-10.2) 10/15/24 02:34
Phosphorus Cancelled 10/12/24 18:49
Tqf-B-Swbbgawjufp Pept 78537 pg/ml 10/04/24 16:13
Albumin Cancelled 10/12/24 18:49
Physical Exam
-
Vital Signs:
Vital Signs
Temp Pulse Resp BP Pulse Ox
97.4 F 63 20 105/65 100
10/15/24 12:08 10/15/24 12:05 10/15/24 12:08 10/15/24 12:05 10/15/24 12:08
Cardiovascular:: Regular rate and rhythm
Respiratory:: Bilateral: CTA
Lung Excursion:: Normal
Abdomen:: Nontender and Soft
Extremity Edema:: +2: Bilateral:
Farah Catheter: No
[2024-10-15] MEDS: FEOSOL 325 MG PO (12:17)
[2024-10-15] MEDS: BACTROBAN 2% OINTMENT 1 APPLIC NASAL ×3 (12:18→22:18)
--- NOTE | 2024-10-15 12:36 | W.PN.CARDCBS ---
Addendum entered and electronically signed by Nini Giron DO 10/15/24 12:46:
I saw and examined the patient.
The Scientific Investigator's note was reviewed and I agree with the note.
Comment: Patient seen and care plan discussed multiple times with patient and his . Care plan also discussed with nephrology and updated hospitalist. Porfirio unfortunately has end stage cardiomyopathy, cardiorenal syndrome with significant
MR/TR, not felt to be candidate for valve intervention. Patient was given option for another opinion for LVAD support, however is not interested in evaluation. He desires more conservative management and would like to go home as soon as possible.
He wishes to be DNR/DNI. We discussed hospice and he is open to discussions for home hospice or palliative care. We also reviewed ICD therapies and decision was made to turn off therapies prior to discharge. Await hospice evaluation.
-Medications discussed with nephrology and patient:
-Continue po lasix 80mg BID upon DC
-continue midodrine 5 mg 3 times daily
-continue amiodarone, xarelto
-stop toprol, hydralazine, diamox. Discontinue atorvastatin.
-would continue KCl 40 mEq daily
-will need to turn off ICD therapies if signs on for hospice
-DC planning
Original Note:
Today's Communication / Plan
-
hospice evaluation
DNR code status
Impression / Plan
-
PCP: Dr. Song
Cardiology: Dr. Gillis
IMPRESSION:
Acute on chronic HFrEF
Decompensated cardiorenal syndrome with ischemic cardiomyopathy and severe mitral regurgitation
ICM EF 30% by echo 05/04/24
h/o Cardiorenal syndrome
CKD 4
CAD
s/p CABG x 3 (COLEMAN - LAD, seq SVG to OM1 to RPLB) 09/19
s/p PCI with JENIFFER to SVG to OM1 to RPLB 10/29/11
s/p acute inferior DC S/P PCI with RCA stent (4/12/17)
s/p Re-op CABG x 2 (left saphenous vein as sequential graft to LAD then to OM1) vein graft tear, anterior wall of RV tear and divided COLEMAN at time of CABG 12/20/19
h/o long admission (46 days) to [facility] for LVAD eval and eventual ICD placement at time of complicated redo CABG 12/2019
h/o left groin abscess with flap closure and VAC treatment 06/2020
s/p [employer] single chamber ICD
Paroxysmal Afib
s/p PVI 08/04/17
Chronic Xarelto OAC
HTN
Orthostasis on midodrine
Hyperlipidemia
Former tobacco use
ELI
GERD/Caballero's esophagus
S/p Schatzki's ring dilatation
Severe LAUREN stenosis S/p stent (01/10/2015)
Severe LICA stenosis S/p stent (10/05/2010)
Hx Prostate Ca S/p robotic prostatectomy (2009)
s/p right inguinal herniorrhaphy (1992)
s/p B/L cataract surgery 09/2024
Hypokalemia
ECHO 12/23/19: with severe left ventricular systolic dysfunction ejection fraction 15�20%. New compared to preoperative echocardiogram
Echo at [facility] 02/2020: EF 36%
Echo 06/26/20: Mildly dilated LV, EF 25-30%, inferior, septal, anteroseptal, apical akinesis with hypokinesis remaining. EF was 40% by Valle, 25-30% visually, mildly dilated and hypokinetic RV, ICD wire, dilated left atrium, mild MR, aortic
sclerosis, moderate TR, pulmonary artery pressure 37-42 mmHg
Echo 05/04/24: EF 30%, akinesis of the septum and inferior de jesus, stage III diastolic dysfunction, moderate to severe MR, moderate TR with PAP 45 mmHg
Echo 10/05/24: EF 25 to 30%, enlarged right ventricle with moderate RV hypokinesis, moderate to severe MR, moderate TR
Plan:
-patient with evidence of end stage CHF, cardiomyopathy, and significant MR/TR, not felt to be candidate for intervention. Patient was given option for another opinion for LVAD support, however is not interested in evaluation.
-after physician discussion with patient today, he wishes for DNR code status and to undergo hospice evaluation
-would continue po lasix 80mg BID upon DC
-continue midodrine
-continue amiodarone, xarelto
-stop toprol, hydralazine, diamox.
-would continue KCl 40 mEq daily
-will need to turn off ICD therapies if signs on for hospice
-DC planning
HPI: He has a PMH of prostate CA, carotid stent and CABG 09/2010 with COLEMAN to LAD and SVG seq to OM and PLB. He then had a Xience JENIFFER to the sequential SVG in 10/29/11. He was then admitted to 12/20/19 until 12/29/19 with plan for redo sternotomy
and CABG with SVG to OM and then to the PLB of the RCA. He had RV tear and repair as a complication. His CABG ended up being a left saphenous vein as sequential graft to LAD then to OM1. He received transfusion and was noted to have ST elevations
post-op and a bedside echo showed similar findings to the intra-op THANH. with septal and inferior dyskinesia. He was started on dobutamine and went into Afib/flutter. He has known paroxysmal Afib with previous PVI. He was CV'd POD #3 to SR and echo
then revealed a newly reduced LVEF 15-20% with new WMA. He developed cardiorenal syndrome and cardiogenic shock. He was transferred to [facility] for LVAD evaluation 12/29/19. He was hospitalized for 46 days and was ultimately not an LVAD candidate, but
was diuresed and had a [employer] single chamber ICD placed. He then went to [facility] acute care rehab and since then has been at home. He had left groin washout with [employer] flap creation and VAC placement 06/23/20. Now coming in with acute HF
and eval for MitraClip.
Progress Note - Arboreal Scientist
Subjective
Date of Service: October 15, 2024
wants to go home. for hospice evaluation
Objective
Labs:
10/04/24 16:13
10/15/24 02:34
Labs
Hgb 11.5 g/dL (13.0-18.0) L 10/04/24 16:13
Hct 40.2 % (39.0-52.0) 10/04/24 16:13
Plt Count 179 10^3/uL (130-400) 10/04/24 16:13
Sodium 135 mmol/L (135-145) 10/15/24 02:34
Potassium 3.1 mmol/L (3.5-5.1) L 10/15/24 02:34
BUN 54 mg/dl (9-20) H 10/15/24 02:34
Creatinine 2.2 mg/dL (0.7-1.3) H 10/15/24 02:34
Glucose 98 mg/dl (70-99) 10/15/24 02:34
Vital Signs and I&O:
Vital Signs
Temp Pulse Resp BP Pulse Ox
97.4 F 63 20 105/65 100
10/15/24 12:08 10/15/24 12:05 10/15/24 12:08 10/15/24 12:05 10/15/24 12:08
Vital Signs
Temp Pulse Resp BP Pulse Ox
97.4 F 63 20 105/65 100
10/15/24 12:08 10/15/24 12:05 10/15/24 12:08 10/15/24 12:05 10/15/24 12:08
Intake & Output
10/13/24 10/14/24 10/15/24 10/16/24
07:59 07:59 07:59 07:59
Intake Total 120 / 120 100 / 100 580 / 580
Output Total 550 / 550 575 / 575 1025 / 1025 575 / 575
Balance -430 / -430 -475 / -475 -445 / -232 -575 / -57
--- NOTE | 2024-10-15 14:15 | PN.CDI ---
CDI
- -
CDI:
Physician Documentation Request
Admit Date: 10/04/24 20:58
Dear Doctor Do,
Patient admitted for acute on chronic heart failure.
10/13 Cardiology PN: 'Acute on chronic HFrEF'
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
Please provide further specificity regarding the most likely type of CHF you are evaluating, treating or monitoring.
Systolic
Combined systolic/diastolic
Other
Use of terms such as suspected, likely, concern for, or probable (associated with a specific diagnosis that is being evaluated, monitored, or treated as if it exists) are acceptable and can be coded in the inpatient setting, when documented at the
time of discharge.
Thank you,
Magi Shin RN, BSN
CDI Specialist
Available via [place] text
Please use your independent medical judgment in providing your response.
--- NOTE | 2024-10-15 14:22 | W.CAR.ICD ---
ICD Inactivation Request
-
Designer Architect Notified: [employer]
The above vendor has been contacted to inactivate the patient's Implantable Cardioverter Defibrillator.
--- NOTE | 2024-10-15 14:38 | CM ---
Addendum entered by Jo Ann Salinas RN 10/15/24 15:59:
Families first choice is now [facility]. Referral sent.
Original Note:
Chart reviewed. Patient is independent of ADLS, lives with his in a [address], 5 [address], ambulates with a SPC and RW. Patient is not interested in Hospice/Palliative Care at this time. He would like to go to SNF to get stronger to go home and then
eventual palliative care/hospice. Patient prefers [email or web address]. Referral sent to [email or web address]. Family is looking into other facilities.
--- NOTE | 2024-10-15 14:51 | W.PN.UPDATE ---
Update Note
Progress Note Update
d/w case management. d/w patient, , and son Mohit at bedside. after family discussions, he would like to proceed with palliative care and plan for DC to SNF for rehab. he expressed understanding of his end stage conditions, but at this time is
not ready for hospice. will continue to have goals of care conversations as OP. he would like ICD therapies to remain on for now.
--- NOTE | 2024-10-15 15:47 | W.CON.PAL ---
Consultation
-
Date/Time Consultation Requested: 10/15/2024
Date/Time Consultation Performed: 10/15/2024
Requesting Provider: Dr. Brady
Performing Provider: Dr. Mane
Reason for Consult: Goals of Care Discussion
Primary Diagnosis: Cardiomyopathy
Reason for Admission
Illness Course/HPI
Porfirio is a 74 y/o male w/ severe ischemic Cardiomyopathy, HFrEF 30%, severe MR/Tr, presented to hospital with lower extremity swelling
patient not a candidate for mitral clip. cardiac treatmetns limited by CKD, cardiorenal patient declined lvad eval
Palliative care consulted for goals of care conversations.
upset because thought patient being put on hospice.
Functional Status
lives in a [address] home with his , first floor bedroom. 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 with her own physical limitations, children live > 30 mins away.
At baseline is ambulatory and independent of adls, provides supervision/ support
reports with therapy was able to walk across the room today but admits to feeling tired and not at his baseline.
Goals of Care Discussion
-
Individuals Present for Discussion & Relationship to Patient:
Patient, , son yemi
Patient able to participate in discussion at time of visit: Yes
Patient's Information Preferences: Fully Involved/Able to Participate
Patient Goals
Discussed palliative care and hospice services.
At this time patient is not interested in hospice at this time, maybe in the future
He has an advanced directive. reivewed code status is full code, will change to DNR. OOH DNR and POLST completed as well for them to take home.
Patient initally adamant about going home. discussed what he would need - commode, equipment, caregiviers, and the cost of caregiviers. Encouraged him to consider rehab short term prior to home to work on mobility. after discussion patient agrees.
son wishes that discuss with him rehab options [phone]
Pain & Symptom Assessment
-
Denies pain, dyspnea, abdominal symptoms.
reports fatigue
Objective Data
-
Objective Data:
Vital Signs
Temp Pulse Resp BP Pulse Ox
97.4 F 63 20 105/65 100
10/15/24 12:08 10/15/24 12:05 10/15/24 12:08 10/15/24 12:05 10/15/24 12:08
Laboratory Results
10/04/24 16:13
10/15/24 02:34
Total Protein 6.9 g/dl (6.3-8.2) 10/04/24 16:13
Albumin Cancelled 10/12/24 18:49
Urine Color Yellow 10/04/24 19:38
Urine Clarity Clear (Clear) 10/04/24 19:38
Urine pH 6.0 (5.0-9.0) 10/04/24 19:38
Ur Specific [place] 1.010 (<1.030) 10/04/24 19:38
Urine Ketones Negative (Negative) 10/04/24 19:38
Urine Bilirubin Negative (Negative) 10/04/24 19:38
Palliative Performance Scale
Palliative Performance Scale:
PPS Level Ambulation Activity & Evidence of Disease Self Care Intake Conscious Level
100% Full Normal Activity & Work; Full Intake Full
No Evidence of Disease
90% Full Normal Activity & Work; Full Normal Full
Some Evidence of Disease
80% Full Normal Activity with Effort Full Normal or Full
Some Evidence of Disease Reduced
70% Reduced Unable Normal Job/Work Full Normal or Full
Significant Disease Reduced
60% Reduced Unable Hobby/Housework Occasional Normal or Full or Confusion
Significant Disease Assistance Reduced
50% Mainly Sit/Lie Unable to do Any Work Considerable Normal or Full or Confusion
Extensive Disease Assistance Req'd Reduced
40% Mainly in Bed Unable to do Most Activity Mainly Assistance Normal or Full or Drowsy;
Extensive Disease Reduced +/- Confusion
30% Totally Bed Unable to do Any Activity Total Care Normal or Full or Drowsy;
Bound Extensive Disease Reduced +/- Confusion
20% Totally Bed Bound Unable to do Any Activity Total Care Minimal to Full or Drowsy;
Extensive Disease Sips +/- Confusion
10% Totally Bed Bound Unable to do Any Activity Total Care Mouth Care Drowsy or Coma;
Extensive Disease Only +/- Confusion
0%
PPS Score Level:
Palliative Performance Score Response
Palliative Performance Score Response: 50%
Physical Exam
-
General: No Apparent Distress, Comfortable and Appears Chronically Ill
Neuro: Awake, Alert and Oriented
Psych: Calm
Assessment / Plan
-
Assessment/Plan:
agreeable to outpatient palliative care after rehab/therapy.
Contact information for paliative care provided
[facility] DNR/POLST form completed
Code status DNR
Floor time 60 min
--- NOTE | 2024-10-15 15:52 | HOSPNOTE ---
Referral received however understand that patient at this time does not wish for hospice services per the notes. The patient will go to rehab and then once home make some decisions about palliative care and VN vs hospice care.
--- NOTE | 2024-10-15 17:38 | PTCARENOTE ---
The patient has been oob to the chair and ambulating in the room frequently this shift. His 'Fall' bracelet has been removed by the patient and he refuses to have another put on. He has been ringing the call velazquez whenever he needed assistance oob or
out of the chair.
[2024-10-15] MEDS: XARELTO 15 MG PO (17:57)
[2024-10-15] MEDS: LIPITOR 20 MG PO (17:57)
--- NOTE | 2024-10-15 20:56 | PTCARENOTE ---
Pt. received at change of shift. Pt. seen and assessed in room. Pt. AOx3, DNR bracelet on. Tele reading sinus elise/NSR with a first degree AV block and prolonged QTc. RN verbalizes plan of care to pt. pt. verbalizes understanding. Call velazquez within
reach. Continuing to monitor at this time.
[2024-10-15] MEDS: SINGULAIR 10 MG PO (22:18)
[2024-10-16] VITALS (10 sets, daily range): BP systolic 98–116; BP diastolic 55–71; BMI 21.4
[2024-10-16 04:05] LABS: Blood Urea Nitrogen 56 mg/dl (9-20); Chloride 87 mmol/L (98-107); Estimated Creatinine Clearance 25 ml/min; Glucose 99 mg/dl (70-99); Magnesium 2.4 mg/dl (1.6-2.3); Potassium 3.8 mmol/L (3.5-5.1); Sodium 137 mmol/L (135-145); eGFR 28.89
[2024-10-16 04:14] LABS: Carbon Dioxide 39 mmol/L (22-30)
[2024-10-16] MEDS: SYMBICORT 160/4.5 MCG INHALER 2 PUFF INH ×2 (07:29→19:22)
[2024-10-16] MEDS: KCL 40 MEQ PO ×2 (08:31→19:55)
[2024-10-16] MEDS: APRESOLINE 10 MG PO (08:31)
[2024-10-16] MEDS: ZOLOFT 25 MG PO (08:31)
[2024-10-16] MEDS: PROTONIX 40 MG PO (08:31)
[2024-10-16] MEDS: PACERONE 200 MG PO (08:32)
[2024-10-16] MEDS: VITAMIN D3 (cholecalciferol) 100 MCG PO (08:32)
[2024-10-16] MEDS: LOW STRENGTH ASPIRIN 81 MG PO (08:34)
[2024-10-16] MEDS: ProAmatine 5 MG PO ×3 (08:34→17:22)
[2024-10-16] MEDS: BACTROBAN 2% OINTMENT 1 APPLIC NASAL ×3 (08:34→21:41)
--- NOTE | 2024-10-16 09:09 | W.PN.HOSP.TC ---
Today's Communication/Plan
-
see bold
Assessment / Plan
Assessment / Plan
HPI: 84-year-old male with past medical history of ischemic cardiomyopathy, CAD, CHF with a EF of 30% status post AICD paroxysmal atrial fibrillation and intermittent hypotension requiring midodrine who presents to the emergency department from
cardiology clinic with ongoing left lower extremity swelling.
1. Acute on chronic combined systolic/diastolic heart failure ruled in
-Significant weight gain of approx ~ 25 lbs from baseline weight
-Patient oral Lasix dose was adjusted by cardiology office unfortunately continued to have worsening leg swelling
-No significant pulmonary edema/hypoxia at presentation
-Repeat echocardiogram showing EF 25 to 30% with stage III diastolic dysfunction.
-GDMT limited by patient hypotension
-10/13, cardiac catheterization showed pulmonary capillary wedge pressure 18 cardiac index 1.6
-Appreciate cardiology and nephrology input, status post metolazone 5 mg daily
-Currently on Lasix 80 mg IV twice daily and Diamox, continue while in the hospital
-Upon discharge, transition to Lasix 80 mg p.o. twice daily
-Trend creatinine, trend daily weights
-Patient wishes to be discharged to rehab, and enroll into palliative care
-Awaiting bed at [facility], plan for discharge to [facility] on 10/18
2. Paroxysmal atrial fibrillation
-History of pulmonary vein isolation.
-Maintained on amiodarone, resumed Xarelto
-10/14 Discontinued Toprol XL
3. BRIGHT superimposed on CKD stage IIIb/IV
History of cardiorenal syndrome
-Creatinine/GFR trend reviewed and patient GFR ranges between 25-35 range
-Appreciate nephrology input, renal function close to baseline, continue monitoring with need of high-dose of diuretics
4. Hypokalemia
-Replete prn
5. Severe MR/TR
-Status post THANH 10/07/24
-Patient possibly in eventual candidate for MitraClip placement for MV
-Not a candidate for MitraClip
6. Left arm swelling
-Left upper extremity venous Doppler neg for VTE
7. Nonsustained ventricular tachycardia
-Patient was asymptomatic
-10/14 Discontinued Toprol XL
8. Hypotension
-Midodrine decreased to 5 mg 3 times daily
9. Poor oral intake
-Started Ensure twice daily
10. Weakness
-PT recommends home care, plan for discharge to [facility] rehab
11. Epistaxis
-Bactroban to the nares 3 times daily
Coronary disease with history of bypass
History of revision bypass with complicated hospital course
History of inguinal access site abscess
Status post ICD placement
Obstructive sleep apnea
History of prostate cancer status post prostatectomy
History of bilateral cataract surgery
History of Schatzki's ring
DVTPPX - xarelto
Full code
Updated at bedside 10/15
Total time spent to see the patient on the floor, examine the patient, review data and lab results, discuss treatment plan with patient, nursing staff around 41 minutes.
Physical Exam
General: No acute distress
HEENT: Normocephalic, Atraumatic, EOMI, MMM
Respiratory: Clear to auscultation bilaterally
Cardiac: Normal S1/S2, Regular Rate and Rhythm, +murmur
GI: Soft, Nontender, Nondistended, Normal Bowel Sounds
Extremities: No Clubbing, Cyanosis
Pitting bilateral lower extremity edema noted
Neuro: Nonfocal/Grossly Intact
Psych: Calm, Cooperative
Anticipated Discharge: 24 - 48 hours
Subjective/Interval History
-
Date of Service: October 15, 2024
Reports some mild bilateral epistaxis this morning that resolved. No fever, no vomiting.
Objective Data
-
Vital Signs:
Vital Signs
Temp Pulse Resp BP Pulse Ox
98.2 F 63 16 108/65 96
10/15/24 15:48 10/15/24 15:47 10/15/24 15:48 10/15/24 15:47 10/15/24 15:48
I&O
10/14/24 10/15/24 10/16/24
06:59 06:59 06:59
Intake Total 100 / 100 580 / 580
Output Total 575 / 575 1025 / 1025 575 / 575
Balance -475 / -475 -445 / -445 -575 / -575
[2024-10-16] MEDS: LASIX 80 MG IV ×2 (10:49→17:23)
[2024-10-16] MEDS: DIAMOX 250 MG PO ×2 (10:49→19:55)
[2024-10-16] MEDS: FEOSOL 325 MG PO (12:32)
--- NOTE | 2024-10-16 12:38 | W.PN.NEPH.PH ---
Today's Communication / Plan
-
cont diuretics
Assessment/Plan
-
Impression:
Cardiorenal syndrome decompensated
CKD stage IV with baseline creatinine 2.4
Ischemic cardiomyopathy EF 30%, DD stage3, mod to severe MR, mod TR
CAD complex history s/p CABG
s/p [employer] single chamber ICD
Paroxysmal Afib
HTN
Orthostasis on midodrine
Hyperlipidemia
Former tobacco use
ELI
GERD/Caballero's esophagus
S/p Schatzki's ring dilatation
Severe LAUREN stenosis S/p stent (01/10/2015)
Severe LICA stenosis S/p stent (10/05/2010)
Hx Prostate Ca S/p robotic prostatectomy (2009)
Plan:
cr upward trend to 2.3(baseline 2)
likely accept higher cr to maintain vol status
nonoliguric, weights slow to improve
met alkalosis worse, cont diamox
cont lasix 80mg IV BID_at d/c cont same dose PO
pt wants no hospice and chose palliative care at d/c
-Maintain midodrine for hemodynamic support-dose decreased to 5mg TID on 10/13(home 10mg)
d/w cards, and pt
-
-
Date of Service: October 16, 2024
CC / HPI / ROS
-
Chief Complaint:
CKD
History of Present Illness:
Creatinine up to 2.3, k low 3.8
Bp low on qzraon-gmd-tskad midodrine
wt sligthly better
met alkalosis worse at 39
Review of Systems:
no cp
no sob at rest and edema improving
weights down 10kg since admit
Labs
-
Labs:
WBC 6.0 10^3/uL (4.8-10.8) 10/04/24 16:13
RBC 5.11 10^6/uL (4.70-6.10) 10/04/24 16:13
Hgb 11.5 g/dL (13.0-18.0) L 10/04/24 16:13
Hct 40.2 % (39.0-52.0) 10/04/24 16:13
Plt Count 179 10^3/uL (130-400) 10/04/24 16:13
Sodium 137 mmol/L (135-145) 10/16/24 03:13
Potassium 3.8 mmol/L (3.5-5.1) 10/16/24 03:13
Chloride 87 mmol/L (98-107) L 10/16/24 03:13
Carbon Dioxide 39 mmol/L (22-30) H 10/16/24 03:13
BUN 56 mg/dl (9-20) H 10/16/24 03:13
Creatinine 2.3 mg/dL (0.7-1.3) H 10/16/24 03:13
eGFR 28.89 10/16/24 03:13
Glucose 99 mg/dl (70-99) 10/16/24 03:13
Calcium 9.0 mg/dl (8.4-10.2) 10/16/24 03:13
Phosphorus Cancelled 10/12/24 18:49
Qbn-O-Ezawvgcjicw Pept 97209 pg/ml 10/04/24 16:13
Albumin Cancelled 10/12/24 18:49
Physical Exam
-
Vital Signs:
Vital Signs
Temp Pulse Resp BP Pulse Ox
97.6 F 69 16 103/58 100
10/16/24 11:02 10/16/24 10:37 10/16/24 11:02 10/16/24 10:49 10/16/24 11:02
Cardiovascular:: Regular rate and rhythm
Respiratory:: Bilateral: CTA
Lung Excursion:: Normal
Abdomen:: Nontender and Soft
Extremity Edema:: +2: Bilateral:
Farah Catheter: No
--- NOTE | 2024-10-16 13:41 | W.PN.CARDCBS ---
Today's Communication / Plan
-
Hopefully transition to oral Lasix in the next 24 to 48 hours
Impression / Plan
-
PCP: Dr. Song
Cardiology: Dr. Gillis
IMPRESSION:
Acute on chronic HFrEF
Decompensated cardiorenal syndrome with ischemic cardiomyopathy and severe mitral regurgitation
ICM EF 30% by echo 05/04/24
h/o Cardiorenal syndrome
CKD 4
CAD
s/p CABG x 3 (COLEMAN - LAD, seq SVG to OM1 to RPLB) 09/19
s/p PCI with JENIFFER to SVG to OM1 to RPLB 10/29/11
s/p acute inferior ID S/P PCI with RCA stent (02/19/17)
s/p Re-op CABG x 2 (left saphenous vein as sequential graft to LAD then to OM1) vein graft tear, anterior wall of RV tear and divided COLEMAN at time of CABG 12/20/19
h/o long admission (46 days) to [place] for LVAD eval and eventual ICD placement at time of complicated redo CABG 12/2019
h/o left groin abscess with flap closure and VAC treatment 06/2020
s/p [employer] single chamber ICD
Paroxysmal Afib
s/p PVI 08/04/17
Chronic Xarelto OAC
HTN
Orthostasis on midodrine
Hyperlipidemia
Former tobacco use
ELI
GERD/Caballero's esophagus
S/p Schatzki's ring dilatation
Severe LAUREN stenosis S/p stent (01/10/2015)
Severe LICA stenosis S/p stent (10/05/2010)
Hx Prostate Ca S/p robotic prostatectomy (2009)
s/p right inguinal herniorrhaphy (1992)
s/p B/L cataract surgery 09/2024
Hypokalemia
ECHO 12/23/19: with severe left ventricular systolic dysfunction ejection fraction 15�20%. New compared to preoperative echocardiogram
Echo at [place] 02/2020: EF 36%
Echo 06/26/20: Mildly dilated LV, EF 25-30%, inferior, septal, anteroseptal, apical akinesis with hypokinesis remaining. EF was 40% by Valle, 25-30% visually, mildly dilated and hypokinetic RV, ICD wire, dilated left atrium, mild MR, aortic
sclerosis, moderate TR, pulmonary artery pressure 37-42 mmHg
Echo 05/04/24: EF 30%, akinesis of the septum and inferior de jesus, stage III diastolic dysfunction, moderate to severe MR, moderate TR with PAP 45 mmHg
Echo 10/05/24: EF 25 to 30%, enlarged right ventricle with moderate RV hypokinesis, moderate to severe MR, moderate TR
Plan:
-patient with evidence of end stage CHF, cardiomyopathy, and significant MR/TR, not felt to be candidate for intervention. Patient was given option for another opinion for LVAD support, however is not interested in evaluation.
-palliative care following, DNR code status, but based on prior discussion patient would like ICD therapies to remain on
-Suspect he is nearing euvolemia- no sig peripheral edema, but JVP remains elevated
-Plan to continue IV diuretics today, appreciate nephrology input, hopefully transition to PO lasix in next 24-48hrs, tentative plan for po lasix 80mg BID upon DC
-continue midodrine
-BP unable to tolerate toprol or hydralazine
-continue amiodarone, xarelto for h/o AFib
HPI: He has a PMH of prostate CA, carotid stent and CABG 09/2010 with COLEMAN to LAD and SVG seq to OM and PLB. He then had a Xience JENIFFER to the sequential SVG in 10/29/11. He was then admitted to 12/20/19 until 12/29/19 with plan for redo sternotomy
and CABG with SVG to OM and then to the PLB of the RCA. He had RV tear and repair as a complication. His CABG ended up being a left saphenous vein as sequential graft to LAD then to OM1. He received transfusion and was noted to have ST elevations
post-op and a bedside echo showed similar findings to the intra-op THANH. with septal and inferior dyskinesia. He was started on dobutamine and went into Afib/flutter. He has known paroxysmal Afib with previous PVI. He was CV'd POD #3 to SR and echo
then revealed a newly reduced LVEF 15-20% with new WMA. He developed cardiorenal syndrome and cardiogenic shock. He was transferred to [place] for LVAD evaluation 12/29/19. He was hospitalized for 46 days and was ultimately not an LVAD candidate, but
was diuresed and had a [employer] single chamber ICD placed. He then went to [facility] acute care rehab and since then has been at home. He had left groin washout with [employer] flap creation and VAC placement 06/23/20. Now coming in with acute HF
and eval for MitraClip.
Progress Note - [employer]
Subjective
Date of Service: October 16, 2024
No acute overnight events. Patient resting comfortably in bed this morning. Breathing is comfortable. Tells me lower extremity edema has resolved.
Objective
Labs:
10/04/24 16:13
10/16/24 03:13
Labs
Hgb 11.5 g/dL (13.0-18.0) L 10/04/24 16:13
Hct 40.2 % (39.0-52.0) 10/04/24 16:13
Plt Count 179 10^3/uL (130-400) 10/04/24 16:13
Sodium 137 mmol/L (135-145) 10/16/24 03:13
Potassium 3.8 mmol/L (3.5-5.1) 10/16/24 03:13
BUN 56 mg/dl (9-20) H 10/16/24 03:13
Creatinine 2.3 mg/dL (0.7-1.3) H 10/16/24 03:13
Glucose 99 mg/dl (70-99) 10/16/24 03:13
Vital Signs and I&O:
Vital Signs
Temp Pulse Resp BP Pulse Ox
97.6 F 69 16 103/58 100
10/16/24 11:02 10/16/24 10:37 10/16/24 11:02 10/16/24 10:49 10/16/24 11:02
Vital Signs
Temp Pulse Resp BP Pulse Ox
97.6 F 69 16 103/58 100
10/16/24 11:02 10/16/24 10:37 10/16/24 11:02 10/16/24 10:49 10/16/24 11:02
Intake & Output
10/14/24 10/15/24 10/16/24 10/17/24
06:59 06:59 06:59 06:59
Intake Total 100 / 100 580 / 580 840 / 840 200 / 200
Output Total 575 / 575 1025 / 1025 1974 / 1974 300 / 300
Balance -475 / -475 -445 / -445 -1135 / -1135 -100 / -100
Physical Exam
Physical Exam
Gen: NAD, AAOx3
HEENT: NC/AT, sclera anicteric
Neck: Elevated JVP
CV: RRR, NL s1/s2, 3/6 HSM at the apex
Lungs: CTAB
Abd: S/ND
Ext: No LE edema
Skin: Warm, dry
Neuro: Non-focal
[2024-10-16] MEDS: XARELTO 15 MG PO (17:22)
[2024-10-16] MEDS: LIPITOR 20 MG PO (17:22)
--- NOTE | 2024-10-16 18:31 | PTCARENOTE ---
Pt without complaints this shift. family at bedside. Lasix IV given per cards and nephro. Ambulating x1 with rolling walker. SR w/ first degree and pro QT.
[2024-10-16] MEDS: SINGULAIR 10 MG PO (21:41)
--- NOTE | 2024-10-17 02:09 | PTCARENOTE ---
Assumed care of the patient @ 1900. AAOx3 SB/SR 1 st degree HB on the monitor. Denies pain. 1 assist with walker +FERNANDEZ. call velazquez within reach. Minor nosebleed Bactroban applied
[2024-10-17 03:55] VITALS: BP 110/82
[2024-10-17 04:56] LABS: Blood Urea Nitrogen 55 mg/dl (9-20); Calcium 8.8 mg/dl (8.4-10.2); Carbon Dioxide 38 mmol/L (22-30); Chloride 87 mmol/L (98-107); Estimated Creatinine Clearance 23 ml/min; Glucose 99 mg/dl (70-99); Potassium 3.3 mmol/L (3.5-5.1); Sodium 136 mmol/L (135-145); eGFR 28.89
[2024-10-17 04:57] LABS: Hematocrit 31.8 % (39.0-52.0); Hemoglobin 9.6 g/dL (13.0-18.0); Mean Corp Hgb Conc. 30.2 g/dL (33.0-37.0); Mean Corpuscular Hgb 23.9 pg (27.0-31.0); Mean Corpuscular Volume 79.3 fL (80.0-94.0); Platelet Count 148 10^3/uL (130-400); Red Blood Cell Count 4.01 10^6/uL (4.70-6.10); Red Cell Dist. Width 28.3 % (11.5-14.5)
[2024-10-17 06:44] VITALS: BP 114/68
[2024-10-17] MEDS: SYMBICORT 160/4.5 MCG INHALER 2 PUFF INH ×2 (07:52→19:21)
--- NOTE | 2024-10-17 08:06 | W.PN.HOSP.TC ---
Today's Communication/Plan
-
Discharge to [facility] tomorrow
Assessment / Plan
Assessment / Plan
HPI: 84-year-old male with past medical history of ischemic cardiomyopathy, CAD, CHF with a EF of 30% status post AICD paroxysmal atrial fibrillation and intermittent hypotension requiring midodrine who presents to the emergency department from
cardiology clinic with ongoing left lower extremity swelling.
1. Acute on chronic combined systolic/diastolic heart failure ruled in
-Significant weight gain of approx ~ 25 lbs from baseline weight
-Patient oral Lasix dose was adjusted by cardiology office unfortunately continued to have worsening leg swelling
-No significant pulmonary edema/hypoxia at presentation
-Repeat echocardiogram showing EF 25 to 30% with stage III diastolic dysfunction.
-GDMT limited by patient hypotension
-10/13, cardiac catheterization showed pulmonary capillary wedge pressure 18 cardiac index 1.6
-Appreciate cardiology and nephrology input, status post metolazone 5 mg daily
-S/p Lasix 80 mg IV twice daily and Diamox
-Continue Lasix 80 mg p.o. twice daily
-Trend creatinine, trend daily weights
-Patient wishes to be discharged to rehab, and enroll into palliative care
-Awaiting bed at [facility], plan for discharge to [facility] on 10/18
2. Paroxysmal atrial fibrillation
-History of pulmonary vein isolation.
-Maintained on amiodarone, resumed Xarelto
-10/14 Discontinued Toprol XL
3. BRIGHT superimposed on CKD stage IIIb/IV
History of cardiorenal syndrome
-Creatinine/GFR trend reviewed and patient GFR ranges between 25-35 range
-Appreciate nephrology input, renal function close to baseline, continue monitoring with need of high-dose of diuretics
4. Hypokalemia
-Replete prn
5. Severe MR/TR
-Status post THANH 10/07/24
-Patient possibly in eventual candidate for MitraClip placement for MV
-Not a candidate for MitraClip
6. Left arm swelling
-Left upper extremity venous Doppler neg for VTE
7. Nonsustained ventricular tachycardia
-Patient was asymptomatic
-10/14 Discontinued Toprol XL
8. Hypotension
-Midodrine decreased to 5 mg 3 times daily
9. Poor oral intake
-Started Ensure twice daily
10. Weakness
-PT recommends home care, plan for discharge to [facility] rehab
11. Epistaxis
-Bactroban to the nares 3 times daily
Coronary disease with history of bypass
History of revision bypass with complicated hospital course
History of inguinal access site abscess
Status post ICD placement
Obstructive sleep apnea
History of prostate cancer status post prostatectomy
History of bilateral cataract surgery
History of Schatzki's ring
DVTPPX - xarelto
Full code
Updated at bedside 10/15
Total time spent to see the patient on the floor, examine the patient, review data and lab results, discuss treatment plan with patient, nursing staff around 40 minutes.
Physical Exam
General: No acute distress
HEENT: Normocephalic, Atraumatic, EOMI, MMM
Respiratory: Clear to auscultation bilaterally
Cardiac: Normal S1/S2, Regular Rate and Rhythm, +murmur
GI: Soft, Nontender, Nondistended, Normal Bowel Sounds
Extremities: No Clubbing, Cyanosis
Pitting bilateral lower extremity edema noted
Neuro: Nonfocal/Grossly Intact
Psych: Calm, Cooperative
Anticipated Discharge: Within 24 hours
Subjective/Interval History
-
Date of Service: October 17, 2024
No acute changes. Continues to have intermittent epistaxis. No shortness of breath, no chest pain, no fever, no vomiting.
Objective Data
-
Labs:
Laboratory Results
10/17/24
04:04
WBC 5.0
Hgb 9.6 L
Hct 31.8 L
Plt Count 148
Sodium 136
Potassium 3.3 L
Chloride 87 L
Carbon Dioxide 38 H
BUN 55 H
Creatinine 2.3 H
Glucose 99
Calcium 8.8
Vital Signs:
Vital Signs
Temp Pulse Resp BP Pulse Ox
97.6 F 70 14 110/82 99
10/17/24 06:42 10/17/24 07:54 10/17/24 07:54 10/17/24 03:55 10/17/24 06:42
I&O
10/16/24 10/17/24 10/18/24
06:59 06:59 06:59
Intake Total 840 / 840 680 / 680
Output Total 1974 / 1974 185 / 1849
Balance -1135 / -1135 -1170 / -1170
[2024-10-17] MEDS: DIAMOX 250 MG PO ×2 (09:01→21:30)
[2024-10-17] MEDS: LASIX 80 MG IV (09:02)
[2024-10-17] MEDS: KCL 40 MEQ PO ×2 (09:02→21:31)
[2024-10-17] MEDS: PROTONIX 40 MG PO (09:03)
[2024-10-17] MEDS: PACERONE 200 MG PO (09:03)
[2024-10-17] MEDS: LOW STRENGTH ASPIRIN 81 MG PO (09:03)
[2024-10-17] MEDS: ZOLOFT 25 MG PO (09:04)
[2024-10-17] MEDS: VITAMIN D3 (cholecalciferol) 100 MCG PO (09:04)
[2024-10-17] MEDS: ProAmatine PO (09:05)
[2024-10-17] MEDS: BACTROBAN 2% OINTMENT 1 APPLIC NASAL ×3 (09:06→21:31)
[2024-10-17 12:00] VITALS: BP 107/65
[2024-10-17] MEDS: FEOSOL 325 MG PO (13:08)
[2024-10-17] MEDS: ProAmatine 2.5 MG PO ×2 (13:08→16:28)
--- NOTE | 2024-10-17 13:27 | W.PN.NEPH.PH ---
Today's Communication / Plan
-
likely change to po lasix when ok with cards
cont po kcl
Assessment/Plan
-
Impression:
Cardiorenal syndrome decompensated
CKD stage IV with baseline creatinine 2.4
Ischemic cardiomyopathy EF 30%, DD stage3, mod to severe MR, mod TR
CAD complex history s/p CABG
s/p [employer] single chamber ICD
Paroxysmal Afib
HTN
Orthostasis on midodrine
Hyperlipidemia
Former tobacco use
ELI
GERD/Caballero's esophagus
S/p Schatzki's ring dilatation
Severe LAUREN stenosis S/p stent (01/10/2015)
Severe LICA stenosis S/p stent (10/05/2010)
Hx Prostate Ca S/p robotic prostatectomy (2009)
Plan:
cr no change at 2.3(baseline 2)
likely accept higher cr to maintain vol status
nonoliguric, weights improving
met alkalosis, cont diamox
cont lasix 80mg IV BID_at d/c cont same dose PO
pt wants no hospice and chose palliative care at d/c
-Maintain midodrine for hemodynamic support-dose decreased to 5mg TID on 10/13(home 10mg)
d/w pt
-
-
Date of Service: October 17, 2024
CC / HPI / ROS
-
Chief Complaint:
CKD
History of Present Illness:
Creatinine no cahnge 2.3, k low 3.3
Bp low on ypsyqu-dcb-lahku midodrine
wt better
met alkalosis at 38
Review of Systems:
no cp
no sob at rest and edema improving
Labs
-
Labs:
WBC 5.0 10^3/uL (4.8-10.8) 10/17/24 04:04
RBC 4.01 10^6/uL (4.70-6.10) L 10/17/24 04:04
Hgb 9.6 g/dL (13.0-18.0) L 10/17/24 04:04
Hct 31.8 % (39.0-52.0) L 10/17/24 04:04
Plt Count 148 10^3/uL (130-400) 10/17/24 04:04
Sodium 136 mmol/L (135-145) 10/17/24 04:04
Potassium 3.3 mmol/L (3.5-5.1) L 10/17/24 04:04
Chloride 87 mmol/L (98-107) L 10/17/24 04:04
Carbon Dioxide 38 mmol/L (22-30) H 10/17/24 04:04
BUN 55 mg/dl (9-20) H 10/17/24 04:04
Creatinine 2.3 mg/dL (0.7-1.3) H 10/17/24 04:04
eGFR 28.89 10/17/24 04:04
Glucose 99 mg/dl (70-99) 10/17/24 04:04
Calcium 8.8 mg/dl (8.4-10.2) 10/17/24 04:04
Phosphorus Cancelled 10/12/24 18:49
Hqk-H-Ojmsisdetnf Pept 35221 pg/ml 10/04/24 16:13
Albumin Cancelled 10/12/24 18:49
Physical Exam
-
Vital Signs:
Vital Signs
Temp Pulse Resp BP Pulse Ox
98.3 F 60 20 107/65 98
10/17/24 12:01 10/17/24 12:00 10/17/24 12:01 10/17/24 12:00 10/17/24 12:01
Cardiovascular:: Regular rate and rhythm
Respiratory:: Bilateral: CTA
Lung Excursion:: Normal
Abdomen:: Nontender and Soft
Extremity Edema:: +2: Bilateral:
Farah Catheter: No
--- NOTE | 2024-10-17 13:40 | W.PN.CARDCBS ---
Addendum entered and electronically signed by Esau Kramer MD 10/17/24 13:48:
Gen: NAD, AAOx3, frail appearing
HEENT: NC/AT, sclera anicteric
Neck: Mildly elevated JVP
CV: RRR, NL s1/s2, 3/6 HSM at the apex
Lungs: CTAB
Abd: S/ND
Ext: No LE edema, warm
Skin: Dry
Neuro: Non-focal
Original Note:
Today's Communication / Plan
-
Transition to oral Lasix
Midodrine dose decreased to reduce afterload in s/o HF with severely reduced LVEF
Impression / Plan
-
PCP: Dr. Song
Cardiology: Dr. Gillis
IMPRESSION:
Acute on chronic HFrEF
Decompensated cardiorenal syndrome with ischemic cardiomyopathy and severe mitral regurgitation
ICM EF 30% by echo 05/04/24
h/o Cardiorenal syndrome
CKD 4
CAD
s/p CABG x 3 (COLEMAN - LAD, seq SVG to OM1 to RPLB) 09/19
s/p PCI with JENIFFER to SVG to OM1 to RPLB 10/29/11
s/p acute inferior WA S/P PCI with RCA stent (02/19/17)
s/p Re-op CABG x 2 (left saphenous vein as sequential graft to LAD then to OM1) vein graft tear, anterior wall of RV tear and divided COLEMAN at time of CABG 12/20/19
h/o long admission (46 days) to [place] for LVAD eval and eventual ICD placement at time of complicated redo CABG 12/2019
h/o left groin abscess with flap closure and VAC treatment 06/2020
s/p [employer] single chamber ICD
Paroxysmal Afib
s/p PVI 08/04/17
Chronic Xarelto OAC
HTN
Orthostasis on midodrine
Hyperlipidemia
Former tobacco use
ELI
GERD/Caballero's esophagus
S/p Schatzki's ring dilatation
Severe LAUREN stenosis S/p stent (01/10/2015)
Severe LICA stenosis S/p stent (10/05/2010)
Hx Prostate Ca S/p robotic prostatectomy (2009)
s/p right inguinal herniorrhaphy (1992)
s/p B/L cataract surgery 09/2024
Hypokalemia
ECHO 12/23/19: with severe left ventricular systolic dysfunction ejection fraction 15�20%. New compared to preoperative echocardiogram
Echo at [place] 02/2020: EF 36%
Echo 06/26/20: Mildly dilated LV, EF 25-30%, inferior, septal, anteroseptal, apical akinesis with hypokinesis remaining. EF was 40% by Valle, 25-30% visually, mildly dilated and hypokinetic RV, ICD wire, dilated left atrium, mild MR, aortic
sclerosis, moderate TR, pulmonary artery pressure 37-42 mmHg
Echo 05/04/24: EF 30%, akinesis of the septum and inferior de jesus, stage III diastolic dysfunction, moderate to severe MR, moderate TR with PAP 45 mmHg
Echo 10/05/24: EF 25 to 30%, enlarged right ventricle with moderate RV hypokinesis, moderate to severe MR, moderate TR
Plan:
-patient with evidence of end stage CHF, cardiomyopathy, and significant MR/TR, not felt to be candidate for intervention. Patient was given option for another opinion for LVAD support, however is not interested in evaluation.
-palliative care following, DNR code status, but based on prior discussion patient would like ICD therapies to remain on
-Suspect he is nearing euvolemia- no sig peripheral edema, but JVP remains elevated
-Transition to PO lasix 80mg BID
-Decrease midodrine dose to 2.5mg daily to reduced afterload, if symptomatic can uptitrate
-BP unable to tolerate toprol or hydralazine while on midodrine
-continue amiodarone, xarelto for h/o AFib
HPI: He has a PMH of prostate CA, carotid stent and CABG 09/2010 with COLEMAN to LAD and SVG seq to OM and PLB. He then had a Xience JENIFFER to the sequential SVG in 10/29/11. He was then admitted to 12/20/19 until 12/29/19 with plan for redo sternotomy
and CABG with SVG to OM and then to the PLB of the RCA. He had RV tear and repair as a complication. His CABG ended up being a left saphenous vein as sequential graft to LAD then to OM1. He received transfusion and was noted to have ST elevations
post-op and a bedside echo showed similar findings to the intra-op THANH. with septal and inferior dyskinesia. He was started on dobutamine and went into Afib/flutter. He has known paroxysmal Afib with previous PVI. He was CV'd POD #3 to SR and echo
then revealed a newly reduced LVEF 15-20% with new WMA. He developed cardiorenal syndrome and cardiogenic shock. He was transferred to [place] for LVAD evaluation 12/29/19. He was hospitalized for 46 days and was ultimately not an LVAD candidate, but
was diuresed and had a [employer] single chamber ICD placed. He then went to [facility] acute care rehab and since then has been at home. He had left groin washout with Sartorious flap creation and VAC placement 06/23/20. Now coming in with acute HF
and eval for MitraClip.
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
Subjective
Date of Service: October 17, 2024
No acute overnight events. Resting comfortably in bed this morning. Tells me no shortness of breath at rest. No lightheadedness or dizziness at this time. No chest pressure pain.
Objective
Labs:
10/17/24 04:04
10/17/24 04:04
Labs
Hgb 9.6 g/dL (13.0-18.0) L 10/17/24 04:04
Hct 31.8 % (39.0-52.0) L 10/17/24 04:04
Plt Count 148 10^3/uL (130-400) 10/17/24 04:04
Sodium 136 mmol/L (135-145) 10/17/24 04:04
Potassium 3.3 mmol/L (3.5-5.1) L 10/17/24 04:04
BUN 55 mg/dl (9-20) H 10/17/24 04:04
Creatinine 2.3 mg/dL (0.7-1.3) H 10/17/24 04:04
Glucose 99 mg/dl (70-99) 10/17/24 04:04
Vital Signs and I&O:
Vital Signs
Temp Pulse Resp BP Pulse Ox
98.3 F 60 20 107/65 98
10/17/24 12:01 10/17/24 12:00 10/17/24 12:01 10/17/24 12:00 10/17/24 12:01
Vital Signs
Temp Pulse Resp BP Pulse Ox
98.3 F 60 20 107/65 98
10/17/24 12:01 10/17/24 12:00 10/17/24 12:01 10/17/24 12:00 10/17/24 12:01
Intake & Output
10/15/24 10/16/24 10/17/24 10/18/24
06:59 06:59 06:59 06:59
Intake Total 580 / 580 840 / 840 680 / 680
Output Total 1025 / 1025 1974 / 1974 185 / 185
Balance -445 / -445 -1135 / -1135 -1170 / -1170
--- NOTE | 2024-10-17 14:06 | PTCARENOTE ---
Pt OOb to BR several times today, cara well. He offers no complaints.
[2024-10-17 16:04] VITALS: BP 101/66
[2024-10-17] MEDS: LASIX 80 MG PO (16:28)
[2024-10-17] MEDS: XARELTO 15 MG PO (17:50)
[2024-10-17] MEDS: LIPITOR 20 MG PO (17:50)
[2024-10-17 18:43] VITALS: BP 110/71
[2024-10-17] MEDS: SINGULAIR 10 MG PO (21:31)
[2024-10-17 23:26] VITALS: BP 114/65
--- NOTE | 2024-10-18 03:02 | PTCARENOTE ---
Pt AAOx3 SR with 1st degree AVB VSS OOB to urinate throughout the shift. Calls appropriately.
[2024-10-18 03:49] VITALS: BP 96/54
[2024-10-18 04:22] VITALS: BMI 19.3
[2024-10-18 07:30] VITALS: BP 106/67
[2024-10-18] MEDS: BACTROBAN 2% OINTMENT 1 APPLIC NASAL (07:32)
[2024-10-18] MEDS: LASIX 80 MG PO (07:32)
[2024-10-18] MEDS: DIAMOX 250 MG PO (07:36)
[2024-10-18] MEDS: ProAmatine 2.5 MG PO ×2 (07:36→11:58)
[2024-10-18] MEDS: PROTONIX 40 MG PO (07:36)
[2024-10-18] MEDS: PACERONE 200 MG PO (07:37)
[2024-10-18] MEDS: VITAMIN D3 (cholecalciferol) 100 MCG PO (07:37)
[2024-10-18] MEDS: ZOLOFT 25 MG PO (07:37)
[2024-10-18] MEDS: KCL 40 MEQ PO (07:37)
[2024-10-18] MEDS: LOW STRENGTH ASPIRIN 81 MG PO (07:37)
[2024-10-18] MEDS: SYMBICORT 160/4.5 MCG INHALER 2 PUFF INH (08:56)
--- NOTE | 2024-10-18 09:43 | W.PN.NEPH.PH ---
Today's Communication / Plan
-
Maintain oral Lasix
GFR has been stable with creatinine around 2.3
Replete potassium.
Follow-up BMP in the am
Assessment/Plan
-
Impression:
Cardiorenal syndrome decompensated
CKD stage IV with baseline creatinine 2.4
Ischemic cardiomyopathy EF 30%, DD stage3, mod to severe MR, mod TR
CAD complex history s/p CABG
s/p [employer] single chamber ICD
Paroxysmal Afib
HTN
Orthostasis on midodrine
Hyperlipidemia
Former tobacco use
ELI
GERD/Caballero's esophagus
S/p Schatzki's ring dilatation
Severe LAUREN stenosis S/p stent (01/10/2015)
Severe LICA stenosis S/p stent (10/05/2010)
Hx Prostate Ca S/p robotic prostatectomy (2009)
Plan:
cr no change at 2.3(baseline 2)
K was low yesterday
likely accept higher cr to maintain vol status
nonoliguric, weights improving
met alkalosis, continue diamox
Lasix now on 80 mg p.o. twice daily
pt wants no hospice and chose palliative care at d/c
-Maintain midodrine for hemodynamic support-dose decreased to 5mg TID on 10/13(home 10mg)
d/w pt
-
-
Date of Service: October 18, 2024
CC / HPI / ROS
-
Chief Complaint:
CKD
History of Present Illness:
Creatinine no cahnge 2.3, k low 3.3
Bp low on [id number] midodrine
wt better
met alkalosis at 38
Review of Systems:
no cp
no sob at rest and edema improving
Labs
-
Labs:
WBC 5.0 10^3/uL (4.8-10.8) 10/17/24 04:04
RBC 4.01 10^6/uL (4.70-6.10) L 10/17/24 04:04
Hgb 9.6 g/dL (13.0-18.0) L 10/17/24 04:04
Hct 31.8 % (39.0-52.0) L 10/17/24 04:04
Plt Count 148 10^3/uL (130-400) 10/17/24 04:04
Sodium 136 mmol/L (135-145) 10/17/24 04:04
Potassium 3.3 mmol/L (3.5-5.1) L 10/17/24 04:04
Chloride 87 mmol/L (98-107) L 10/17/24 04:04
Carbon Dioxide 38 mmol/L (22-30) H 10/17/24 04:04
BUN 55 mg/dl (9-20) H 10/17/24 04:04
Creatinine 2.3 mg/dL (0.7-1.3) H 10/17/24 04:04
eGFR 28.89 10/17/24 04:04
Glucose 99 mg/dl (70-99) 10/17/24 04:04
Calcium 8.8 mg/dl (8.4-10.2) 10/17/24 04:04
Phosphorus Cancelled 10/12/24 18:49
Iku-L-Hbirzrogaro Pept 98468 pg/ml 10/04/24 16:13
Albumin Cancelled 10/12/24 18:49
Physical Exam
-
Vital Signs:
Vital Signs
Temp Pulse Resp BP Pulse Ox
98 F 58 16 106/67 99
10/18/24 07:30 10/18/24 08:00 10/18/24 07:30 10/18/24 07:30 10/18/24 07:30
Cardiovascular:: Regular rate and rhythm
Respiratory:: Bilateral: CTA
Lung Excursion:: Normal
Abdomen:: Nontender and Soft
Extremity Edema:: +2: Bilateral:
Farah Catheter: No
--- NOTE | 2024-10-18 10:29 | W.PN.HOSP.TC ---
Addendum entered and electronically signed by Ran Herrera MD 10/18/24 10:40:
Awaiting placement at [facility]
Addendum entered and electronically signed by Ran Herrera MD 10/18/24 10:33:
Time of discharge 39 minutes
Original Note:
Today's Communication/Plan
-
monitor vitals
see plan
dc today
cw lasix
Monitor renal function
Assessment / Plan
Assessment / Plan
HPI: 84-year-old male with past medical history of ischemic cardiomyopathy, CAD, CHF with a EF of 30% status post AICD paroxysmal atrial fibrillation and intermittent hypotension requiring midodrine who presents to the emergency department from
cardiology clinic with ongoing left lower extremity swelling.
1. Acute on chronic combined systolic/diastolic heart failure ruled in
-Significant weight gain of approx ~ 25 lbs from baseline weight
-Patient oral Lasix dose was adjusted by cardiology office unfortunately continued to have worsening leg swelling
-No significant pulmonary edema/hypoxia at presentation
-Repeat echocardiogram showing EF 25 to 30% with stage III diastolic dysfunction.
-GDMT limited by patient hypotension
-10/13, cardiac catheterization showed pulmonary capillary wedge pressure 18 cardiac index 1.6
-Appreciate cardiology and nephrology input, status post metolazone 5 mg daily
-S/p Lasix 80 mg IV twice daily and Diamox
-Continue Lasix 80 mg p.o. twice daily
-Trend creatinine, trend daily weights
-Patient wishes to be discharged to rehab, and enroll into palliative care
-Awaiting bed at [facility], plan for discharge to [facility] on 10/18
2. Paroxysmal atrial fibrillation
-History of pulmonary vein isolation.
-Maintained on amiodarone, resumed Xarelto
-10/14 Discontinued Toprol XL
3. BRIGHT superimposed on CKD stage IIIb/IV
History of cardiorenal syndrome
-Creatinine/GFR trend reviewed and patient GFR ranges between 25-35 range
-Appreciate nephrology input, renal function close to baseline, continue monitoring with need of high-dose of diuretics
4. Hypokalemia
-Replete prn
5. Severe MR/TR
-Status post TAHNH 10/07/24
-Patient possibly in eventual candidate for MitraClip placement for MV
-Not a candidate for MitraClip
6. Left arm swelling
-Left upper extremity venous Doppler neg for VTE
7. Nonsustained ventricular tachycardia
-Patient was asymptomatic
-10/14 Discontinued Toprol XL
8. Hypotension
-Midodrine decreased to 5 mg 3 times daily
9. Poor oral intake
-Started Ensure twice daily
10. Weakness
-PT recommends home care, [facility]
11. Epistaxis
-Bactroban to the nares 3 times daily
Coronary disease with history of bypass
History of revision bypass with complicated hospital course
History of inguinal access site abscess
Status post ICD placement
Obstructive sleep apnea
History of prostate cancer status post prostatectomy
History of bilateral cataract surgery
History of Schatzki's ring
[id number] - xarelto
Full code
Updated at bedside 10/18
Physical Exam
General: No acute distress
HEENT: Normocephalic, Atraumatic, EOMI, MMM
Respiratory: Clear to auscultation bilaterally
Cardiac: Normal S1/S2, Regular Rate and Rhythm, +murmur
GI: Soft, Nontender, Nondistended, Normal Bowel Sounds
Extremities: No Clubbing, Cyanosis
Pitting bilateral lower extremity edema noted
Neuro: Nonfocal/Grossly Intact
Psych: Calm, Cooperative
Anticipated Discharge: Today
Subjective/Interval History
-
Date of Service: October 18, 2024
denies pain
Objective Data
-
Vital Signs:
Vital Signs
Temp Pulse Resp BP Pulse Ox
98 F 58 16 106/67 99
10/18/24 07:30 10/18/24 08:00 10/18/24 07:30 10/18/24 07:30 10/18/24 07:30
I&O
10/17/24 10/18/24 10/19/24
06:59 06:59 06:59
Intake Total 680 / 680 800 / 800 300 / 300
Output Total 1850 / 1850 2850 / 2850 250 / 250
Balance -1170 / -1170 -0 / -2049 50 / 50
[2024-10-18] MEDS: FEOSOL 325 MG PO (11:59)
--- NOTE | 2024-10-18 12:04 | W.PN.CARDCBS ---
Addendum entered and electronically signed by Prasad Saeed MD 10/18/24 13:15:
I saw and examined the patient.
The CARRY OUT CLERK AND SHELF STOCKER or PA's note was reviewed and I agree with the note.
Comment: General: Well developed, well nourished in NAD.
Neck: Supple, no JVD, HJR, carotids +2 B/L, no bruits bilaterally.
Heart: Non displaced PMI, RRR, no murmurs, No S3, S4, no rubs.
Lungs: Scattered rhonchi
Extremities: No clubbing, cyanosis or edema bilaterally.
Neuro: Grossly nonfocal, awake, alert and oriented x3.
Stable cardiology status for discharge on Lasix 80 mg p.o. twice daily. Follow-up arranged.
Original Note:
Today's Communication / Plan
-
Cont Lasix 80 mg PO BID for now
Impression / Plan
-
PCP: Dr. Song
Cardiology: Dr. Gillis
IMPRESSION:
Acute on chronic HFrEF
Decompensated cardiorenal syndrome with ischemic cardiomyopathy and severe mitral regurgitation
ICM EF 30% by echo 05/04/24
h/o Cardiorenal syndrome
CKD 4
CAD
s/p CABG x 3 (COLEMAN - LAD, seq SVG to OM1 to RPLB) 09/19
s/p PCI with JENIFFER to SVG to OM1 to RPLB 10/29/11
s/p acute inferior CT S/P PCI with RCA stent (02/19/17)
s/p Re-op CABG x 2 (left saphenous vein as sequential graft to LAD then to OM1) vein graft tear, anterior wall of RV tear and divided COLEMAN at time of CABG 12/20/19
h/o long admission (46 days) to [place] for LVAD eval and eventual ICD placement at time of complicated redo CABG 12/2019
h/o left groin abscess with flap closure and VAC treatment 06/2020
s/p [employer] single chamber ICD
Paroxysmal Afib
s/p PVI 08/04/17
Chronic Xarelto OAC
HTN
Orthostasis on midodrine
Hyperlipidemia
Former tobacco use
ELI
GERD/Caballero's esophagus
S/p Schatzki's ring dilatation
Severe LAUREN stenosis S/p stent (01/10/2015)
Severe LICA stenosis S/p stent (10/05/2010)
Hx Prostate Ca S/p robotic prostatectomy (2009)
s/p right inguinal herniorrhaphy (1992)
s/p B/L cataract surgery 09/2024
Hypokalemia
ECHO 12/23/19: with severe left ventricular systolic dysfunction ejection fraction 15�20%. New compared to preoperative echocardiogram
Echo at [place] 02/2020: EF 36%
Echo 06/26/20: Mildly dilated LV, EF 25-30%, inferior, septal, anteroseptal, apical akinesis with hypokinesis remaining. EF was 40% by Valle, 25-30% visually, mildly dilated and hypokinetic RV, ICD wire, dilated left atrium, mild MR, aortic
sclerosis, moderate TR, pulmonary artery pressure 37-42 mmHg
Echo 05/04/24: EF 30%, akinesis of the septum and inferior de jesus, stage III diastolic dysfunction, moderate to severe MR, moderate TR with PAP 45 mmHg
Echo 10/05/24: EF 25 to 30%, enlarged right ventricle with moderate RV hypokinesis, moderate to severe MR, moderate TR
Plan:
-Weight is down another 5 lbs overnight by standing scale weights on 10/18/24. Talked with Nephrology and plan is to recheck labs 10/19/24 and cont Lasix 80 mg PO BID for now.
-Patient was taking Lasix 40 mg BID MWF and 40 mg daily all other days prior to admission
-Patient had RHC on 10/13/2024 that showed significantly elevated right and left-sided filling pressures but the right was worse than the left, and reduced cardiac output (2.9) and an elevated SVR of 1877.
-Midodrine dose decreased to 25 mg TID 10/18/24
-Outpatient dose of Toprol XL 12.5 mg BID stopped at this point given it is a negative inotrope
-Patient is not chronically on JNAE/ARB/ARNI due to CKD 4
-There was an attempt to add hydralazine given elevated SVR, but hypotension precluded this addition.
-Patient and family were told on 10/13/2024 that the patient is not a candidate for MitraClip given his age, CKD, cardiorenal syndrome, end-stage cardiomyopathy with severe LV dysfunction and concomitant TR. patient and family were informed that
limited options remain but would include ongoing PT/OT with medical therapy and optimization and transfer to rehab versus home or another option of an outpatient evaluation for LVAD support. The patient is not interested in LVAD evaluation.
-Patient with known paroxysmal Afib and has been in SR this admission with usual dose of amiodarone 200 mg daily
-Outpatient dose of Xarelto 15 mg daily resumed by ia 10/14/24
-Patient is now a DNR. Palliative care following, but based on prior discussion patient would like ICD therapies to remain on. Gave his a palliative care brochure pamphlet 10/18/24
HPI: He has a PMH of prostate CA, carotid stent and CABG 09/2010 with COLEMAN to LAD and SVG seq to OM and PLB. He then had a Xience JENIFFER to the sequential SVG in 10/29/11. He was then admitted to 12/20/19 until 12/29/19 with plan for redo sternotomy
and CABG with SVG to OM and then to the PLB of the RCA. He had RV tear and repair as a complication. His CABG ended up being a left saphenous vein as sequential graft to LAD then to OM1. He received transfusion and was noted to have ST elevations
post-op and a bedside echo showed similar findings to the intra-op THANH. with septal and inferior dyskinesia. He was started on dobutamine and went into Afib/flutter. He has known paroxysmal Afib with previous PVI. He was CV'd POD #3 to SR and echo
then revealed a newly reduced LVEF 15-20% with new WMA. He developed cardiorenal syndrome and cardiogenic shock. He was transferred to [place] for LVAD evaluation 12/29/19. He was hospitalized for 46 days and was ultimately not an LVAD candidate, but
was diuresed and had a [employer] single chamber ICD placed. He then went to [facility] acute care rehab and since then has been at home. He had left groin washout with Sartorious flap creation and VAC placement 06/23/20. Now coming in with acute HF
and eval for MitraClip.
Progress Note - Program Therapist
Subjective
Date of Service: October 18, 2024
Tired, but no pain
Objective
Labs:
10/17/24 04:04
10/17/24 04:04
Labs
Hgb 9.6 g/dL (13.0-18.0) L 10/17/24 04:04
Hct 31.8 % (39.0-52.0) L 10/17/24 04:04
Plt Count 148 10^3/uL (130-400) 10/17/24 04:04
Sodium 136 mmol/L (135-145) 10/17/24 04:04
Potassium 3.3 mmol/L (3.5-5.1) L 10/17/24 04:04
BUN 55 mg/dl (9-20) H 10/17/24 04:04
Creatinine 2.3 mg/dL (0.7-1.3) H 10/17/24 04:04
Glucose 99 mg/dl (70-99) 10/17/24 04:04
Vital Signs and I&O:
Vital Signs
Temp Pulse Resp BP Pulse Ox
98 F 62 16 106/67 99
10/18/24 07:30 10/18/24 12:00 10/18/24 07:30 10/18/24 07:30 10/18/24 07:30
Vital Signs
Temp Pulse Resp BP Pulse Ox
98 F 62 16 106/67 99
10/18/24 07:30 10/18/24 12:00 10/18/24 07:30 10/18/24 07:30 10/18/24 07:30
Intake & Output
10/16/24 10/17/24 10/18/24 10/19/24
06:59 06:59 06:59 06:59
Intake Total 840 / 840 680 / 680 800 / 800 300 / 300
Output Total 1974 / 1974 1850 / 1850 2850 / 2850 650 / 650
Balance -1135 / -1135 -1170 / -1170 -2050 / -2050 -350 / -350
Physical Exam
Physical Exam
General: NAD. AAO x3
Skin: No rash
HEENT: EOMI
Heart: SR on tele
Lungs: RA, no audible wheeze
Abdomen: ND
Extremities: No edema B/L
Neuro: Grossly nonfocal.
[2024-10-18 12:12] VITALS: BP 106/59
--- NOTE | 2024-10-18 12:25 | W.DCSUMMARY ---
Discharge Summary
Discharge Data
Date of Admission: 10/04/24
Date of Discharge: 10/18/24
-
Pending Results: No
Hospital Course
74-year-old male with past medical history of coronary artery disease status post bypass, ICD placement, obstructive sleep apnea, prostate cancer status post prostatectomy, Schatzki's ring, ischemic cardiomyopathy, CHF, paroxysmal atrial
fibrillation, history of hypertension came to the hospital with acute on chronic congestive heart failure exacerbation and decompensated cardiorenal syndrome with ischemic cardiomyopathy and severe mitral regurgitation. Patient had a prolonged
hospitalization which was complicated with aggressive diuresis. He had a right heart cath on 10/13/2024 which showed significantly elevated right and left sided filling pressure and reduced cardiac output. Patient and family was also told that they
are not a candidate for MitraClip given patient's age, CKD and cardiorenal syndrome. Patient reported he is not interested in any LVAD evaluation. Patient also had some nonsustained ventricular tachycardia where his toprol was stopped. Patient was
evaluated by physical therapy who recommended SNF. Hospice was also recommended however patient was not ready for hospice and wanted to be discharged with palliative consultation.Once patient symptoms continue to improve he was then discharged with
instructions to follow-up with all his physicians outpatient.
Discharge Plan
-
Patient Disposition: Fdc/SNF
Discharge Diagnosis/Procedures: Acute on chronic Congestive heart failure, mitral regurgitation, cardiorenal syndrome, epistaxis
Condition: Fair
Diet: Low Sodium
Activity: As tolerated
Driving Restrictions: As prior to admission
Blood Work: BMP next week with primary care provider
Specialty Instructions: Weigh Daily- Call MD for wt gain/loss 3 lbs overnight/5 lbs in 1 week
Activity Restrictions/Additional Instructions:
Follow-up with your primary care doctor 1 week after you leave rehab, and cardiology as directed.
Stop Diamox after 10/19/2024
Instructions: *DCA Heart Failure Instructions
Referrals:
[facility] [Outside]
Mirna Agosto CRNP [Specified Professional Personl] - 10/25/24 1:40 pm (You have a cardiology follow-up appointment at the [place] office with nurse practitioner Mirna and Dr. Ryan to discuss MitraClip. Please call with questions)
Escobar Reza V. DO [Active] -
Talib Song DO [Family Provider] - in one week
Prescriptions:
New
mupirocin 2 % Ointment
1 applic intranasal TID Qty: 0 0RF
polyethylene glycol 3350 17 gram Powder In Packet
17 g PO DAILYPRN PRN (Reason: constipation) Qty: 0 0RF
midodrine 5 mg Tablet
2.5 mg PO TID @ 0800,1200,1700 Qty: 0 0RF
acetazolamide 250 mg Tablet
250 mg PO BID Qty: 2 0RF
furosemide 80 mg Tablet
80 mg PO BID@0800,1600 Qty: 0 0RF
Saline Nasal 0.65 % Aerosol,[place]
2 sprays intranasal QIDPRN PRN (Reason: dry nose/nose bleed) Qty: 0 0RF
Continued
omega 3-voj-nhz-fish oil [Fish Oil] 1 EACH capsule
2 ea PO NOON
amiodarone [Pacerone] 200 MG tablet
200 mg PO DAILY
nitroglycerin 0.4 MG tablet, sublingual
0.4 mg sublingual [id number] PRN (Reason: chest pain)
sertraline 25 MG tablet
25 mg PO DAILY
multivitamin with folic acid [Tab-A-Rickey] 1 TABLET tablet
1 tab PO NOON
aspirin 81 MG tablet,chewable
81 mg PO DAILY 0RF
pantoprazole 40 MG tablet,delayed release (DR/EC)
40 mg PO DAILY Qty: 0 0RF
docusate sodium 100 MG capsule
100 mg PO DAILYPRN PRN (Reason: constipation)
Xarelto 15 MG tablet
15 mg PO QPM
montelukast [Singulair] 10 mg Tablet
10 mg PO HS
ipratropium-albuterol 0.5 mg-3 mg(2.5 mg base)/3 mL Solution For Nebulization
3 ml INHALATION R Q6HPRN PRN (Reason: sob)
albuterol sulfate 90 mcg/actuation Hfa Aerosol Inhaler
2 inh INHALATION R Q6HPRN PRN (Reason: sob)
coenzyme Q10 [CoQ-10] 100 mg Capsule
100 mg PO DAILY
Systane (PF) 0.4-0.3 % Dropperette
1 drp BOTH EYES Q6HPRN PRN (Reason: dry eyes)
budesonide-formoterol [Symbicort] 160-4.5 mcg/actuation Hfa Aerosol Inhaler
2 puff INHALATION R BID
cholecalciferol (vitamin D3) [Vitamin D3] 50 mcg (2,000 unit) Tablet
100 mcg PO DAILY
acetaminophen [Tylenol] 325 mg Tablet
650 mg PO Q4HPRN PRN (Reason: mild pain)
ferrous sulfate [iron] 325 mg (65 mg iron) Tablet
325 mg PO NOON
vgavvmcqozvx-tmnswovd-jptlqio 1-0.5-0.075 % Drops,Suspension
1 drp ophthalmic (eye) TID
Rx Instructions:
left eye
atorvastatin 20 mg Tablet
20 mg PO QPM
wudymrutgcur-lgwdxcsl-yrvigme 1-0.5-0.075 % Drops,Suspension
2 drp OPHTHALMIC (EYE) TID
Rx Instructions:
right eye
Changed
potassium chloride [Klor-Con M20] 20 MEQ tablet,ER particles/crystals
40 meq PO BID Qty: 0 0RF
Discontinued
metoprolol succinate 25 MG tablet extended release 24 hr
12.5 mg PO BID
furosemide 40 mg Tablet
40 mg PO MOWEFR@0900,1200
midodrine 10 mg Tablet
10 mg PO TID
furosemide 40 mg Tablet
40 mg PO SUTUTHSA
Discharge Orders:
Discharge Patient (As Directed); Ordered 10/18/24
Ordered By: Ran Herrera
Care Plan Goals
Care Plan Goals:
Problem: Readiness for enhanced knowledge related to diagnosis and treatment plan
Goal: Understand your diagnosis and treatment plan needs, including medications if applicable.
Instructions: Know your diagnosis, underlying causes and treatment plan options, including medications if applicable. Consult with your health care team to learn about your diagnosis and treatment plan, including medications if applicable.
Discharge Date and Time
Discharge Date/Time: 10/18/24 14:54
Print Language: BRITISH
--- NOTE | 2024-10-18 12:31 | W.HF.CON ---
Heart Failure
- LV Function
Left ventricular function study result: LV Ejection fraction </= 35%
Ejection Fraction Percentage: 25-30
- ARNI
Patient already on ARNI: No
Heart Failure ARNI Contraindication: Acute Renal Failure, Hypotension
- ACEI/ARB
Patient already on ACEI/ARB: No
Heart Failure ACEI/ARB Contraindication: Acute Renal Failure, Hypotension
- Beta Eduard
Patient already on Evidence Based Beta Eduard: No
Heart Failure Evidence Based Beta Eduard: Hypotension
- Mineralocorticord Receptor Antagonist
Patient already on MRA: No
Heart Failure MRA Contraindication: Acute Renal Insufficiency, Hypotension
- SGLT-2 Inhibitor
Patient already on SGLT-2 Inhibitor: No
Heart Failure SGLT-2 Inhibitor Contraindication: Patient Refusal
- Afib Anticoagulation
Patient already on Anticoagulation for Afib: Yes
- NYHA CHF Classification
NYHA CHF Classification Level: Class III - Symptoms w/ min exertion, interferes w/ nml daily activity
- ACC/AHA Stage
ACC/AHA Stage: Stage D: Advanced Heart Failure
--- NOTE | 2024-10-18 12:50 | PTCARENOTE ---
Assumed care. Patient awake and alert eating lunch. VSS, at bedside, call velazquez in reach
--- NOTE | 2024-10-18 13:06 | PTCARENOTE ---
Report called to [phone] to Aubrie brady [facility]
--- NOTE | 2024-10-18 14:46 | PTCARENOTE ---
Patient discharged to [facility] in a wheelchair
--- NOTE | 2024-10-18 16:36 | CM ---
spoke to pt, son and in room. PT recomm rehab, pt agreeable to go to [facility]. bed is avail today. is agreeable to pay for [facility].
== END 2024-10-18 14:54 | DRG 286 ==
LOC: IVU 20:58
PROVIDERS: Clinical Nurse Specialist Family Health; Emergency Medicine; Family Medicine; Internal Medicine; Internal Medicine Cardiovascular Disease; Internal Medicine Interventional Cardiology; ADMITTING PHYSICIAN Internal Medicine; ATTENDING PHYSICIAN Internal Medicine; CONSULT PHYSICIAN Internal Medicine Hospice and Palliative Medicine; CONSULT PHYSICIAN Specialist; EMERGENCY PHYSICIAN Emergency Medicine; FAMILY PHYSICIAN Internal Medicine
PROC: 5A09357 Assistance with Respiratory Ventilation, Less than 24 Consecutive Hours, Continuous Positive Airway Pressure (ICD-10-PCS; 2024-10-05)
PROC: B24BZZ4 Ultrasonography of Heart with Aorta, Transesophageal (ICD-10-PCS; 2024-10-08)
PROC: 4A023N6 Measurement of Cardiac Sampling and Pressure, Right Heart, Percutaneous Approach (ICD-10-PCS; 2024-10-13)
DX: I13.0 Hypertensive heart and chronic kidney disease with heart failure and stage 1 through stage 4 chronic kidney disease, or unspecified chronic kidney disease (principal); I50.43 Acute on chronic combined systolic (congestive) and diastolic (congestive) heart failure; N18.4 Chronic kidney disease, stage 4 (severe); I47.20 Ventricular tachycardia, unspecified; N17.9 Acute kidney failure, unspecified; E87.3 Alkalosis; E78.00 Pure hypercholesterolemia, unspecified; I25.10 Atherosclerotic heart disease of native coronary artery without angina pectoris; I48.0 Paroxysmal atrial fibrillation; F41.9 Anxiety disorder, unspecified; K21.9 Gastro-esophageal reflux disease without esophagitis; J44.89 Other specified chronic obstructive pulmonary disease; D50.9 Iron deficiency anemia, unspecified; G47.33 Obstructive sleep apnea (adult) (pediatric); I50.82 Biventricular heart failure; K44.9 Diaphragmatic hernia without obstruction or gangrene; K22.70 Barrett's esophagus without dysplasia; L30.9 Dermatitis, unspecified; R32 Unspecified urinary incontinence; R73.03 Prediabetes; I95.89 Other hypotension; K22.2 Esophageal obstruction; I45.10 Unspecified right bundle-branch block; E87.6 Hypokalemia; I25.5 Ischemic cardiomyopathy; I08.1 Rheumatic disorders of both mitral and tricuspid valves; K59.00 Constipation, unspecified; R04.0 Epistaxis; M79.89 Other specified soft tissue disorders; Z66 Do not resuscitate; I25.2 Old myocardial infarction; Z85.46 Personal history of malignant neoplasm of prostate; Z95.1 Presence of aortocoronary bypass graft; Z95.810 Presence of automatic (implantable) cardiac defibrillator; Z87.891 Personal history of nicotine dependence; Z91.041 Radiographic dye allergy status; Z79.01 Long term (current) use of anticoagulants; Z95.5 Presence of coronary angioplasty implant and graft; Z90.79 Acquired absence of other genital organ(s); Z82.49 Family history of ischemic heart disease and other diseases of the circulatory system; Z75.1 Person awaiting admission to adequate facility elsewhere
CPT/HCPCS: 71046; 80048; 80053; 81003; 82040; 83735; 83880; 84100; 84132; 84484; 85025; 85027; 93005; 93306; 93312; 93320; 93325; 93451; 93971; 94640; 94660; 97110; 97163; 97167; 97530; 99285; C1894

== ENCOUNTER → 2024-10-26 10:44 | Outpatient (REF) | payer OTHER, MEDICARE, SELFPAY ==
[2024-10-26 11:34] LABS: % Basophils 1.4 % (0-2); % Eosinophils 2.3 % (0-6); % Immature Granulocytes 0.2 % (0-0.5); % Lymphocytes 25.1 % (20.5-51.1); % Monocytes 13.4 % (1.7-9.3); % Neutrophils 57.6 % (42.2-75.2); Absolute Basophils 0.1 10^3/uL (0-0.2); Absolute Eosinophils 0.1 10^3/uL (0-0.7); Absolute Lymphocytes 1.2 10^3/uL (1.2-3.4); Absolute Monocytes 0.7 10^3/uL (0.1-0.6); Absolute Neutrophils 2.8 10^3/uL (1.4-6.5); Hematocrit 39.8 % (39.0-52.0); Hemoglobin 11.6 g/dL (13.0-18.0); Mean Corp Hgb Conc. 29.1 g/dL (33.0-37.0); Mean Corpuscular Hgb 24.4 pg (27.0-31.0); Mean Corpuscular Volume 83.8 fL (80.0-94.0); Nucleated Red Blood Cells % 0 % (-); Platelet Count 254 10^3/uL (130-400); Red Blood Cell Count 4.75 10^6/uL (4.70-6.10); Red Cell Dist. Width 30.3 % (11.5-14.5); White Blood Cell Count 4.9 10^3/uL (4.8-10.8)
[2024-10-26 14:07] LABS: Blood Urea Nitrogen 52 mg/dl (9-20); Calcium 9.4 mg/dl (8.4-10.2); Carbon Dioxide 32 mmol/L (22-30); Chloride 93 mmol/L (98-107); Glucose 101 mg/dl (70-99); Potassium 4.3 mmol/L (3.5-5.1); Sodium 137 mmol/L (135-145); eGFR 23.83
== END ==
LOC: OLABP 10:44
PROVIDERS: ATTENDING PHYSICIAN Family Medicine
DX: I50.43 Acute on chronic combined systolic (congestive) and diastolic (congestive) heart failure (principal); I48.0 Paroxysmal atrial fibrillation; N17.9 Acute kidney failure, unspecified; N18.4 Chronic kidney disease, stage 4 (severe); I25.5 Ischemic cardiomyopathy; I34.0 Nonrheumatic mitral (valve) insufficiency; I47.20 Ventricular tachycardia, unspecified; I25.10 Atherosclerotic heart disease of native coronary artery without angina pectoris; Z95.9 Presence of cardiac and vascular implant and graft, unspecified; E87.6 Hypokalemia
CPT/HCPCS: 36415; 80048; 85025

== ENCOUNTER → 2024-12-13 12:27 | Outpatient (REF) | payer MEDICARE, OTHER, SELFPAY ==
[2024-12-13 14:08] LABS: ALT (SGPT) 40 U/L (0-50); AST (SGOT) 50 U/L (17-59); Albumin 3.9 g/dl (3.5-5.0); Alkaline Phosphatase 120 U/L (38-126); Blood Urea Nitrogen 42 mg/dl (9-20); Calcium 8.8 mg/dl (8.4-10.2); Carbon Dioxide 33 mmol/L (22-30); Chloride 94 mmol/L (98-107); Glucose 85 mg/dl (70-99); Potassium 3.3 mmol/L (3.5-5.1); Sodium 137 mmol/L (135-145); Total Bilirubin 0.9 mg/dl (0.2-1.3); Total Protein 7.1 g/dl (6.3-8.2); eGFR 32.22
[2024-12-13 14:16] LABS: % Basophils 0.5 % (0-2); % Eosinophils 1.1 % (0-6); % Immature Granulocytes 0.2 % (0-0.5); % Lymphocytes 31.9 % (20.5-51.1); % Monocytes 12.4 % (1.7-9.3); % Neutrophils 53.9 % (42.2-75.2); Absolute Eosinophils 0.1 10^3/uL (0-0.7); Absolute Lymphocytes 1.8 10^3/uL (1.2-3.4); Absolute Monocytes 0.7 10^3/uL (0.1-0.6); Hematocrit 34.7 % (39.0-52.0); Hemoglobin 10.9 g/dL (13.0-18.0); Mean Corp Hgb Conc. 31.4 g/dL (33.0-37.0); Mean Corpuscular Hgb 28.4 pg (27.0-31.0); Mean Corpuscular Volume 90.4 fL (80.0-94.0); Mean Platelet Volume 11.1 fL (7.4-10.4); Nucleated Red Blood Cells % 0 % (-); Platelet Count 173 10^3/uL (130-400); Red Blood Cell Count 3.84 10^6/uL (4.70-6.10); Red Cell Dist. Width 24.8 % (11.5-14.5); White Blood Cell Count 5.6 10^3/uL (4.8-10.8)
== END ==
LOC: OLABPATH 12:27
PROVIDERS: ATTENDING PHYSICIAN Internal Medicine
DX: R82.6 Abnormal urine levels of substances chiefly nonmedicinal as to source (principal); I48.0 Paroxysmal atrial fibrillation; I50.22 Chronic systolic (congestive) heart failure; E87.6 Hypokalemia; E03.9 Hypothyroidism, unspecified
CPT/HCPCS: 36415; 80053; 84443; 85025

== ENCOUNTER → 2024-12-16 10:29 | Outpatient (REF) | payer MEDICARE, OTHER, SELFPAY ==
[2024-12-16 13:01] LABS: Urine Albumin 1+ (Neg - Trace); Urine Bilirubin Negative (Negative); Urine Character Clear (Clear); Urine Color Yellow; Urine Glucose Negative (Negative); Urine Ketone Negative (Negative); Urine Leukocyte 3+ (Negative); Urine Nitrite Negative (Negative); Urine Occult Blood 1+ (Negative); Urine Urobilinogen 1+ (Neg - 1+)
[2024-12-16 13:10] LABS: Urine Squamous Cell 0-2 /LPF (Few)
[2024-12-16 13:11] LABS: Urine Bacteria Moderate (Negative); Urine Red Blood Cell 0-2 /HPF (0-2); Urine White Cell 40-50 /HPF (0-5)
== END ==
LOC: REG 10:29
PROVIDERS: ATTENDING PHYSICIAN Internal Medicine
DX: R82.6 Abnormal urine levels of substances chiefly nonmedicinal as to source (principal); I48.0 Paroxysmal atrial fibrillation; I50.22 Chronic systolic (congestive) heart failure; E87.6 Hypokalemia; E03.9 Hypothyroidism, unspecified
CPT/HCPCS: 81003; 81015; 87077; 87086

== ENCOUNTER → 2024-12-22 11:13 | Outpatient (REF) | payer MEDICARE, OTHER, SELFPAY ==
[2024-12-22 11:38] LABS: % Basophils 0.7 % (0-2); % Eosinophils 2.1 % (0-6); % Lymphocytes 34.7 % (20.5-51.1); % Monocytes 13.7 % (1.7-9.3); % Neutrophils 48.8 % (42.2-75.2); Absolute Eosinophils 0.1 10^3/uL (0-0.7); Absolute Lymphocytes 1.5 10^3/uL (1.2-3.4); Absolute Monocytes 0.6 10^3/uL (0.1-0.6); Absolute Neutrophils 2.1 10^3/uL (1.4-6.5); Hematocrit 29.6 % (39.0-52.0); Hemoglobin 9.7 g/dL (13.0-18.0); Mean Corp Hgb Conc. 32.8 g/dL (33.0-37.0); Mean Corpuscular Hgb 29.6 pg (27.0-31.0); Mean Corpuscular Volume 90.2 fL (80.0-94.0); Mean Platelet Volume 11.1 fL (7.4-10.4); Nucleated Red Blood Cells % 0 % (-); Platelet Count 169 10^3/uL (130-400); Red Blood Cell Count 3.28 10^6/uL (4.70-6.10); Red Cell Dist. Width 23.3 % (11.5-14.5); White Blood Cell Count 4.3 10^3/uL (4.8-10.8)
[2024-12-22 12:20] LABS: Blood Urea Nitrogen 30 mg/dl (9-20); Calcium 9.1 mg/dl (8.4-10.2); Carbon Dioxide 21 mmol/L (22-30); Chloride 103 mmol/L (98-107); Glucose 75 mg/dl (70-99); Magnesium 1.7 mg/dl (1.6-2.3); Potassium 4.9 mmol/L (3.5-5.1); Sodium 134 mmol/L (135-145); eGFR 41.52
== END ==
LOC: OLABPATH 11:13
PROVIDERS: ATTENDING PHYSICIAN Internal Medicine
DX: E87.6 Hypokalemia (principal); I50.22 Chronic systolic (congestive) heart failure
CPT/HCPCS: 36415; 80048; 83735; 85025

== ENCOUNTER → 2025-01-07 11:50 | Outpatient (REF) | payer MEDICARE, OTHER, SELFPAY ==
[2025-01-07 11:56] LABS: % Basophils 0.8 % (0-2); % Eosinophils 3.8 % (0-6); % Immature Granulocytes 0.4 % (0-0.5); % Monocytes 13.1 % (1.7-9.3); % Neutrophils 48.9 % (42.2-75.2); Absolute Eosinophils 0.2 10^3/uL (0-0.7); Absolute Lymphocytes 1.7 10^3/uL (1.2-3.4); Absolute Monocytes 0.7 10^3/uL (0.1-0.6); Absolute Neutrophils 2.6 10^3/uL (1.4-6.5); Hematocrit 28.6 % (39.0-52.0); Mean Corp Hgb Conc. 31.5 g/dL (33.0-37.0); Mean Corpuscular Hgb 30.5 pg (27.0-31.0); Mean Corpuscular Volume 96.9 fL (80.0-94.0); Nucleated Red Blood Cells % 0 % (-); Platelet Count 145 10^3/uL (130-400); Red Blood Cell Count 2.95 10^6/uL (4.70-6.10); White Blood Cell Count 5.3 10^3/uL (4.8-10.8)
[2025-01-07 12:10] LABS: ALT (SGPT) 22 U/L (0-50); AST (SGOT) 30 U/L (17-59); Alkaline Phosphatase 85 U/L (38-126); Amylase 52 U/L (30-110); Blood Urea Nitrogen 26 mg/dl (9-20); Calcium 8.9 mg/dl (8.4-10.2); Carbon Dioxide 22 mmol/L (22-30); Chloride 108 mmol/L (98-107); Glucose 77 mg/dl (70-99); Iron 56 ug/dl (49-181); Lipase 209 U/L (23-300); Potassium 4.7 mmol/L (3.5-5.1); Sodium 136 mmol/L (135-145); Total Bilirubin 0.6 mg/dl (0.2-1.3); Total Protein 5.7 g/dl (6.3-8.2); eGFR 57.29
[2025-01-07 12:42] LABS: Ferritin 51.8 ng/ml (17.9-464.0)
[2025-01-07 14:24] LABS: Acanthocytes 1+; Anisocytosis 1+; Hypochromasia 1+; Macrocytosis 1+; Normal RBC Morphology No; Ovalocytes 1+; Poikilocytosis 1+
== END ==
LOC: OLABPATH 11:50
PROVIDERS: ATTENDING PHYSICIAN Internal Medicine
DX: I50.22 Chronic systolic (congestive) heart failure (principal); I48.0 Paroxysmal atrial fibrillation; D64.9 Anemia, unspecified
CPT/HCPCS: 36415; 80053; 82150; 82728; 83540; 83690; 85025

== ENCOUNTER → 2025-01-19 12:14 | Outpatient (REF) | payer MEDICARE, OTHER, SELFPAY ==
[2025-01-19 12:56] LABS: % Basophils 1.2 % (0-2); % Immature Granulocytes 0.3 % (0-0.5); % Monocytes 11.9 % (1.7-9.3); % Neutrophils 51.6 % (42.2-75.2); Absolute Basophils 0.1 10^3/uL (0-0.2); Absolute Eosinophils 0.5 10^3/uL (0-0.7); Absolute Lymphocytes 1.9 10^3/uL (1.2-3.4); Absolute Monocytes 0.8 10^3/uL (0.1-0.6); Absolute Neutrophils 3.5 10^3/uL (1.4-6.5); Hematocrit 33.3 % (39.0-52.0); Hemoglobin 10.2 g/dL (13.0-18.0); Mean Corp Hgb Conc. 30.6 g/dL (33.0-37.0); Mean Corpuscular Hgb 31.1 pg (27.0-31.0); Mean Corpuscular Volume 101.5 fL (80.0-94.0); Mean Platelet Volume 11.1 fL (7.4-10.4); Nucleated Red Blood Cells % 0 % (-); Platelet Count 218 10^3/uL (130-400); Red Blood Cell Count 3.28 10^6/uL (4.70-6.10); Red Cell Dist. Width 18.8 % (11.5-14.5); White Blood Cell Count 6.7 10^3/uL (4.8-10.8)
[2025-01-19 13:02] LABS: ALT (SGPT) 28 U/L (0-50); AST (SGOT) 28 U/L (17-59); Albumin 3.6 g/dl (3.5-5.0); Alkaline Phosphatase 121 U/L (38-126); Blood Urea Nitrogen 25 mg/dl (9-20); Calcium 9.1 mg/dl (8.4-10.2); Carbon Dioxide 23 mmol/L (22-30); Chloride 103 mmol/L (98-107); Glucose 103 mg/dl (70-99); Potassium 4.6 mmol/L (3.5-5.1); Sodium 138 mmol/L (135-145); Total Protein 6.5 g/dl (6.3-8.2); eGFR 57.29
== END ==
LOC: OLABPATH 12:14
PROVIDERS: ATTENDING PHYSICIAN Internal Medicine
DX: E03.9 Hypothyroidism, unspecified (principal); R79.9 Abnormal finding of blood chemistry, unspecified; Z13.228 Encounter for screening for other metabolic disorders
CPT/HCPCS: 36415; 80053; 84443; 85025

== ENCOUNTER → 2025-01-25 11:35 | Outpatient (REF) | payer MEDICARE, OTHER, SELFPAY | LOC: OLABPATH 11:35 | PROVIDERS: ATTENDING PHYSICIAN Internal Medicine | DX: E03.9 Hypothyroidism, unspecified (principal) | CPT/HCPCS: 36415; 84443 ==

== ENCOUNTER 2025-03-01 09:33 | Inpatient (IN) | payer MEDICARE, OTHER, SELFPAY ==
[2025-03-01] VITALS (18 sets, daily range): BP systolic 102–138; BP diastolic 59–90; BMI 22.1; BMI 22.7
--- NOTE | 2025-03-01 06:33 | ED.GENMED ---
History of Present Illness
General
Chief Complaint: Chest Pain
Time Seen by Provider: 03/01/25 06:30
History of Present Illness
History of Present Illness:
TIME OF INITIAL ENCOUNTER: 6:30 AM
HPI: I received a phone call from EMS indicating their concern for a possible STEMI. Since last night into today, the patient has been vomiting. EMS initially said he that he was having chest pain but the patient denies any chest pain to me. He
has not had any chest pressure. He has a history of a ischemic cardiomyopathy and reportedly was not interested in a LVAD as of last admission. He was diuresed last admission and was found to have cardiorenal syndrome. He also has a history of
Caballero's esophagus. Although he has been vomiting he is not having any abdominal pain. He comes in from [facility]. His systolics were around 110 for EMS.
EXAM:
GENERAL: The patient is chronically ill-appearing, pale, cachectic
HEENT: Dry oral mucosa
CARDIOVASCULAR: Normal heart rate, regular rhythm, No chest wall tenderness, device noted in the left anterior chest wall
PULMONARY: No respiratory distress, breath sounds are fairly clear and equal
ABDOMEN: Soft with no peritoneal signs, no tenderness
NEUROLOGIC: Fair strength all extremities, no coordination deficits
PSYCHIATRIC: Appropriate mental status, normal insight and judgement
EXTREMITIES: Nontender, no edema, moves all extremities equally, poor perfusion to the feet and the feet are cool to touch (patient denies any foot pain)
SKIN: No rash, no lesions
NUMBER AND COMPLEXITY OF PROBLEMS ADDRESSED AT THE ENCOUNTER
� Chronic conditions affecting care: A-fib, CAD, ischemic cardiomyopathy, high blood pressure, severe mitral regurgitation, Caballero's esophagus, GERD, prostate cancer
� Acute Exacerbation and/or Progression of Chronic Illness: This is an acute problem
� Differential Diagnosis includes: Viral syndrome, hyperkalemia, dehydration, exacerbation of heart failure, ACS
AMOUNT AND/OR COMPLEXITY OF DATA TO BE REVIEWED AND ANALYZED
� I performed an independent evaluation of and my interpretation is:
EKG: Undetermined rhythm, wide-complex, QRS 208 ms, QTc 6[address]:
X-rays: Chest x-ray cardiomegaly
Laboratory Studies: White count 10.4, hemoglobin 11.9, bicarb 13, potassium 7.6, creatinine one 2.6, glucose 47, troponin 0.045, BNP greater than 27,000
Other:
� Review of other/old records: I reviewed last discharge summary
� Clinical information was obtained by an independent historian: I spoke to family at bedside
� Prescriptions/Medications Considered but not given:
� Further testing considered but not performed:
RISK OF COMPLICATIONS AND/OR MORBIDITY OR MORTALITY OF PATIENT MANAGEMENT
� Social determinants of health affecting care: Resides at [facility]
� Discussion with other providers: Notified cardiology, Dr. Gillis, and Dr. Reza. Hospitalist, Dr. Fito Grove for admission.
� Escalation of care including admission/observation vs risk of discharge considered: Upon EMS initial concern, I notified Dr. Keyes and we agree patient should not be a STEMI alert. Last time he was here there was evaluation
for hospice.
ANY OTHER UPDATES:
7:30 AM: The patient is found to be markedly hyperkalemic in the setting of wide-complex QRS. I have ordered calcium, [place], dextrose as his blood sugar is low in anticipation of giving insulin later once his blood sugar improved, albuterol,
bicarb. Glucose has been low and we have given several rounds of dextrose. Insulin 5 units given around 9 AM.
Past History
Past History
ED Past Medical History: Arrthythmia (Atrial fib), Asthma, CAD, Cancer (prostate), CHF, GERD, HTN, Hypercholesterolemia, [place], Psychiatric (Anxiety, ) and Other (Headache, Numbness arms and legs. Sleep apnea, Bipap, Caballero's esophagus, Hiatal hernia,
Eczema, Iron def anemia)
ED Past Surgical History: Cardiac (Defib, CABG, Stents, Left and right carotid stents, ), Urological (Prostatectomy, ) and Other (Hemorrhoids, cataracts, Deviated septum, Hernia repair, )
Social History
Tobacco: Non-smoker
Alcohol: None
Drug: None
Personal:
Living: with family
Phy Exam
Physical Exam
Physical Exam:
See HPI
Scores
Heart Score for Chest Pain Patients
STEMI patient?: No
History: Slightly or Non-Suspicious
ECG: Nonspecific Repolarization
Age: >/= 65 years
Risk Factors: >/= 3 Risk Factors or History of CAD
Troponin: >1 - <3 x Normal Limit
Heart Score for Chest Pain Patients: 6
Heart Score Risk: 20.3% MACE over next 6 weeks
Course
Orders/Labs/Results
Orders:
Orders
03/01/25
Electrocardiogram (*1) Stat
Reason for Study: Chest Pain
Comment: DONE
03/01/25 06:32
CR Chest Portable - 1 View Urgent
Comment:
Reason For Exam: sob
Reason Study Needs to be Portable: Patient Unstable
03/01/25 06:34
Electrocardiogram (*1) Urgent
Reason for Study: Chest Pain
EKG- Treatment ONCE
03/01/25 06:46
Complete Blood Count/With Diff Urgent
Comprehensive Metabolic Panel Urgent
Free T4 Urgent
Magnesium Urgent
NT-proBNP Urgent
TSH Reflex To Free T4 Urgent
Troponin I Urgent
03/01/25 07:26
Albuterol Sulfate [Ventolin Nebules] 10 mg INH R NOW STA
Calcium Gluconate 1,000 mg IV NOW STA
Dextrose 50%-Water [Dextrose 50% Syringe] 12.5 grams IV [id number] PRN
Dextrose 50%-Water [Dextrose 50% Syringe] 25 grams IV NOW STA
Furosemide [Lasix] 40 mg IV NOW STA
Insulin Human Regular [Novolin R] 5 units IV NOW STA
Sodium Bicarbonate 50 meq IV NOW STA
Bedside Glucose PRE IV Insulin- HyperK+ NOW
03/01/25 07:52
Glucose Urgent
03/01/25 08:00
Dextrose 10%/Water 500 ml [D10w] 500 ml IV 250 mls/hr
03/01/25 08:05
Admit/Transfer Patient As Directed
Co-Sign Provider:
Level of Care: Inpatient admission
Assign to:: IMU- Intermediate Care
Physician / Group: Fito Grove
Diagnosis: Hyperkalemia, HF, renal failure
Reason for Hospitalization: Hyperkalemia, HF, renal failure
Expected length of stay greater than two midnights?: Yes
ELOS- Estimated Length of Stay in days: 3
I certify the patient meets the requirements for IP care: Yes
Dextrose 50%-Water [Dextrose 50% Syringe] 25 grams .ROUTE .STK-MED ONE
03/01/25 08:07
PRN Pain Medication Management As Directed
May give lesser potent ordered pain med per pt: Yes
preference::
Protocol:: Medication orders for pain may be administered in a
manner that supports deferring to patient preference
when the pt is:
- Requesting an ordered lesser potent pain medication.
Least to most potent pain medications are defined
as: acetaminophen < NSAID < tramadol < opioids
(morphine, oxycodone, hydromorphone).
- Requesting a lesser dose of the same medication IF
ORDERED.
- Requesting a less intrusive route of administration
if both routes are prescribed by the provider (PO <
IV).
03/01/25 08:12
Code Status As Directed
Resuscitation Status: Full Code
03/01/25 08:29
Code Status As Directed
Resuscitation Status: Do not resuscitate
Reached after discussion with pt or family/Healthcare POA: Yes
DNR Bracelet Application ONCE
03/01/25 08:45
Dextrose 5%/Water 1000 ml [D5w] 1,000 ml Sodium Bicarbonate 150 meq IV 100 mls/hr
03/01/25 08:54
Dextrose 50%-Water [Dextrose 50% Syringe] 25 grams IV NOW STA
03/01/25 08:56
Bedside Glucose POST IV Insulin- HyperK+ Q1HX2,Q2HX2
03/01/25 09:56
Potassium Urgent
Comment: draw 2 hours after regular insulin IV administration
Abnormal Lab Results
03/01/25 03/01/25 03/01/25
06:46 07:32 07:52
RBC 3.94 L 10^6/uL
(4.70-6.10)
Hgb 11.9 L g/dL
(13.0-18.0)
Hct 38.5 L %
(39.0-52.0)
MCV 97.7 H fL
(80.0-94.0)
MCHC 30.9 L g/dL
(33.0-37.0)
RDW 16.3 H %
(11.5-14.5)
MPV 12.0 H fL
(7.4-10.4)
Abs Immat Gran (auto) 0.1 H 10^3/uL
(0-0.05)
Absolute Neuts (auto) 8.5 H 10^3/uL
(1.4-6.5)
Absolute Lymphs (auto) 0.3 L 10^3/uL
(1.2-3.4)
Absolute Monos (auto) 1.5 H 10^3/uL
(0.1-0.6)
Immature Gran % 0.6 H %
(0-0.5)
Neutrophils % 81.4 H %
(42.2-75.2)
Lymphocytes % 3.0 L %
(20.5-51.1)
Monocytes % 14.8 H %
(1.7-9.3)
Potassium 7.6 H* mmol/L
(3.5-5.1)
Carbon Dioxide 13 L* mmol/L
(22-30)
BUN 59 H mg/dl
(9-20)
Creatinine 2.6 H mg/dL
(0.7-1.3)
Glucose 47 L* mg/dl 37 L* mg/dl
(70-99) (70-99)
Magnesium 2.5 H mg/dl
(1.6-2.3)
Total Bilirubin 3.0 H mg/dl
(0.2-1.3)
AST 287 H U/L
(17-59)
ALT 173 H U/L
(0-50)
Alkaline Phosphatase 152 H U/L
(38-126)
Troponin I 0.045 H* ng/ml
TSH (Reflex) 17.00 H uIU/ml
(0.47-4.68)
Free T4 2.25 H ng/dl
(0.78-2.19)
POC Glucose 42 L* mg/dl
(70-99)
03/01/25
08:50
RBC
Hgb
Hct
MCV
MCHC
RDW
MPV
Abs Immat Gran (auto)
Absolute Neuts (auto)
Absolute Lymphs (auto)
Absolute Monos (auto)
Immature Gran %
Neutrophils %
Lymphocytes %
Monocytes %
Potassium
Carbon Dioxide
BUN
Creatinine
Glucose
Magnesium
Total Bilirubin
AST
ALT
Alkaline Phosphatase
Troponin I
TSH (Reflex)
Free T4
POC Glucose 113 H mg/dl
(70-99)
03/01/25 06:46
Vital Signs
Initial and Last Documented VS:
Initial Vital Signs
Pulse Resp BP Pulse Ox
64 22 119/74 95
03/01/25 06:32 03/01/25 06:32 03/01/25 06:32 03/01/25 06:32
Last Documented Vital Signs
Temp Pulse Resp BP Pulse Ox
36.4 C 80 16 102/65 97
03/01/25 08:16 03/01/25 08:16 03/01/25 08:16 03/01/25 08:16 03/01/25 08:16
*Critical Care Note
Total Time (30-74mins, 75-104mins- exclusive of procedures): 55min
comment:
The patient is found to be markedly hyperkalemic with an abnormal wide-complex EKG. He was emergently given meds but initially insulin was held due to the hypoglycemia. I emergently discussed case with cardiology and renal.
ED Attending Note
-
Portions of this chart may have been created with voice recognition software.� Occasional wrong word or��sound alike� substitutions may have occurred due to the inherent limitations of voice recognition software.
Discharge Plan
Departure
Patient Disposition: Admit
Date of Disposition: 03/01/25
Time of Disposition: 07:41
Presentation/result/management discussed w/ accepting MD/DO: Hospitalist
Discharge Problem:
Acute hyperkalemia
Prescriptions:
No Action
omega 1-zgn-xnz-fish oil [Fish Oil] 1 EACH capsule
1 ea PO DAILY
amiodarone [Pacerone] 200 MG tablet
200 mg PO DAILY
nitroglycerin 0.4 MG tablet, sublingual
0.4 mg sublingual [id number] PRN (Reason: chest pain)
sertraline 25 MG tablet
25 mg PO DAILY
multivitamin with folic acid [Tab-A-Rickey] 1 TABLET tablet
1 tab PO DAILY
aspirin 81 MG tablet,chewable
81 mg PO DAILY 0RF
pantoprazole 40 MG tablet,delayed release (DR/EC)
40 mg PO DAILY Qty: 0 0RF
Xarelto 15 MG tablet
15 mg PO DAILY
montelukast [Singulair] 10 mg Tablet
10 mg PO DAILY
coenzyme Q10 [CoQ-10] 100 mg Capsule
100 mg PO DAILY
Systane (PF) 0.4-0.3 % Dropperette
1 drp BOTH EYES Q3HPRN PRN (Reason: dry eyes)
acetaminophen [Tylenol] 325 mg Tablet
650 mg PO Q4HPRN PRN (Reason: mild pain)
ferrous sulfate [iron] 325 mg (65 mg iron) Tablet
325 mg PO Q48H
atorvastatin 20 mg Tablet
20 mg PO QPM
ondansetron HCl [Zofran] 4 mg Tablet
4 mg PO Q6HPRN PRN (Reason: nausea)
spironolactone 25 mg Tablet
25 mg PO Q48H
levothyroxine [Synthroid] 75 mcg Tablet
75 mcg PO DAILY
sodium bicarbonate 650 mg Tablet
650 mg PO Q6HPRN PRN (Reason: stomach issuse)
fluticasone propion-salmeterol [Advair Diskus] 500-50 mcg/dose Blister With Device
1 inh INHALATION R BID
furosemide [Lasix] 20 mg Tablet
20 mg PO DAILY
albuterol sulfate [ProAir HFA] 90 mcg/actuation Hfa Aerosol Inhaler
2 puff INHALATION R Q6HPRN PRN (Reason: sob)
fludrocortisone 0.1 mg Tablet
0.1 mg PO DAILY
vitamin E 268 mg (400 unit) Capsule
268 mg PO DAILY
polyethylene glycol 3350 17 gram powder in packet
17 g PO BID
midodrine 5 mg tablet
10 mg PO TID @ 0800,1200,1700
potassium chloride [Klor-Con M20] 20 MEQ tablet,ER particles/crystals
20 meq PO BID
Interventions
Interventions:
*Risk Screen - Suicide Last Done: 03/01/25 06:32
*General Assessment Last Done: 03/01/25 06:32
*Neglect/Abuse Screening Last Done: 03/01/25 06:32
*ED- Fall Risk Assessment Last Done: 03/01/25 06:32
*ED COVID-19 Vaccine History Last Done: 03/01/25 06:32
ED- Cardiac Assessment Last Done: 03/01/25 08:16
Discharge Date and Time
Print Language: MALTESE
[2025-03-01 07:06] LABS: % Basophils 0.2 % (0-2); % Immature Granulocytes 0.6 % (0-0.5); % Monocytes 14.8 % (1.7-9.3); % Neutrophils 81.4 % (42.2-75.2); Absolute Immature Granulocytes 0.1 10^3/uL (0-0.05); Absolute Lymphocytes 0.3 10^3/uL (1.2-3.4); Absolute Monocytes 1.5 10^3/uL (0.1-0.6); Absolute Neutrophils 8.5 10^3/uL (1.4-6.5); Hematocrit 38.5 % (39.0-52.0); Hemoglobin 11.9 g/dL (13.0-18.0); Mean Corp Hgb Conc. 30.9 g/dL (33.0-37.0); Mean Corpuscular Hgb 30.2 pg (27.0-31.0); Mean Corpuscular Volume 97.7 fL (80.0-94.0); Nucleated Red Blood Cells % 0.5 % (-); Platelet Count 185 10^3/uL (130-400); Red Blood Cell Count 3.94 10^6/uL (4.70-6.10); Red Cell Dist. Width 16.3 % (11.5-14.5); White Blood Cell Count 10.4 10^3/uL (4.8-10.8)
[2025-03-01 07:24] LABS: AST (SGOT) 287 U/L (17-59); Albumin 3.9 g/dl (3.5-5.0); Alkaline Phosphatase 152 U/L (38-126); Blood Urea Nitrogen 59 mg/dl (9-20); Calcium 9.4 mg/dl (8.4-10.2); Carbon Dioxide 13 mmol/L (22-30); Chloride 104 mmol/L (98-107); Estimated Creatinine Clearance 23 ml/min; Glucose 47 mg/dl (70-99); Magnesium 2.5 mg/dl (1.6-2.3); Potassium 7.6 mmol/L (3.5-5.1); Sodium 139 mmol/L (135-145); Total Protein 7.1 g/dl (6.3-8.2); eGFR 24.94
[2025-03-01 07:34] LABS: Glucose - Point of Care 42 mg/dl (70-99)
--- NOTE | 2025-03-01 07:34 | EDRN ---
Dr. Murphy notified of blood glucose and is currently at the pts bedside
[2025-03-01 07:37] LABS: ALT (SGPT) 173 U/L (0-50); NT-proBNP > 27000 pg/ml; Troponin I 0.045 ng/ml
[2025-03-01] MEDS: CALCIUM GLUCONATE 1000 MG IV (07:40)
[2025-03-01] MEDS: LASIX 40 MG IV (07:40)
[2025-03-01] MEDS: DEXTROSE 50% SYRINGE 25 GRAMS IV ×3 (07:40→11:43)
[2025-03-01] MEDS: VENTOLIN NEBULES 10 MG INH (07:41)
--- NOTE | 2025-03-01 07:50 | EDRN ---
this RN administered Dextrose 25 grams through Right Arm #20 PIV, this RN noticed that the pts right arm #20 PIV infiltrated due to edema, and pain at the site, this RN did not administer the entire 25 grams of dextrose, this RN removed the PIV,
applied pressure, and a warm compress, this RN notified Dr. Grove the hospitalist that the pts PIV infiltrated with dextrose and no new orders were received, will continue to monitor the pt closely
--- NOTE | 2025-03-01 07:53 | W.CON.NEPH ---
Consultation
-
Date/Time Consultation Requested: 03/01/2025 7:40 AM
Date/Time Consultation Performed: 03/01/2025 7:50 AM
Requesting Provider: Dr. Grove
Performing Provider: Dr. Reza
Reason for Consultation: Hyperkalemia/acute kidney injury
Medical History
-
Chief Complaint: Hyperkalemia/acute kidney injury/metabolic acidosis
History of Present Illness:
The patient is a 74-year-old male who with a past medical history of chronic kidney disease stage 4 (2.4) He has a history of ischemic cardiomyopathy and is maintained on chronic diuretic therapy. His underlying ejection fraction was 30% and he
has undergone previous AICD. He has a history of paroxysmal atrial fibrillation and is chronically maintained on amiodarone. He is at baseline hemodynamically unstable and is maintained on 10 mg of midodrine 3 times daily. He presented to the
hospital with vomiting. He initially on transport to the hospital via EMS had reported chest pain which had subsided once he was in the emergency room. On presentation to the hospital he was hyperkalemic with a potassium of 7.6 with an underlying
junctional rhythm and a creatinine of 2.6 and Nephrology was urgently consulted.
Past Medical History
Ischemic cardiomyopathy with ejection fraction of 30 percent
. CAD
s/p CABG x 3 (COLEMAN - LAD, seq SVG to OM1 to RPLB) 09/19
s/p PCI with JENIFFER to SVG to OM1 to RPLB 10/29/11
s/p acute inferior DE S/P PCI with RCA stent (02/19/17)
s/p Re-op CABG x 2 (left saphenous vein as sequential graft to LAD then to OM1) vein graft tear, anterior wall of RV tear and divided COLEMAN at time of CABG 12/20/19h/o long admission (46 days) to [facility] for LVAD eval and eventual ICD placement at time
of complicated redo CABG 12/2019
h/o left groin abscess with flap closure and VAC treatment 06/2020
. Prostate cancer, status post prostatectomy in 2009.
. Bilateral internal carotid artery stenoses, status post stents, right in 2014, left in 2009.
. Paroxysmal atrial fibrillation, status post ablation in 2016 and cardioversion in 2019.
.Caballero's esophagus.
.Schatzki's ring dilatation.
.Sleep apnea
.Right inguinal herniorrhaphy with mesh.
.GERD.
.Hyperlipidemia.
. Chronic hypotension on midodrine
.Prediabetes.
.Urinary incontinence.
.Biventricular ICD in 2020.
CKD4 ~2.3
Past Surgical History: Other (Coronary artery bypass graft x 3 vessels Left carotid stent Right carotid stent Inguinal hernia repair with mesh Prostatectomy)
Social History
He resides at home with his . 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 Negligible remote smoking history as a teenager.
Tobacco: Non-Smoker
Alcohol: Occasional
Personal:
Living: With Family
Employment: Retired
Family History
Father sustained an DE at 59, at 89.
Mother at 92 with CAD and hypertension.
Allergies / Home Medications
Allergy/AdvReac Type Severity Reaction Status Date / Time
Iodinated Contrast Media Allergy Hives Verified 09/23/24 12:59
[IV Dye, Iodine Containing
Contrast ]
iodine Allergy Hives Verified 09/23/24 12:59
pollen extracts Allergy seasonal Verified 09/23/24 12:59
allergies
potassium clavulanate Allergy Itching Verified 09/23/24 12:59
[From Augmentin]
�Medication �Instructions �Recorded �Confirmed �Type
omega 3-svl-sdh-fish oil 300 1 ea PO DAILY Supplement 02/19/17 03/01/25 History
mg-1,000 mg capsule (Fish Oil)
amiodarone 200 mg tablet (Pacerone) 200 mg PO DAILY Heart 06/23/20 03/01/25 History
disease/condition
multivitamin with folic acid 400 1 tab PO DAILY Supplement 06/23/20 03/01/25 History
mcg tablet (Tab-A-Rickey)
nitroglycerin 0.4 mg sublingual 0.4 mg sublingual [id number] PRN 06/23/20 03/01/25 History
tablet chest pain
sertraline 25 mg tablet 25 mg PO DAILY Mental Health 06/23/20 03/01/25 History
aspirin 81 mg chewable tablet 81 mg PO DAILY Blood clot 06/30/20 03/01/25 Rx
prevention/tx
pantoprazole 40 mg tablet,delayed 40 mg PO DAILY Gastrointestinal 06/30/20 03/01/25 Rx
release issue ##0
rivaroxaban 15 mg tablet (Xarelto) 15 mg PO DAILY Blood clot 08/08/20 03/01/25 History
prevention/tx
montelukast 10 mg tablet 10 mg PO DAILY asthma 03/13/23 03/01/25 History
(Singulair)
coenzyme Q10 100 mg capsule 100 mg PO DAILY Supplement 07/07/24 03/01/25 History
(CoQ-10)
peg 400-propylene glycol (PF) 0.4 1 drp BOTH EYES Q3HPRN PRN dry eyes 07/07/24 03/01/25 History
%-0.3 % eye drops in a dropperette
(Systane (PF))
acetaminophen 325 mg tablet 650 mg PO Q4HPRN PRN mild pain 09/13/24 03/01/25 History
(Tylenol)
ferrous sulfate 325 mg (65 mg 325 mg PO Q48H Supplement 09/13/24 03/01/25 History
iron) tablet (iron)
atorvastatin 20 mg tablet 20 mg PO QPM High Cholesterol 10/04/24 03/01/25 History
albuterol sulfate 90 mcg/actuation 2 puff inhalation R Q6HPRN PRN sob 03/01/25 03/01/25 History
aerosol inhaler
fludrocortisone 0.1 mg tablet 0.1 mg PO DAILY 03/01/25 03/01/25 History
fluticasone 500 mcg-salmeterol 50 1 inh inhalation R BID 03/01/25 03/01/25 History
mcg/dose blistr powdr for
inhalation (Advair Diskus)
furosemide 20 mg tablet (Lasix) 20 mg PO DAILY 03/01/25 03/01/25 History
levothyroxine 75 mcg tablet 75 mcg PO DAILY 03/01/25 03/01/25 History
(Synthroid)
midodrine 5 mg tablet 10 mg PO TID @ 0800,1200,1700 03/01/25 03/01/25 History
ondansetron HCl 4 mg tablet 4 mg PO Q6HPRN PRN nausea 03/01/25 03/01/25 History
polyethylene glycol 3350 17 gram 17 g PO BID 03/01/25 03/01/25 History
oral powder packet
potassium chloride 20 mEq 20 meq PO BID Electrolyte Repletion 03/01/25 03/01/25 History
tablet,extended
release(part/cryst) (Klor-Con M)
sodium bicarbonate 650 mg tablet 650 mg PO Q6HPRN PRN stomach issuse 03/01/25 03/01/25 History
spironolactone 25 mg tablet 25 mg PO Q48H 03/01/25 03/01/25 History
vitamin E 268 mg (400 unit) capsule 268 mg PO DAILY 03/01/25 03/01/25 History
Review of Systems
-
History Source: Patient
All other systems: Negative unless noted
Constitutional: Weight Gain and Other (Anorexia, weakness)
EENT: No Symptoms
Respiratory: Trouble Breathing
Cardiac: Chest Pain
Abdomen/GI: Vomiting
: No Symptoms
Musculoskeletal: Edema
Skin: Other
Neurological: No Symptoms
Endocrine: No Symptoms
Hematologic/Lymphatic: No Symptoms
Physical Exam
Vital Signs
Vital Signs
Pulse Resp BP Pulse Ox
64 22 118/74 98
03/01/25 07:40 03/01/25 07:00 03/01/25 07:40 03/01/25 07:00
Lab Results
03/01/25 06:46
WBC 10.4 10^3/uL (4.8-10.8) 03/01/25 06:46
RBC 3.94 10^6/uL (4.70-6.10) L 03/01/25 06:46
Hgb 11.9 g/dL (13.0-18.0) L 03/01/25 06:46
Hct 38.5 % (39.0-52.0) L 03/01/25 06:46
Plt Count 185 10^3/uL (130-400) 03/01/25 06:46
Sodium 139 mmol/L (135-145) 03/01/25 06:46
Chloride 104 mmol/L (98-107) 03/01/25 06:46
Carbon Dioxide 13 mmol/L (22-30) L* 03/01/25 06:46
BUN 59 mg/dl (9-20) H 03/01/25 06:46
Creatinine 2.6 mg/dL (0.7-1.3) H 03/01/25 06:46
eGFR 24.94 03/01/25 06:46
Calcium 9.4 mg/dl (8.4-10.2) 03/01/25 06:46
Khc-P-Prfgycdgkjh Pept > 82584 pg/ml 03/01/25 06:46
Albumin 3.9 g/dl (3.5-5.0) 03/01/25 06:46
Physical Exam
General: AOx3, cachectic,chronically ill appearing
HEENT: PERRL, EOMI, Anicteric, Conjunctivae pale Ear/Nose Intact, Hearing Normal, Oropharynx Clear/Moist, Dentition Intact, Facial Symmetry, Neck Supple, Neck: Trachea Midline, No JVD and No Thyromegaly, no Bruits
Respiratory: coarse to auscultation bilaterally with labored respirations
Cardiac: S1/S2 and Regular Rate/Rhythm
Breast: Deferred by me
Abdomen: Soft, Nontender, Nondistended, Normal Bowel Sounds and No Hepatosplenomegaly
Rectal: Deferred by Provider
Genito-urinary: No Costovertebral Tenderness
Extremities: No Clubbing, No Cyanosis and Edema
Skin: No Rash or open lesions
Neuro: Nonfocal/Grossly Intact, CN II-XII (Intact) and Strength (Musculoskeletal exam 5 out of 5 both upper and lower extremities)
Hematologic/Lymphatic: No Cervical Lymphadenopathy, No Submandibular Lymphadenopathy and No Supraclavicular Lymphadenopathy
Psych: withdrawn but answers questions appropriately
Vascular: plus 1 pedal and radial pulses
Data Reviewed
-
Radiology: Image Personally Visualized and interpreted (Chest x-ray notes AICD with mild interstitial edema)
Labs: Labs Reviewed by me (BMP CBC)
Old Records: Reviewed (Reviewed old creatinine level of 1.3 as of 01/19/2025)
Critical Care Time (in minutes): 40 minutes
Assessment/Plan
-
Impression:
Hyperkalemia (7.6)
Metabolic acidosis
CKD stage IV (2.4)
Cardiorenal syndrome with chronic hemodynamic instability
Ischemic cardiomyopathy EF 30%, DD stage3, mod to severe MR, mod TR
CAD complex history s/p CABG
s/p Neocrafts single chamber ICD
Paroxysmal Afib
HTN
Orthostasis on midodrine
Hyperlipidemia
Former tobacco use
ELI
GERD/Caballero's esophagus
S/p Schatzki's ring dilatation
Severe LAUREN stenosis S/p stent (01/10/2015)
Severe LICA stenosis S/p stent (10/05/2010)
Hx Prostate Ca S/p robotic prostatectomy (2009)
Plan:
- Urgent treatment of hyperkalemia recommend sodium bicarbonate calcium gluconate Kayexalate and once blood sugars rebound insulin
-Would provide 40 mg of IV Lasix, check for postvoid bladder residual and place Farah catheter if PVR is greater than 350
-Would provide D5W at 200 cc an hour with 150 mEq of sodium bicarbonate
-Creatinine actually within baseline
-Hold further potassium supplements and aldactone
-repeat lytes in 2 hours
- Patient critically ill with metabolic acidosis renal failure in the setting of hyperkalemia with EKG changes (patient does have underlying AICD/pacemaker in place)
-Discussed clinical course with son and . Patient is DNR dialysis would not be provided
-45 minutes critical care time spent with patient
[2025-03-01] MEDS: SODIUM BICARBONATE 50 MEQ IV (08:04)
[2025-03-01] MEDS: D10W 500 IV (08:04)
--- NOTE | 2025-03-01 08:12 | EDRN ---
nephrology currently at the pts bedside
[2025-03-01 08:19] LABS: Free T4 2.25 ng/dl (0.78-2.19)
--- NOTE | 2025-03-01 08:19 | EDRN ---
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 Murphy aware,
medications administered per Dr. Murphy's orders, right Arm #20 PIV infiltrated due to pain and edema, this PIV was removed and pressure was applied, sensation in right arm and right hand in tact with palpable pulses and warm to touch, this
RN spoke with the provider and per the provider it is OK to place PIV in left upper arm, Left upper arm #[address], D10 running at 250cc/hour, blood sugars will be monitored, the pts family are at the pts bedside and they were updated on the
pts plan of care
--- NOTE | 2025-03-01 08:23 | EDRN ---
hospitalist currently at the pts bedside
--- NOTE | 2025-03-01 08:27 | EDRN ---
per Dr. Murphy, IV insulin is not to be given until blood sugar comes up, will repeat glucose soon
[2025-03-01 08:30] LABS: Glucose 37 mg/dl (70-99)
--- NOTE | 2025-03-01 08:30 | EDRN ---
this RN entered the pts room in inspect right arm site where PIV infiltrated and site is not swollen, warm to touch, sensation in tact, palpable radial and brachial pulse, this RN notified Dr. Grove no new orders were received for PIV infiltration
side
--- NOTE | 2025-03-01 08:33 | HPS.HSE ---
Family Physician
-
Family Physician:
Chief Complaint
-
Generalized weakness/malaise/chest discomfort/dyspnea
History of Present Illness
Patient is a 74-year-old male with past medical history of chronic systolic congestive heart failure, ischemic cardiomyopathy, severe mitral regurgitation, history of bypass/with redo bypass/PCI, paroxysmal atrial fibrillation, history of ICD
placement, essential hypertension, hyperlipidemia, sleep apnea, history of inguinal hernia repair, history of cataract surgery, cachexia/protein calorie malnutrition came from facility for combination symptoms of dyspnea/chest pain/generalized
weakness/fatigue. At the time of visit patient somnolent/encephalopathic and not able to provide any information, information has been gathered from ER documentation and patient family at bedside. Last night patient apparently was complaining of
dyspnea and chest discomfort prompting nitro dosing by facility staff, despite 3 doses patient did not have improvement of symptoms and was sent to ER. In ER patient was not voicing any chest pain complaint. There was reported nausea and vomiting
although per son at bedside patient had problem with decreased oral appetite and chronic phlegm with which patient has some gagging like episode. Denies of having a history of stroke/dysphagia and is on regular diet in facility. No reported
cough/fever/palpitation/syncope. No diarrhea/dysuria reported.
Medical History
Past Medical History
Past Medical History: Reports Other
Additional Past Medical History:
chronic systolic congestive heart failure, ischemic cardiomyopathy, severe mitral regurgitation, history of bypass/with redo bypass/PCI, paroxysmal atrial fibrillation, history of ICD placement, essential hypertension, hyperlipidemia, sleep apnea,
history of inguinal hernia repair, history of cataract surgery, cachexia/protein calorie malnutrition
Past Surgical History: Reports Other
Social History
Unable to obtain full social history at this time due to: Patient Non-verbal
Living: Assisted Living
Family History
Family History: Not pertinent
Allergies / Home Medications
Allergies reflects when Allergies were last updated in [facility].
Home Medications with original date entered in [facility]
Allergy/Medication List:
Allergies
Allergy/AdvReac Type Severity Reaction Status Date / Time
Iodinated Contrast Media Allergy Hives Verified 09/23/24 12:59
[IV Dye, Iodine Containing
Contrast ]
iodine Allergy Hives Verified 09/23/24 12:59
pollen extracts Allergy seasonal Verified 09/23/24 12:59
allergies
potassium clavulanate Allergy Itching Verified 09/23/24 12:59
[From Augmentin]
Home Medications
omega 6-cwh-swi-fish oil 300 mg-1,000 mg capsule (Fish Oil) 1 ea PO DAILY Supplement 02/19/17
amiodarone 200 mg tablet (Pacerone) 200 mg PO DAILY Heart disease/condition 06/23/20
multivitamin with folic acid 400 mcg tablet (Tab-A-Rickey) 1 tab PO DAILY Supplement 06/23/20
nitroglycerin 0.4 mg sublingual tablet 0.4 mg sublingual [id number] PRN chest pain 06/23/20
sertraline 25 mg tablet 25 mg PO DAILY Mental Health 06/23/20
aspirin 81 mg chewable tablet 81 mg PO DAILY Blood clot prevention/tx 06/30/20
pantoprazole 40 mg tablet,delayed release 40 mg PO DAILY Gastrointestinal issue ##0 06/30/20
rivaroxaban 15 mg tablet (Xarelto) 15 mg PO DAILY Blood clot prevention/tx 08/08/20
montelukast 10 mg tablet (Singulair) 10 mg PO DAILY asthma 03/13/23
coenzyme Q10 100 mg capsule (CoQ-10) 100 mg PO DAILY Supplement 07/07/24
peg 400-propylene glycol (PF) 0.4 %-0.3 % eye drops in a dropperette (Systane (PF)) 1 drp BOTH EYES Q3HPRN PRN dry eyes 07/07/24
acetaminophen 325 mg tablet (Tylenol) 650 mg PO Q4HPRN PRN mild pain 09/13/24
ferrous sulfate 325 mg (65 mg iron) tablet (iron) 325 mg PO Q48H Supplement 09/13/24
atorvastatin 20 mg tablet 20 mg PO QPM High Cholesterol 10/04/24
albuterol sulfate 90 mcg/actuation aerosol inhaler 2 puff inhalation R Q6HPRN PRN sob 03/01/25
fludrocortisone 0.1 mg tablet 0.1 mg PO DAILY 03/01/25
fluticasone 500 mcg-salmeterol 50 mcg/dose blistr powdr for inhalation (Advair Diskus) 1 inh inhalation R BID 03/01/25
furosemide 20 mg tablet (Lasix) 20 mg PO DAILY 03/01/25
levothyroxine 75 mcg tablet (Synthroid) 75 mcg PO DAILY 03/01/25
midodrine 5 mg tablet 10 mg PO TID @ 0800,1200,1700 03/01/25
ondansetron HCl 4 mg tablet 4 mg PO Q6HPRN PRN nausea 03/01/25
polyethylene glycol 3350 17 gram oral powder packet 17 g PO BID 03/01/25
potassium chloride 20 mEq tablet,extended release(part/cryst) (Klor-Con M) 20 meq PO BID Electrolyte Repletion 03/01/25
sodium bicarbonate 650 mg tablet 650 mg PO Q6HPRN PRN stomach issuse 03/01/25
spironolactone 25 mg tablet 25 mg PO Q48H 03/01/25
vitamin E 268 mg (400 unit) capsule 268 mg PO DAILY 03/01/25
Review of Systems
-
A 12 point ROS was completed and negative except as noted: No
Physical Exam
Vital Signs
Vital Signs
Temp Pulse Resp BP Pulse Ox
97.6 F 80 16 102/65 97
03/01/25 08:16 03/01/25 08:16 03/01/25 08:16 03/01/25 08:16 03/01/25 08:16
Physical Exam
General: No Apparent Distress
HEENT: Atraumatic and Other (On neb therapy)
Respiratory: Rhonchi
Cardiac: S1/S2 and Regular Rhythm; No Murmur or Rub
GI: Soft and Non Tender; No Organomegaly
Rectal: Deferred by Provider
Musculoskeletal: No Clubbing, No Cyanosis, Edema, Left Lower Extremity and Edema, Right Lower Extremity
Skin: Other (RLE 3rd toe supeficial denuding, black atrophic skin around great toe); No Rash
Neuro: Awake; No Oriented
Laboratory Results
-
03/01/25 06:46
Laboratory Results
Total Bilirubin 3.0 mg/dl (0.2-1.3) H 03/01/25 06:46
AST 287 U/L (17-59) H 03/01/25 06:46
ALT 173 U/L (0-50) H 03/01/25 06:46
Alkaline Phosphatase 152 U/L (38-126) H 03/01/25 06:46
Troponin I 0.045 ng/ml H* 03/01/25 06:46
Impression/Plan
-
1. Hyperkalemia
- Patient presented with potassium of 7.6
- Multifactorial from potassium supplement/Aldactone/CKD/metabolic acidosis
- EKG showing problematic QRS widening with sine early sine wave forming
-Calcium gluconate provided for cardioprotection
- Patient got IV Lasix 40 mg/bicarb 50 mEq in ER
-Patient was hypoglycemic and started on D5 bicarb and provided insulin 5 units as well
-Nephrology evaluated emergently and discussed prognosis with family, not a dialysis candidate
-Follow-up BNP at 10 AM and 3 PM ordered
-Admit to IMU for close monitoring
2. Anion gap metabolic acidosis
-Likely with underlying CKD
-Patient on oral bicarb in the facility
-Patient started on bicarb IV fluid
3. BRIGHT on Chronic kidney disease stage IV
-Lowest cr of 1.3 from last visit, comes in with cr of 2.6
-Bladder scan protocol ordered
-With patient history of systolic heart failure patient have history of cardiorenal syndrome in the past
- Monitor renal function recovery
4. Hypoglycemia
-Reported nausea vomiting and decreased oral intake for few days
-Getting D5 containing IVF
-Continue blood glucose checks
-Full liquid diet ordered for now
5. Chest pain
Troponin elevation
History of CAD with bypass/redo bypass/PCI
- Patient hav has history of multivessel CAD, was provided nitro pills in the facility x 3 before presenting
- With hyperkalemia related EKG changes unable to appreciate any significant ST segment deviation
-Troponin 0.045, follow-up troponin
-Cardiology consultation requested for further help
6. Acute transaminitis
-ALT 173/AST 287/ALP 152
-Suspecting component of congestive hepatopathy
-Will continue amiodarone for today, may have to adjust depending on LFT trend
7. Acute on chronic systolic congestive heart failure
-Elevated proBNP > 27k, ER weight 66kg, some leg swelling
- Chest x-ray showing cardiomegaly and pulmonary vascular congestion
-Got IV Lasix 40 mg in the ER, further dosing per nephro/cardio
8. Severe protein calorie malnutrition
-Patient have cardiac cachexia and decreased appetite/weight loss for some time
9. Paroxysmal atrial fibrillation
-Continue home dose of Xarelto
DVTPPX- xarelto
DNR/DNI -confirmed with family at bedside
Total time spent : 85 mins
I personally saw and examined the patient.
I have reviewed all diagnostic interpretations and treatment plans as written.
Time includes patient management by me, time spent at the patients bedside, time to review lab and imaging results, discussing patient care, documentation in the medical record, and time spent with the family or caregiver and discussing care plan
with RN/Consultants.
[2025-03-01 08:51] LABS: Glucose - Point of Care 113 mg/dl (70-99)
[2025-03-01] MEDS: NOVOLIN R 5 UNITS IV (08:59)
[2025-03-01] MEDS: SODIUM BICARBONATE 1150 MEQ IV ×2 (09:04→21:18)
[2025-03-01 09:20] LABS: Glucose - Point of Care 224 mg/dl (70-99)
[2025-03-01 09:58] LABS: Glucose - Point of Care 236 mg/dl (70-99)
--- NOTE | 2025-03-01 10:01 | VATNOTE ---
Per , OK for midline instead of PICC.
--- NOTE | 2025-03-01 10:27 | CON.CAR ---
Addendum entered and electronically signed by Avila Gillis MD 03/01/25 12:28:
I saw and examined the patient.
The Compressor Mechanic Bus's note was reviewed and I agree with the note.
Comment:
GEN: No distress, awake, Ox3, cachectic
HEENT: supple, anicteric, mmm
LUNGS: scatt rhonchi
CV: Reg, S1/S2, 1/6 syst LSB, S4+
ABD: soft, BS+, NT/ND
EXT: ++ edema
NEURO: Gross non-focal
SKIN: No rash
Plan:
74-year-old male well-known to me with extensive/complicated past medical history including coronary artery bypass surgery x 2, with complicated redo operation involving RV tear and cardiomyopathy in 2019. He then had ICD placed with decreased EF
of 15%, chronic kidney disease, paroxysmal atrial fibrillation, chronic heart failure with reduced ejection fraction, deconditioning, orthostasis, and hyperlipidemia. He presents with chest pain, fatigue, shortness of breath and lower extremity
edema for several weeks. He then had increased nausea and cough. Upon arrival in the emergency room he was found to be markedly hyperkalemic and hyperglycemic with a potassium of 7.6 and change in mental status. He was treated and was placed on a
bicarb drip. His EKG improved significantly with correction of his hyperkalemia. He has a paced rhythm and his QRS had widened with the hyperkalemia.
He has discussed hospice and palliative care in the past but at last office visit he was not ready for this. He is DNR.
Continue conservative therapy for his acute on chronic heart failure with reduced ejection fraction, acute renal failure, and hyperkalemia.
Start IV diuresis. He was given 40 mg of IV Lasix in the emergency room. He will need further diuretics. Will reassess in a.m. following his kidney function and creatinine.
His potassium is improved and repeat blood work reveals potassium of 6.8. Creatinine is at 2.6. Continue to follow closely.
His QT is prolonged with the hyperkalemia. Would hold amiodarone for 24 hours and reassess in the a.m.
We will repeat an echocardiogram in the a.m. I would wait until his potassium was corrected before we repeat his echocardiogram.
He has had many issues with orthostasis in the past. I would discontinue the spironolactone. Will continue midodrine.
Would continue Xarelto 15 mg daily for now. Device was recently checked and was functioning well at last office visit less than 1 month ago.
LFTs are markedly abnormal. Hold atorvastatin. Will reassess in the a.m. but likely resume amiodarone if LFTs are trending down.
Continue treatment for hypo glycemia.
Abnormal troponin is likely nonischemic myocardial injury.
Original Note:
Consultation
Consultation Request
Date/Time Consultation Performed: 03/01/25
Requesting Provider: Dr. Richard Grove
Performing Provider: Preeti Holder PA-C for Dr. Gillis
Reason for Consultation: CHF, hyperkalemia
Medical History
-
Chief Complaint: SOB
History of Present Illness:
Patient is a 74 yo M with PMH of CABG 09/2010 with COLEMAN to LAD and SVG seq to OM and PLB. He then had a Xience JENIFFER to the sequential SVG in 10/29/11. He was then admitted to 12/20/19 until 12/29/19 with plan for redo sternotomy and CABG with SVG to
OM and then to the PLB of the RCA. He had RV tear and repair as a complication. His CABG ended up being a left saphenous vein as sequential graft to LAD then to OM1. He had a newly reduced EF 15% at that time and developed cardiorenal syndrome and
cardiogenic shock. He was transferred to [facility] for LVAD evaluation 12/29/19 and was hospitalized for 46 days and was ultimately not an LVAD candidate, but was diuresed and had a [employer] single chamber ICD placed. He then went to [facility] acute
care rehab. He had left groin washout with Sartorious flap creation and VAC placement 06/23/20. He has since had several admissions for CHF and has been residing at the [facility] in [place]. This is felt in part to be due to severe MR, and patient
was previously deemed not to be a candidate for surgical repair or mitraclip intervention. He remains uninterested in LVAD evaluation. He is a DNRand ICD therapies have been turned off however he does continue to want medical treatment. He reports
over the last several weeks he has noted SOB and LE edema. He reports noting some nausea over last 24 hours which he felt was related to increased mucus production. Reportedly received SL nitro at [facility] prior to ER arrival. On arrival was noted
to be hyperkalemic with potassium of 7.6, hypoglycemic, and had altered mental status related to this. He is now feeling much improved on bicarb gtt. ProBNP >75360. Cardiology consulted for evaluation. was given IV lasix 40mg in ER. Denies recent OP
med changes - is on spironolactone 25mg Q48H and potassium 20mEq BID.
PMH:
Chronic HFrEF
ICM EF 30% by echo 05/04/24
Cardiorenal syndrome
CKD 4
CAD
s/p CABG x 3 (COLEMAN - LAD, seq SVG to OM1 to RPLB) 09/19
s/p PCI with JENIFFER to SVG to OM1 to RPLB 10/29/11
s/p acute inferior GA S/P PCI with RCA stent (02/19/17)
s/p Re-op CABG x 2 (left saphenous vein as sequential graft to LAD then to OM1) vein graft tear, anterior wall of RV tear and divided COLEMAN at time of CABG 12/20/19
h/o long admission (46 days) to [facility] for LVAD eval and eventual ICD placement at time of complicated redo CABG 12/2019
h/o left groin abscess with flap closure and VAC treatment 06/2020
s/p [employer] single chamber ICD
Paroxysmal Afib
s/p PVI 08/04/17
Chronic Xarelto OAC
HTN
Orthostasis on midodrine
Hyperlipidemia
Former tobacco use
ELI
GERD/Caballero's esophagus
S/p Schatzki's ring dilatation
Severe LAUREN stenosis S/p stent (01/10/2015)
Severe LICA stenosis S/p stent (10/05/2010)
Hx Prostate Ca S/p robotic prostatectomy (2009)
s/p right inguinal herniorrhaphy (1992)
Past Medical History
Past Medical History: Other (in HPI)
Past Surgical History: Cardiac (ABG) and Other (prostatectomy, herniorrhaphy, B/L carotid stents)
Social History
Tobacco: Former Smoker
Alcohol: None
Drug: None
Personal:
Living: With Family
Family History
Family History: CAD
Allergies / Home Medications
Allergy/AdvReac Type Severity Reaction Status Date / Time
Iodinated Contrast Media Allergy Hives Verified 09/23/24 12:59
[IV Dye, Iodine Containing
Contrast ]
iodine Allergy Hives Verified 09/23/24 12:59
pollen extracts Allergy seasonal Verified 09/23/24 12:59
allergies
potassium clavulanate Allergy Itching Verified 09/23/24 12:59
[From Augmentin]
�Medication �Instructions �Recorded �Confirmed �Type
omega 9-scm-dsf-fish oil 300 1 ea PO DAILY Supplement 02/19/17 03/01/25 History
mg-1,000 mg capsule (Fish Oil)
amiodarone 200 mg tablet (Pacerone) 200 mg PO DAILY Heart 06/23/20 03/01/25 History
disease/condition
multivitamin with folic acid 400 1 tab PO DAILY Supplement 06/23/20 03/01/25 History
mcg tablet (Tab-A-Rickey)
nitroglycerin 0.4 mg sublingual 0.4 mg sublingual [id number] PRN 06/23/20 03/01/25 History
tablet chest pain
sertraline 25 mg tablet 25 mg PO DAILY Mental Health 06/23/20 03/01/25 History
aspirin 81 mg chewable tablet 81 mg PO DAILY Blood clot 06/30/20 03/01/25 Rx
prevention/tx
pantoprazole 40 mg tablet,delayed 40 mg PO DAILY Gastrointestinal 06/30/20 03/01/25 Rx
release issue ##0
rivaroxaban 15 mg tablet (Xarelto) 15 mg PO DAILY Blood clot 08/08/20 03/01/25 History
prevention/tx
montelukast 10 mg tablet 10 mg PO DAILY asthma 03/13/23 03/01/25 History
(Singulair)
coenzyme Q10 100 mg capsule 100 mg PO DAILY Supplement 07/07/24 03/01/25 History
(CoQ-10)
peg 400-propylene glycol (PF) 0.4 1 drp BOTH EYES Q3HPRN PRN dry eyes 07/07/24 03/01/25 History
%-0.3 % eye drops in a dropperette
(Systane (PF))
acetaminophen 325 mg tablet 650 mg PO Q4HPRN PRN mild pain 09/13/24 03/01/25 History
(Tylenol)
ferrous sulfate 325 mg (65 mg 325 mg PO Q48H Supplement 09/13/24 03/01/25 History
iron) tablet (iron)
atorvastatin 20 mg tablet 20 mg PO QPM High Cholesterol 10/04/24 03/01/25 History
albuterol sulfate 90 mcg/actuation 2 puff inhalation R Q6HPRN PRN sob 03/01/25 03/01/25 History
aerosol inhaler
fludrocortisone 0.1 mg tablet 0.1 mg PO DAILY adrenal 03/01/25 03/01/25 History
insufficiency
fluticasone 500 mcg-salmeterol 50 1 inh inhalation R BID 03/01/25 03/01/25 History
mcg/dose blistr powdr for Lung/Breathing Issues
inhalation (Advair Diskus)
furosemide 20 mg tablet (Lasix) 20 mg PO DAILY Fluid 03/01/25 03/01/25 History
Retention/Swelling
levothyroxine 75 mcg tablet 75 mcg PO DAILY Thyroid 03/01/25 03/01/25 History
(Synthroid)
midodrine 5 mg tablet 10 mg PO TID @ 0800,1200,1700 03/01/25 03/01/25 History
Blood Pressure
ondansetron HCl 4 mg tablet 4 mg PO Q6HPRN PRN nausea 03/01/25 03/01/25 History
polyethylene glycol 3350 17 gram 17 g PO BID Constipation 03/01/25 03/01/25 History
oral powder packet
potassium chloride 20 mEq 20 meq PO BID Electrolyte Repletion 03/01/25 03/01/25 History
tablet,extended
release(part/cryst) (Klor-Con M)
sodium bicarbonate 650 mg tablet 650 mg PO Q6HPRN PRN stomach issuse 03/01/25 03/01/25 History
spironolactone 25 mg tablet 25 mg PO Q48H Heart 03/01/25 03/01/25 History
Disease/Condition
vitamin E 268 mg (400 unit) capsule 268 mg PO DAILY Supplement 03/01/25 03/01/25 History
Review of Systems
-
History Source: Patient and Family
All other systems: Negative unless noted
Physical Exam
Vital Signs
Temp Pulse Resp BP Pulse Ox
97.6 F 78 17 111/80 100
03/01/25 08:16 03/01/25 09:15 03/01/25 09:15 03/01/25 09:00 03/01/25 09:00
Lab Results
03/01/25 06:46
Troponin I 0.045 ng/ml H* 03/01/25 06:46
Rly-P-Eibespobyvp Pept > 66513 pg/ml 03/01/25 06:46
Physical Exam
General: No Apparent Distress, Comfortable and Other (chronically ill, cachectic)
HEENT: Normocephalic, Anicteric and Moist Mucous Membranes
Respiratory: Crackles and Non Labored Respirations
Cardiac: S1/S2, Irregular Rhythm and Murmur
GI: Soft, Non Tender, Non Distended and Normal Bowel Sounds
Musculoskeletal: No Clubbing, No Cyanosis and Edema (2+ of B/L ankles)
Skin: Warm and Dry
Neuro: AO x 3
Impression / Plan
-
PCP: Dr. Song
Cardiology: Dr. Gillis
IMPRESSION:
Hyperkalemia
Hypoglycemia
Metabolic acidosis
Transaminitis
Acute on chronic HFrEF
Decompensated cardiorenal syndrome with ischemic cardiomyopathy and severe mitral regurgitation
Elevated troponin
Abnormal TFTs
ICM EF 30% by echo 05/04/24
Cardiorenal syndrome
CKD 4
CAD
s/p CABG x 3 (COLEMAN - LAD, seq SVG to OM1 to RPLB) 09/19
s/p PCI with JENIFFER to SVG to OM1 to RPLB 10/29/11
s/p acute inferior GA S/P PCI with RCA stent (02/19/17)
s/p Re-op CABG x 2 (left saphenous vein as sequential graft to LAD then to OM1) vein graft tear, anterior wall of RV tear and divided COLEMAN at time of CABG 12/20/19
h/o long admission (46 days) to [facility] for LVAD eval and eventual ICD placement at time of complicated redo CABG 12/2019
h/o left groin abscess with flap closure and VAC treatment 06/2020
s/p [employer] single chamber ICD
Paroxysmal Afib
s/p PVI 08/04/17
Chronic Xarelto OAC
HTN
Orthostasis on midodrine
Hyperlipidemia
Former tobacco use
ELI
GERD/Caballero's esophagus
S/p Schatzki's ring dilatation
Severe LAUREN stenosis S/p stent (01/10/2015)
Severe LICA stenosis S/p stent (10/05/2010)
Hx Prostate Ca S/p robotic prostatectomy (2009)
s/p right inguinal herniorrhaphy (1992)
s/p B/L cataract surgery 09/2024
DNR code status
ECHO 12/23/19: with severe left ventricular systolic dysfunction ejection fraction 15�20%. New compared to preoperative echocardiogram
Echo at [facility] 02/2020: EF 36%
Echo 06/26/20: Mildly dilated LV, EF 25-30%, inferior, septal, anteroseptal, apical akinesis with hypokinesis remaining. EF was 40% by Valle, 25-30% visually, mildly dilated and hypokinetic RV, ICD wire, dilated left atrium, mild MR, aortic
sclerosis, moderate TR, pulmonary artery pressure 37-42 mmHg
Echo 05/04/24: EF 30%, akinesis of the septum and inferior de jesus, stage III diastolic dysfunction, moderate to severe MR, moderate TR with PAP 45 mmHg
Echo 10/05/24: EF 25 to 30%, enlarged right ventricle with moderate RV hypokinesis, moderate to severe MR, moderate TR
Plan:
- Patient with significant cardiac history as above presents critically ill with marked hyperkalemia and hypoglycemia, initially with altered mental state, now improved on D5 bicarb drip
- Also with accelerated junctional rhythm in setting of above. Will need to follow with potassium correction. he has ICD however therapies were turned off during prior office visit. hold amio today and consider restarting tomorrow
- Check potassium level serially. nephro following
- Stop outpatient spironolactone and supplemental potassium. Patient reports no recent medication changes
- proBNP greater than 27,000. Chest x-ray with evidence of mild pulmonary edema. Was given a dose of IV Lasix in ER per nephrology. Would recommend ongoing diuresis. Has known cardiorenal syndrome. Creatinine 2.4
- last echo from 09/2024, consider repeat in AM
- he has known severe MR and is not candidate for intervention. plan to continue medical therapy however patient is DNR and does not want heroic measures. he is not felt to be a candidate for dialysis.
- GDMT has been limited due to hypotension and chronic orthostasis requiring chronic high-dose midodrine
- follow LFTs with diuresis
- trop 0.045, trend to peak. suspected nonischemic myocardial injury. will manage conservatively with aspirin, Lipitor
- d/w patient and family at bedside
- d/w nursing, pharmacy
Data Reviewed
-
EKG: Tracing Personally Visualized and interpreted
Radiology: Report Reviewed by me
Medical Tests (Nuc Med, Echo etc): Report Reviewed by me
Labs: Labs Reviewed by me
Old Records: Reviewed
[2025-03-01 10:53] LABS: Potassium 6.8 mmol/L (3.5-5.1)
--- NOTE | 2025-03-01 11:30 | EDRN ---
the pt pressed the call velazquez and this RN entered the pts room, the pt requested ice chips and this RN provided ice chips for the pt, the pt was repositioned for comfort, the pt stated to this RN that he has numbness and tingling in the right forearm
and right hand, the pt is able to move his hand, warm to tough and palpable radial and brachial pulses, this RN notified Dr. Grove who spoke with IV team and pharmacy regarding ordering Hylenex
[2025-03-01 11:43] LABS: Glucose - Point of Care 291 mg/dl (70-99)
[2025-03-01] MEDS: NOVOLIN R 10 UNITS IV (11:43)
[2025-03-01 12:06] LABS: Troponin I 0.062 ng/ml
--- NOTE | 2025-03-01 12:08 | EDRN ---
Troponin trending up, provider Dr. Grove notified
[2025-03-01 12:19] LABS: Blood Urea Nitrogen 61 mg/dl (9-20); Calcium 8.9 mg/dl (8.4-10.2); Chloride 99 mmol/L (98-107); Estimated Creatinine Clearance 23 ml/min; Glucose 311 mg/dl (70-99); Sodium 136 mmol/L (135-145); eGFR 24.94
[2025-03-01 12:22] LABS: Carbon Dioxide 14 mmol/L (22-30); Potassium 6.8 mmol/L (3.5-5.1)
[2025-03-01] MEDS: HYLENEX 150 UNITS SC (12:40)
[2025-03-01 13:12] LABS: Glucose - Point of Care 310 mg/dl (70-99)
--- NOTE | 2025-03-01 14:22 | EDRN ---
IV team currently at the pts bedside
[2025-03-01 14:45] LABS: Glucose - Point of Care 316 mg/dl (70-99)
[2025-03-01] MEDS: PACERONE 200 MG PO (14:47)
[2025-03-01] MEDS: XARELTO PO (14:48)
[2025-03-01] MEDS: KAYEXALATE SUSPENSION 15 GRAMS PO (14:50)
[2025-03-01] MEDS: LOW STRENGTH ASPIRIN 81 MG PO (14:51)
[2025-03-01 15:00] LABS: Blood Urea Nitrogen 63 mg/dl (9-20); Carbon Dioxide 20 mmol/L (22-30); Chloride 99 mmol/L (98-107); Estimated Creatinine Clearance 21 ml/min; Glucose 273 mg/dl (70-99); Sodium 136 mmol/L (135-145); eGFR 22.81
[2025-03-01] MEDS: ZOLOFT 25 MG PO (15:04)
[2025-03-01] MEDS: SYNTHROID 75 MCG PO (15:05)
[2025-03-01 17:28] LABS: Troponin I 0.074 ng/ml
--- NOTE | 2025-03-01 17:29 | EDRN ---
troponin still trending up, provider notified
--- NOTE | 2025-03-01 17:32 | EDRN ---
this RN called the receiving IMU nurse Jenny ALLRED and gave verbal report
[2025-03-01 17:36] LABS: Blood Urea Nitrogen 66 mg/dl (9-20); Calcium 8.8 mg/dl (8.4-10.2); Carbon Dioxide 21 mmol/L (22-30); Chloride 99 mmol/L (98-107); Estimated Creatinine Clearance 22 ml/min; Glucose 235 mg/dl (70-99); Potassium 5.9 mmol/L (3.5-5.1); Sodium 135 mmol/L (135-145); eGFR 23.83
--- NOTE | 2025-03-01 18:37 | PTCARENOTE ---
Patient arrived to unit from ED with D5W sodium bicarb 150 mEq at 100ml/hr per order, blood pressures being taken in right calf as he has ARCADIO midline and RUE had IV infiltrate this am and is edematous and ecchymotic. RUE is being elevated on pillow
per order. RN reached out to MD about obtaining a poc glucose orders for overnight. Right 2nd toe wound noted and added to flowsheets. See MAR/assessment in flowsheets for futher care details.
[2025-03-01 21:42] LABS: Glucose - Point of Care 143 mg/dl (70-99)
[2025-03-01] MEDS: TYLENOL 650 MG PO (23:10)
[2025-03-02] VITALS (13 sets, daily range): BP systolic 105–152; BP diastolic 55–86; BMI 22.7
--- NOTE | 2025-03-02 00:55 | PTCARENOTE ---
Assumed care for patient overnight, received report from beatriz RN. Pt is AAOx3, able to make needs known, and is pleasant. NSR on the monitor with a murmur. Pt on 5L NC SpO2 95%. Will continue to wean. Pt denies any chest pain or SOB. +1 pitting
edema to b/l lower extremities. R arm is ecchymotic, reddened. and swollen due to IV infiltration in ED. Denture care done. Pt does have b/l hearing aids which are charging. IVF w/ bicarb cont. L midline intact, dressing has small amount of old
blood. Pt utilizing the Yankauer to oral suction. Pt has some thin white mucus. Call velazquez is within reach.
--- NOTE | 2025-03-02 06:26 | W.PN.UPDATE ---
Update Note
Progress Note Update
RN reports patient unable to void completely, voided 100 CC. Bladder scan of 560ml, unable to advance straight catheter due to resistance. No history of BPH or alpha blockers. Will consult Urology, RN stated she will reach out. need to collect UA
with culture
--- NOTE | 2025-03-02 06:39 | PTCARENOTE ---
Pt had minimal urinary output overnight. Bladder scanned the patient for 540 ml of urine. This RN attempted to straight catheterize the pt and met resistance immediately about 3 cm into the urethral opening. RN Liss then attempted to straight
catheterize the pt and also met resistance. Unable to straight cath and empty the bladder. Pt asymptomatic, no abdomen is flat non distended, no cramping or pain. Pt aslo denied pain when attempting to straight cath. IDALMIS Donovan notified and put
in an order to consult Urology.
[2025-03-02 06:50] LABS: Blood Urea Nitrogen 72 mg/dl (9-20); Calcium 8.4 mg/dl (8.4-10.2); Carbon Dioxide 28 mmol/L (22-30); Chloride 96 mmol/L (98-107); Estimated Creatinine Clearance 22 ml/min; Glucose 79 mg/dl (70-99); Potassium 5.6 mmol/L (3.5-5.1); Sodium 134 mmol/L (135-145); eGFR 23.83
[2025-03-02 07:01] LABS: Hematocrit 27.7 % (39.0-52.0); Hemoglobin 9.1 g/dL (13.0-18.0); Mean Corp Hgb Conc. 32.9 g/dL (33.0-37.0); Mean Corpuscular Hgb 30.2 pg (27.0-31.0); Mean Platelet Volume 12.9 fL (7.4-10.4); Platelet Count 118 10^3/uL (130-400); Red Blood Cell Count 3.01 10^6/uL (4.70-6.10); Red Cell Dist. Width 15.9 % (11.5-14.5); Troponin I 0.076 ng/ml
--- NOTE | 2025-03-02 07:39 | W.PN.CARDCBS ---
Addendum entered and electronically signed by Mohit Benedict DO 03/02/25 09:45:
I saw and examined the patient.
The Grader Tender's note was reviewed and I agree with the note.
Comment:
Plan:
Hyperkalemia and hypoglycemia improved. Transaminitis is worse.
Received IV lasix yesterday. Will ask nephrology about additional lasix today.
If he fails to adequately diurese and LFTs continue to worsen over next 24 hrs, may need to consider inotropic therapy
Echo pending
Amio on hold with LFTs, remains in sinus
He has known severe MR and is not candidate for intervention. Cont medical therapy.
He is not felt to be a candidate for dialysis.
GDMT has been limited due to hypotension and chronic orthostasis requiring chronic high-dose midodrine
Monitor H/H. Urology requests holding xarelto. Pt being treated for urinary retention and hematuria.
Original Note:
Today's Communication / Plan
-
follow potassium levels
repeat EKG.
would recommend additional IV lasix diuresis
LFTs worsening, possibly passive congestion/shock. holding amio
follow hgb. hold xarelto with hematuria per urology
echo
DNR
Impression / Plan
-
PCP: Dr. Song
Cardiology: Dr. Gillis
IMPRESSION:
Hyperkalemia
Hypoglycemia
Metabolic acidosis
Transaminitis
Acute on chronic HFrEF
Decompensated cardiorenal syndrome with ischemic cardiomyopathy and severe mitral regurgitation
Elevated troponin
Abnormal TFTs
ICM EF 30% by echo 05/04/24
Cardiorenal syndrome
CKD 4
CAD
s/p CABG x 3 (COLEMAN - LAD, seq SVG to OM1 to RPLB) 09/19
s/p PCI with JENIFFER to SVG to OM1 to RPLB 10/29/11
s/p acute inferior MN S/P PCI with RCA stent (02/19/17)
s/p Re-op CABG x 2 (left saphenous vein as sequential graft to LAD then to OM1) vein graft tear, anterior wall of RV tear and divided COLEMAN at time of CABG 12/20/19
h/o long admission (46 days) to [facility] for LVAD eval and eventual ICD placement at time of complicated redo CABG 12/2019
h/o left groin abscess with flap closure and VAC treatment 06/2020
s/p [place] single chamber ICD
Paroxysmal Afib
s/p PVI 08/04/17
Chronic Xarelto OAC
HTN
Orthostasis on midodrine
Hyperlipidemia
Former tobacco use
ELI
GERD/Caballero's esophagus
S/p Schatzki's ring dilatation
Severe LAUREN stenosis S/p stent (01/10/2015)
Severe LICA stenosis S/p stent (10/05/2010)
Hx Prostate Ca S/p robotic prostatectomy (2009)
s/p right inguinal herniorrhaphy (1992)
s/p B/L cataract surgery 09/2024
DNR code status
ECHO 12/23/19: with severe left ventricular systolic dysfunction ejection fraction 15�20%. New compared to preoperative echocardiogram
Echo at [facility] 02/2020: EF 36%
Echo 06/26/20: Mildly dilated LV, EF 25-30%, inferior, septal, anteroseptal, apical akinesis with hypokinesis remaining. EF was 40% by Valle, 25-30% visually, mildly dilated and hypokinetic RV, ICD wire, dilated left atrium, mild MR, aortic
sclerosis, moderate TR, pulmonary artery pressure 37-42 mmHg
Echo 05/04/24: EF 30%, akinesis of the septum and inferior de jesus, stage III diastolic dysfunction, moderate to severe MR, moderate TR with PAP 45 mmHg
Echo 10/05/24: EF 25 to 30%, enlarged right ventricle with moderate RV hypokinesis, moderate to severe MR, moderate TR
Plan:
- appears much brighter today and reports feeling improved
- medically complex
- potassium improving, 5.6. continue bicarb as per nephro. 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
- rhythm appears improved on review of tele overnight, in sinus. repeat EKG today. amiodarone presently on hold
- follow LFTs, jumped significantly overnight, possibly CHF/shock related. consider check lactic acid level
- had urinary retention overnight and required urology consult for armstrong placement. urology requested holding xarelto for now. hgb downtrending from 11.9 to 9.1, continue to trend. repeat hgb this afternoon.
- he has ICD however therapies were turned off during prior office visit.
- proBNP greater than 27,000. Chest x-ray with evidence of mild pulmonary edema. Was given a dose of IV Lasix in ER per nephrology. Would recommend ongoing diuresis. Has known cardiorenal syndrome. Creatinine 2.7
- last echo from 09/2024, repeat today
- he has known severe MR and is not candidate for intervention. plan to continue medical therapy however patient is DNR and does not want heroic measures. he is not felt to be a candidate for dialysis.
- GDMT has been limited due to hypotension and chronic orthostasis requiring chronic high-dose midodrine
- trops flat in 0.06-0.07 range. suspected nonischemic myocardial injury. will manage conservatively with aspirin, Lipitor
- d/w nursing
Progress Note - Content Administrator
Subjective
Date of Service: March 02, 2025
reports feeling much improved today compared to yesterday.
Objective
Labs:
03/02/25 05:50
03/02/25 05:50
Labs
Hgb 9.1 g/dL (13.0-18.0) L D 03/02/25 05:50
Hct 27.7 % (39.0-52.0) L 03/02/25 05:50
Plt Count 118 10^3/uL (130-400) L D 03/02/25 05:50
Sodium 134 mmol/L (135-145) L 03/02/25 05:50
Potassium 5.6 mmol/L (3.5-5.1) H 03/02/25 05:50
BUN 72 mg/dl (9-20) H 03/02/25 05:50
Creatinine 2.7 mg/dL (0.7-1.3) H 03/02/25 05:50
Glucose 79 mg/dl (70-99) 03/02/25 05:50
Troponins
03/01/25 03/01/25 03/01/25
06:46 11:22 16:58
Troponin I 0.045 H* 0.062 H* D 0.074 H*
03/02/25
05:50
Troponin I 0.076 H*
Vital Signs and I&O:
Vital Signs
Temp Pulse Resp BP Pulse Ox
98.2 F 70 14 123/55 92
03/02/25 03:02 03/02/25 06:00 03/02/25 06:00 03/02/25 06:00 03/02/25 05:13
Vital Signs
Temp Pulse Resp BP Pulse Ox
98.2 F 70 14 123/55 92
03/02/25 03:02 03/02/25 06:00 03/02/25 06:00 03/02/25 06:00 03/02/25 05:13
Intake & Output
02/27/25 02/28/25 03/01/25 03/02/25
07:59 07:59 07:59 07:59
Intake Total 180 / 180
Balance 180 / 180
Physical Exam
Physical Exam
GEN: No distress, awake, cachectic, chronically ill appearing. on supp O2
HEENT: supple, anicteric, mmm, eomi
LUNGS: CTA B/L, no wheezes
CV: Reg, S1/S2, 2/6 murmur
ABD: soft, BS+, NT/ND
EXT: No cyanosis, clubbing. 2+ ankle edema B/L
NEURO: Gross non-focal
SKIN: Warm, pink, dry. No rash
[2025-03-02 07:49] LABS: ALT (SGPT) 658 U/L (0-50); Albumin 2.9 g/dl (3.5-5.0); Alkaline Phosphatase 127 U/L (38-126); Direct Bilirubin 1.8 mg/dl (0.0-0.4); Total Bilirubin 2.4 mg/dl (0.2-1.3); Total Protein 5.6 g/dl (6.3-8.2)
[2025-03-02 08:01] LABS: AST (SGOT) 1173 U/L (17-59)
[2025-03-02 08:08] LABS: Glucose - Point of Care 90 mg/dl (70-99)
--- NOTE | 2025-03-02 08:40 | CON.MD ---
Consultation - Medical
-
see dictated note
called by nursing due to retention and difficult armstrong placement
pt with hx of robotic prostatectomy 2009 and macroplastique inj in 2016
reports no gu f/u since
voids on his own- some leak- doesnt report any specific problems
was hospitalized and [facility] recently- said they have trouble placing armstrong- but was put in and removed before discharge
no urine output overnight- pt comfortable- pvr 550cc
on initial assesment- pt appears to have meatal stenosis
using f/f- dilated and placed 16 nep[place]e armstrong
clear urine returned
plan
continue armstrong
hold xarelto for 24hrs
check psa
will follow
[2025-03-02] MEDS: ZOLOFT 25 MG PO (09:19)
[2025-03-02] MEDS: SODIUM BICARBONATE 1150 MEQ IV (09:19)
[2025-03-02] MEDS: LOW STRENGTH ASPIRIN 81 MG PO (09:19)
[2025-03-02] MEDS: SYNTHROID 75 MCG PO (09:20)
[2025-03-02] MEDS: PACERONE PO (09:20)
--- NOTE | 2025-03-02 10:55 | W.PN.NEPH.PH ---
Today's Communication / Plan
-
Discontinue bicarbonate drip
Assessment/Plan
-
Impression:
Hyperkalemia (7.6)
Metabolic acidosis
CKD stage IV (2.4)
Cardiorenal syndrome with chronic hemodynamic instability
Ischemic cardiomyopathy EF 30%, DD stage3, mod to severe MR, mod TR
CAD complex history s/p CABG
s/p [employer] single chamber ICD
Paroxysmal Afib
HTN
Orthostasis on midodrine
Hyperlipidemia
Former tobacco use
ELI
GERD/Caballero's esophagus
S/p Schatzki's ring dilatation
Severe LAUREN stenosis S/p stent (01/10/2015)
Severe LICA stenosis S/p stent (10/05/2010)
Hx Prostate Ca S/p robotic prostatectomy (2009)
Plan:
- Urgent treatment of hyperkalemia recommend sodium bicarbonate calcium gluconate Kayexalate and once blood sugars rebound insulin/22
- Status post Farah catheter with residual urine retention and hydro
-
-Creatinine actually within baseline
-Hold further potassium supplements and aldactone
Potassium down to 5.6
Discontinue bicarbonate drip as acidosis has improved
Changed to normal saline and monitor pulmonary status with ejection fraction 25 to 30%
Dr. Reza discussed clinical course with son and . Patient is DNR dialysis would not be provided
Discussed with primary medical nurse
-
-
Date of Service: March 02, 2025
CC / HPI / ROS
-
Chief Complaint:
Hyperkalemia
History of Present Illness:
Acute on chronic kidney disease and severe hyperkalemia 7.6 improved with urinary retention status post Farah catheter
Review of Systems:.
No chest pain or shortness of breath
Labs
-
Labs:
WBC 16.0 10^3/uL (4.8-10.8) H 03/02/25 05:50
RBC 3.01 10^6/uL (4.70-6.10) L 03/02/25 05:50
Plt Count 118 10^3/uL (130-400) L D 03/02/25 05:50
Sodium 134 mmol/L (135-145) L 03/02/25 05:50
Potassium 5.6 mmol/L (3.5-5.1) H 03/02/25 05:50
Chloride 96 mmol/L (98-107) L 03/02/25 05:50
Carbon Dioxide 28 mmol/L (22-30) 03/02/25 05:50
BUN 72 mg/dl (9-20) H 03/02/25 05:50
Creatinine 2.7 mg/dL (0.7-1.3) H 03/02/25 05:50
eGFR 23.83 03/02/25 05:50
Glucose 79 mg/dl (70-99) 03/02/25 05:50
Calcium 8.4 mg/dl (8.4-10.2) 03/02/25 05:50
Osv-D-Bbcvhlttlej Pept > 07096 pg/ml 03/01/25 06:46
Albumin 2.9 g/dl (3.5-5.0) L 03/02/25 05:50
Physical Exam
-
Vital Signs:
Vital Signs
Temp Pulse Resp BP Pulse Ox
97.8 F 72 15 129/57 97
03/02/25 07:30 03/02/25 10:00 03/02/25 10:00 03/02/25 10:00 03/02/25 10:00
Cardiovascular:: Regular rate and rhythm
Respiratory:: Bilateral: CTA
Lung Excursion:: Normal
Abdomen:: Nontender and Soft
Extremity Edema:: +2: Bilateral:
Farah Catheter: Yes
[2025-03-02 11:16] LABS: Lactic Acid 2.2 mmol/L (0.7-2.0)
[2025-03-02] MEDS: NSS 1000 IV ×2 (11:31→22:39)
[2025-03-02 13:09] LABS: Glucose - Point of Care 86 mg/dl (70-99)
--- NOTE | 2025-03-02 13:17 | CM ---
Patient from [facility] with Dx hyperkalemia, metabolic acidosis, BRIGHT, chest pain, HF, malnutrition. O2 4L 03/01 22:59. Receiving IVF. Full liquids. Farah placed.
Spoke with DEIDRE Saini, [facility];
the patient has been A/O and appears 'frail'.
He requires assistance for ADLs and was ambulating short distances until recently, when he complained of being tired and began declining.
The patient was able to self propel his w/c.
He was no longer receiving PT/OT.
Pharmacy -[facility]
The facility has had contact with patient's & son.
The ph for report [phone], fax [phone].
Patient may benefit from PT/OT Evals when medically stabilized ----> message to Dr Grove.
Plan follow up after seen by PT/OT.
Plan probable return to [facility].
--- NOTE | 2025-03-02 14:10 | WOUNDNOTE ---
[facility] RN note: Patient admitted with Hyperkalemia
See H&P for complete history.
PMH: Per Physician note, Hyperkalemia (7.6), Metabolic acidosis, CKD stage IV (2.4)
Cardiorenal syndrome with chronic hemodynamic instabilityIschemic cardiomyopathy EF 30%, DD stage3, mod to severe MR, mod TR
CAD complex history s/p CABG s/p [place] single chamber ICD, Paroxysmal Afib, HTN
Orthostasis on midodrine,Hyperlipidemia, Former tobacco use, ELI, GERD/Caballero's esophagus,S/p Schatzki's ring dilatation,Severe LAUREN stenosis S/p stent (01/10/2015), Severe LICA stenosis S/p stent (10/05/2010),Hx Prostate Ca S/p robotic prostatectomy
(2009)
Wound Location and type/assessment: Patient admitted with stage 1 PI to heels and sacrum. Left LE with open blister draining a small amount of serous fluid. Left 4 th toe with abrasion from traumatic injury from wheelchair when at SNF (per patient
report). Skin tear to right UE with multiple ecchymotic and dry areas. Scabbed abrasion to left knee. See worklist for measurements and description of wound.
Appetite: Poor. Patient reports recent weight loss of 100 lbs in the past year.
Pressure redistribution devices in place: Centrella Max Air, air cushion to chair, heels off-loaded with pillow under calves when in bed.
Plan: Local wound care provided to all wounds as ordered. Will recommend Hydrophor for dry skin on UE. Bed changed from Centrella Pro to Centrella Max Air with assistance from RN's Shobha. Will confirm orders with hospitalist and update
nurse. Updated care plan and will follow as needed.
Note to case management of equipment requested for discharge:
Recommend follow up at wound care center upon discharge.
--- NOTE | 2025-03-02 14:30 | WOUNDNOTE ---
[facility] RN note: Patient admitted with weakness
See H&P for complete history.
PMH: Per Physician note: chronic systolic congestive heart failure, ischemic cardiomyopathy, severe mitral regurgitation, history of bypass/with redo bypass/PCI, paroxysmal atrial fibrillation, history of ICD placement, essential hypertension,
hyperlipidemia, sleep apnea, history of inguinal hernia repair, history of cataract surgery, cachexia/protein calorie malnutrition
Wound Location and type/assessment: Patient admitted with stage 1 to sacrum and bilateral heels, partial thickness wound to right anterior third toe, skin tear to right forearm, and blister to left lower leg. Patient also has a left knee abrasion.
See worklist for details and measurements of wounds.
Appetite: Fair. Per chart review patient has protein calorie malnutrition
Pressure redistribution devices in place: Patient moved to Air bed during assessment, heels off-loaded with pillows under calves.
Plan: Local wound care provided per order. Will confirm orders with hospitalist and update nurse. Updated care plan and will follow as needed.
Note to case management of equipment requested for discharge:
Recommend follow up at wound care center upon discharge.
--- NOTE | 2025-03-02 14:36 | WOUNDNOTE ---
RIGHT 3RD TOE
--- NOTE | 2025-03-02 14:37 | WOUNDNOTE ---
LEFT ANTERIOR LOWER LEG
--- NOTE | 2025-03-02 14:38 | WOUNDNOTE ---
LEFT GREAT TOE
--- NOTE | 2025-03-02 14:40 | WOUNDNOTE ---
LEFT GREAT, 3RD TOE
[2025-03-02 14:48] LABS: Hematocrit 28.7 % (39.0-52.0); Hemoglobin 9.3 g/dL (13.0-18.0)
[2025-03-02 14:52] LABS: Urine Albumin 2+ (Neg - Trace); Urine Bilirubin Negative (Negative); Urine Character Clear (Clear); Urine Color Yellow; Urine Glucose Negative (Negative); Urine Ketone Negative (Negative); Urine Leukocyte 1+ (Negative); Urine Nitrite Negative (Negative); Urine Occult Blood 4+ (Negative); Urine Specific Gravity 1.005 (<1.030); Urine Urobilinogen 2+ (Neg - 1+)
[2025-03-02 14:59] LABS: Lactic Acid 2.7 mmol/L (0.7-2.0)
[2025-03-02 15:12] LABS: Urine Squamous Cell 0-2 /LPF (Few)
[2025-03-02 15:13] LABS: Urine Bacteria Few (Negative); Urine Red Blood Cell 40-50 /HPF (0-2)
[2025-03-02 16:15] LABS: Troponin I 0.059 ng/ml
--- NOTE | 2025-03-02 16:18 | W.PN.HOSP.TC ---
Today's Communication/Plan
-
see note
guarded prognosis
Assessment / Plan
Assessment / Plan
1. Hyperkalemia - Improving
- Patient presented with potassium of 7.6
- Multifactorial from potassium supplement/Aldactone/CKD/metabolic acidosis
- EKG showing problematic QRS widening with sine early sine wave forming
- Good calcium gluconate/Lasix/insulin glucose in ER
- Got Kayexalate as well
- Low K diet started
- slowly trending down
2. Anion gap metabolic acidosis - resolved
-Likely with underlying CKD
-Improved with bicarb drip, discontinued.
3. BRIGHT on Chronic kidney disease stage IV
- Lowest cr of 1.3 from last visit, comes in with cr of 2.6
- Patient found to have urinary retention, difficult Farah catheter urology had to place Farah today
- Monitor renal function recovery
4. Hypoglycemia - resolved
-From decreased oral intake
-Reported nausea vomiting and decreased oral intake for few days
- Required D5/IVF
- Diet advanced to low potassium diet
5. Chest pain
Troponin elevation
History of CAD with bypass/redo bypass/PCI
- Patient hav has history of multivessel CAD, was provided nitro pills in the facility x 3 before presenting
- With hyperkalemia related EKG changes unable to appreciate any significant ST segment deviation
- Troponin elevation likely felt to be type II CO related
- Cardiology consultation requested for further help
6. Acute transaminitis - worsening
- ALT 173/AST 287/ALP 152 at admission
- LFTs are rapidly uptrending and 1k +today
- Hold amiodarone dose
- Component of congestive hepatopathy is possibly
- Liver and abdominal ultrasound has been ordered
- Cardio will consider inotropic's if not able
7. Acute on chronic systolic congestive heart failure
-Elevated proBNP > 27k, ER weight 66kg, some leg swelling
- Chest x-ray showing cardiomegaly and pulmonary vascular congestion
- Portable Lasix 40 mg in ER, further dosing per nephrology/cardiology
8. Severe protein calorie malnutrition
-Patient have cardiac cachexia and decreased appetite/weight loss for some time
9. Paroxysmal atrial fibrillation
-Continue home dose of Xarelto
10. Right arm swelling
- Patient had infiltration of dextrose in ER causing significant forearm/elbow swelling
-Hyaluronidase injection was provided
-Patient already on Xarelto low chance of new deep venous thrombosis. monitor
11. Superficial skin wound
-wound care to be continued
- Patient had superficial denuding of the skin from friction injury in ER as well, Band-Aid in place
12. Leukocytosis without fever
- No clear infection source at this point, monitor.
- UA showing bacteriuria no pyuria.
Lactic acidosis
Hyponatremia
DVTPPX- xarelto
DNR/DNI -confirmed with family at bedside
Total time spent : 55 mins
Anticipated Discharge: > 48 hours
Subjective/Interval History
-
Date of Service: March 02, 2025
Patient mentation is better
Denies of having any ongoing shortness of breath/chest discomfort
No abdominal pain nausea vomiting
Objective Data
-
Labs:
Laboratory Results
03/02/25 03/02/25
05:50 14:27
WBC 16.0 H
Hgb 9.1 L D 9.3 L
Hct 27.7 L 28.7 L
Plt Count 118 L D
Sodium 134 L
Potassium 5.6 H
Chloride 96 L
Carbon Dioxide 28
BUN 72 H
Creatinine 2.7 H
Glucose 79
Calcium 8.4
Total Bilirubin 2.4 H
AST 1173 H*
ALT 658 H*
Alkaline Phosphatase 127 H
Vital Signs:
Vital Signs
Temp Pulse Resp BP Pulse Ox
97.8 F 72 15 129/57 97
03/02/25 07:30 03/02/25 10:00 03/02/25 10:00 03/02/25 10:00 03/02/25 10:00
I&O
03/01/25 03/02/25 03/03/25
06:59 06:59 06:59
Intake Total 180 / 180
Output Total 500 / 500
Balance 180 / 180 -500 / -500
Review of Systems
-
Respiratory: Reports No Symptoms
Cardiac: Reports No Symptoms
Abdomen/GI: Reports No Symptoms
Physical Exam
-
General: Comfortable and Cachectic
HEENT: Oxygen
Respiratory: Clear to Auscultation
Cardiac: S1/S2 and Murmur; Negative Rub
GI: Soft, Nontender and Nondistended
Musculoskeletal: Edema, Right Lower Extrem and Edema, Left Lower Extrem
Neuro: Awake, Alert, Oriented, No Motor Deficits and Nonfocal/Grossly Intact
Psych: Calm
[2025-03-02 18:06] LABS: Glucose - Point of Care 86 mg/dl (70-99)
--- NOTE | 2025-03-02 18:32 | PTCARENOTE ---
AAOx3 , LC weaned o2 to 2L NC (from 6L) sao2 94%. SR on tele unchanged, BP adequate. IVF infusing via Left midline - good blood return. Farah patent 850 total this shift. Clear yellow urine replaced ams jacob urine> oob for 2 hours mod assist 1
with RW. ECHO completed. Lab results relayed to Dr. Grove. Lucía held per order- urology requested. Right skin tear dressing changed by WOC today- bleeding through dressing noted- replaced and rewrapped. Enjoying po dinner this pm- pt aware
he needs to be NPO after mn for US ABD>
[2025-03-02] MEDS: SINGULAIR 10 MG PO (20:36)
[2025-03-02 22:52] LABS: Glucose - Point of Care 123 mg/dl (70-99)
[2025-03-03] VITALS (18 sets, daily range): BP systolic 99–124; BP diastolic 57–81; BMI 23.9
[2025-03-03 05:03] LABS: Hematocrit 28.6 % (39.0-52.0); Hemoglobin 9.2 g/dL (13.0-18.0); Mean Corp Hgb Conc. 32.2 g/dL (33.0-37.0); Mean Corpuscular Hgb 29.9 pg (27.0-31.0); Mean Corpuscular Volume 92.9 fL (80.0-94.0); Mean Platelet Volume 12.3 fL (7.4-10.4); Platelet Count 103 10^3/uL (130-400); Red Blood Cell Count 3.08 10^6/uL (4.70-6.10); Red Cell Dist. Width 16.1 % (11.5-14.5); White Blood Cell Count 10.1 10^3/uL (4.8-10.8)
[2025-03-03 05:30] LABS: ALT (SGPT) 649 U/L (0-50); Alkaline Phosphatase 136 U/L (38-126); Blood Urea Nitrogen 72 mg/dl (9-20); Calcium 8.3 mg/dl (8.4-10.2); Carbon Dioxide 27 mmol/L (22-30); Chloride 96 mmol/L (98-107); Estimated Creatinine Clearance 21 ml/min; Glucose 77 mg/dl (70-99); Potassium 5.3 mmol/L (3.5-5.1); Sodium 135 mmol/L (135-145); Total Bilirubin 2.2 mg/dl (0.2-1.3); Total Protein 5.8 g/dl (6.3-8.2); eGFR 22.81
[2025-03-03 05:38] LABS: AST (SGOT) 900 U/L (17-59)
[2025-03-03 05:55] LABS: PSA, Total - Diagnostic 0.08 ng/ml (0.0-4.0)
--- NOTE | 2025-03-03 06:14 | PTCARENOTE ---
No acute events overnight. right skin tear dressing due to drainage. assessment and vital signs as documented. call velazquez in reach.
[2025-03-03 07:31] LABS: Glucose - Point of Care 112 mg/dl (70-99)
--- NOTE | 2025-03-03 07:55 | PTCARENOTE ---
Patient sent to US for abdominal US.
[2025-03-03] MEDS: NSS 1000 IV (09:13)
[2025-03-03] MEDS: LOW STRENGTH ASPIRIN 81 MG PO (09:15)
[2025-03-03] MEDS: ZOLOFT 25 MG PO (09:15)
[2025-03-03] MEDS: SYNTHROID 75 MCG PO (09:15)
[2025-03-03] MEDS: HYDROPHOR 1 APPLIC TOPICAL (09:15)
--- NOTE | 2025-03-03 10:25 | W.PN.CARDCBS ---
Addendum entered and electronically signed by Mohit Benedict DO 03/03/25 11:41:
I saw and examined the patient.
The [employer] Lieutenant's note was reviewed and I agree with the note.
Comment:
Plan:
Would like to start IV lasix and discussed with nephrology ok with lasix 40 mg IV today
Monitor cr
Echo is pending
Resume amiodarone and Xarelto pending improvement in hematuria and his arm.
Monitor daily wts
LFTs improving
Original Note:
Today's Communication / Plan
-
recommend standing IV lasix dose
follow K
echo pending
resume amio/xarelto as able
Impression / Plan
-
PCP: Dr. Song
Cardiology: Dr. Gillis
IMPRESSION:
Hyperkalemia
Hypoglycemia
Metabolic acidosis
Transaminitis
Acute on chronic HFrEF
Decompensated cardiorenal syndrome with ischemic cardiomyopathy and severe mitral regurgitation
Elevated troponin
Abnormal TFTs
ICM EF 30% by echo 05/04/24
Cardiorenal syndrome
CKD 4
CAD
s/p CABG x 3 (COLEMAN - LAD, seq SVG to OM1 to RPLB) 09/19
s/p PCI with JENIFFER to SVG to OM1 to RPLB 10/29/11
s/p acute inferior NC S/P PCI with RCA stent (02/19/17)
s/p Re-op CABG x 2 (left saphenous vein as sequential graft to LAD then to OM1) vein graft tear, anterior wall of RV tear and divided COLEMAN at time of CABG 12/20/19
h/o long admission (46 days) to [place] for LVAD eval and eventual ICD placement at time of complicated redo CABG 12/2019
h/o left groin abscess with flap closure and VAC treatment 06/2020
s/p [place] single chamber ICD
Paroxysmal Afib
s/p PVI 08/04/17
Chronic Xarelto OAC
HTN
Orthostasis on midodrine
Hyperlipidemia
Former tobacco use
ELI
GERD/Caballero's esophagus
S/p Schatzki's ring dilatation
Severe LAUREN stenosis S/p stent (01/10/2015)
Severe LICA stenosis S/p stent (10/05/2010)
Hx Prostate Ca S/p robotic prostatectomy (2009)
s/p right inguinal herniorrhaphy (1992)
s/p B/L cataract surgery 09/2024
DNR code status
ECHO 12/23/19: with severe left ventricular systolic dysfunction ejection fraction 15�20%. New compared to preoperative echocardiogram
Echo at [place] 02/2020: EF 36%
Echo 06/26/20: Mildly dilated LV, EF 25-30%, inferior, septal, anteroseptal, apical akinesis with hypokinesis remaining. EF was 40% by Val[place], 25-30% visually, mildly dilated and hypokinetic RV, ICD wire, dilated left atrium, mild MR, aortic
sclerosis, moderate TR, pulmonary artery pressure 37-42 mmHg
Echo 05/04/24: EF 30%, akinesis of the septum and inferior de jesus, stage III diastolic dysfunction, moderate to severe MR, moderate TR with PAP 45 mmHg
Echo 10/05/24: EF 25 to 30%, enlarged right ventricle with moderate RV hypokinesis, moderate to severe MR, moderate TR
Plan:
- Continues to improve
- Potassium down to 5.3. Continue correction as per nephrology. Prior to admission spironolactone and supplemental potassium have been stopped.
- in SR. amio on hold due to elevated LFTs, remain elevated but downtrending. consider resuming in AM
- hgb stable at 9.2. xarelto on hold due to hematuria, anemia. also with infiltrated R forearm IV site with ongoing bleeding and swelling
- he has ICD however therapies were turned off during prior office visit.
- proBNP greater than 27,000. Chest x-ray with evidence of mild pulmonary edema. recommend IV lasix. patient complaining of orthopnea, and with weight gain overnight if accurate. Cr stable at 2.8
- echo pending
- he has known severe MR and is not candidate for intervention. plan to continue medical therapy however patient is DNR and does not want heroic measures. he is not felt to be a candidate for dialysis.
- GDMT has been limited due to hypotension and chronic orthostasis requiring chronic high-dose midodrine
- trops flat in 0.06-0.07 range. suspected nonischemic myocardial injury. will manage conservatively with aspirin, Lipitor
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
Subjective
Date of Service: March 03, 2025
reports orthopnea and RUE swelling/bleeding
Objective
Labs:
03/03/25 04:21
03/03/25 04:21
Labs
Hgb 9.2 g/dL (13.0-18.0) L 03/03/25 04:21
Hct 28.6 % (39.0-52.0) L 03/03/25 04:21
Plt Count 103 10^3/uL (130-400) L 03/03/25 04:21
Sodium 135 mmol/L (135-145) 03/03/25 04:21
Potassium 5.3 mmol/L (3.5-5.1) H 03/03/25 04:21
BUN 72 mg/dl (9-20) H 03/03/25 04:21
Creatinine 2.8 mg/dL (0.7-1.3) H 03/03/25 04:21
Glucose 77 mg/dl (70-99) 03/03/25 04:21
Troponins
03/01/25 03/01/25 03/01/25
06:46 11:22 16:58
Troponin I 0.045 H* 0.062 H* D 0.074 H*
03/02/25 03/02/25
05:50 15:34
Troponin I 0.076 H* 0.059 H*
Vital Signs and I&O:
Vital Signs
Temp Pulse Resp BP Pulse Ox
98.1 F 71 19 113/72 95
03/03/25 07:50 03/03/25 08:00 03/03/25 08:00 03/03/25 08:00 03/03/25 08:50
Vital Signs
Temp Pulse Resp BP Pulse Ox
98.1 F 71 19 113/72 95
03/03/25 07:50 03/03/25 08:00 03/03/25 08:00 03/03/25 08:00 03/03/25 08:50
Intake & Output
03/01/25 03/02/25 03/03/25 03/04/25
07:59 07:59 07:59 07:59
Intake Total 180 / 180 2360 / 2360
Output Total 1150 / 1150
Balance 180 / -320 1210 / 1210
Physical Exam
Physical Exam
GEN: No distress, awake, cachectic, chronically ill appearing.
HEENT: supple, anicteric, mmm, eomi
LUNGS: Crackles of B/L bases, no wheezes
CV: Reg, S1/S2, 2/6 murmur
ABD: soft, BS+, NT/ND
EXT: No cyanosis, clubbing. 2+ ankle edema B/L
NEURO: Gross non-focal
SKIN: Warm, pink, dry. No rash
[2025-03-03] MEDS: LASIX 40 MG IV (11:47)
--- NOTE | 2025-03-03 11:50 | W.PN.NEPH.PH ---
Today's Communication / Plan
-
Discontinue IV fluid
Lasix 40 mg IV daily
Assessment/Plan
-
Impression:
Hyperkalemia (7.6)
Metabolic acidosis
CKD stage IV (2.4)
Cardiorenal syndrome with chronic hemodynamic instability
Ischemic cardiomyopathy EF 30%, DD stage3, mod to severe MR, mod TR
CAD complex history s/p CABG
s/p [employer] single chamber ICD
Paroxysmal Afib
HTN
Orthostasis on midodrine
Hyperlipidemia
Former tobacco use
ELI
GERD/Caballero's esophagus
S/p Schatzki's ring dilatation
Severe LAUREN stenosis S/p stent (01/10/2015)
Severe LICA stenosis S/p stent (10/05/2010)
Hx Prostate Ca S/p robotic prostatectomy (2009)
Plan:
- Status post urgent treatment of hyperkalemia recommend sodium bicarbonate calcium gluconate Kayexalate and once blood sugars rebound insulin/22
- Status post Farah catheter with residual urine retention and hydro
-
-Creatinine within baseline
-Hold further potassium supplements and aldactone
Potassium down to 5.6> 5.3
Discontinue IV fluid
ejection fraction 25 to 30% with orthopnea
Restarted diuretics/discussed with cardiology
Dr. Reza discussed clinical course with son and . Patient is DNR dialysis would not be provided
Discussed with primary medical nurse
-
-
Date of Service: March 03, 2025
CC / HPI / ROS
-
Chief Complaint:
Hyperkalemia
History of Present Illness:
Acute on chronic kidney disease and severe hyperkalemia 7.6 improved with urinary retention status post Farah catheter
Review of Systems:.
No chest pain or shortness of breath
Labs
-
Labs:
WBC 10.1 10^3/uL (4.8-10.8) 03/03/25 04:21
RBC 3.08 10^6/uL (4.70-6.10) L 03/03/25 04:21
Hgb 9.2 g/dL (13.0-18.0) L 03/03/25 04:21
Hct 28.6 % (39.0-52.0) L 03/03/25 04:21
Plt Count 103 10^3/uL (130-400) L 03/03/25 04:21
Sodium 135 mmol/L (135-145) 03/03/25 04:21
Potassium 5.3 mmol/L (3.5-5.1) H 03/03/25 04:21
Chloride 96 mmol/L (98-107) L 03/03/25 04:21
Carbon Dioxide 27 mmol/L (22-30) 03/03/25 04:21
BUN 72 mg/dl (9-20) H 03/03/25 04:21
Creatinine 2.8 mg/dL (0.7-1.3) H 03/03/25 04:21
eGFR 22.81 03/03/25 04:21
Glucose 77 mg/dl (70-99) 03/03/25 04:21
Calcium 8.3 mg/dl (8.4-10.2) L 03/03/25 04:21
Huc-G-Weuaacglanz Pept > 84990 pg/ml 03/01/25 06:46
Albumin 3.0 g/dl (3.5-5.0) L 03/03/25 04:21
Physical Exam
-
Vital Signs:
Vital Signs
Temp Pulse Resp BP Pulse Ox
98.1 F 69 19 112/69 95
03/03/25 07:50 03/03/25 11:47 03/03/25 08:00 03/03/25 11:47 03/03/25 08:50
Cardiovascular:: Regular rate and rhythm
Respiratory:: Bilateral: CTA
Lung Excursion:: Normal
Abdomen:: Nontender and Soft
Extremity Edema:: +2: Bilateral:
Farah Catheter: Yes
[2025-03-03 12:09] LABS: Glucose - Point of Care 112 mg/dl (70-99)
--- NOTE | 2025-03-03 12:11 | PTCARENOTE ---
Patient R arm skin tear is saturating through dressing changes with sanguineous drainage about once a shift. made aware.
--- NOTE | 2025-03-03 14:40 | W.PN.HOSP.TC ---
Today's Communication/Plan
-
Monitor liver enzyme
Resume lasix
Assessment / Plan
Assessment / Plan
1. Hyperkalemia - Improving
- Patient presented with potassium of 7.6
- Multifactorial from potassium supplement/Aldactone/CKD/metabolic acidosis
- EKG showing problematic QRS widening with sine early sine wave forming
- Good calcium gluconate/Lasix/insulin glucose in ER
- Got Kayexalate as well
- Low K diet started
- slowly trending down
2. Anion gap metabolic acidosis - resolved
-Likely with underlying CKD
-Improved with bicarb drip, discontinued.
3. BRIGHT on Chronic kidney disease stage IV
- Lowest cr of 1.3 from last visit, comes in with cr of 2.6
- Patient found to have urinary retention, difficult Farah catheter urology had to place Farah today
- Monitor renal function recovery
4. Hypoglycemia - resolved
-From decreased oral intake
-Reported nausea vomiting and decreased oral intake for few days
- Required D5/IVF
- Diet advanced to low potassium diet
5. Chest pain
Troponin elevation
History of CAD with bypass/redo bypass/PCI
- Patient hav has history of multivessel CAD, was provided nitro pills in the facility x 3 before presenting
- With hyperkalemia related EKG changes unable to appreciate any significant ST segment deviation
- Troponin elevation likely felt to be type II [place] related
- Cardiology consultation requested for further help
6. Acute transaminitis - worsening
- ALT 173/AST 287/ALP 152 at admission
- LFTs are rapidly uptrending and 1k +today
- Hold amiodarone dose
- Component of congestive hepatopathy is possibly
- Liver and abdominal ultrasound has been ordered
- Cardio will consider inotropic's if not able
03/03
Us shows:
1. Diffuse intraperitoneal ascites.
2. Gallbladder sludge and small gallstones. Gallbladder wall thickening and fluid adjacent to the gallbladder, more likely to be related to ascites then acute cholecystitis. Negative sonographic Levy's sign.
3. Hepatic veins and main portal vein are patent.
4. Bilateral renal cortical thinning, suggestive of medical renal disease. No hydronephrosis on either side.
7. Acute on chronic systolic congestive heart failure
-Elevated proBNP > 27k, ER weight 66kg, some leg swelling
- Chest x-ray showing cardiomegaly and pulmonary vascular congestion
- Portable Lasix 40 mg in ER, further dosing per nephrology/cardiology
8. Severe protein calorie malnutrition
-Patient have cardiac cachexia and decreased appetite/weight loss for some time
9. Paroxysmal atrial fibrillation
-Continue home dose of Xarelto
10. Right arm swelling
- Patient had infiltration of dextrose in ER causing significant forearm/elbow swelling
-Hyaluronidase injection was provided
-Patient already on Xarelto low chance of new deep venous thrombosis. monitor
11. Superficial skin wound
-wound care to be continued
- Patient had superficial denuding of the skin from friction injury in ER as well, Band-Aid in place
12. Leukocytosis without fever
- No clear infection source at this point, monitor.
- UA showing bacteriuria no pyuria.
Lactic acidosis
Hyponatremia
CODE STATUS:DNR
DVT prophylaxis: Xarelto
Diet: Regular diet
Total time spent on today's encounter was 65 minutes which included time spent in counseling the patient/family regarding diagnosis and treatment plan as listed above, goals of care, and symptom management. Case was discussed with nursing staff,
specialists, and care coordinators/case management. All labs and imaging personally reviewed by me. Remainder the time spent in detailed review of previous records, lab data, imaging, and other medical provider documentation.
Anticipated Discharge: > 48 hours
Subjective/Interval History
-
Date of Service: March 03, 2025
Patient seen and examined at bedside, patient complaining of headache but otherwise denies any chest pain or shortness of breath, no abdominal pain, no nausea, no vomiting, no diarrhea or constipation.
Objective Data
-
Labs:
Laboratory Results
03/03/25
04:21
WBC 10.1
Hgb 9.2 L
Hct 28.6 L
Plt Count 103 L
Sodium 135
Potassium 5.3 H
Chloride 96 L
Carbon Dioxide 27
BUN 72 H
Creatinine 2.8 H
Glucose 77
Calcium 8.3 L
Total Bilirubin 2.2 H
AST 900 H*
ALT 649 H*
Alkaline Phosphatase 136 H
Vital Signs:
Vital Signs
Temp Pulse Resp BP Pulse Ox
97.4 F 65 16 108/61 99
03/03/25 11:30 03/03/25 12:00 03/03/25 12:00 03/03/25 12:00 03/03/25 10:00
I&O
03/02/25 03/03/25 03/04/25
06:59 06:59 06:59
Intake Total 180 / 180 2360 / 2360
Output Total 1150 / 1150
Balance 180 / 180 1210 / 1210
Physical Exam
-
General: Well Nourished, No Apparent Distress, Comfortable and Appears in Distress
HEENT: Normocephalic, Atraumatic, Moist Mucous Membranes, No Ptosis, PERRLA and Nose Appears Normal
Respiratory: Rales, Rhonchi, Crackles and Non Labored Respirations
Cardiac: Regular Rhythm and S1/S2
Breast: Deferred by me
GI: Soft, Nontender, Nondistended and Normal Bowel Sounds
Genito-urinary: No Costovertebral Tender
Musculoskeletal: No Clubbing, No Cyanosis, Edema, Right Lower Extrem and Edema, Left Lower Extrem
Skin: Warm
Neuro: Awake, Alert, Oriented, AO x 3 and No Motor Deficits
Psych: Calm
Data Reviewed
-
Diagnostic Radiology: Image personally visualized and interpreted and Report Reviewed by me
CT Scan: Image personally visualized and interpreted and Report Reviewed by me
Ultrasound: Image personally visualized and interpreted and Report Reviewed by me
MRI: Image personally visualized and interpreted and Report Reviewed by me
Medical Tests (Nuc Med, Echo etc): Image personally visualized and interpreted and Report Reviewed by me
Labs: Labs Reviewed by me
Old Records: Reviewed
--- NOTE | 2025-03-03 15:43 | PTCARENOTE ---
Patient reporting feeling short of breath and having chest pressure, like a 'baby elephant is sitting on my chest.' Pt also reports a frontal headache, rating 6/10. Pt denies nausea, lightheadedness or dizziness. Applied 2L NC for shortness of
breath. TT to , and ANSELMO Rose. ordered EKG. ANSELMO Rose to bedside to evaluate patient and look at EKG. Vital signs stable.
--- NOTE | 2025-03-03 15:44 | W.PN.UPDATE ---
Update Note
Progress Note Update
CTSP urgently for complaints of SOB and some chest pressure. back on 2L NC with improved O2 sats. reports some improvement in symptoms with this. ~400cc out in armstrong since this morning. review of tele SR without correlating arrhythmias. EKG stable
compared to prior. suspect related to acute CHF. will give 40mg IV lasix now. d/w nursing as well as with at bedside.
[2025-03-03] MEDS: XARELTO PO (18:09)
[2025-03-03] MEDS: NSS IV (18:10)
--- NOTE | 2025-03-03 18:10 | PTCARENOTE ---
Per order, pt's Xarelto was resumed today at 1800. Per cardiology notes, it is unclear if patient should resume Xarelto. TT to cardiology & hospitalist. No answer for if patient can take Xarelto tonight. Xarelto held.
[2025-03-03] MEDS: SINGULAIR 10 MG PO (21:38)
[2025-03-04] VITALS (28 sets, daily range): BP systolic 100–127; BP diastolic 60–75; BMI 22.9
[2025-03-04 04:31] LABS: Hematocrit 28.2 % (39.0-52.0); Hemoglobin 9.2 g/dL (13.0-18.0); Mean Corp Hgb Conc. 32.6 g/dL (33.0-37.0); Mean Corpuscular Hgb 30.3 pg (27.0-31.0); Mean Corpuscular Volume 92.8 fL (80.0-94.0); Mean Platelet Volume 12.4 fL (7.4-10.4); Platelet Count 86 10^3/uL (130-400); Red Blood Cell Count 3.04 10^6/uL (4.70-6.10); White Blood Cell Count 8.3 10^3/uL (4.8-10.8)
[2025-03-04 04:54] LABS: ALT (SGPT) 508 U/L (0-50); AST (SGOT) 472 U/L (17-59); Albumin 2.8 g/dl (3.5-5.0); Alkaline Phosphatase 130 U/L (38-126); Blood Urea Nitrogen 76 mg/dl (9-20); Calcium 8.4 mg/dl (8.4-10.2); Carbon Dioxide 30 mmol/L (22-30); Chloride 98 mmol/L (98-107); Estimated Creatinine Clearance 22 ml/min; Glucose 96 mg/dl (70-99); Potassium 5.3 mmol/L (3.5-5.1); Sodium 135 mmol/L (135-145); Total Protein 5.6 g/dl (6.3-8.2); eGFR 23.83
[2025-03-04] MEDS: LOW STRENGTH ASPIRIN 81 MG PO (07:54)
[2025-03-04] MEDS: HYDROPHOR 1 APPLIC TOPICAL (07:54)
[2025-03-04] MEDS: ZOLOFT 25 MG PO (07:54)
[2025-03-04] MEDS: SYNTHROID 75 MCG PO (07:54)
[2025-03-04] MEDS: LASIX 40 MG IV ×2 (07:54→16:57)
--- NOTE | 2025-03-04 09:02 | W.PN.URO.CBU ---
Today's Communication / Plan
-
continue armstrong
Assessment / Plan
-
hx of prostate cancer
urinary retention requiring dilation of meatal stenosis/ armstrong
psa under 1
urine clear- of to restart anticoagulation
armstrong needs to remain approx 5 days from time of dilation- if he remains in house- can remove for TOV/ if discharged- [facility] should contact my office for follow up
Diagnosis
-
Date of Service: March 04, 2025
-
Patient Diagnosis:
prostate cancer
urinary retention
meatal stenosis
Subjective
-
pt remains in IMU due to cardiac issues
armstrong in place- urine clear
psa under 1
Objective
-
Vital Signs
Temp Pulse Resp BP Pulse Ox
97.9 F 69 22 108/69 99
03/04/25 07:05 03/04/25 07:54 03/04/25 06:00 03/04/25 07:54 03/04/25 06:00
Intake and Output
03/03/25 03/04/25 03/05/25
06:59 06:59 06:59
Intake Total 2360 / 2360 200 / 200
Output Total 1150 / 1150 400 / 400
Balance 1210 / 1210 -200 / -200
Intake:
Oral fluids 1160 / 1160
IV fluids (Total) 1200 / 1200 200 / 200
Output:
Urine, Armstrong 1150 / 1150 400 / 400
True urine output from hand 0 / 0
irrigation
Laboratory Results
03/04/25 03:55
03/04/25 03:55
Review of Systems
-
Constitutional: Fatigue
Respiratory: Other (mild SOB)
Cardiac: No Symptoms
Abdomen/GI: No Symptoms
Physical Exam
-
General - chronically ill appearing- no acute distress
Abdomen - soft, non-tender
Genitalia - armstrong in place
--- NOTE | 2025-03-04 09:11 | W.PN.CARDCBS ---
Today's Communication / Plan
-
Increase Lasix to twice daily
Will try low-dose hydralazine for afterload reduction
Impression / Plan
-
PCP: Dr. Song
Cardiology: Dr. Gillis
IMPRESSION:
Hyperkalemia
Hypoglycemia
Metabolic acidosis
Transaminitis
Acute on chronic HFrEF
Decompensated cardiorenal syndrome with ischemic cardiomyopathy and severe mitral regurgitation
Elevated troponin
Abnormal TFTs
ICM EF 30% by echo 05/04/24
Cardiorenal syndrome
CKD 4
CAD
s/p CABG x 3 (COLEMAN - LAD, seq SVG to OM1 to RPLB) 09/19
s/p PCI with JENIFFER to SVG to OM1 to RPLB 10/29/11
s/p acute inferior [place] S/P PCI with RCA stent (02/19/17)
s/p Re-op CABG x 2 (left saphenous vein as sequential graft to LAD then to OM1) vein graft tear, anterior wall of RV tear and divided COLEMAN at time of CABG 12/20/19
h/o long admission (46 days) to [facility] for LVAD eval and eventual ICD placement at time of complicated redo CABG 12/2019
h/o left groin abscess with flap closure and VAC treatment 06/2020
s/p [employer] single chamber ICD
Paroxysmal Afib
s/p PVI 08/04/17
Chronic Xarelto OAC
HTN
Orthostasis on midodrine
Hyperlipidemia
Former tobacco use
ELI
GERD/Caballero's esophagus
S/p Schatzki's ring dilatation
Severe LAUREN stenosis S/p stent (01/10/2015)
Severe LICA stenosis S/p stent (10/05/2010)
Hx Prostate Ca S/p robotic prostatectomy (2009)
s/p right inguinal herniorrhaphy (1992)
s/p B/L cataract surgery 09/2024
DNR code status
ECHO 12/23/19: with severe left ventricular systolic dysfunction ejection fraction 15�20%. New compared to preoperative echocardiogram
Echo at [facility] 02/2020: EF 36%
Echo 06/26/20: Mildly dilated LV, EF 25-30%, inferior, septal, anteroseptal, apical akinesis with hypokinesis remaining. EF was 40% by [facility], 25-30% visually, mildly dilated and hypokinetic RV, ICD wire, dilated left atrium, mild MR, aortic
sclerosis, moderate TR, pulmonary artery pressure 37-42 mmHg
Echo 05/04/24: EF 30%, akinesis of the septum and inferior de jesus, stage III diastolic dysfunction, moderate to severe MR, moderate TR with PAP 45 mmHg
Echo 10/05/24: EF 25 to 30%, enlarged right ventricle with moderate RV hypokinesis, moderate to severe MR, moderate TR
Plan:
#HFrEF: Suspect he is in a low flow state, cool and wet on exam
Elevated LFTs suggestive of congestive hepatopathy and are slowly improving
Recommend increasing IV Lasix to twice daily
Follow renal function electrolytes closely
GDMT has been limited due to hypotension and acute kidney injury
Will trial low-dose hydralazine for afterload reduction
Would consider inotrope support, but will need to discuss if this is in line with his goals of care; ICD therapies were turned off during prior office visit
#H/o AFib:
Maintaining sinus rhythm
Amio on hold with elevated LFTs
Xarelto on hold due to hematuria
#Elevated troponin: Flat in 0.06-0.07 range. suspected nonischemic myocardial injury in setting of end stage CHF. will manage conservatively with aspirin. Lipitor held for elevated LFTs.
Progress Note - Manager Gyn
Subjective
Date of Service: March 04, 2025
No acute overnight events. Patient had episode of chest discomfort yesterday but seems to be resting comfortably today in the IMU.
Objective
Labs:
03/04/25 03:55
03/04/25 03:55
Labs
Hgb 9.2 g/dL (13.0-18.0) L 03/04/25 03:55
Hct 28.2 % (39.0-52.0) L 03/04/25 03:55
Plt Count 86 10^3/uL (130-400) L 03/04/25 03:55
Sodium 135 mmol/L (135-145) 03/04/25 03:55
Potassium 5.3 mmol/L (3.5-5.1) H 03/04/25 03:55
BUN 76 mg/dl (9-20) H 03/04/25 03:55
Creatinine 2.7 mg/dL (0.7-1.3) H 03/04/25 03:55
Glucose 96 mg/dl (70-99) 03/04/25 03:55
Troponins
03/01/25 03/01/25 03/02/25
11:22 16:58 05:50
Troponin I 0.062 H* D 0.074 H* 0.076 H*
03/02/25
15:34
Troponin I 0.059 H*
Vital Signs and I&O:
Vital Signs
Temp Pulse Resp BP Pulse Ox
97.9 F 69 22 108/69 99
03/04/25 07:05 03/04/25 07:54 03/04/25 06:00 03/04/25 07:54 03/04/25 06:00
Vital Signs
Temp Pulse Resp BP Pulse Ox
97.9 F 69 22 108/69 99
03/04/25 07:05 03/04/25 07:54 03/04/25 06:00 03/04/25 07:54 03/04/25 06:00
Intake & Output
03/02/25 03/03/25 03/04/25 03/05/25
06:59 06:59 06:59 06:59
Intake Total 180 / 180 2360 / 2360 200 / 200
Output Total 1150 / 1150 400 / 400
Balance 180 / 180 1210 / 1210 -200 / -200
Physical Exam
Physical Exam
Gen: NAD, AA
HEENT: NC/AT, sclera anicteric
Neck: No JVD
CV: RRR
Lungs: No increased work of breathing on 2 L nasal cannula
Abd: S/ND
Ext: Cool, 1+ pitting LE edema
Skin: Warm, dry
Neuro: Non-focal
--- NOTE | 2025-03-04 09:38 | W.PN.NEPH.PH ---
Today's Communication / Plan
-
Observe on IV Lasix
Follow BMP
Assessment/Plan
-
Impression:
Hyperkalemia (7.6)
Metabolic acidosis
CKD stage IV (2.4)
Cardiorenal syndrome with chronic hemodynamic instability
Ischemic cardiomyopathy EF 30%, DD stage3, mod to severe MR, mod TR
CAD complex history s/p CABG
s/p [employer] single chamber ICD
Paroxysmal Afib
HTN
Orthostasis on midodrine
Hyperlipidemia
Former tobacco use
ELI
GERD/Caballero's esophagus
S/p Schatzki's ring dilatation
Severe LAUREN stenosis S/p stent (01/10/2015)
Severe LICA stenosis S/p stent (10/05/2010)
Hx Prostate Ca S/p robotic prostatectomy (2009)
Plan:
- Status post urgent treatment of hyperkalemia recommend sodium bicarbonate calcium gluconate Kayexalate and once blood sugars rebound /
- Status post Farah catheter with residual urine retention and hydro
-K at 5.3
-Creatinine within baseline
-Hold further potassium supplements and aldactone
ejection fraction 25 to 30% with orthopnea
lasix at 40mg IV daily
previously discussed clinical course with son and . Patient is DNR dialysis would not be provided
-
-
Date of Service: March 04, 2025
CC / HPI / ROS
-
Chief Complaint:
Hyperkalemia
History of Present Illness:
Acute on chronic kidney disease and severe hyperkalemia 7.6 improved with urinary retention status post Farah catheter
Potassium at 5.3
Creatinine at 2.7
Hemodynamically stable
Review of Systems:.
Nonoliguric
No chest pain or shortness of breath
weights down
Labs
-
Labs:
WBC 8.3 10^3/uL (4.8-10.8) 03/04/25 03:55
RBC 3.04 10^6/uL (4.70-6.10) L 03/04/25 03:55
Hgb 9.2 g/dL (13.0-18.0) L 03/04/25 03:55
Hct 28.2 % (39.0-52.0) L 03/04/25 03:55
Plt Count 86 10^3/uL (130-400) L 03/04/25 03:55
Sodium 135 mmol/L (135-145) 03/04/25 03:55
Potassium 5.3 mmol/L (3.5-5.1) H 03/04/25 03:55
Chloride 98 mmol/L (98-107) 03/04/25 03:55
Carbon Dioxide 30 mmol/L (22-30) 03/04/25 03:55
BUN 76 mg/dl (9-20) H 03/04/25 03:55
Creatinine 2.7 mg/dL (0.7-1.3) H 03/04/25 03:55
eGFR 23.83 03/04/25 03:55
Glucose 96 mg/dl (70-99) 03/04/25 03:55
Calcium 8.4 mg/dl (8.4-10.2) 03/04/25 03:55
Zbz-A-Wspvpjwiqml Pept > 94591 pg/ml 03/01/25 06:46
Albumin 2.8 g/dl (3.5-5.0) L 03/04/25 03:55
Physical Exam
-
Vital Signs:
Vital Signs
Temp Pulse Resp BP Pulse Ox
97.9 F 69 22 108/69 99
03/04/25 07:05 03/04/25 07:54 03/04/25 06:00 03/04/25 07:54 03/04/25 06:00
Cardiovascular:: Regular rate and rhythm
Respiratory:: Bilateral: CTA
Lung Excursion:: Normal
Abdomen:: Nontender and Soft
Extremity Edema:: +1: Bilateral:
Farah Catheter: Yes
[2025-03-04] MEDS: APRESOLINE 10 MG PO ×3 (11:02→20:50)
--- NOTE | 2025-03-04 13:39 | CM ---
Chart reviewed. Care ongoing. Patient resides in assisted living at [facility].
Farah still in place
PT/OT when able
Plan: Can be determined once therapy assess
--- NOTE | 2025-03-04 15:52 | W.PN.HOSP.TC ---
Today's Communication/Plan
-
Continue Lasix
Assessment / Plan
Assessment / Plan
Impression:
Patient is a 74-year-old male with past medical history of chronic systolic congestive heart failure, ischemic cardiomyopathy, severe mitral regurgitation, history of bypass/with redo bypass/PCI, paroxysmal atrial fibrillation, history of ICD
placement, essential hypertension, hyperlipidemia, sleep apnea, history of inguinal hernia repair, history of cataract surgery, cachexia/protein calorie malnutrition came from facility for combination symptoms of dyspnea/chest pain/generalized
weakness/fatigue.
Assessment/plan:
Acute on chronic systolic congestive heart failure
-Elevated proBNP > 27k, ER weight 66kg, some leg swelling
- Chest x-ray showing cardiomegaly and pulmonary vascular congestion
- Portable Lasix 40 mg in ER, further dosing per nephrology/cardiology.
Continue Lasix, currently 40 mg IV twice daily.
Hyperkalemia - Improving
- Patient presented with potassium of 7.6
- Multifactorial from potassium supplement/Aldactone/CKD/metabolic acidosis
- EKG showing problematic QRS widening with sine early sine wave forming
- Good calcium gluconate/Lasix/insulin glucose in ER
- Got Kayexalate as well
- Low K diet started
- slowly trending down
Severe protein calorie malnutrition
-Patient have cardiac cachexia and decreased appetite/weight loss for some time.
Paroxysmal atrial fibrillation
-Continue home dose of Xarelto
Anion gap metabolic acidosis - resolved
-Likely with underlying CKD
-Improved with bicarb drip, discontinued.
BRIGHT on Chronic kidney disease stage IV
- Lowest cr of 1.3 from last visit, comes in with cr of 2.6
- Patient found to have urinary retention, difficult Farah catheter urology had to place Farah today
- Monitor renal function recovery
Hypoglycemia - resolved
-From decreased oral intake
-Reported nausea vomiting and decreased oral intake for few days
- Required D5/IVF
- Diet advanced to low potassium diet
Chest pain
Troponin elevation
History of CAD with bypass/redo bypass/PCI
- Patient hav has history of multivessel CAD, was provided nitro pills in the facility x 3 before presenting
- With hyperkalemia related EKG changes unable to appreciate any significant ST segment deviation
- Troponin elevation likely felt to be type II [place] related
- Cardiology consultation requested for further help
Acute transaminitis -
- ALT 173/AST 287/ALP 152 at admission
- LFTs are rapidly uptrending and 1k +today
- Hold amiodarone dose
- Component of congestive hepatopathy is possibly
- Liver and abdominal ultrasound has been ordered
- Cardio will consider inotropic's if not able
03/03
Us shows:
1. Diffuse intraperitoneal ascites.
2. Gallbladder sludge and small gallstones. Gallbladder wall thickening and fluid adjacent to the gallbladder, more likely to be related to ascites then acute cholecystitis. Negative sonographic Levy's sign.
3. Hepatic veins and main portal vein are patent.
4. Bilateral renal cortical thinning, suggestive of medical renal disease. No hydronephrosis on either side.
03/04
Liver enzymes improved
Right arm swelling
- Patient had infiltration of dextrose in ER causing significant forearm/elbow swelling
-Hyaluronidase injection was provided
-Patient already on Xarelto low chance of new deep venous thrombosis. monitor
Superficial skin wound
-wound care to be continued
- Patient had superficial denuding of the skin from friction injury in ER as well, Band-Aid in place
Leukocytosis without fever
- No clear infection source at this point, monitor.
- UA showing bacteriuria no pyuria.
Lactic acidosis
Hyponatremia
CODE STATUS:DNR
DVT prophylaxis: Xarelto
Diet: Regular diet
Total time spent on today's encounter was 65 minutes which included time spent in counseling the patient/family regarding diagnosis and treatment plan as listed above, goals of care, and symptom management. Case was discussed with nursing staff,
specialists, and care coordinators/case management. All labs and imaging personally reviewed by me. Remainder the time spent in detailed review of previous records, lab data, imaging, and other medical provider documentation.
Anticipated Discharge: > 48 hours
Subjective/Interval History
-
Date of Service: March 04, 2025
Patient seen and examined at bedside, patient developed chest pain yesterday afternoon which resolved, currently denies any chest pain or shortness of breath, no abdominal pain, no nausea, no vomiting, no diarrhea or constipation.
Objective Data
-
Labs:
Laboratory Results
03/04/25
03:55
WBC 8.3
Hgb 9.2 L
Hct 28.2 L
Plt Count 86 L
Sodium 135
Potassium 5.3 H
Chloride 98
Carbon Dioxide 30
BUN 76 H
Creatinine 2.7 H
Glucose 96
Calcium 8.4
Total Bilirubin 2.0 H
AST 472 H
ALT 508 H*
Alkaline Phosphatase 130 H
Vital Signs:
Vital Signs
Temp Pulse Resp BP Pulse Ox
97.7 F 71 16 105/67 94
03/04/25 15:05 03/04/25 13:00 03/04/25 13:00 03/04/25 13:00 03/04/25 13:58
I&O
03/03/25 03/04/25 03/05/25
06:59 06:59 06:59
Intake Total 2360 / 2360 200 / 200
Output Total 1150 / 1150 400 / 400
Balance 1210 / 1210 -200 / -200
Physical Exam
-
General: Well Nourished, No Apparent Distress, Comfortable and Appears in Distress
HEENT: Normocephalic, Atraumatic, Moist Mucous Membranes, No Ptosis, PERRLA and Nose Appears Normal
Respiratory: Rales, Rhonchi, Crackles and Non Labored Respirations
Cardiac: Regular Rhythm and S1/S2
Breast: Deferred by me
GI: Soft, Nontender, Nondistended and Normal Bowel Sounds
Genito-urinary: No Costovertebral Tender
Musculoskeletal: No Clubbing, No Cyanosis, Edema, Right Upper Extrem, Edema, Left Upper Extrem, Edema, Right Lower Extrem and Edema, Left Lower Extrem
Skin: Warm
Neuro: Awake, Alert, Oriented, AO x 3 and No Motor Deficits
Psych: Calm
[2025-03-04] MEDS: XARELTO 15 MG PO (17:00)
[2025-03-04] MEDS: SINGULAIR 10 MG PO (20:52)
[2025-03-04] MEDS: ProAIR HFA INHALER 2 PUFF INH (22:38)
--- NOTE | 2025-03-04 22:45 | W.PN.UPDATE ---
Update Note
Progress Note Update
~22:45 Patient c/o chest pain/pressure. Patient states it feels like a horse kicked him in the chest. Rates pain at 6-7 out of 10. Patient states that pain does not radiate. Patient denies dizziness, lightheadedness, changes in vision. Does report
slight SOB and headache. Patient evaluated, alert and awake, HR regular. Lungs clear. VS: BP 118/73 (86), HR 73, Resp 15, Pulsox 97% on 2L NC, oral temp 98.2.
Note: Pt just received breathing treatment prior to chest discomfort.
Ordered: stat EKG showed sinus rhythm w/1st degree AV block, right atrial enlargement, right bundle branch block,
BMP: Na 133, K+ 5.0, Chl 95, BUN 78, Creatinine 2.5, Mag 2.1
Troponins: 22:53 result 0.026, repeat @ 04:45 result 0.028
~23:20 Pt re-evaluated, patient sleeping in bed, awoke to verbal stimuli. Per patient, chest pain/pressure almost resolved. Patient declined medication for pain. States he feels better.
--- NOTE | 2025-03-04 23:01 | PTCARENOTE ---
patient complaining of SOB and 6/10 chest pain that feels 'like a horse kicked him'. IDALMIS Banuelos made aware and at bedside with patient. EKG and labs ordered. Patient also got prn breathing treatment. Continuing to monitor patient.
[2025-03-04 23:18] LABS: Blood Urea Nitrogen 78 mg/dl (9-20); Calcium 8.3 mg/dl (8.4-10.2); Carbon Dioxide 29 mmol/L (22-30); Chloride 95 mmol/L (98-107); Estimated Creatinine Clearance 24 ml/min; Glucose 111 mg/dl (70-99); Magnesium 2.1 mg/dl (1.6-2.3); Sodium 133 mmol/L (135-145); eGFR 26.14
[2025-03-04 23:30] LABS: Troponin I 0.026 ng/ml
[2025-03-05] VITALS (25 sets, daily range): BP systolic 95–140; BP diastolic 57–84; BMI 23.0
[2025-03-05 04:15] LABS: Hematocrit 28.6 % (39.0-52.0); Hemoglobin 9.4 g/dL (13.0-18.0); Mean Corp Hgb Conc. 32.9 g/dL (33.0-37.0); Mean Corpuscular Hgb 30.2 pg (27.0-31.0); Mean Platelet Volume 12.3 fL (7.4-10.4); Platelet Count 92 10^3/uL (130-400); Red Blood Cell Count 3.11 10^6/uL (4.70-6.10); Red Cell Dist. Width 15.6 % (11.5-14.5); White Blood Cell Count 7.4 10^3/uL (4.8-10.8)
[2025-03-05 04:32] LABS: ALT (SGPT) 383 U/L (0-50); AST (SGOT) 248 U/L (17-59); Albumin 2.8 g/dl (3.5-5.0); Alkaline Phosphatase 138 U/L (38-126); Blood Urea Nitrogen 77 mg/dl (9-20); Calcium 8.2 mg/dl (8.4-10.2); Carbon Dioxide 28 mmol/L (22-30); Chloride 97 mmol/L (98-107); Estimated Creatinine Clearance 25 ml/min; Glucose 101 mg/dl (70-99); Potassium 4.9 mmol/L (3.5-5.1); Sodium 134 mmol/L (135-145); Total Protein 5.7 g/dl (6.3-8.2); eGFR 27.45
[2025-03-05 04:40] LABS: Troponin I 0.028 ng/ml
[2025-03-05] MEDS: SYNTHROID 75 MCG PO (10:05)
[2025-03-05] MEDS: APRESOLINE 25 MG PO (10:05)
[2025-03-05] MEDS: HYDROPHOR 1 APPLIC TOPICAL (10:05)
[2025-03-05] MEDS: ZOLOFT 25 MG PO (10:05)
[2025-03-05] MEDS: LOW STRENGTH ASPIRIN 81 MG PO (10:05)
[2025-03-05] MEDS: LASIX 40 MG IV ×2 (10:06→16:49)
[2025-03-05] MEDS: FLUSH (NSS) 2 FLUSH IV ×2 (10:06→16:51)
--- NOTE | 2025-03-05 10:17 | W.PN.NEPH.PH ---
Today's Communication / Plan
-
Observe on twice daily IV Lasix
Kidney function and electrolytes stable
Assessment/Plan
-
Impression:
Hyperkalemia (7.6)
Metabolic acidosis
CKD stage IV (2.4)
Cardiorenal syndrome with chronic hemodynamic instability
Ischemic cardiomyopathy EF 30%, DD stage3, mod to severe MR, mod TR
CAD complex history s/p CABG
s/p [employer] single chamber ICD
Paroxysmal Afib
HTN
Orthostasis on midodrine
Hyperlipidemia
Former tobacco use
ELI
GERD/Caballero's esophagus
S/p Schatzki's ring dilatation
Severe LAUREN stenosis S/p stent (01/10/2015)
Severe LICA stenosis S/p stent (10/05/2010)
Hx Prostate Ca S/p robotic prostatectomy (2009)
Plan:
- Status post urgent treatment of hyperkalemia recommend sodium bicarbonate calcium gluconate Kayexalate and once blood sugars rebound insulin/22
- Status post Farah catheter with residual urine retention and hydro
-K at 4.9
-Creatinine within baseline
-Hold further potassium supplements and aldactone
ejection fraction 25 to 30% with orthopnea
-patient on lasix 40mg IV BID: grossly non oliguric ~2700cc
previously discussed clinical course with son and . Patient is DNR dialysis would not be provided
-
-
Date of Service: March 05, 2025
CC / HPI / ROS
-
Chief Complaint:
Hyperkalemia
History of Present Illness:
Acute on chronic kidney disease and severe hyperkalemia 7.6 improved with urinary retention status post Farah catheter
Potassium at 4.9
Creatinine at 2.4
Hemodynamically stable
Review of Systems:.
Nonoliguric
Chest pain overnight
weights unchanged
Labs
-
Labs:
WBC 7.4 10^3/uL (4.8-10.8) 03/05/25 03:37
RBC 3.11 10^6/uL (4.70-6.10) L 03/05/25 03:37
Hgb 9.4 g/dL (13.0-18.0) L 03/05/25 03:37
Hct 28.6 % (39.0-52.0) L 03/05/25 03:37
Plt Count 92 10^3/uL (130-400) L 03/05/25 03:37
Sodium 134 mmol/L (135-145) L 03/05/25 03:37
Potassium 4.9 mmol/L (3.5-5.1) 03/05/25 03:37
Chloride 97 mmol/L (98-107) L 03/05/25 03:37
Carbon Dioxide 28 mmol/L (22-30) 03/05/25 03:37
BUN 77 mg/dl (9-20) H 03/05/25 03:37
Creatinine 2.4 mg/dL (0.7-1.3) H 03/05/25 03:37
eGFR 27.45 03/05/25 03:37
Glucose 101 mg/dl (70-99) H 03/05/25 03:37
Calcium 8.2 mg/dl (8.4-10.2) L 03/05/25 03:37
Idi-E-Zvvwccnkcny Pept > 39507 pg/ml 03/01/25 06:46
Albumin 2.8 g/dl (3.5-5.0) L 03/05/25 03:37
Physical Exam
-
Vital Signs:
Vital Signs
Temp Pulse Resp BP Pulse Ox
98.2 F 73 17 108/61 93
03/05/25 06:48 03/05/25 08:00 03/05/25 08:00 03/05/25 08:03/05/25 08:03
Cardiovascular:: Regular rate and rhythm
Respiratory:: Bilateral: Coarse
Lung Excursion:: Normal
Abdomen:: Nontender and Soft
Extremity Edema:: +1: Bilateral:
Farah Catheter: Yes
[2025-03-05] MEDS: APRESOLINE PO ×2 (10:20→20:22)
--- NOTE | 2025-03-05 13:11 | W.PN.CARDCBS ---
Today's Communication / Plan
-
Continue IV Lasix
Uptitrate hydralazine as blood pressure allows
Impression / Plan
-
PCP: Dr. Song
Cardiology: Dr. Gillis
IMPRESSION:
Hyperkalemia
Hypoglycemia
Metabolic acidosis
Transaminitis
Acute on chronic HFrEF
Decompensated cardiorenal syndrome with ischemic cardiomyopathy and severe mitral regurgitation
Elevated troponin
Abnormal TFTs
ICM EF 30% by echo 05/04/24
Cardiorenal syndrome
CKD 4
CAD
s/p CABG x 3 (COLEMAN - LAD, seq SVG to OM1 to RPLB) 09/19
s/p PCI with JENIFFER to SVG to OM1 to RPLB 10/29/11
s/p acute inferior MA S/P PCI with RCA stent (02/19/17)
s/p Re-op CABG x 2 (left saphenous vein as sequential graft to LAD then to OM1) vein graft tear, anterior wall of RV tear and divided COLEMAN at time of CABG 12/20/19
h/o long admission (46 days) to [place] for LVAD eval and eventual ICD placement at time of complicated redo CABG 12/2019
h/o left groin abscess with flap closure and VAC treatment 06/2020
s/p [place] single chamber ICD
Paroxysmal Afib
s/p PVI 08/04/17
Chronic Xarelto OAC
HTN
Orthostasis on midodrine
Hyperlipidemia
Former tobacco use
ELI
GERD/Caballero's esophagus
S/p Schatzki's ring dilatation
Severe LAUREN stenosis S/p stent (01/10/2015)
Severe LICA stenosis S/p stent (10/05/2010)
Hx Prostate Ca S/p robotic prostatectomy (2009)
s/p right inguinal herniorrhaphy (1992)
s/p B/L cataract surgery 09/2024
DNR code status
ECHO 12/23/19: with severe left ventricular systolic dysfunction ejection fraction 15�20%. New compared to preoperative echocardiogram
Echo at [place] 02/2020: EF 36%
Echo 06/26/20: Mildly dilated LV, EF 25-30%, inferior, septal, anteroseptal, apical akinesis with hypokinesis remaining. EF was 40% by Valle, 25-30% visually, mildly dilated and hypokinetic RV, ICD wire, dilated left atrium, mild MR, aortic
sclerosis, moderate TR, pulmonary artery pressure 37-42 mmHg
Echo 05/04/24: EF 30%, akinesis of the septum and inferior de jesus, stage III diastolic dysfunction, moderate to severe MR, moderate TR with PAP 45 mmHg
Echo 10/05/24: EF 25 to 30%, enlarged right ventricle with moderate RV hypokinesis, moderate to severe MR, moderate TR
Plan:
#HFrEF: Suspect he was in a low flow state, but now seems better perfused
Still volume overloaded on exam, continue IV lasix BID
Elevated LFTs suggestive of congestive hepatopathy and are slowly improving
Follow renal function electrolytes closely - appreciate nephrology input
GDMT has been limited due to hypotension and acute kidney injury
Uptitrate hydralazine which was added for afterload reduction
#H/o AFib:
Maintaining sinus rhythm
Amio on hold with elevated LFTs
Xarelto on hold due to hematuria
#Elevated troponin: Flat in 0.06-0.07 range. suspected nonischemic myocardial injury in setting of end stage CHF. will manage conservatively with aspirin. Lipitor held for elevated LFTs.
Progress Note - Log Buyer
Subjective
Date of Service: March 05, 2025
Feels well this morning. Resting comfortably in bed in the IMU.
Describes episode of substernal chest discomfort last evening. Troponin x3 sent and are within normal limits.
Objective
Labs:
03/05/25 03:37
03/05/25 03:37
Labs
Hgb 9.4 g/dL (13.0-18.0) L 03/05/25 03:37
Hct 28.6 % (39.0-52.0) L 03/05/25 03:37
Plt Count 92 10^3/uL (130-400) L 03/05/25 03:37
Sodium 134 mmol/L (135-145) L 03/05/25 03:37
Potassium 4.9 mmol/L (3.5-5.1) 03/05/25 03:37
BUN 77 mg/dl (9-20) H 03/05/25 03:37
Creatinine 2.4 mg/dL (0.7-1.3) H 03/05/25 03:37
Glucose 101 mg/dl (70-99) H 03/05/25 03:37
Troponins
03/02/25 03/04/25 03/05/25
15:34 22:53 03:37
Troponin I 0.059 H* 0.026 0.028
03/05/25
11:55
Troponin I 0.030
Vital Signs and I&O:
Vital Signs
Temp Pulse Resp BP Pulse Ox
98.1 F 73 28 117/79 92
03/05/25 11:35 03/05/25 10:00 03/05/25 10:00 03/05/25 10:00 03/05/25 10:00
Vital Signs
Temp Pulse Resp BP Pulse Ox
98.1 F 73 28 117/79 92
03/05/25 11:35 03/05/25 10:00 03/05/25 10:00 03/05/25 10:00 03/05/25 10:00
Intake & Output
03/03/25 03/04/25 03/05/25 03/06/25
06:59 06:59 06:59 06:59
Intake Total 2360 / 2360 200 / 200 720 / 720 325 / 325
Output Total 1150 / 1150 400 / 400 2200 / 2200 550 / 550
Balance 1210 / 1210 -200 / -200 -1480 / -1480 -225 / -225
Physical Exam
Physical Exam
Gen: NAD, AA, frail-appearing
HEENT: NC/AT, sclera anicteric
Neck: Elevated JVP
CV: RRR, NL s1/s2
Lungs: CTAB on 2 L nasal cannula
Abd: S/ND
Ext: 1+ LE edema
Skin: Warm, dry
Neuro: Non-focal
--- NOTE | 2025-03-05 14:00 | W.PN.HOSP.TC ---
Today's Communication/Plan
-
Continue Lasix
Assessment / Plan
Assessment / Plan
Impression:
Patient is a 74-year-old male with past medical history of chronic systolic congestive heart failure, ischemic cardiomyopathy, severe mitral regurgitation, history of bypass/with redo bypass/PCI, paroxysmal atrial fibrillation, history of ICD
placement, essential hypertension, hyperlipidemia, sleep apnea, history of inguinal hernia repair, history of cataract surgery, cachexia/protein calorie malnutrition came from facility for combination symptoms of dyspnea/chest pain/generalized
weakness/fatigue.
Assessment/plan:
Acute on chronic systolic congestive heart failure
-Elevated proBNP > 27k, ER weight 66kg, some leg swelling
- Chest x-ray showing cardiomegaly and pulmonary vascular congestion
- Portable Lasix 40 mg in ER, further dosing per nephrology/cardiology.
Continue Lasix, currently 40 mg IV twice daily.
Hyperkalemia - Improving
- Patient presented with potassium of 7.6
- Multifactorial from potassium supplement/Aldactone/CKD/metabolic acidosis
- EKG showing problematic QRS widening with sine early sine wave forming
- Good calcium gluconate/Lasix/insulin glucose in ER
- Got Kayexalate as well
- Low K diet started
- slowly trending down
Severe protein calorie malnutrition
-Patient have cardiac cachexia and decreased appetite/weight loss for some time.
Paroxysmal atrial fibrillation
-Continue home dose of Xarelto
Anion gap metabolic acidosis - resolved
-Likely with underlying CKD
-Improved with bicarb drip, discontinued.
BRIGHT on Chronic kidney disease stage IV
- Lowest cr of 1.3 from last visit, comes in with cr of 2.6
- Patient found to have urinary retention, difficult Farah catheter urology had to place Farah today
- Monitor renal function recovery
Hypoglycemia - resolved
-From decreased oral intake
-Reported nausea vomiting and decreased oral intake for few days
- Required D5/IVF
- Diet advanced to low potassium diet
Chest pain
Troponin elevation
History of CAD with bypass/redo bypass/PCI
- Patient hav has history of multivessel CAD, was provided nitro pills in the facility x 3 before presenting
- With hyperkalemia related EKG changes unable to appreciate any significant ST segment deviation
- Troponin elevation likely felt to be type II SC related
- Appreciate cardiology input
Acute transaminitis -
- ALT 173/AST 287/ALP 152 at admission
- LFTs are rapidly uptrending and 1k +today
- Hold amiodarone dose
- Component of congestive hepatopathy is possibly
- Liver and abdominal ultrasound has been ordered
-
03/03
Us shows:
1. Diffuse intraperitoneal ascites.
2. Gallbladder sludge and small gallstones. Gallbladder wall thickening and fluid adjacent to the gallbladder, more likely to be related to ascites then acute cholecystitis. Negative sonographic Levy's sign.
3. Hepatic veins and main portal vein are patent.
4. Bilateral renal cortical thinning, suggestive of medical renal disease. No hydronephrosis on either side.
03/04
Liver enzymes improved
Right arm swelling
- Patient had infiltration of dextrose in ER causing significant forearm/elbow swelling
-Hyaluronidase injection was provided
-Patient already on Xarelto low chance of new deep venous thrombosis. monitor
Superficial skin wound
-wound care to be continued
- Patient had superficial denuding of the skin from friction injury in ER as well, Band-Aid in place
Leukocytosis without fever
- No clear infection source at this point, monitor.
- UA showing bacteriuria no pyuria.
Lactic acidosis
Hyponatremia
CODE STATUS:DNR
DVT prophylaxis: Xarelto
Diet: Regular diet
Total time spent on today's encounter was 65 minutes which included time spent in counseling the patient/family regarding diagnosis and treatment plan as listed above, goals of care, and symptom management. Case was discussed with nursing staff,
specialists, and care coordinators/case management. All labs and imaging personally reviewed by me. Remainder the time spent in detailed review of previous records, lab data, imaging, and other medical provider documentation.
Anticipated Discharge: > 48 hours
Subjective/Interval History
-
Date of Service: March 05, 2025
Patient seen and examined at bedside, last night developed chest pain which currently resolved.
Discussed with son at bedside.
Patient currently denies any chest pain or shortness of breath, potassium improved.
Objective Data
-
Labs:
Laboratory Results
03/05/25
03:37
WBC 7.4
Hgb 9.4 L
Hct 28.6 L
Plt Count 92 L
Sodium 134 L
Potassium 4.9
Chloride 97 L
Carbon Dioxide 28
BUN 77 H
Creatinine 2.4 H
Glucose 101 H
Calcium 8.2 L
Total Bilirubin 2.0 H
AST 248 H
ALT 383 H
Alkaline Phosphatase 138 H
Vital Signs:
Vital Signs
Temp Pulse Resp BP Pulse Ox
98.1 F 73 28 117/79 92
03/05/25 11:35 03/05/25 10:00 03/05/25 10:00 03/05/25 10:00 03/05/25 10:00
I&O
03/04/25 03/05/25 03/06/25
06:59 06:59 06:59
Intake Total 200 / 200 720 / 720 325 / 325
Output Total 400 / 400 2200 / 2200 550 / 550
Balance -200 / -200 -1480 / -1480 -225 / -225
Physical Exam
-
General: Well Nourished, No Apparent Distress, Comfortable and Appears in Distress
HEENT: Normocephalic, Atraumatic, Moist Mucous Membranes, No Ptosis, PERRLA and Nose Appears Normal
Respiratory: Rales, Rhonchi, Crackles and Non Labored Respirations
Cardiac: Regular Rhythm and S1/S2
Breast: Deferred by me
GI: Soft, Nontender, Nondistended and Normal Bowel Sounds
Genito-urinary: No Costovertebral Tender
Musculoskeletal: No Clubbing, No Cyanosis, Edema, Right Upper Extrem, Edema, Left Upper Extrem, Edema, Right Lower Extrem and Edema, Left Lower Extrem
Skin: Warm
Neuro: Awake, Alert, Oriented, AO x 3 and No Motor Deficits
Psych: Calm
Data Reviewed
-
Diagnostic Radiology: Image personally visualized and interpreted and Report Reviewed by me
CT Scan: Image personally visualized and interpreted and Report Reviewed by me
Ultrasound: Image personally visualized and interpreted and Report Reviewed by me
MRI: Image personally visualized and interpreted and Report Reviewed by me
Medical Tests (Nuc Med, Echo etc): Image personally visualized and interpreted and Report Reviewed by me
Labs: Labs Reviewed by me
Old Records: Reviewed
[2025-03-05] MEDS: XARELTO 15 MG PO (16:49)
[2025-03-05] MEDS: SINGULAIR 10 MG PO (20:22)
--- NOTE | 2025-03-05 22:42 | PTCARENOTE ---
Received pt from [facility], pt aaox3, able to make needs known. No c/o chest pain or SOB at this time. PO hydralazine held for soft BP per parameters. VSS. Call velazquez within reach, care ongoing.
[2025-03-06] VITALS (25 sets, daily range): BP systolic 94–125; BP diastolic 57–89; BMI 23.2
[2025-03-06 04:35] LABS: Blood Urea Nitrogen 76 mg/dl (9-20); Calcium 8.2 mg/dl (8.4-10.2); Carbon Dioxide 30 mmol/L (22-30); Chloride 95 mmol/L (98-107); Estimated Creatinine Clearance 26 ml/min; Glucose 96 mg/dl (70-99); Potassium 4.2 mmol/L (3.5-5.1); Sodium 134 mmol/L (135-145); eGFR 28.89
[2025-03-06] MEDS: ProAIR HFA INHALER 2 PUFF INH (06:45)
--- NOTE | 2025-03-06 08:33 | W.PN.NEPH.PH ---
Today's Communication / Plan
-
Electrolytes and kidney function stable
Diuresing per cardiology
Assessment/Plan
-
Impression:
Hyperkalemia (7.6)
Metabolic acidosis
CKD stage IV (2.4)
Cardiorenal syndrome with chronic hemodynamic instability
Ischemic cardiomyopathy EF 30%, DD stage3, mod to severe MR, mod TR
CAD complex history s/p CABG
s/p [employer] single chamber ICD
Paroxysmal Afib
HTN
Orthostasis on midodrine
Hyperlipidemia
Former tobacco use
ELI
GERD/Caballero's esophagus
S/p Schatzki's ring dilatation
Severe LAUREN stenosis S/p stent (01/10/2015)
Severe LICA stenosis S/p stent (10/05/2010)
Hx Prostate Ca S/p robotic prostatectomy (2009)
Plan:
- Status post urgent treatment of hyperkalemia recommend sodium bicarbonate calcium gluconate Kayexalate and once blood sugars rebound insulin/22
- Status post Farah catheter with residual urine retention and hydro
-K at 4.2, creatinine at baseline 2.3
-Creatinine within baseline
-Hold further potassium supplements and aldactone
-ejection fraction 25 to 30% with orthopnea
-patient on lasix 40mg IV BID: grossly non oliguric , weights uup
previously discussed clinical course with son and . Patient is DNR dialysis would not be provided
-
-
Date of Service: March 06, 2025
CC / HPI / ROS
-
Chief Complaint:
Hyperkalemia
History of Present Illness:
Acute on chronic kidney disease and severe hyperkalemia 7.6 improved with urinary retention status post Farah catheter
Potassium at 4.2
Creatinine at 2.3
Hemodynamically stable
Review of Systems:.
Nonoliguric
weights up
Labs
-
Labs:
WBC 7.4 10^3/uL (4.8-10.8) 03/05/25 03:37
RBC 3.11 10^6/uL (4.70-6.10) L 03/05/25 03:37
Hgb 9.4 g/dL (13.0-18.0) L 03/05/25 03:37
Hct 28.6 % (39.0-52.0) L 03/05/25 03:37
Plt Count 92 10^3/uL (130-400) L 03/05/25 03:37
Sodium 134 mmol/L (135-145) L 03/06/25 03:53
Potassium 4.2 mmol/L (3.5-5.1) 03/06/25 03:53
Chloride 95 mmol/L (98-107) L 03/06/25 03:53
Carbon Dioxide 30 mmol/L (22-30) 03/06/25 03:53
BUN 76 mg/dl (9-20) H 03/06/25 03:53
Creatinine 2.3 mg/dL (0.7-1.3) H 03/06/25 03:53
eGFR 28.89 03/06/25 03:53
Glucose 96 mg/dl (70-99) 03/06/25 03:53
Calcium 8.2 mg/dl (8.4-10.2) L 03/06/25 03:53
Phz-L-Nwkgpzuuuwa Pept > 81774 pg/ml 03/01/25 06:46
Albumin 2.8 g/dl (3.5-5.0) L 03/05/25 03:37
Physical Exam
-
Vital Signs:
Vital Signs
Temp Pulse Resp BP Pulse Ox
98.1 F 84 16 94/70 94
03/06/25 05:00 03/06/25 06:48 03/06/25 06:48 03/06/25 06:00 03/06/25 06:48
Cardiovascular:: Regular rate and rhythm
Respiratory:: Bilateral: Coarse
Lung Excursion:: Normal
Abdomen:: Nontender and Soft
Extremity Edema:: +1: Bilateral:
Farah Catheter: Yes
[2025-03-06] MEDS: APRESOLINE 25 MG PO ×2 (08:50→19:19)
[2025-03-06] MEDS: HYDROPHOR 1 APPLIC TOPICAL (08:50)
[2025-03-06] MEDS: LASIX 40 MG IV ×2 (08:51→16:54)
[2025-03-06] MEDS: ZOLOFT 25 MG PO (08:52)
[2025-03-06] MEDS: LOW STRENGTH ASPIRIN 81 MG PO (08:52)
--- NOTE | 2025-03-06 09:47 | W.PN.CARDCBS ---
Today's Communication / Plan
-
Continue IV Lasix and wean O2
Impression / Plan
-
PCP: Dr. Song
Cardiology: Dr. Gillis
IMPRESSION:
Hyperkalemia
Hypoglycemia
Metabolic acidosis
Transaminitis
Acute on chronic HFrEF
Decompensated cardiorenal syndrome with ischemic cardiomyopathy and severe mitral regurgitation
Elevated troponin
Abnormal TFTs
ICM EF 30% by echo 05/04/24
Cardiorenal syndrome
CKD 4
CAD
s/p CABG x 3 (COLEMAN - LAD, seq SVG to OM1 to RPLB) 09/19
s/p PCI with JENIFFER to SVG to OM1 to RPLB 10/29/11
s/p acute inferior MN S/P PCI with RCA stent (02/19/17)
s/p Re-op CABG x 2 (left saphenous vein as sequential graft to LAD then to OM1) vein graft tear, anterior wall of RV tear and divided COLEMAN at time of CABG 12/20/19
h/o long admission (46 days) to [place] for LVAD eval and eventual ICD placement at time of complicated redo CABG 12/2019
h/o left groin abscess with flap closure and VAC treatment 06/2020
s/p [place] single chamber ICD
Paroxysmal Afib
s/p PVI 08/04/17
Chronic Xarelto OAC
HTN
Orthostasis on midodrine
Hyperlipidemia
Former tobacco use
ELI
GERD/Caballero's esophagus
S/p Schatzki's ring dilatation
Severe LAUREN stenosis S/p stent (01/10/2015)
Severe LICA stenosis S/p stent (10/05/2010)
Hx Prostate Ca S/p robotic prostatectomy (2009)
s/p right inguinal herniorrhaphy (1992)
s/p B/L cataract surgery 09/2024
DNR code status
ECHO 12/23/19: with severe left ventricular systolic dysfunction ejection fraction 15�20%. New compared to preoperative echocardiogram
Echo at [place] 02/2020: EF 36%
Echo 06/26/20: Mildly dilated LV, EF 25-30%, inferior, septal, anteroseptal, apical akinesis with hypokinesis remaining. EF was 40% by Valle, 25-30% visually, mildly dilated and hypokinetic RV, ICD wire, dilated left atrium, mild MR, aortic
sclerosis, moderate TR, pulmonary artery pressure 37-42 mmHg
Echo 05/04/24: EF 30%, akinesis of the septum and inferior de jesus, stage III diastolic dysfunction, moderate to severe MR, moderate TR with PAP 45 mmHg
Echo 10/05/24: EF 25 to 30%, enlarged right ventricle with moderate RV hypokinesis, moderate to severe MR, moderate TR
Plan:
#HFrEF: Suspect he was in a low flow state earlier this hospitalization but now warm and well perfused on exam
Still mildly volume overloaded, continue IV lasix BID
Elevated LFTs suggestive of congestive hepatopathy and are slowly improving
Follow renal function electrolytes closely - appreciate nephrology input
GDMT has been limited due to hypotension and acute kidney injury
Cont hydralazine which was added for afterload reduction
#H/o AFib:
Maintaining sinus rhythm
Amio on hold with elevated LFTs
Cont Xarelto
#Elevated troponin: Flat in 0.06-0.07 range. suspected nonischemic myocardial injury in setting of end stage CHF. will manage conservatively with aspirin. Lipitor held for elevated LFTs.
Progress Note - Veterinary Surgery Technologist
Subjective
Date of Service: March 06, 2025
No acute overnight events. Tells me he was mildly short of breath this morning around 4-5 AM when he awoke. Feels better now eating breakfast in bed.
Objective
Labs:
03/05/25 03:37
03/06/25 03:53
Labs
Hgb 9.4 g/dL (13.0-18.0) L 03/05/25 03:37
Hct 28.6 % (39.0-52.0) L 03/05/25 03:37
Plt Count 92 10^3/uL (130-400) L 03/05/25 03:37
Sodium 134 mmol/L (135-145) L 03/06/25 03:53
Potassium 4.2 mmol/L (3.5-5.1) 03/06/25 03:53
BUN 76 mg/dl (9-20) H 03/06/25 03:53
Creatinine 2.3 mg/dL (0.7-1.3) H 03/06/25 03:53
Glucose 96 mg/dl (70-99) 03/06/25 03:53
Troponins
03/04/25 03/05/25 03/05/25
22:53 03:37 11:55
Troponin I 0.026 0.028 0.030
Vital Signs and I&O:
Vital Signs
Temp Pulse Resp BP Pulse Ox
98.0 F 74 16 105/59 94
03/06/25 07:30 03/06/25 08:51 03/06/25 06:48 03/06/25 08:51 03/06/25 06:48
Vital Signs
Temp Pulse Resp BP Pulse Ox
98.0 F 74 16 105/59 94
03/06/25 07:30 03/06/25 08:51 03/06/25 06:48 03/06/25 08:51 03/06/25 06:48
Intake & Output
03/04/25 03/05/25 03/06/25 03/07/25
06:59 06:59 06:59 06:59
Intake Total 200 / 200 720 / 720 1460 / 1460 240 / 240
Output Total 400 / 400 2200 / 2200 2250 / 2250
Balance -200 / -200 -1480 / -1480 -790 / -790 240 / 240
Physical Exam
Physical Exam
Gen: NAD, AAOx3
HEENT: NC/AT, sclera anicteric
Neck: Elevated JVP
CV: RRR
Lungs: CTAB on 2L NC
Abd: S/ND
Ext: Trace LE edema, warm
Skin: Dry
Neuro: Non-focal
[2025-03-06] MEDS: SYNTHROID 75 MCG PO (11:23)
--- NOTE | 2025-03-06 13:13 | W.PN.HOSP.TC ---
Today's Communication/Plan
-
Continue Lasix
Assessment / Plan
Assessment / Plan
Impression:
Patient is a 74-year-old male with past medical history of chronic systolic congestive heart failure, ischemic cardiomyopathy, severe mitral regurgitation, history of bypass/with redo bypass/PCI, paroxysmal atrial fibrillation, history of ICD
placement, essential hypertension, hyperlipidemia, sleep apnea, history of inguinal hernia repair, history of cataract surgery, cachexia/protein calorie malnutrition came from facility for combination symptoms of dyspnea/chest pain/generalized
weakness/fatigue.
Assessment/plan:
Acute on chronic systolic congestive heart failure
-Elevated proBNP > 27k, ER weight 66kg, some leg swelling
- Chest x-ray showing cardiomegaly and pulmonary vascular congestion
- Portable Lasix 40 mg in ER, further dosing per nephrology/cardiology.
Continue Lasix, currently 40 mg IV twice daily.
Hyperkalemia - Improving
- Patient presented with potassium of 7.6
- Multifactorial from potassium supplement/Aldactone/CKD/metabolic acidosis
- EKG showing problematic QRS widening with sine early sine wave forming
- Good calcium gluconate/Lasix/insulin glucose in ER
- Got Kayexalate as well
- Low K diet started
- slowly trending down
Severe protein calorie malnutrition
-Patient have cardiac cachexia and decreased appetite/weight loss for some time.
Paroxysmal atrial fibrillation
-Continue home dose of Xarelto
Anion gap metabolic acidosis - resolved
-Likely with underlying CKD
-Improved with bicarb drip, discontinued.
BRIGHT on Chronic kidney disease stage IV
- Lowest cr of 1.3 from last visit, comes in with cr of 2.6
- Patient found to have urinary retention, difficult Farah catheter urology had to place Farah today
- Monitor renal function recovery
Hypoglycemia - resolved
-From decreased oral intake
-Reported nausea vomiting and decreased oral intake for few days
- Required D5/IVF
- Diet advanced to low potassium diet
Chest pain
Troponin elevation
History of CAD with bypass/redo bypass/PCI
- Patient hav has history of multivessel CAD, was provided nitro pills in the facility x 3 before presenting
- With hyperkalemia related EKG changes unable to appreciate any significant ST segment deviation
- Troponin elevation likely felt to be type II [place] related
- Appreciate cardiology input
Acute transaminitis -
- ALT 173/AST 287/ALP 152 at admission
- LFTs are rapidly uptrending and 1k +today
- Hold amiodarone dose
- Component of congestive hepatopathy is possibly
- Liver and abdominal ultrasound has been ordered
-
03/03
Us shows:
1. Diffuse intraperitoneal ascites.
2. Gallbladder sludge and small gallstones. Gallbladder wall thickening and fluid adjacent to the gallbladder, more likely to be related to ascites then acute cholecystitis. Negative sonographic Levy's sign.
3. Hepatic veins and main portal vein are patent.
4. Bilateral renal cortical thinning, suggestive of medical renal disease. No hydronephrosis on either side.
03/04
Liver enzymes improved
Right arm swelling
- Patient had infiltration of dextrose in ER causing significant forearm/elbow swelling
-Hyaluronidase injection was provided
-Patient already on Xarelto low chance of new deep venous thrombosis. monitor
Superficial skin wound
-wound care to be continued
- Patient had superficial denuding of the skin from friction injury in ER as well, Band-Aid in place
Leukocytosis without fever
- No clear infection source at this point, monitor.
- UA showing bacteriuria no pyuria.
Lactic acidosis
Hyponatremia
CODE STATUS:DNR
DVT prophylaxis: Xarelto
Diet: Regular diet
Total time spent on today's encounter was 65 minutes which included time spent in counseling the patient/family regarding diagnosis and treatment plan as listed above, goals of care, and symptom management. Case was discussed with nursing staff,
specialists, and care coordinators/case management. All labs and imaging personally reviewed by me. Remainder the time spent in detailed review of previous records, lab data, imaging, and other medical provider documentation.
Anticipated Discharge: 24 - 48 hours
Subjective/Interval History
-
Date of Service: March 06, 2025
Patient seen and examined at bedside, again had chest pain last night but currently denies any chest pain or shortness of breath, no abdominal pain, no nausea, no vomiting, no diarrhea or constipation.
Objective Data
-
Labs:
Laboratory Results
03/06/25
03:53
Sodium 134 L
Potassium 4.2
Chloride 95 L
Carbon Dioxide 30
BUN 76 H
Creatinine 2.3 H
Glucose 96
Calcium 8.2 L
Vital Signs:
Vital Signs
Temp Pulse Resp BP Pulse Ox
98.1 F 72 15 107/60 94
03/06/25 11:13 03/06/25 12:00 03/06/25 12:00 03/06/25 12:00 03/06/25 12:52
I&O
03/05/25 03/06/25 03/07/25
06:59 06:59 06:59
Intake Total 720 / 720 1460 / 1460 240 / 240
Output Total 2200 / 2200 2250 / 2250
Balance -1480 / -1480 -790 / -790 240 / 240
Physical Exam
-
General: Well Nourished, No Apparent Distress, Comfortable and Appears in Distress
HEENT: Normocephalic, Atraumatic, Moist Mucous Membranes, No Ptosis, PERRLA and Nose Appears Normal
Respiratory: Rales, Rhonchi, Crackles and Non Labored Respirations
Cardiac: Regular Rhythm and S1/S2
Breast: Deferred by me
GI: Soft, Nontender, Nondistended and Normal Bowel Sounds
Genito-urinary: No Costovertebral Tender
Musculoskeletal: No Clubbing, No Cyanosis, Edema, Right Upper Extrem, Edema, Left Upper Extrem, Edema, Right Lower Extrem and Edema, Left Lower Extrem
Skin: Warm
Neuro: Awake, Alert, Oriented, AO x 3 and No Motor Deficits
Psych: Calm
Data Reviewed
-
Diagnostic Radiology: Image personally visualized and interpreted and Report Reviewed by me
CT Scan: Image personally visualized and interpreted and Report Reviewed by me
Ultrasound: Image personally visualized and interpreted and Report Reviewed by me
MRI: Image personally visualized and interpreted and Report Reviewed by me
Medical Tests (Nuc Med, Echo etc): Image personally visualized and interpreted and Report Reviewed by me
Labs: Labs Reviewed by me
Old Records: Reviewed
--- NOTE | 2025-03-06 14:13 | PTCARENOTE ---
Patient is having small amounts of bleeding from nose and mouth when coughing and blowing nose. Dr. Villagran notified. Also patients left arm is bruised and swollen near his left midline IV. IV team made aware and Ultrasound ordered by Dr. Villagran.
--- NOTE | 2025-03-06 14:43 | PTCARENOTE ---
PRIMARY RN REQUESTED B=VAT TO EVALUATE L FA, BELOW MIDLINE, FOR +1 EDEMA, ECCHYMOSIS. THIS NURSE ELEVATED ARM, HEAT APPLIED, RECOMMENDED US. PT STATES THAT ARMIS A LITTLE TENDER AND WARM. PT RESTING, WILL CONT TO MONITOR
[2025-03-06] MEDS: XARELTO 15 MG PO (16:54)
[2025-03-06] MEDS: SINGULAIR 10 MG PO (19:19)
[2025-03-07] VITALS (26 sets, daily range): BP systolic 96–125; BP diastolic 47–80; BMI 23.2
--- NOTE | 2025-03-07 02:53 | W.PN.UPDATE ---
Update Note
Progress Note Update
Patient seen for c/o chest pain. Patient stated pain started around 1:15 am and he was waiting to see if it went away. Notified @ 2:30 am that patient had chest pain. Rated pain at 7 out of 10 and described as pressure, radiating to back and upper
left arm. Patient denies dizziness, lightheadedness. Reports slight SOB. Patient evaluated, alert and awake, HR regular, lungs clear. VS: Temp 98.3, HR 73, BP 110/62, Rep 13, 97% 2L NC
Labs drawn: Troponin, AM labs (CBC and BMP). Troponin 0.030.
EKG showed Sinus rhythm with 1st degree AV block, right atrial enlargement, right bundle branch block, inferior infarct (age undetermined), anteroseptal infarct (age undermined), Abnormal ECG. Similar to previous EKG on 03/04/25.
At bedside to review EKG with patient, he stated that pain is resolving, rates at 3 out of 10. Declined any medication other than Tylenol. Tylenol ordered.
[2025-03-07 03:21] LABS: Hematocrit 27.7 % (39.0-52.0); Mean Corp Hgb Conc. 32.5 g/dL (33.0-37.0); Mean Corpuscular Hgb 29.2 pg (27.0-31.0); Mean Corpuscular Volume 89.9 fL (80.0-94.0); Platelet Count 101 10^3/uL (130-400); Red Blood Cell Count 3.08 10^6/uL (4.70-6.10); Red Cell Dist. Width 15.6 % (11.5-14.5); White Blood Cell Count 6.6 10^3/uL (4.8-10.8)
[2025-03-07 03:26] LABS: ALT (SGPT) 224 U/L (0-50); AST (SGOT) 80 U/L (17-59); Albumin 2.8 g/dl (3.5-5.0); Alkaline Phosphatase 129 U/L (38-126); Blood Urea Nitrogen 74 mg/dl (9-20); Carbon Dioxide 31 mmol/L (22-30); Chloride 95 mmol/L (98-107); Direct Bilirubin 1.2 mg/dl (0.0-0.4); Estimated Creatinine Clearance 28 ml/min; Glucose 91 mg/dl (70-99); Sodium 134 mmol/L (135-145); Total Bilirubin 2.1 mg/dl (0.2-1.3); Total Protein 5.7 g/dl (6.3-8.2); eGFR 32.22
[2025-03-07] MEDS: TYLENOL 650 MG PO (04:48)
--- NOTE | 2025-03-07 05:18 | PTCARENOTE ---
pt c/o chest pain with sob. GUN[employer]'S MATE notified, EKG done with no change from prior EKGs. 650mg tylenol given. Respiratory therapist paged to give pt breathing tx.
[2025-03-07] MEDS: ProAIR HFA INHALER 2 PUFF INH (05:31)
[2025-03-07] MEDS: APRESOLINE 25 MG PO ×2 (09:09→19:31)
[2025-03-07] MEDS: LASIX 40 MG IV ×3 (09:10→17:17)
[2025-03-07] MEDS: HYDROPHOR 1 APPLIC TOPICAL (09:10)
[2025-03-07] MEDS: SYNTHROID 75 MCG PO (09:10)
[2025-03-07] MEDS: ZOLOFT 25 MG PO (09:10)
[2025-03-07] MEDS: LOW STRENGTH ASPIRIN 81 MG PO (09:10)
--- NOTE | 2025-03-07 09:28 | W.PN.NEPH.PH ---
Today's Communication / Plan
-
follow BMP
Assessment/Plan
-
Impression:
Hyperkalemia (7.6)
Metabolic acidosis
CKD stage IV (2.4)
Cardiorenal syndrome with chronic hemodynamic instability
Ischemic cardiomyopathy EF 30%, DD stage3, mod to severe MR, mod TR
CAD complex history s/p CABG
s/p [employer] single chamber ICD
Paroxysmal Afib
HTN
Orthostasis on midodrine
Hyperlipidemia
Former tobacco use
ELI
GERD/Caballero's esophagus
S/p Schatzki's ring dilatation
Severe LAUREN stenosis S/p stent (01/10/2015)
Severe LICA stenosis S/p stent (10/05/2010)
Hx Prostate Ca S/p robotic prostatectomy (2009)
Plan:
follow BMP
florinef started at [facility] for hypotension episodes 12/02/24. uncertain if labs were done after initiation
but then lasix increased early february for increased edema
I see no role for florinef in this case
holding MRA for now. could consider restart at 12.5mg daily if BP remains stable, otherwise increase midodrine further
diurese with IV lasix still
high risk situation
-
-
Date of Service: March 07, 2025
CC / HPI / ROS
-
Chief Complaint:
Hyperkalemia
History of Present Illness:
Acute on chronic kidney disease and severe hyperkalemia 7.6 improved with urinary retention status post Farah catheter
Potassium at 4.0
Creatinine at 2.1
Hemodynamically stable
CP at night
diuresing with IV lasix for decompensated HF
Review of Systems:.
Nonoliguric
no SOB
nightly CP
Labs
-
Labs:
WBC 6.6 10^3/uL (4.8-10.8) 03/07/25 02:48
RBC 3.08 10^6/uL (4.70-6.10) L 03/07/25 02:48
Hgb 9.0 g/dL (13.0-18.0) L 03/07/25 02:48
Hct 27.7 % (39.0-52.0) L 03/07/25 02:48
Plt Count 101 10^3/uL (130-400) L 03/07/25 02:48
Sodium 134 mmol/L (135-145) L 03/07/25 02:48
Potassium 4.0 mmol/L (3.5-5.1) 03/07/25 02:48
Chloride 95 mmol/L (98-107) L 03/07/25 02:48
Carbon Dioxide 31 mmol/L (22-30) H 03/07/25 02:48
BUN 74 mg/dl (9-20) H 03/07/25 02:48
Creatinine 2.1 mg/dL (0.7-1.3) H 03/07/25 02:48
eGFR 32.22 03/07/25 02:48
Glucose 91 mg/dl (70-99) 03/07/25 02:48
Calcium 8.0 mg/dl (8.4-10.2) L 03/07/25 02:48
Vvp-O-Rzfkjfvoego Pept > 10286 pg/ml 03/01/25 06:46
Albumin 2.8 g/dl (3.5-5.0) L 03/07/25 02:48
Physical Exam
-
Vital Signs:
Vital Signs
Temp Pulse Resp BP Pulse Ox
98.8 F 72 13 111/55 92
03/07/25 07:32 03/07/25 09:10 03/07/25 06:00 03/07/25 09:10 03/07/25 06:00
Cardiovascular:: Regular rate and rhythm
Respiratory:: Bilateral: Coarse
Lung Excursion:: Normal
Abdomen:: Nontender and Soft
Bowel Sounds:: Normal
Extremity Edema:: None: Bilateral:
--- NOTE | 2025-03-07 10:08 | W.PN.HOSP.TC ---
Today's Communication/Plan
-
Continue Lasix
Assessment / Plan
Assessment / Plan
Impression:
Patient is a 74-year-old male with past medical history of chronic systolic congestive heart failure, ischemic cardiomyopathy, severe mitral regurgitation, history of bypass/with redo bypass/PCI, paroxysmal atrial fibrillation, history of ICD
placement, essential hypertension, hyperlipidemia, sleep apnea, history of inguinal hernia repair, history of cataract surgery, cachexia/protein calorie malnutrition came from facility for combination symptoms of dyspnea/chest pain/generalized
weakness/fatigue.
Assessment/plan:
Acute on chronic systolic congestive heart failure
-Elevated proBNP > 27k, ER weight 66kg, some leg swelling
- Chest x-ray showing cardiomegaly and pulmonary vascular congestion
- Portable Lasix 40 mg in ER, further dosing per nephrology/cardiology.
Continue Lasix, currently 40 mg IV twice daily.
Hyperkalemia - Improving
- Patient presented with potassium of 7.6
- Multifactorial from potassium supplement/Aldactone/CKD/metabolic acidosis
- EKG showing problematic QRS widening with sine early sine wave forming
- Good calcium gluconate/Lasix/insulin glucose in ER
- Got Kayexalate as well
- Low K diet started
- slowly trending down
Severe protein calorie malnutrition
-Patient have cardiac cachexia and decreased appetite/weight loss for some time.
Paroxysmal atrial fibrillation
-Continue home dose of Xarelto
Anion gap metabolic acidosis - resolved
-Likely with underlying CKD
-Improved with bicarb drip, discontinued.
BRIGHT on Chronic kidney disease stage IV
- Lowest cr of 1.3 from last visit, comes in with cr of 2.6
- Patient found to have urinary retention, difficult Farah catheter urology had to place Farah today
- Monitor renal function recovery
Hypoglycemia - resolved
-From decreased oral intake
-Reported nausea vomiting and decreased oral intake for few days
- Required D5/IVF
- Diet advanced to low potassium diet
Chest pain
Troponin elevation
History of CAD with bypass/redo bypass/PCI
- Patient hav has history of multivessel CAD, was provided nitro pills in the facility x 3 before presenting
- With hyperkalemia related EKG changes unable to appreciate any significant ST segment deviation
- Troponin elevation likely felt to be type II [place] related
- Appreciate cardiology input
Acute transaminitis -
- ALT 173/AST 287/ALP 152 at admission
- LFTs are rapidly uptrending and 1k +today
- Hold amiodarone dose
- Component of congestive hepatopathy is possibly
- Liver and abdominal ultrasound has been ordered
-
03/03
Us shows:
1. Diffuse intraperitoneal ascites.
2. Gallbladder sludge and small gallstones. Gallbladder wall thickening and fluid adjacent to the gallbladder, more likely to be related to ascites then acute cholecystitis. Negative sonographic Levy's sign.
3. Hepatic veins and main portal vein are patent.
4. Bilateral renal cortical thinning, suggestive of medical renal disease. No hydronephrosis on either side.
03/04
Liver enzymes improved
Right arm swelling
- Patient had infiltration of dextrose in ER causing significant forearm/elbow swelling
-Hyaluronidase injection was provided
-Patient already on Xarelto low chance of new deep venous thrombosis. monitor
Left upper extremity basilic vein thrombosis.
Ultrasound left upper extremity shows mild thrombus formation in the basilic vein which is partially compressible only 2 to 3 cm in length.
Continue Xarelto
Superficial skin wound
-wound care to be continued
- Patient had superficial denuding of the skin from friction injury in ER as well, Band-Aid in place
Leukocytosis without fever
- No clear infection source at this point, monitor.
- UA showing bacteriuria no pyuria.
Lactic acidosis
Hyponatremia
CODE STATUS:DNR
DVT prophylaxis: Xarelto
Diet: Regular diet
Total time spent on today's encounter was 65 minutes which included time spent in counseling the patient/family regarding diagnosis and treatment plan as listed above, goals of care, and symptom management. Case was discussed with nursing staff,
specialists, and care coordinators/case management. All labs and imaging personally reviewed by me. Remainder the time spent in detailed review of previous records, lab data, imaging, and other medical provider documentation.
Anticipated Discharge: 24 - 48 hours
Subjective/Interval History
-
Date of Service: March 07, 2025
Patient seen and examined at bedside, patient developed chest pain again last night which currently resolved.
Current denies any chest pain or shortness of breath, no abdominal pain, no nausea, no vomiting, no diarrhea or constipation.
Ultrasound left upper extremity shows mild thrombus formation in the basilic vein which is partially compressible only 2 to 3 cm in length.
Objective Data
-
Labs:
Laboratory Results
03/07/25
02:48
WBC 6.6
Hgb 9.0 L
Hct 27.7 L
Plt Count 101 L
Sodium 134 L
Potassium 4.0
Chloride 95 L
Carbon Dioxide 31 H
BUN 74 H
Creatinine 2.1 H
Glucose 91
Calcium 8.0 L
Total Bilirubin 2.1 H
AST 80 H
ALT 224 H
Alkaline Phosphatase 129 H
Vital Signs:
Vital Signs
Temp Pulse Resp BP Pulse Ox
98.8 F 72 13 111/55 92
03/07/25 07:32 03/07/25 09:10 03/07/25 06:00 03/07/25 09:10 03/07/25 06:00
I&O
03/06/25 03/07/25 03/08/25
06:59 06:59 06:59
Intake Total 1460 / 1460 840 / 840
Output Total 2250 / 2250 1950 / 1950
Balance -790 / -790 -1110 / -1110
Physical Exam
-
General: Well Nourished, No Apparent Distress, Comfortable and Appears in Distress
HEENT: Normocephalic, Atraumatic, Moist Mucous Membranes, No Ptosis, PERRLA and Nose Appears Normal
Respiratory: Rales, Rhonchi, Crackles and Non Labored Respirations
Cardiac: Regular Rhythm and S1/S2
Breast: Deferred by me
GI: Soft, Nontender, Nondistended and Normal Bowel Sounds
Genito-urinary: No Costovertebral Tender
Musculoskeletal: No Clubbing, No Cyanosis, Edema, Right Upper Extrem, Edema, Left Upper Extrem, Edema, Right Lower Extrem and Edema, Left Lower Extrem
Skin: Warm
Neuro: Awake, Alert, Oriented, AO x 3 and No Motor Deficits
Psych: Calm
Data Reviewed
-
Diagnostic Radiology: Image personally visualized and interpreted and Report Reviewed by me
CT Scan: Image personally visualized and interpreted and Report Reviewed by me
Ultrasound: Image personally visualized and interpreted and Report Reviewed by me
MRI: Image personally visualized and interpreted and Report Reviewed by me
Medical Tests (Nuc Med, Echo etc): Image personally visualized and interpreted and Report Reviewed by me
Labs: Labs Reviewed by me
Old Records: Reviewed
--- NOTE | 2025-03-07 11:10 | W.PN.CARDCBS ---
Addendum entered and electronically signed by Mohit Benedict DO 03/07/25 12:20:
I saw and examined the patient.
The Satin Finisher's note was reviewed and I agree with the note.
Comment:
Plan:
Cont IV lasix and will discuss with renal regarding additional lasix as his wt is going up
Will give additional lasix 40 mg IV this afternoon as ok with renal.
CP is atypical and may be related to HF
Hydralazine 25 mg BID added this admission for afterload reduction
Previous options of MitraClip and LVAD have been discussed, but patient is not a candidate for MitraClip given his age, CKD, cardiorenal syndrome, end-stage cardiomyopathy with severe LV dysfunction and concomitant TR. The patient is not interested
in LVAD evaluation.
Prognosis overall is poor.
Original Note:
Today's Communication / Plan
-
Cont Lasix 40 mg IV BID for now
Weight is up , but oxygen requirements improved
Impression / Plan
-
PCP: Dr. Song
Cardiology: Dr. Gillis
IMPRESSION:
Admitted with hyperkalemia and BRIGHT 03/01/25
Hyperkalemia
Hypoglycemia
Metabolic acidosis
Transaminitis
Acute on chronic HFrEF
Decompensated cardiorenal syndrome with ischemic cardiomyopathy and severe mitral regurgitation
Elevated troponin
Abnormal TFTs
ICM EF 30% by echo 05/04/24, down a bit more 15-20% by echo 03/02/25
Cardiorenal syndrome
BRIGHT on CKD 4
CAD
s/p CABG x 3 (COLEMAN - LAD, seq SVG to OM1 to RPLB) 09/19
s/p PCI with JENIFFER to SVG to OM1 to RPLB 10/29/11
s/p acute inferior WI S/P PCI with RCA stent (02/19/17)
s/p Re-op CABG x 2 (left saphenous vein as sequential graft to LAD then to OM1) vein graft tear, anterior wall of RV tear and divided COLEMAN at time of CABG 12/20/19
h/o long admission (46 days) to [place] for LVAD eval and eventual ICD placement at time of complicated redo CABG 12/2019
h/o left groin abscess with flap closure and VAC treatment 06/2020
s/p [employer] single chamber ICD
ICD therapies turned off
Paroxysmal Afib
s/p PVI 08/04/17
Chronic Xarelto OAC
HTN
Orthostasis on midodrine
Hyperlipidemia
Former tobacco use
ELI
GERD/Caballero's esophagus
S/p Schatzki's ring dilatation
Severe LAUREN stenosis S/p stent (01/10/2015)
Severe LICA stenosis S/p stent (10/05/2010)
Hx Prostate Ca S/p robotic prostatectomy (2009)
s/p right inguinal herniorrhaphy (1992)
s/p B/L cataract surgery 09/2024
DNR code status
Left basilic vein thrombus
ECHO 12/23/19: with severe left ventricular systolic dysfunction ejection fraction 15�20%. New compared to preoperative echocardiogram
Echo at [place] 02/2020: EF 36%
Echo 06/26/20: Mildly dilated LV, EF 25-30%, inferior, septal, anteroseptal, apical akinesis with hypokinesis remaining. EF was 40% by Valle, 25-30% visually, mildly dilated and hypokinetic RV, ICD wire, dilated left atrium, mild MR, aortic
sclerosis, moderate TR, pulmonary artery pressure 37-42 mmHg
Echo 05/04/24: EF 30%, akinesis of the septum and inferior de jesus, stage III diastolic dysfunction, moderate to severe MR, moderate TR with PAP 45 mmHg
Echo 10/05/24: EF 25 to 30%, enlarged right ventricle with moderate RV hypokinesis, moderate to severe MR, moderate TR
Echo 03/02/25: EF 15-20%, akinesis of the inferior wall and apex, septum is dyskinetic, enlarged RV size and reduced RV systolic function, mod to sev MR, sev TR, compared to echo from 03/02/25 the EF is now 15-20% and used to be 25-30%
Plan:
-Weight is up 1 lb overnight despite ongoing Lasix 40 mg IV BID. Patient is stable from a symptomatic standpoint and oxygenation is actually a bit better and he has weaned to 1 L NC on 03/07/25 AM. Patient was taking Lasix 20 mg PO daily prior to
admission
-EF a bit worse at 15-20% on echo this admission, had been 25-30% by echo 09/2024.
-GDMT has been down-titrated as an outpatient prior to admission due to hypotension.
-Outpatient dose of Toprol XL stopped prior to admission due to hypotension.
-Patient is not chronically on AJNE/ARB/ARNI due to CKD 4
-Outpatient dose of spironolactone every other day is on hold due to hyperkalemia on admission.
-Hydralazine 25 mg BID added this admission for afterload reduction, doses rarely held for hypotension. Of note, hydralazine was started and later stopped during his last admission 10/2024 due to hypotension.
-Outpatient dose of midodrine 10 mg TID has been held this admission
-Previous options of MitraClip and LVAD have been discussed, but patient is not a candidate for MitraClip given his age, CKD, cardiorenal syndrome, end-stage cardiomyopathy with severe LV dysfunction and concomitant TR. The patient is not interested
in LVAD evaluation.
-Patient with known paroxysmal Afib and has been in SR this admission.
-Outpatient dose of amiodarone 200 mg daily has been held due to elevated LFTs. LFTs improving and would restart amiodarone on 03/08/25 or 03/09/25 pending labs.
-Outpatient dose of Xarelto 15 mg daily has been continued
-Troponin peaked at 0.076 and was managed as a nonischemic myocardial injury Troponin elevation.
HPI: Patient is a 74 yo M with PMH of CABG 09/2010 with COLEMAN to LAD and SVG seq to OM and PLB. He then had a Xience JENIFFER to the sequential SVG in 10/29/11. He was then admitted to 12/20/19 until 12/29/19 with plan for redo sternotomy and CABG with
SVG to OM and then to the PLB of the RCA. He had RV tear and repair as a complication. His CABG ended up being a left saphenous vein as sequential graft to LAD then to OM1. He had a newly reduced EF 15% at that time and developed cardiorenal
syndrome and cardiogenic shock. He was transferred to [place] for LVAD evaluation 12/29/19 and was hospitalized for 46 days and was ultimately not an LVAD candidate, but was diuresed and had a [employer] single chamber ICD placed. He then went to
[facility] acute care rehab. He had left groin washout with Sartorious flap creation and VAC placement 06/23/20. He has since had several admissions for CHF and has been residing at the [facility] in [place]. This is felt in part to be due to severe MR,
and patient was previously deemed not to be a candidate for surgical repair or mitraclip intervention. He remains uninterested in LVAD evaluation. He is a DNR and ICD therapies have been turned off however he does continue to want medical treatment.
He reports over the last several weeks he has noted SOB and LE edema. He reports noting some nausea over last 24 hours which he felt was related to increased mucus production. Reportedly received SL nitro at [facility] prior to ER arrival. On arrival
was noted to be hyperkalemic with potassium of 7.6, hypoglycemic, and had altered mental status related to this. He is now feeling much improved on bicarb gtt. ProBNP >91487. Cardiology consulted for evaluation. was given IV lasix 40mg in ER. Denies
recent OP med changes - is on spironolactone 25mg Q48H and potassium 20mEq BID.
Progress Note - Tyre Finisher And Examiner
Subjective
Date of Service: March 07, 2025
He feels fine, no worse today even though weight is up 1 lb
Objective
Labs:
03/07/25 02:48
03/07/25 02:48
Labs
Hgb 9.0 g/dL (13.0-18.0) L 03/07/25 02:48
Hct 27.7 % (39.0-52.0) L 03/07/25 02:48
Plt Count 101 10^3/uL (130-400) L 03/07/25 02:48
Sodium 134 mmol/L (135-145) L 03/07/25 02:48
Potassium 4.0 mmol/L (3.5-5.1) 03/07/25 02:48
BUN 74 mg/dl (9-20) H 03/07/25 02:48
Creatinine 2.1 mg/dL (0.7-1.3) H 03/07/25 02:48
Glucose 91 mg/dl (70-99) 03/07/25 02:48
Troponins
03/04/25 03/05/25 03/05/25
22:53 03:37 11:55
Troponin I 0.026 0.028 0.030
03/07/25
02:48
Troponin I 0.030
Vital Signs and I&O:
Vital Signs
Temp Pulse Resp BP Pulse Ox
98.8 F 72 13 111/55 93
03/07/25 07:32 03/07/25 09:10 03/07/25 06:00 03/07/25 09:10 03/07/25 10:53
Vital Signs
Temp Pulse Resp BP Pulse Ox
98.8 F 72 13 111/55 93
03/07/25 07:32 03/07/25 09:10 03/07/25 06:00 03/07/25 09:10 03/07/25 10:53
Intake & Output
03/05/25 03/06/25 03/07/25 03/08/25
06:59 06:59 06:59 06:59
Intake Total 720 / 720 1460 / 1460 840 / 840
Output Total 2200 / 2200 2250 / 2250 1950 / 1950
Balance -1480 / -1480 -790 / -790 -1110 / -1110
Physical Exam
Physical Exam
General: NAD. AAO x3
Skin: No rash
HEENT: EOMI
Heart: SR on tele
Lungs: 1 L NC, no audible wheeze
Abdomen: ND
Extremities: No edema B/L
Neuro: Grossly nonfocal.
--- NOTE | 2025-03-07 13:14 | VATNOTE ---
Discussed results of peripheral vascular ultrasound with MD. Per MD midline removed, pt has other PIV access. Quick clot applied to control bleeding.
--- NOTE | 2025-03-07 13:40 | PTCARENOTE ---
Patient's Farah maintained today. initially ordered a discontinue order, however, advised to keep it in per . also made aware of patient's penile swelling and advised would see him tomorrow and
evalute.
[2025-03-07] MEDS: XARELTO 15 MG PO (17:18)
[2025-03-07] MEDS: SINGULAIR 10 MG PO (19:31)
--- NOTE | 2025-03-07 23:20 | PTCARENOTE ---
assumed care of patient. pt is AAOx3, flat affect, able to make needs known. VSS. no complaints at this time. pt refused to brush teeth tonight. armstrong intact draining yellow urine. penile swelling noted, propped up on towels. foams all intact. care
ongoing.
[2025-03-08] VITALS (28 sets, daily range): BP systolic 93–128; BP diastolic 55–95; PULSE 70; O2SAT 98; BMI 21.7
[2025-03-08 05:32] LABS: Hematocrit 26.9 % (39.0-52.0); Hemoglobin 8.8 g/dL (13.0-18.0); Mean Corp Hgb Conc. 32.7 g/dL (33.0-37.0); Mean Corpuscular Hgb 29.1 pg (27.0-31.0); Mean Corpuscular Volume 89.1 fL (80.0-94.0); Mean Platelet Volume 11.7 fL (7.4-10.4); Platelet Count 111 10^3/uL (130-400); Red Blood Cell Count 3.02 10^6/uL (4.70-6.10); Red Cell Dist. Width 15.8 % (11.5-14.5); White Blood Cell Count 7.3 10^3/uL (4.8-10.8)
[2025-03-08 05:51] LABS: Blood Urea Nitrogen 72 mg/dl (9-20); Calcium 8.1 mg/dl (8.4-10.2); Carbon Dioxide 32 mmol/L (22-30); Chloride 96 mmol/L (98-107); Estimated Creatinine Clearance 30 ml/min; Glucose 81 mg/dl (70-99); Potassium 3.6 mmol/L (3.5-5.1); Sodium 134 mmol/L (135-145); eGFR 36.33
[2025-03-08] MEDS: SENOKOT-S 1 TABLET PO (08:43)
[2025-03-08] MEDS: APRESOLINE 25 MG PO ×2 (08:43→19:56)
[2025-03-08] MEDS: HYDROPHOR 1 APPLIC TOPICAL (08:43)
[2025-03-08] MEDS: LOW STRENGTH ASPIRIN 81 MG PO (08:43)
[2025-03-08] MEDS: SYNTHROID 75 MCG PO (08:43)
[2025-03-08] MEDS: ZOLOFT 25 MG PO (08:43)
[2025-03-08] MEDS: LASIX 40 MG IV ×2 (08:44→15:25)
--- NOTE | 2025-03-08 09:49 | W.PN.CARDCBS ---
Today's Communication / Plan
-
Cont IV lasix and discussed with renal regarding additional lasix 40 mg IV in PM as his wt was going up. His wt may have been inaccurate per nursing yesterday however he was symptomatic prompting further diuresis in any case. Patient was taking
Lasix 40 mg daily he believes however 20 mg PO daily was listed prior to admission
Cr continues to improve and is 1.9 on 2024.
His prior cp has been atypical and may be related to HF
Hydralazine 25 mg BID added this admission for afterload reduction
-GDMT has been down-titrated as an outpatient prior to admission due to hypotension.
-Outpatient dose of Toprol XL stopped prior to admission due to hypotension.
-Patient is not chronically on JANE/ARB/ARNI due to CKD 4
Outpatient dose of spironolactone every other day is on hold due to hyperkalemia on admission.
Previous options of MitraClip and LVAD have been discussed, but patient is not a candidate for MitraClip given his age, CKD, cardiorenal syndrome, end-stage cardiomyopathy with severe LV dysfunction and concomitant TR. The patient is not interested
in LVAD evaluation.
-EF slightly worse at 15-20% on echo this admission, had been 25-30% by echo 09/2024.
Patient with known paroxysmal Afib and has been in SR this admission.
-Outpatient dose of amiodarone 200 mg daily has been held due to elevated LFTs. LFTs improving and would restart amiodarone next 24-48 hrs
-Outpatient dose of Xarelto 15 mg daily has been continued
Cont medical therapy of nonMI trop
Impression / Plan
-
.
PCP: Dr. Song
Cardiology: Dr. Gillis
IMPRESSION:
Admitted with hyperkalemia and BRIGHT 03/01/25
Hyperkalemia
Hypoglycemia
Metabolic acidosis
Transaminitis
Acute on chronic HFrEF
Decompensated cardiorenal syndrome with ischemic cardiomyopathy and severe mitral regurgitation
Elevated troponin
Abnormal TFTs
ICM EF 30% by echo 05/04/24, down a bit more 15-20% by echo 03/02/25
Cardiorenal syndrome
BRIGHT on CKD 4
CAD
s/p CABG x 3 (COLEMAN - LAD, seq SVG to OM1 to RPLB) 09/19
s/p PCI with JENIFFER to SVG to OM1 to RPLB 10/29/11
s/p acute inferior PR S/P PCI with RCA stent (02/19/17)
s/p Re-op CABG x 2 (left saphenous vein as sequential graft to LAD then to OM1) vein graft tear, anterior wall of RV tear and divided COLEMAN at time of CABG 12/20/19
h/o long admission (46 days) to [place] for LVAD eval and eventual ICD placement at time of complicated redo CABG 12/2019
h/o left groin abscess with flap closure and VAC treatment 06/2020
s/p [employer] single chamber ICD
ICD therapies turned off
Paroxysmal Afib
s/p PVI 08/04/17
Chronic Xarelto OAC
HTN
Orthostasis on midodrine
Hyperlipidemia
Former tobacco use
ELI
GERD/Caballero's esophagus
S/p Schatzki's ring dilatation
Severe LAUREN stenosis S/p stent (01/10/2015)
Severe LICA stenosis S/p stent (10/05/2010)
Hx Prostate Ca S/p robotic prostatectomy (2009)
s/p right inguinal herniorrhaphy (1992)
s/p B/L cataract surgery 09/2024
DNR code status
Left basilic vein thrombus
ECHO 12/23/19: with severe left ventricular systolic dysfunction ejection fraction 15�20%. New compared to preoperative echocardiogram
Echo at [facility] 02/2020: EF 36%
Echo 06/26/20: Mildly dilated LV, EF 25-30%, inferior, septal, anteroseptal, apical akinesis with hypokinesis remaining. EF was 40% by Valle, 25-30% visually, mildly dilated and hypokinetic RV, ICD wire, dilated left atrium, mild MR, aortic
sclerosis, moderate TR, pulmonary artery pressure 37-42 mmHg
Echo 05/04/24: EF 30%, akinesis of the septum and inferior de jesus, stage III diastolic dysfunction, moderate to severe MR, moderate TR with PAP 45 mmHg
Echo 10/05/24: EF 25 to 30%, enlarged right ventricle with moderate RV hypokinesis, moderate to severe MR, moderate TR
Echo 03/02/25: EF 15-20%, akinesis of the inferior wall and apex, septum is dyskinetic, enlarged RV size and reduced RV systolic function, mod to sev MR, sev TR, compared to echo from 03/02/25 the EF is now 15-20% and used to be 25-30%
Plan:
Cont IV lasix and discussed with renal regarding additional lasix 40 mg IV in PM as his wt was going up. His wt may have been inaccurate per nursing yesterday however he was symptomatic prompting further diuresis in any case. Patient was taking
Lasix 40 mg daily he believes however 20 mg PO daily was listed prior to admission
Cr continues to improve and is 1.9 on 2024.
His prior cp has been atypical and may be related to HF
Hydralazine 25 mg BID added this admission for afterload reduction
-GDMT has been down-titrated as an outpatient prior to admission due to hypotension.
-Outpatient dose of Toprol XL stopped prior to admission due to hypotension.
-Patient is not chronically on JANE/ARB/ARNI due to CKD 4
Outpatient dose of spironolactone every other day is on hold due to hyperkalemia on admission.
Previous options of MitraClip and LVAD have been discussed, but patient is not a candidate for MitraClip given his age, CKD, cardiorenal syndrome, end-stage cardiomyopathy with severe LV dysfunction and concomitant TR. The patient is not interested
in LVAD evaluation.
-EF slightly worse at 15-20% on echo this admission, had been 25-30% by echo 09/2024.
Patient with known paroxysmal Afib and has been in SR this admission.
-Outpatient dose of amiodarone 200 mg daily has been held due to elevated LFTs. LFTs improving and would restart amiodarone next 24-48 hrs
-Outpatient dose of Xarelto 15 mg daily has been continued
Cont medical therapy of nonMI trop
PT/OT eval, likely will need SNF
Prognosis overall is poor.
Discussed with nursing.
HPI: Patient is a 74 yo M with PMH of CABG 09/2010 with COLEMAN to LAD and SVG seq to OM and PLB. He then had a Xience JENIFFER to the sequential SVG in 10/29/11. He was then admitted to 12/20/19 until 12/29/19 with plan for redo sternotomy and CABG with
SVG to OM and then to the PLB of the RCA. He had RV tear and repair as a complication. His CABG ended up being a left saphenous vein as sequential graft to LAD then to OM1. He had a newly reduced EF 15% at that time and developed cardiorenal
syndrome and cardiogenic shock. He was transferred to [place] for LVAD evaluation 12/29/19 and was hospitalized for 46 days and was ultimately not an LVAD candidate, but was diuresed and had a [employer] [place] single chamber ICD placed. He then went to
[facility] acute care rehab. He had left groin washout with [employer]orious flap creation and VAC placement 06/23/20. He has since had several admissions for CHF and has been residing at the [facility] in [place]. This is felt in part to be due to severe MR,
and patient was previously deemed not to be a candidate for surgical repair or mitraclip intervention. He remains uninterested in LVAD evaluation. He is a DNR and ICD therapies have been turned off however he does continue to want medical treatment.
He reports over the last several weeks he has noted SOB and LE edema. He reports noting some nausea over last 24 hours which he felt was related to increased mucus production. Reportedly received SL nitro at [facility] prior to ER arrival. On arrival
was noted to be hyperkalemic with potassium of 7.6, hypoglycemic, and had altered mental status related to this. He is now feeling much improved on bicarb gtt. ProBNP >47997. Cardiology consulted for evaluation. was given IV lasix 40mg in ER. Denies
recent OP med changes - is on spironolactone 25mg Q48H and potassium 20mEq BID.
Progress Note - Refinery Operator Reforming Unit
Subjective
Date of Service: March 08, 2025
Pt seen and examined. No complaints. No chest pain or shortness of breath.
Objective
Labs:
03/08/25 05:07
03/08/25 05:07
Labs
Hgb 8.8 g/dL (13.0-18.0) L 03/08/25 05:07
Hct 26.9 % (39.0-52.0) L 03/08/25 05:07
Plt Count 111 10^3/uL (130-400) L 03/08/25 05:07
Sodium 134 mmol/L (135-145) L 03/08/25 05:07
Potassium 3.6 mmol/L (3.5-5.1) 03/08/25 05:07
BUN 72 mg/dl (9-20) H 03/08/25 05:07
Creatinine 1.9 mg/dL (0.7-1.3) H 03/08/25 05:07
Glucose 81 mg/dl (70-99) 03/08/25 05:07
Troponins
03/05/25 03/07/25
11:55 02:48
Troponin I 0.030 0.030
Vital Signs and I&O:
Vital Signs
Temp Pulse Resp BP Pulse Ox
98.1 F 75 15 103/56 97
03/08/25 07:34 03/08/25 08:44 03/08/25 06:00 03/08/25 08:44 03/08/25 06:00
Vital Signs
Temp Pulse Resp BP Pulse Ox
98.1 F 75 15 103/56 97
03/08/25 07:34 03/08/25 08:44 03/08/25 06:00 03/08/25 08:44 03/08/25 06:00
Intake & Output
03/06/25 03/07/25 03/08/25 03/09/25
06:59 06:59 06:59 06:59
Intake Total 1460 / 1460 840 / 840 960 / 960
Output Total 2250 / 2250 1950 / 1950 2200 / 2200
Balance -790 / -790 -1110 / -1110 -1240 / -1240
Physical Exam
Physical Exam
General: No acute distress, AAOX3
Neck: Negative JVD
Heart: Regular, Negative S3 positive S1/S2, Negative S4, No murmur
Lungs: CTA b/l, negative wheezes/rales/rhonchi
Abd: Positive BS, NT/ND, neg rebound/rigidity/guarding
Ext: Negative cyanosis/clubbing/edema
Neuro: nonfocal
--- NOTE | 2025-03-08 11:15 | W.PN.URO.CBU ---
Today's Communication / Plan
-
contiue armstrong for now
Assessment / Plan
-
hx of prostate cancer
urinary retention requiring dilation of meatal stenosis/ armstrong
psa under 1
urine clear
given continued diuresis- will leave armstrong- near time of discharge can remove for TOV
will follow
Diagnosis
-
Date of Service: March 08, 2025
-
Patient Diagnosis:
prostate cancer
urinary retention
meatal stenosis
Subjective
-
pt continues diuresis
armstrong in place- moderate penile edema
urine clear
Objective
-
Vital Signs
Temp Pulse Resp BP Pulse Ox
98.1 F 69 16 105/55 93
03/08/25 07:34 03/08/25 10:00 03/08/25 10:00 03/08/25 10:00 03/08/25 10:00
Intake and Output
03/07/25 03/08/25 03/09/25
06:59 06:59 06:59
Intake Total 840 / 840 960 / 960
Output Total 1949 / 1949 2200 / 2200
Balance -1110 / -1110 -1240 / -1240
Intake:
Oral fluids 840 / 840 960 / 960
Output:
Urine, Armstrong 1949 / 1950 2200 / 2200
Laboratory Results
03/08/25 05:07
03/08/25 05:07
Physical Exam
-
General - no acute distress
Abdomen - soft, non-tender,
Genitalia - armstrong in place- moderate penile edema
--- NOTE | 2025-03-08 11:58 | W.PN.NEPH.PH ---
Today's Communication / Plan
-
continue IV lasix
Assessment/Plan
-
Impression:
Hyperkalemia (7.6)
Metabolic acidosis
CKD stage IV (2.4)
Cardiorenal syndrome with chronic hemodynamic instability
Ischemic cardiomyopathy EF 30%, DD stage3, mod to severe MR, mod TR
CAD complex history s/p CABG
s/p [employer] single chamber ICD
Paroxysmal Afib
HTN
Orthostasis on midodrine
Hyperlipidemia
Former tobacco use
ELI
GERD/Caballero's esophagus
S/p Schatzki's ring dilatation
Severe LAUREN stenosis S/p stent (01/10/2015)
Severe LICA stenosis S/p stent (10/05/2010)
Hx Prostate Ca S/p robotic prostatectomy (2009)
Plan:
follow BMP
no more florinef
holding MRA for now. could consider restart at 12.5mg daily if BP remains stable, otherwise increase midodrine further if needed
diurese with IV lasix still 40/40
high risk situation
-
-
Date of Service: March 08, 2025
CC / HPI / ROS
-
Chief Complaint:
Hyperkalemia
History of Present Illness:
Acute on chronic kidney disease and severe hyperkalemia 7.6 improved with urinary retention status post Farah catheter
Potassium at 3.6
Creatinine at 1.9
Hemodynamically stable
diuresing with IV lasix for decompensated HF
Review of Systems:.
Nonoliguric
no SOB
nightly CP
Labs
-
Labs:
WBC 7.3 10^3/uL (4.8-10.8) 03/08/25 05:07
RBC 3.02 10^6/uL (4.70-6.10) L 03/08/25 05:07
Hgb 8.8 g/dL (13.0-18.0) L 03/08/25 05:07
Hct 26.9 % (39.0-52.0) L 03/08/25 05:07
Plt Count 111 10^3/uL (130-400) L 03/08/25 05:07
Sodium 134 mmol/L (135-145) L 03/08/25 05:07
Potassium 3.6 mmol/L (3.5-5.1) 03/08/25 05:07
Chloride 96 mmol/L (98-107) L 03/08/25 05:07
Carbon Dioxide 32 mmol/L (22-30) H 03/08/25 05:07
BUN 72 mg/dl (9-20) H 03/08/25 05:07
Creatinine 1.9 mg/dL (0.7-1.3) H 03/08/25 05:07
eGFR 36.33 03/08/25 05:07
Glucose 81 mg/dl (70-99) 03/08/25 05:07
Calcium 8.1 mg/dl (8.4-10.2) L 03/08/25 05:07
Eui-Q-Umxwtypafqw Pept > 88644 pg/ml 03/01/25 06:46
Albumin 2.8 g/dl (3.5-5.0) L 03/07/25 02:48
Physical Exam
-
Vital Signs:
Vital Signs
Temp Pulse Resp BP Pulse Ox
98.1 F 69 16 105/55 93
03/08/25 07:34 03/08/25 10:00 03/08/25 10:00 03/08/25 10:00 03/08/25 10:00
Cardiovascular:: Regular rate and rhythm
Respiratory:: Bilateral: Coarse
Lung Excursion:: Normal
Abdomen:: Nontender and Soft
Bowel Sounds:: Normal
Extremity Edema:: None: Bilateral:
--- NOTE | 2025-03-08 12:39 | PTCARENOTE ---
Assumed care of patient this morning. Pt's mood is flat, pt reported feeling tired. He c/o of right arm pain, medicated with Tylenol, see MAR. Dr. Villagran at the bedside and made aware. R arm wound care performed. Pt did sleep for part of the morning.
Patient now up in chair after working with PT/OT. He remains on 1L NC, pt took it off this morning himself and SPO2 dropping to 87%. Farah maintained per urology and penile edema still present. Assessment, care and VS as charted.
--- NOTE | 2025-03-08 13:49 | W.PN.HOSP.TC ---
Addendum entered and electronically signed by Mariela Villagran MD 03/08/25 15:12:
o��� Acute on Chronic
o��� Type II Myocardial Infarction
Original Note:
Today's Communication/Plan
-
Continue IV Lasix
Assessment / Plan
Assessment / Plan
Impression:
Patient is a 74-year-old male with past medical history of chronic systolic congestive heart failure, ischemic cardiomyopathy, severe mitral regurgitation, history of bypass/with redo bypass/PCI, paroxysmal atrial fibrillation, history of ICD
placement, essential hypertension, hyperlipidemia, sleep apnea, history of inguinal hernia repair, history of cataract surgery, cachexia/protein calorie malnutrition came from facility for combination symptoms of dyspnea/chest pain/generalized
weakness/fatigue.
Assessment/plan:
Acute on chronic systolic congestive heart failure
-Elevated proBNP > 27k, ER weight 66kg, some leg swelling
- Chest x-ray showing cardiomegaly and pulmonary vascular congestion
- Portable Lasix 40 mg in ER, further dosing per nephrology/cardiology.
Continue Lasix, currently 40 mg IV twice daily.
Echocardiogram with 15 to 20%.
Continue aggressive diuresing for
Hyperkalemia - Improving
- Patient presented with potassium of 7.6
- Multifactorial from potassium supplement/Aldactone/CKD/metabolic acidosis
- EKG showing problematic QRS widening with sine early sine wave forming
- Good calcium gluconate/Lasix/insulin glucose in ER
- Got Kayexalate as well
- Low K diet started
- slowly trending down
Severe protein calorie malnutrition
-Patient have cardiac cachexia and decreased appetite/weight loss for some time.
Paroxysmal atrial fibrillation
-Continue home dose of Xarelto
Anion gap metabolic acidosis - resolved
-Likely with underlying CKD
-Improved with bicarb drip, discontinued.
BRIGHT on Chronic kidney disease stage IV
- Lowest cr of 1.3 from last visit, comes in with cr of 2.6
- Patient found to have urinary retention, difficult Farah catheter urology had to place Farah today
- Monitor renal function recovery
Hypoglycemia - resolved
-From decreased oral intake
-Reported nausea vomiting and decreased oral intake for few days
- Required D5/IVF
- Diet advanced to low potassium diet
Chest pain
Troponin elevation
History of CAD with bypass/redo bypass/PCI
- Patient hav has history of multivessel CAD, was provided nitro pills in the facility x 3 before presenting
- With hyperkalemia related EKG changes unable to appreciate any significant ST segment deviation
- Troponin elevation likely felt to be type II [place] related
- Appreciate cardiology input
Acute transaminitis -
- ALT 173/AST 287/ALP 152 at admission
- LFTs are rapidly uptrending and 1k +today
- Hold amiodarone dose
- Component of congestive hepatopathy is possibly
- Liver and abdominal ultrasound has been ordered
-
03/03
Us shows:
1. Diffuse intraperitoneal ascites.
2. Gallbladder sludge and small gallstones. Gallbladder wall thickening and fluid adjacent to the gallbladder, more likely to be related to ascites then acute cholecystitis. Negative sonographic Levy's sign.
3. Hepatic veins and main portal vein are patent.
4. Bilateral renal cortical thinning, suggestive of medical renal disease. No hydronephrosis on either side.
03/04
Liver enzymes improved
Right arm swelling
- Patient had infiltration of dextrose in ER causing significant forearm/elbow swelling
-Hyaluronidase injection was provided
-Patient already on Xarelto low chance of new deep venous thrombosis. monitor
Left upper extremity basilic vein thrombosis.
Ultrasound left upper extremity shows mild thrombus formation in the basilic vein which is partially compressible only 2 to 3 cm in length.
Continue Xarelto
Superficial skin wound
-wound care to be continued
- Patient had superficial denuding of the skin from friction injury in ER as well, Band-Aid in place
Leukocytosis without fever
- No clear infection source at this point, monitor.
- UA showing bacteriuria no pyuria.
Lactic acidosis
Hyponatremia
CODE STATUS:DNR
DVT prophylaxis: Xarelto
Diet: Regular diet
Total time spent on today's encounter was 65 minutes which included time spent in counseling the patient/family regarding diagnosis and treatment plan as listed above, goals of care, and symptom management. Case was discussed with nursing staff,
specialists, and care coordinators/case management. All labs and imaging personally reviewed by me. Remainder the time spent in detailed review of previous records, lab data, imaging, and other medical provider documentation.
Anticipated Discharge: > 48 hours
Subjective/Interval History
-
Date of Service: March 08, 2025
Patient seen and examined at bedside, was complaining of pain in the right upper extremity but otherwise denies any chest pain or shortness of breath, no abdominal pain, no nausea, no vomiting, no diarrhea or constipation.
Objective Data
-
Labs:
Laboratory Results
03/08/25
05:07
WBC 7.3
Hgb 8.8 L
Hct 26.9 L
Plt Count 111 L
Sodium 134 L
Potassium 3.6
Chloride 96 L
Carbon Dioxide 32 H
BUN 72 H
Creatinine 1.9 H
Glucose 81
Calcium 8.1 L
Vital Signs:
Vital Signs
Temp Pulse Resp BP Pulse Ox
98.3 F 69 20 93/57 98
03/08/25 11:33 03/08/25 12:27 03/08/25 12:27 03/08/25 12:27 03/08/25 12:21
I&O
03/07/25 03/08/25 03/09/25
06:59 06:59 06:59
Intake Total 840 / 840 960 / 960
Output Total 1950 / 1950 2200 / 2200
Balance -1110 / -1110 -1240 / -1240
Physical Exam
-
General: Well Nourished, No Apparent Distress, Comfortable and Appears in Distress
HEENT: Normocephalic, Atraumatic, Moist Mucous Membranes, No Ptosis, PERRLA and Nose Appears Normal
Respiratory: Rales, Rhonchi, Crackles and Non Labored Respirations
Cardiac: Regular Rhythm and S1/S2
Breast: Deferred by me
GI: Soft, Nontender, Nondistended and Normal Bowel Sounds
Genito-urinary: No Costovertebral Tender
Musculoskeletal: No Clubbing, No Cyanosis, Edema, Right Upper Extrem, Edema, Left Upper Extrem, Edema, Right Lower Extrem and Edema, Left Lower Extrem
Skin: Warm
Neuro: Awake, Alert, Oriented, AO x 3 and No Motor Deficits
Psych: Calm
Data Reviewed
-
Diagnostic Radiology: Image personally visualized and interpreted and Report Reviewed by me
CT Scan: Image personally visualized and interpreted and Report Reviewed by me
Ultrasound: Image personally visualized and interpreted and Report Reviewed by me
MRI: Image personally visualized and interpreted and Report Reviewed by me
Medical Tests (Nuc Med, Echo etc): Image personally visualized and interpreted and Report Reviewed by me
Labs: Labs Reviewed by me
Old Records: Reviewed
--- NOTE | 2025-03-08 14:33 | PN.CDI ---
CDI
- -
CDI:
Physician Documentation Request
Admit Date: 03/01/25 09:33
Dear Doctor Sparkle,
Please review the following and provide your response in the progress notes.
The purpose of this query to ensure the accuracy of the conditions reported for your patient.
Diagnosis:
Cardiology, PN, 03/07
#-Troponin peaked at 0.076 and was
#...managed as a nonischemic myocardial injury Troponin elevation.
PN, 03/08
#Chest pain
#...Troponin elevation
#...- Troponin elevation likely felt to be type II AK related
Based on the above and your clinical assessment, please clarify the etiology of the elevated troponin:
Nonischemic Myocardial Injury
Type II Myocardial Infarction
Other (please specify)
Type of AK
Type I
Type II (due to demand ischemia)
Other (Type 3, 4a, 4b, 4c, 5) please specify
Use of terms such as suspected, likely, concern for, or probable (associated with a specific diagnosis that is being evaluated, monitored, or treated as if it exists) are acceptable and can be coded in the inpatient setting, when documented at the
time of discharge.
Thank you,
Koki Ndiaye RN BSN CCDS
CDI Specialist
Please contact via tiger text
--- NOTE | 2025-03-08 14:41 | PN.CDI ---
CDI
- -
CDI:
Physician Documentation Request
Admit Date: 03/01/25 09:33
Dear Doctor Sparkle,
Please review the following and provide your response in the progress notes.
Clinical Indicators:
US Left upper extremity, 03/07
#IMPRESSION: Mild nonocclusive thrombus formation in the proximal left basilic vein.
#...New.
#...Partially compressible suggesting chronic or early thrombus formation.
PN, 03/08
#Right arm swelling
#...- Patient had infiltration of dextrose in ER causing significant forearm/elbow swelling
#...-Patient already on Xarelto low chance of new deep venous thrombosis.
#Left upper extremity basilic vein thrombosis.
#...Ultrasound left upper extremity shows mild thrombus formation in the basilic vein
#...which is partially compressible only 2 to 3 cm in length.
#...Continue Xarelto
Based on the above and your clinical assessment, please clarify the acuity of the Left upper extremity basilic vein thrombosis:
Acute
Acute on Chronic
Other(please specify)
Use of terms such as suspected, likely, concern for, or probable (associated with a specific diagnosis that is being evaluated, monitored, or treated as if it exists) are acceptable and can be coded in the inpatient setting, when documented at the
time of discharge.
Thank you,
Koki Ndiaye RN BSN CCDS
CDI Specialist
Please contact via tiger text
Please use your independent medical judgment in providing your response.
--- NOTE | 2025-03-08 15:58 | CM ---
Patient seen at bedside. CM called to [facility] to update nursing that therapy is recommending home health at [facility] and phone call was terminated. CM called again and spoke with Mary rn. CM updated facility about the [facility]
they would request [facility] and [facility] for [facility]. Fax number [phone]. CM will continue to follow for discharge planning needs.
Plan; return to [facility] with PT[facility]OT and VN; [facility] referral and [facility] referral needed
[2025-03-08] MEDS: XARELTO 15 MG PO (17:00)
[2025-03-08] MEDS: SINGULAIR 10 MG PO (19:56)
[2025-03-09] VITALS (10 sets, daily range): BP systolic 101–149; BP diastolic 59–69; BMI 21.2
--- NOTE | 2025-03-09 00:41 | PTCARENOTE ---
assumed care of patient. pt is AAOx3- flat affect. VSS. on 2L 95%. no complaints of pain at present. some pink-tinged sputum noted. armstrong intact draining yellow urine. penile swelling noted. care ongoing.
[2025-03-09 05:06] LABS: Hematocrit 28.5 % (39.0-52.0); Hemoglobin 9.2 g/dL (13.0-18.0); Mean Corp Hgb Conc. 32.3 g/dL (33.0-37.0); Mean Corpuscular Hgb 28.8 pg (27.0-31.0); Mean Corpuscular Volume 89.1 fL (80.0-94.0); Mean Platelet Volume 11.4 fL (7.4-10.4); Platelet Count 134 10^3/uL (130-400); Red Cell Dist. Width 15.8 % (11.5-14.5); White Blood Cell Count 7.7 10^3/uL (4.8-10.8)
[2025-03-09 05:21] LABS: Blood Urea Nitrogen 69 mg/dl (9-20); Calcium 8.3 mg/dl (8.4-10.2); Carbon Dioxide 32 mmol/L (22-30); Chloride 95 mmol/L (98-107); Estimated Creatinine Clearance 31 ml/min; Glucose 82 mg/dl (70-99); Potassium 3.3 mmol/L (3.5-5.1); Sodium 135 mmol/L (135-145); eGFR 38.77
--- NOTE | 2025-03-09 07:44 | PTCARENOTE ---
Pt AAOx3 , set up for breakfast, no complaints at this time. Farah in place urology determination.
[2025-03-09] MEDS: LASIX 40 MG IV ×2 (08:25→16:59)
[2025-03-09] MEDS: ZOLOFT 25 MG PO (08:26)
[2025-03-09] MEDS: SYNTHROID 75 MCG PO (08:26)
[2025-03-09] MEDS: APRESOLINE 25 MG PO ×2 (08:26→22:08)
[2025-03-09] MEDS: LOW STRENGTH ASPIRIN 81 MG PO (08:26)
[2025-03-09] MEDS: HYDROPHOR 1 APPLIC TOPICAL (08:27)
[2025-03-09 08:37] LABS: ALT (SGPT) 145 U/L (0-50); AST (SGOT) 44 U/L (17-59); Albumin 2.8 g/dl (3.5-5.0); Alkaline Phosphatase 125 U/L (38-126); Total Bilirubin 1.7 mg/dl (0.2-1.3); Total Protein 5.8 g/dl (6.3-8.2)
--- NOTE | 2025-03-09 08:45 | W.PN.NEPH.PH ---
Today's Communication / Plan
-
GFR at baseline
replete K
Assessment/Plan
-
Impression:
Hyperkalemia (7.6)
Metabolic acidosis
CKD stage IV (2.4)
Cardiorenal syndrome with chronic hemodynamic instability
Ischemic cardiomyopathy EF 30%, DD stage3, mod to severe MR, mod TR
CAD complex history s/p CABG
s/p [employer] single chamber ICD
Paroxysmal Afib
HTN
Orthostasis on midodrine
Hyperlipidemia
Former tobacco use
ELI
GERD/Caballero's esophagus
S/p Schatzki's ring dilatation
Severe LAUREN stenosis S/p stent (01/10/2015)
Severe LICA stenosis S/p stent (10/05/2010)
Hx Prostate Ca S/p robotic prostatectomy (2009)
Plan:
follow BMP
Remains hypotensive can add midodrine if needed
holding MRA for now. could consider restart at 12.5mg daily if BP remains stable, otherwise increase midodrine further if needed
diurese with IV lasix still 40/40
high risk situation
-
-
Date of Service: March 09, 2025
CC / HPI / ROS
-
Chief Complaint:
Hyperkalemia
History of Present Illness:
Acute on chronic kidney disease and severe hyperkalemia 7.6 improved with urinary retention status post Farah catheter
Potassium at 3.3
Creatinine at 1.8
Hemodynamically stable
diuresing with IV lasix for decompensated HF
Review of Systems:.
Nonoliguric
no SOB
nightly CP
Labs
-
Labs:
WBC 7.7 10^3/uL (4.8-10.8) 03/09/25 04:44
RBC 3.20 10^6/uL (4.70-6.10) L 03/09/25 04:44
Hgb 9.2 g/dL (13.0-18.0) L 03/09/25 04:44
Hct 28.5 % (39.0-52.0) L 03/09/25 04:44
Plt Count 134 10^3/uL (130-400) D 03/09/25 04:44
Sodium 135 mmol/L (135-145) 03/09/25 04:44
Potassium 3.3 mmol/L (3.5-5.1) L 03/09/25 04:44
Chloride 95 mmol/L (98-107) L 03/09/25 04:44
Carbon Dioxide 32 mmol/L (22-30) H 03/09/25 04:44
BUN 69 mg/dl (9-20) H 03/09/25 04:44
Creatinine 1.8 mg/dL (0.7-1.3) H 03/09/25 04:44
eGFR 38.77 03/09/25 04:44
Glucose 82 mg/dl (70-99) 03/09/25 04:44
Calcium 8.3 mg/dl (8.4-10.2) L 03/09/25 04:44
Kux-J-Wiipyeozujx Pept > 90928 pg/ml 03/01/25 06:46
Albumin 2.8 g/dl (3.5-5.0) L 03/09/25 04:44
Physical Exam
-
Vital Signs:
Vital Signs
Temp Pulse Resp BP Pulse Ox
98.2 F 73 19 71/59 94
03/09/25 07:15 03/09/25 08:25 03/09/25 06:00 03/09/25 08:26 03/09/25 07:43
Cardiovascular:: Regular rate and rhythm
Respiratory:: Bilateral: Coarse
Lung Excursion:: Normal
Abdomen:: Nontender and Soft
Bowel Sounds:: Normal
Extremity Edema:: None: Bilateral:
Farah Catheter: Yes
--- NOTE | 2025-03-09 08:51 | W.PN.CARDCBS ---
Addendum entered and electronically signed by Ayde Whaley MD 03/09/25 12:44:
-Remains on oxygen at 1 L NC. Patient was not using supplemental oxygen prior to admission and is agreeable to having oxygen at [facility] if indicated.
-Weight is down 3 lbs overnight with ongoing Lasix 40 mg IV BID. Patient was taking Lasix 20 mg PO daily prior to admission
-EF a bit worse at 15-20% on echo this admission, had been 25-30% by echo 09/2024.
-GDMT had been down-titrated as an outpatient prior to admission due to hypotension.
-Outpatient dose of Toprol XL stopped prior to admission due to hypotension.
-Patient is not chronically on JANE/ARB/ARNI due to CKD 4
-Cre peaked at 2.8 this admission and down to 1.8 on 03/09/25
-Outpatient dose of spironolactone every other day is on hold due to hyperkalemia on admission.
I saw and examined the patient.
The Final Inspector [employer]cyles's note was reviewed and I agree with the note.
Patient with end-stage heart failure and decompensation. Hypotension limiting guideline directed medical treatment. He tells me that goals of care including hospice have been discussed with family previously and ongoing discussions are underway
with his goal to eventually get him of [facility] and spend time at home.
Continue diuresis and replete electrolytes. Labs and telemetry reviewed by me. Magnesium stable.
Hydralazine as tolerates for afterload reduction.However, hypotension has been limiting.
Blood pressure hypotensive earlier today currently stable.
He is not a candidate at this time for invasive procedures. He is not a candidate for advanced heart failure treatment such as LVAD. Given cardiac cachexia and multiple medical problems.
Paroxysmal atrial fibrillation currently in sinus rhythm. Continue anticoagulation.Continue amiodarone.
ICD in place but defibrillation therapies had previously been discontinued given end-stage status.
Continue supportive care.
Original Note:
Today's Communication / Plan
-
Cont Lasix 40 mg IV BID
Remains on 1 L NC
Cre is better today
Restarting amiodarone
Impression / Plan
-
.
PCP: Dr. Song
Cardiology: Dr. Gillis
IMPRESSION:
Admitted with hyperkalemia and BRIGHT 03/01/25
Hyperkalemia then hypokalemia
Hypoglycemia
Metabolic acidosis
Transaminitis
Acute on chronic HFrEF
Decompensated cardiorenal syndrome with ischemic cardiomyopathy and severe mitral regurgitation
Elevated troponin
Abnormal TFTs
ICM EF 30% by echo 05/04/24, down a bit more 15-20% by echo 03/02/25
Cardiorenal syndrome
BRIGHT on CKD 4
CAD
s/p CABG x 3 (COLEMAN - LAD, seq SVG to OM1 to RPLB) 09/19
s/p PCI with JENIFFER to SVG to OM1 to RPLB 10/29/11
s/p acute inferior ME S/P PCI with RCA stent (02/19/17)
s/p Re-op CABG x 2 (left saphenous vein as sequential graft to LAD then to OM1) vein graft tear, anterior wall of RV tear and divided COLEMAN at time of CABG 12/20/19
h/o long admission (46 days) to [place] for LVAD eval and eventual ICD placement at time of complicated redo CABG 12/2019
h/o left groin abscess with flap closure and VAC treatment 06/2020
s/p [employer] single chamber ICD
ICD therapies turned off since 11/30/24
Paroxysmal Afib
s/p PVI 08/04/17
Chronic Xarelto OAC
HTN
Orthostasis on midodrine
Hyperlipidemia
Former tobacco use
ELI
GERD/Caballero's esophagus
S/p Schatzki's ring dilatation
Severe LAUREN stenosis S/p stent (01/10/2015)
Severe LICA stenosis S/p stent (10/05/2010)
Hx Prostate Ca S/p robotic prostatectomy (2009)
s/p right inguinal herniorrhaphy (1992)
s/p B/L cataract surgery 09/2024
DNR code status
Left basilic vein thrombus
ECHO 12/23/19: with severe left ventricular systolic dysfunction ejection fraction 15�20%. New compared to preoperative echocardiogram
Echo at [place] 02/2020: EF 36%
Echo 06/26/20: Mildly dilated LV, EF 25-30%, inferior, septal, anteroseptal, apical akinesis with hypokinesis remaining. EF was 40% by Valle, 25-30% visually, mildly dilated and hypokinetic RV, ICD wire, dilated left atrium, mild MR, aortic
sclerosis, moderate TR, pulmonary artery pressure 37-42 mmHg
Echo 05/04/24: EF 30%, akinesis of the septum and inferior de jesus, stage III diastolic dysfunction, moderate to severe MR, moderate TR with PAP 45 mmHg
Echo 10/05/24: EF 25 to 30%, enlarged right ventricle with moderate RV hypokinesis, moderate to severe MR, moderate TR
Echo 03/02/25: EF 15-20%, akinesis of the inferior wall and apex, septum is dyskinetic, enlarged RV size and reduced RV systolic function, mod to sev MR, sev TR, compared to echo from 03/02/25 the EF is now 15-20% and used to be 25-30%
Plan:
-Remains on oxygen at 1 L NC. Patient was not using supplemental oxygen prior to admission and is agreeable to having oxygen at [facility] if indicated.
-Weight is down 3 lbs overnight with ongoing Lasix 40 mg IV BID. Patient was taking Lasix 20 mg PO daily prior to admission
-EF a bit worse at 15-20% on echo this admission, had been 25-30% by echo 09/2024.
-GDMT had been down-titrated as an outpatient prior to admission due to hypotension.
-Outpatient dose of Toprol XL stopped prior to admission due to hypotension.
-Patient is not chronically on JANE/ARB/ARNI due to CKD 4
-Cre peaked at 2.8 this admission and down to 1.8 on 03/09/25
-Outpatient dose of spironolactone every other day is on hold due to hyperkalemia on admission.
-Patient is now hypokalemic 03/09/25, potassium is 3.3. KCl 40 meq x1 ordered by me 03/09/25
-Hydralazine 25 mg BID added this admission for afterload reduction, doses rarely held for hypotension. Of note, hydralazine was started and later stopped during his last admission 10/2024 due to hypotension.
-Outpatient dose of midodrine 10 mg TID has been held this admission
-Previous options of MitraClip and LVAD have been discussed, but patient is not a candidate for MitraClip given his age, CKD, cardiorenal syndrome, end-stage cardiomyopathy with severe LV dysfunction and concomitant TR. The patient is not interested
in LVAD evaluation.
-Patient with known paroxysmal Afib and has been in SR this admission.
-Outpatient dose of amiodarone 200 mg daily has been held due to elevated LFTs. LFTs trending down on labs reviewed by me 03/09/25, will restart amiodarone 200 mg on 03/08/25 or 03/09/25 pending labs.
-Outpatient dose of Xarelto 15 mg daily has been continued
-Troponin peaked at 0.076 and was managed as a nonischemic myocardial injury Troponin elevation.
-ICD therapies turned off at cardiology office visit 11/30/24
-Patient says that his goal is to return home with his and that he would not want any invasive measures and is a DNR. Discussed hospice and he thinks his family is aware of his goals of care.
HPI: Patient is a 74 yo M with PMH of CABG 09/2010 with COLEMAN to LAD and SVG seq to OM and PLB. He then had a Xience JENIFFER to the sequential SVG in 10/29/11. He was then admitted to 12/20/19 until 12/29/19 with plan for redo sternotomy and CABG with
SVG to OM and then to the PLB of the RCA. He had RV tear and repair as a complication. His CABG ended up being a left saphenous vein as sequential graft to LAD then to OM1. He had a newly reduced EF 15% at that time and developed cardiorenal
syndrome and cardiogenic shock. He was transferred to [place] for LVAD evaluation 12/29/19 and was hospitalized for 46 days and was ultimately not an LVAD candidate, but was diuresed and had a [employer] single chamber ICD placed. He then went to
[facility] acute care rehab. He had left groin washout with [employer] flap creation and VAC placement 06/23/20. He has since had several admissions for CHF and has been residing at the [facility] in [place]. This is felt in part to be due to severe MR,
and patient was previously deemed not to be a candidate for surgical repair or mitraclip intervention. He remains uninterested in LVAD evaluation. He is a DNR and ICD therapies have been turned off however he does continue to want medical treatment.
He reports over the last several weeks he has noted SOB and LE edema. He reports noting some nausea over last 24 hours which he felt was related to increased mucus production. Reportedly received SL nitro at [facility] prior to ER arrival. On arrival
was noted to be hyperkalemic with potassium of 7.6, hypoglycemic, and had altered mental status related to this. He is now feeling much improved on bicarb gtt. ProBNP >40319. Cardiology consulted for evaluation. was given IV lasix 40mg in ER. Denies
recent OP med changes - is on spironolactone 25mg Q48H and potassium 20mEq BID.
Progress Note - Company Secretary
Subjective
Date of Service: March 09, 2025
No chest pain
Objective
Labs:
03/09/25 04:44
03/09/25 04:44
Labs
Hgb 9.2 g/dL (13.0-18.0) L 03/09/25 04:44
Hct 28.5 % (39.0-52.0) L 03/09/25 04:44
Plt Count 134 10^3/uL (130-400) D 03/09/25 04:44
Sodium 135 mmol/L (135-145) 03/09/25 04:44
Potassium 3.3 mmol/L (3.5-5.1) L 03/09/25 04:44
BUN 69 mg/dl (9-20) H 03/09/25 04:44
Creatinine 1.8 mg/dL (0.7-1.3) H 03/09/25 04:44
Glucose 82 mg/dl (70-99) 03/09/25 04:44
Troponins
03/07/25
02:48
Troponin I 0.030
Vital Signs and I&O:
Vital Signs
Temp Pulse Resp BP Pulse Ox
98.2 F 73 19 71/59 94
03/09/25 07:15 03/09/25 08:25 03/09/25 06:00 03/09/25 08:26 03/09/25 07:43
Vital Signs
Temp Pulse Resp BP Pulse Ox
98.2 F 73 19 71/59 94
03/09/25 07:15 03/09/25 08:25 03/09/25 06:00 03/09/25 08:26 03/09/25 07:43
Intake & Output
03/07/25 03/08/25 03/09/25 03/10/25
06:59 06:59 06:59 06:59
Intake Total 840 / 840 960 / 960 960 / 960
Output Total 1950 / 1950 2200 / 2200 1150 / 1150
Balance -1110 / -1110 -1240 / -1240 -190 / -190
Physical Exam
Physical Exam
General: NAD. AAO x3
Skin: No rash
HEENT: EOMI
Heart: SR on tele
Lungs: 1 L NC, no audible wheeze
Abdomen: ND
Extremities: No edema B/L
Neuro: Grossly nonfocal.
[2025-03-09] MEDS: KCL 20 MEQ PO (09:11)
--- NOTE | 2025-03-09 09:42 | VATNOTE ---
Pt continues with swelling in L arm, arm elevated on two pillows and heat applied. Pt states his R arm is still painful. Arm is diffusely ecchymotic and pt appreciated decreased movement in his R hand. Heat applied to arm. Discussed with PCN who
will bring it up with the hospitalist on the patient's care team.
--- NOTE | 2025-03-09 12:59 | W.PN.HOSP.TC ---
Today's Communication/Plan
-
Downgraded to tele
Assessment / Plan
Assessment / Plan
Impression:
Patient is a 74-year-old male with past medical history of chronic systolic congestive heart failure, ischemic cardiomyopathy, severe mitral regurgitation, history of bypass/with redo bypass/PCI, paroxysmal atrial fibrillation, history of ICD
placement, essential hypertension, hyperlipidemia, sleep apnea, history of inguinal hernia repair, history of cataract surgery, cachexia/protein calorie malnutrition came from facility for combination symptoms of dyspnea/chest pain/generalized
weakness/fatigue.
Started on aggressive diuresis as per cardiology.
Kidney function improved.
Assessment/plan:
Acute on chronic systolic congestive heart failure
-Elevated proBNP > 27k, ER weight 66kg, some leg swelling
- Chest x-ray showing cardiomegaly and pulmonary vascular congestion
- Portable Lasix 40 mg in ER, further dosing per nephrology/cardiology.
Continue Lasix, currently 40 mg IV twice daily.
Echocardiogram with 15 to 20%.
Continue aggressive diuresing for now
Hyperkalemia - Improving
- Patient presented with potassium of 7.6
- Multifactorial from potassium supplement/Aldactone/CKD/metabolic acidosis
- EKG showing problematic QRS widening with sine early sine wave forming
- Good calcium gluconate/Lasix/insulin glucose in ER
- Got Kayexalate as well
- Low K diet started
- slowly trending down
Severe protein calorie malnutrition
-Patient have cardiac cachexia and decreased appetite/weight loss for some time.
Paroxysmal atrial fibrillation
-Continue home dose of Xarelto
Anion gap metabolic acidosis - resolved
-Likely with underlying CKD
-Improved with bicarb drip, discontinued.
BRIGHT on Chronic kidney disease stage IV
- Lowest cr of 1.3 from last visit, comes in with cr of 2.6
- Patient found to have urinary retention, difficult Farah catheter urology had to place Farah today
- Monitor renal function recovery
Hypoglycemia - resolved
-From decreased oral intake
-Reported nausea vomiting and decreased oral intake for few days
- Required D5/IVF
- Diet advanced to low potassium diet
Chest pain
Troponin elevation
History of CAD with bypass/redo bypass/PCI
- Patient hav has history of multivessel CAD, was provided nitro pills in the facility x 3 before presenting
- With hyperkalemia related EKG changes unable to appreciate any significant ST segment deviation
- Troponin elevation likely felt to be type II VT related
- Appreciate cardiology input
Acute transaminitis -
- ALT 173/AST 287/ALP 152 at admission
- LFTs are rapidly uptrending and 1k +today
- Hold amiodarone dose
- Component of congestive hepatopathy is possibly
- Liver and abdominal ultrasound has been ordered
-
03/03
Us shows:
1. Diffuse intraperitoneal ascites.
2. Gallbladder sludge and small gallstones. Gallbladder wall thickening and fluid adjacent to the gallbladder, more likely to be related to ascites then acute cholecystitis. Negative sonographic Levy's sign.
3. Hepatic veins and main portal vein are patent.
4. Bilateral renal cortical thinning, suggestive of medical renal disease. No hydronephrosis on either side.
03/04
Liver enzymes improved
03/09
Liver enzymes continue to improve
Right arm swelling
- Patient had infiltration of dextrose in ER causing significant forearm/elbow swelling
-Hyaluronidase injection was provided
-Patient already on Xarelto low chance of new deep venous thrombosis. monitor
Left upper extremity basilic vein thrombosis.
Ultrasound left upper extremity shows mild thrombus formation in the basilic vein which is partially compressible only 2 to 3 cm in length.
Continue Xarelto
Superficial skin wound
-wound care to be continued
- Patient had superficial denuding of the skin from friction injury in ER as well, Band-Aid in place
Leukocytosis without fever
- No clear infection source at this point, monitor.
- UA showing bacteriuria no pyuria.
Lactic acidosis
Hyponatremia
CODE STATUS:DNR
DVT prophylaxis: Xarelto
Diet: Regular diet
Disposition: Downgrade to tele
Total time spent on today's encounter was 65 minutes which included time spent in counseling the patient/family regarding diagnosis and treatment plan as listed above, goals of care, and symptom management. Case was discussed with nursing staff,
specialists, and care coordinators/case management. All labs and imaging personally reviewed by me. Remainder the time spent in detailed review of previous records, lab data, imaging, and other medical provider documentation.
Anticipated Discharge: 24 - 48 hours
Subjective/Interval History
-
Date of Service: March 09, 2025
Patient seen and examined at bedside, bilateral upper extremity pain from swelling but otherwise denies any chest pain or shortness of breath, no abdominal pain, no nausea, no vomiting, no diarrhea or constipation.
Objective Data
-
Labs:
Laboratory Results
03/09/25
04:44
WBC 7.7
Hgb 9.2 L
Hct 28.5 L
Plt Count 134 D
Sodium 135
Potassium 3.3 L
Chloride 95 L
Carbon Dioxide 32 H
BUN 69 H
Creatinine 1.8 H
Glucose 82
Calcium 8.3 L
Total Bilirubin 1.7 H
AST 44
ALT 145 H
Alkaline Phosphatase 125
Vital Signs:
Vital Signs
Temp Pulse Resp BP Pulse Ox
98.2 F 74 14 115/65 97
03/09/25 07:15 03/09/25 12:00 03/09/25 12:00 03/09/25 12:00 03/09/25 12:00
I&O
03/08/25 03/09/25 03/10/25
06:59 06:59 06:59
Intake Total 960 / 960 960 / 960
Output Total 2200 / 2200 1150 / 1150
Balance -1240 / -1240 -190 / -190
Physical Exam
-
General: Well Nourished, No Apparent Distress, Comfortable and Appears in Distress
HEENT: Normocephalic, Atraumatic, Moist Mucous Membranes, No Ptosis, PERRLA and Nose Appears Normal
Respiratory: Rales, Rhonchi, Crackles and Non Labored Respirations
Cardiac: Regular Rhythm and S1/S2
Breast: Deferred by me
GI: Soft, Nontender, Nondistended and Normal Bowel Sounds
Genito-urinary: No Costovertebral Tender
Musculoskeletal: No Clubbing, No Cyanosis, Edema, Right Upper Extrem, Edema, Left Upper Extrem, Edema, Right Lower Extrem and Edema, Left Lower Extrem
Skin: Warm
Neuro: Awake, Alert, Oriented, AO x 3 and No Motor Deficits
Psych: Calm
Data Reviewed
-
Diagnostic Radiology: Image personally visualized and interpreted and Report Reviewed by me
CT Scan: Image personally visualized and interpreted and Report Reviewed by me
Ultrasound: Image personally visualized and interpreted and Report Reviewed by me
MRI: Image personally visualized and interpreted and Report Reviewed by me
Medical Tests (Nuc Med, Echo etc): Image personally visualized and interpreted and Report Reviewed by me
Labs: Labs Reviewed by me
Old Records: Reviewed
--- NOTE | 2025-03-09 14:10 | PTCARENOTE ---
Callto 4th floor nurse discharging pt [email or web address]
--- NOTE | 2025-03-09 14:18 | PTCARENOTE ---
Nurse cb report given . Transport called
--- NOTE | 2025-03-09 15:29 | PTCARENOTE ---
Patient received from IMU into room 407-01. Vital signs stable. Oriented to room and use of call velazquez and TV/bed controls. Patient verbalizes understanding of teaching. Resting comfortably in bed at this time without complaint.
[2025-03-09] MEDS: XARELTO 15 MG PO (16:58)
[2025-03-09] MEDS: XARELTO PO (16:59)
[2025-03-09] MEDS: AFRIN NASAL SPRAY 1 SPRAYS NASAL (19:15)
--- NOTE | 2025-03-09 20:14 | W.PN.UPDATE ---
Update Note
Progress Note Update
Cross Coverage Update:
Notified by nurse copious nose bleeding ongoing 20 min despite nasal packing, recently received Xarelto. Patient Alert Conversant Coherent reported ongoing intermittent nose bleeding for the past week to years.
Initially nose bleeding was right nostril but later both nostrils were involved. Head was bent forward and nose was packed pinched but patient continued to endorse post-nasal drip/bleeding
Afrin spray was attempted along with further nose re-packing pinching additional 20 min. Seemed to have resolved momentarily but re-occurred. re-packed and pinched for another 20 min. Patient noted post-nasal drip/bleeding persisting though
seemed improved.
Discussed with pharmacy and tranexamic acid solution was ordered
-Left nostril was packed with merocel soaked in tranexamic acid solution
-Right nostril appeared to be where the nose bleeding was the worse, Rapid Rhino was soaked in tranexamic acid solution packed in right nostril and inflated
-ENT consult requested
-Xarelto placed on hold
-patient difficult stick, otherwise VSS, no acute distress, appeared relatively comfortable, Type and Screen and Coags ordered with morning labs including CBC, patient consented for transfusion if necessary (consent filed in chart)
[2025-03-09] MEDS: TRANEXAMIC ACID 1000 MG TOPICAL ×2 (20:25→21:05)
[2025-03-09] MEDS: TYLENOL 650 MG PO (21:04)
[2025-03-09] MEDS: SINGULAIR 10 MG PO (22:09)
[2025-03-10] VITALS (8 sets, daily range): BP systolic 111–152; BP diastolic 58–78; PULSE 75–76; BMI 21.8
[2025-03-10 06:29] LABS: INR 2.42; PT 26.7 Sec (11.4-14.6)
[2025-03-10 06:30] LABS: APTT 52.6 Sec (23.4-35.0)
[2025-03-10 06:38] LABS: Hematocrit 29.1 % (39.0-52.0); Hemoglobin 9.4 g/dL (13.0-18.0); Mean Corp Hgb Conc. 32.3 g/dL (33.0-37.0); Mean Corpuscular Volume 89.8 fL (80.0-94.0); Mean Platelet Volume 11.3 fL (7.4-10.4); Platelet Count 168 10^3/uL (130-400); Red Blood Cell Count 3.24 10^6/uL (4.70-6.10); Red Cell Dist. Width 15.6 % (11.5-14.5); White Blood Cell Count 6.5 10^3/uL (4.8-10.8)
[2025-03-10 06:46] LABS: Blood Urea Nitrogen 66 mg/dl (9-20); Calcium 8.4 mg/dl (8.4-10.2); Carbon Dioxide 31 mmol/L (22-30); Chloride 94 mmol/L (98-107); Estimated Creatinine Clearance 34 ml/min; Glucose 87 mg/dl (70-99); Potassium 3.5 mmol/L (3.5-5.1); Sodium 134 mmol/L (135-145); eGFR 41.52
[2025-03-10] MEDS: APRESOLINE 25 MG PO ×2 (08:06→21:29)
[2025-03-10] MEDS: PACERONE 200 MG PO (08:06)
[2025-03-10] MEDS: ZOLOFT 25 MG PO (08:06)
[2025-03-10] MEDS: SYNTHROID 75 MCG PO (08:06)
[2025-03-10] MEDS: LASIX 40 MG IV (08:07)
[2025-03-10] MEDS: LOW STRENGTH ASPIRIN 81 MG PO (08:07)
[2025-03-10] MEDS: HYDROPHOR 1 APPLIC TOPICAL (08:08)
--- NOTE | 2025-03-10 10:50 | W.PN.CARDCBS ---
Addendum entered and electronically signed by Nini Giron DO 03/10/25 17:19:
I saw and examined the patient.
The Compacting Machine Operator/Tender's note was reviewed and I agree with the note.
Comment: Patient seen and examined with at bedside. Overall shortness of breath is improved despite the fact that he has bilateral nasal packing. He denies chest pain or pressure.
General: Frail, 74-year-old gentleman with bilateral nasal packing
Heart: Regular, positive S1/S2, 2/6 SM at apex and throughout precordium
Lungs: Bronchovesicular breath sounds decreased at bases with fine crackles right. No wheezes
Abd: Positive BS, NT/ND, neg rebound/rigidity/guarding
Ext: No edema
Neuro: nonfocal
Plan:
Acute on chronic heart failure with reduced ejection fraction/cardiorenal syndrome severe mitral regurgitation on palliative care
-proBNP greater than 27,000
-Echocardiogram with biventricular dysfunction and EF 15 to 20%. Moderate to severe MR, severe TR.
-Volume status is improved following IV diuretics
-Transitioned to oral Lasix 40 mg twice daily
- GDMT had been down-titrated as an outpatient prior to admission due to hypotension.
-Outpatient dose of Toprol XL stopped prior to admission due to hypotension.
-Patient is not chronically on JANE/ARB/ARNI due to CKD 4
-Cre peaked at 2.8 this admission and down to 1.7 on 03/10/25. Appreciate nephrology input
-Outpatient dose of spironolactone every other day is on hold due to hyperkalemia on admission.
-Hydralazine 25 mg BID added this admission for afterload reduction, doses rarely held for hypotension. Of note, hydralazine was started and later stopped during his last admission 10/2024 due to hypotension.
-Outpatient dose of midodrine 10 mg TID has been held this admission
-Previous options of MitraClip and LVAD have been discussed, but patient is not a candidate for MitraClip given his age, CKD, cardiorenal syndrome, end-stage cardiomyopathy with severe LV dysfunction and concomitant TR. The patient is not interested
in LVAD evaluation.
-Troponin peaked at 0.076 and was managed as a nonischemic myocardial injury Troponin elevation.
-ICD therapies turned off at cardiology office visit 11/30/24
-Patient says that his goal is to return home with his and that he would not want any invasive measures and is a DNR. Hospice would be appropriate
epistaxis with nasal packing
- Appreciate ENT input
- Plan to remove packing either this or Friday if discharged
- Xarelto on hold
PAF in sinus rhythm
- Xarelto currently held
Discharge planning per primary
Outpatient cardiac follow-up to be arranged
Will sign off, recall if needed
Original Note:
Today's Communication / Plan
-
Weaned to RA
Change Lasix to 40 mg PO BID
Follow potassium
Impression / Plan
-
.
PCP: Dr. Song
Cardiology: Dr. Gillis
IMPRESSION:
Admitted with hyperkalemia and BRIGHT 03/01/25
Hyperkalemia then hypokalemia
Hypoglycemia
Metabolic acidosis
Transaminitis
Acute on chronic HFrEF
Decompensated cardiorenal syndrome with ischemic cardiomyopathy and severe mitral regurgitation
Elevated troponin
Abnormal TFTs
ICM EF 30% by echo 05/04/24, down a bit more 15-20% by echo 03/02/25
Cardiorenal syndrome
BRIGHT on CKD 4
CAD
s/p CABG x 3 (COLEMAN - LAD, seq SVG to OM1 to RPLB) 09/19
s/p PCI with JENIFFER to SVG to OM1 to RPLB 10/29/11
s/p acute inferior MO S/P PCI with RCA stent (02/19/17)
s/p Re-op CABG x 2 (left saphenous vein as sequential graft to LAD then to OM1) vein graft tear, anterior wall of RV tear and divided COLEMAN at time of CABG 12/20/19
h/o long admission (46 days) to [place] for LVAD eval and eventual ICD placement at time of complicated redo CABG 12/2019
h/o left groin abscess with flap closure and VAC treatment 06/2020
s/p [employer] single chamber ICD
ICD therapies turned off since 11/30/24
Paroxysmal Afib
s/p PVI 08/04/17
Chronic Xarelto OAC
HTN
Orthostasis on midodrine
Hyperlipidemia
Former tobacco use
ELI
GERD/Caballero's esophagus
S/p Schatzki's ring dilatation
Severe LAUREN stenosis S/p stent (01/10/2015)
Severe LICA stenosis S/p stent (10/05/2010)
Hx Prostate Ca S/p robotic prostatectomy (2009)
s/p right inguinal herniorrhaphy (1992)
s/p B/L cataract surgery 09/2024
DNR code status
Left basilic vein thrombus
ECHO 12/23/19: with severe left ventricular systolic dysfunction ejection fraction 15�20%. New compared to preoperative echocardiogram
Echo at [place] 02/2020: EF 36%
Echo 06/26/20: Mildly dilated LV, EF 25-30%, inferior, septal, anteroseptal, apical akinesis with hypokinesis remaining. EF was 40% by Valle, 25-30% visually, mildly dilated and hypokinetic RV, ICD wire, dilated left atrium, mild MR, aortic
sclerosis, moderate TR, pulmonary artery pressure 37-42 mmHg
Echo 05/04/24: EF 30%, akinesis of the septum and inferior de jesus, stage III diastolic dysfunction, moderate to severe MR, moderate TR with PAP 45 mmHg
Echo 10/05/24: EF 25 to 30%, enlarged right ventricle with moderate RV hypokinesis, moderate to severe MR, moderate TR
Echo 03/02/25: EF 15-20%, akinesis of the inferior wall and apex, septum is dyskinetic, enlarged RV size and reduced RV systolic function, mod to sev MR, sev TR, compared to echo from 03/02/25 the EF is now 15-20% and used to be 25-30%
Plan:
-Oxygen weaned overnight
-Patient with epistaxis overnight and now had B/L nasal packings in place. ENT notes reviewed and packings to remain in place until Friday.
-From a cardiac standpoint the outpatient dose of Xarelto 15 mg daily is now on hold
-Patient with known paroxysmal Afib and has been in SR this admission on tele reviewed by me 03/10/25.
-Outpatient dose of amiodarone 200 mg daily was held for elevated LFTs on admission and is now resumed.
-Weight is up 4 lbs on 03/10/25, but he is being weighed with bed scale and switched rooms from 03/09/25 into 03/10/25.
-Cre, oxygenation and weight all improved with Lasix 40 mg IV BID diuresis this admission. Patient was taking Lasix 20 mg PO daily prior to admission, will change to Lasix 40 mg PO BID starting 03/10/25 PM, orders placed by me.
-EF a bit worse at 15-20% on echo this admission, had been 25-30% by echo 09/2024.
-GDMT had been down-titrated as an outpatient prior to admission due to hypotension.
-Outpatient dose of Toprol XL stopped prior to admission due to hypotension.
-Patient is not chronically on JANE/ARB/ARNI due to CKD 4
-Cre peaked at 2.8 this admission and down to 1.7 on 03/10/25
-Outpatient dose of spironolactone every other day is on hold due to hyperkalemia on admission.
-Hydralazine 25 mg BID added this admission for afterload reduction, doses rarely held for hypotension. Of note, hydralazine was started and later stopped during his last admission 10/2024 due to hypotension.
-Outpatient dose of midodrine 10 mg TID has been held this admission
-Previous options of MitraClip and LVAD have been discussed, but patient is not a candidate for MitraClip given his age, CKD, cardiorenal syndrome, end-stage cardiomyopathy with severe LV dysfunction and concomitant TR. The patient is not interested
in LVAD evaluation.
-Troponin peaked at 0.076 and was managed as a nonischemic myocardial injury Troponin elevation.
-ICD therapies turned off at cardiology office visit 11/30/24
-Patient says that his goal is to return home with his and that he would not want any invasive measures and is a DNR.
HPI: Patient is a 74 yo M with PMH of CABG 09/2010 with COLEMAN to LAD and SVG seq to OM and PLB. He then had a Xience JENIFFER to the sequential SVG in 10/29/11. He was then admitted to 12/20/19 until 12/29/19 with plan for redo sternotomy and CABG with
SVG to OM and then to the PLB of the RCA. He had RV tear and repair as a complication. His CABG ended up being a left saphenous vein as sequential graft to LAD then to OM1. He had a newly reduced EF 15% at that time and developed cardiorenal
syndrome and cardiogenic shock. He was transferred to [place] for LVAD evaluation 12/29/19 and was hospitalized for 46 days and was ultimately not an LVAD candidate, but was diuresed and had a [employer] single chamber ICD placed. He then went to
[facility] acute care rehab. He had left groin washout with [employer] flap creation and VAC placement 06/23/20. He has since had several admissions for CHF and has been residing at the [facility] in [place]. This is felt in part to be due to severe MR,
and patient was previously deemed not to be a candidate for surgical repair or mitraclip intervention. He remains uninterested in LVAD evaluation. He is a DNR and ICD therapies have been turned off however he does continue to want medical treatment.
He reports over the last several weeks he has noted SOB and LE edema. He reports noting some nausea over last 24 hours which he felt was related to increased mucus production. Reportedly received SL nitro at [facility] prior to ER arrival. On arrival
was noted to be hyperkalemic with potassium of 7.6, hypoglycemic, and had altered mental status related to this. He is now feeling much improved on bicarb gtt. ProBNP >92099. Cardiology consulted for evaluation. was given IV lasix 40mg in ER. Denies
recent OP med changes - is on spironolactone 25mg Q48H and potassium 20mEq BID.
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
Subjective
Date of Service: March 10, 2025
No pain in nose, but uncomfortable with B/L packing, no SOB
Objective
Labs:
03/10/25 06:10
03/10/25 06:10
Labs
Hgb 9.4 g/dL (13.0-18.0) L 03/10/25 06:10
Hct 29.1 % (39.0-52.0) L 03/10/25 06:10
Plt Count 168 10^3/uL (130-400) D 03/10/25 06:10
PT 26.7 Sec (11.4-14.6) H 03/10/25 06:10
INR 2.42 03/10/25 06:10
APTT 52.6 Sec (23.4-35.0) H 03/10/25 06:10
Sodium 134 mmol/L (135-145) L 03/10/25 06:10
Potassium 3.5 mmol/L (3.5-5.1) 03/10/25 06:10
BUN 66 mg/dl (9-20) H 03/10/25 06:10
Creatinine 1.7 mg/dL (0.7-1.3) H 03/10/25 06:10
Glucose 87 mg/dl (70-99) 03/10/25 06:10
Vital Signs and I&O:
Vital Signs
Temp Pulse Resp BP Pulse Ox
98.4 F 73 16 121/64 95
03/10/25 07:42 03/10/25 08:07 03/10/25 07:42 03/10/25 08:07 03/10/25 07:42
Vital Signs
Temp Pulse Resp BP Pulse Ox
98.4 F 73 16 121/64 95
03/10/25 07:42 03/10/25 08:07 03/10/25 07:42 03/10/25 08:07 03/10/25 07:42
Intake & Output
03/08/25 03/09/25 03/10/25 03/11/25
06:59 06:59 06:59 06:59
Intake Total 960 / 960 960 / 960 720 / 720
Output Total 2200 / 2200 1150 / 1150 725 / 725
Balance -1240 / -1240 -190 / -190 -5 / -5
Physical Exam
Physical Exam
General: NAD. AAO x3
Skin: No rash
HEENT: B/L nasal packing
Heart: SR on tele
Lungs: RA
Abdomen: ND
Extremities: No edema B/L
Neuro: Grossly nonfocal.
--- NOTE | 2025-03-10 12:05 | W.PN.HOSP.TC ---
Today's Communication/Plan
-
Awaiting ENT consult
Assessment / Plan
Assessment / Plan
Impression:
Patient is a 74-year-old male with past medical history of chronic systolic congestive heart failure, ischemic cardiomyopathy, severe mitral regurgitation, history of bypass/with redo bypass/PCI, paroxysmal atrial fibrillation, history of ICD
placement, essential hypertension, hyperlipidemia, sleep apnea, history of inguinal hernia repair, history of cataract surgery, cachexia/protein calorie malnutrition came from facility for combination symptoms of dyspnea/chest pain/generalized
weakness/fatigue.
Started on aggressive diuresis as per cardiology.
Kidney function improved.
Assessment/plan:
Acute on chronic systolic congestive heart failure
-Elevated proBNP > 27k, ER weight 66kg, some leg swelling
- Chest x-ray showing cardiomegaly and pulmonary vascular congestion
- Portable Lasix 40 mg in ER, further dosing per nephrology/cardiology.
Continue Lasix, currently 40 mg IV twice daily.
Echocardiogram with 15 to 20%.
Continue aggressive diuresing for now
Hyperkalemia - Improving
- Patient presented with potassium of 7.6
- Multifactorial from potassium supplement/Aldactone/CKD/metabolic acidosis
- EKG showing problematic QRS widening with sine early sine wave forming
- Good calcium gluconate/Lasix/insulin glucose in ER
- Got Kayexalate as well
- Low K diet started
- slowly trending down
Epistaxis
Epistaxis related to Xarelto use
Hold Xarelto for now.
ENT consulted.
Severe protein calorie malnutrition
-Patient have cardiac cachexia and decreased appetite/weight loss for some time.
Paroxysmal atrial fibrillation
-Continue home dose of Xarelto (on hold)
Anion gap metabolic acidosis - resolved
-Likely with underlying CKD
-Improved with bicarb drip, discontinued.
BRIGHT on Chronic kidney disease stage IV
- Lowest cr of 1.3 from last visit, comes in with cr of 2.6
- Patient found to have urinary retention, difficult Farah catheter urology had to place Farah today
- Monitor renal function recovery
Hypoglycemia - resolved
-From decreased oral intake
-Reported nausea vomiting and decreased oral intake for few days
- Required D5/IVF
- Diet advanced to low potassium diet
Chest pain
Troponin elevation
History of CAD with bypass/redo bypass/PCI
- Patient hav has history of multivessel CAD, was provided nitro pills in the facility x 3 before presenting
- With hyperkalemia related EKG changes unable to appreciate any significant ST segment deviation
- Troponin elevation likely felt to be type II [place] related
- Appreciate cardiology input
Acute transaminitis -
- ALT 173/AST 287/ALP 152 at admission
- LFTs are rapidly uptrending and 1k +today
- Hold amiodarone dose
- Component of congestive hepatopathy is possibly
- Liver and abdominal ultrasound has been ordered
-
03/03
Us shows:
1. Diffuse intraperitoneal ascites.
2. Gallbladder sludge and small gallstones. Gallbladder wall thickening and fluid adjacent to the gallbladder, more likely to be related to ascites then acute cholecystitis. Negative sonographic Levy's sign.
3. Hepatic veins and main portal vein are patent.
4. Bilateral renal cortical thinning, suggestive of medical renal disease. No hydronephrosis on either side.
03/04
Liver enzymes improved
03/09
Liver enzymes continue to improve
Right arm swelling
- Patient had infiltration of dextrose in ER causing significant forearm/elbow swelling
-Hyaluronidase injection was provided
-Patient already on Xarelto low chance of new deep venous thrombosis. monitor
Left upper extremity basilic vein thrombosis.
Ultrasound left upper extremity shows mild thrombus formation in the basilic vein which is partially compressible only 2 to 3 cm in length.
Continue Xarelto (on hold for now for epistaxis)
Superficial skin wound
-wound care to be continued
- Patient had superficial denuding of the skin from friction injury in ER as well, Band-Aid in place
Leukocytosis without fever
- No clear infection source at this point, monitor.
- UA showing bacteriuria no pyuria.
Lactic acidosis
Hyponatremia
CODE STATUS:DNR
DVT prophylaxis: Xarelto (on hold for now for epistaxis)
Diet: Regular diet
Disposition: ENT consult.
Total time spent on today's encounter was 65 minutes which included time spent in counseling the patient/family regarding diagnosis and treatment plan as listed above, goals of care, and symptom management. Case was discussed with nursing staff,
specialists, and care coordinators/case management. All labs and imaging personally reviewed by me. Remainder the time spent in detailed review of previous records, lab data, imaging, and other medical provider documentation.
Anticipated Discharge: 24 - 48 hours
Subjective/Interval History
-
Date of Service: March 10, 2025
Patient had epistaxis last night.
Status post Rhino Rocket.
Denies chest pain or shortness of breath.
Pending ENT evaluation.
Objective Data
-
Labs:
Laboratory Results
03/10/25
06:10
WBC 6.5
Hgb 9.4 L
Hct 29.1 L
Plt Count 168 D
PT 26.7 H
INR 2.42
APTT 52.6 H
Sodium 134 L
Potassium 3.5
Chloride 94 L
Carbon Dioxide 31 H
BUN 66 H
Creatinine 1.7 H
Glucose 87
Calcium 8.4
Vital Signs:
Vital Signs
Temp Pulse Resp BP Pulse Ox
97.5 F 70 16 111/58 98
03/10/25 11:25 03/10/25 11:25 03/10/25 11:25 03/10/25 11:25 03/10/25 11:25
I&O
03/09/25 03/10/25 03/11/25
06:59 06:59 06:59
Intake Total 960 / 960 720 / 720
Output Total 1150 / 1150 725 / 725
Balance -190 / -190 -5 / -5
Physical Exam
-
General: Well Nourished, No Apparent Distress, Comfortable and Appears in Distress
HEENT: Normocephalic, Atraumatic, Moist Mucous Membranes, No Ptosis, PERRLA, Nose Appears Normal and Other (Bilateral Rhino Rockets)
Respiratory: Rales, Rhonchi, Crackles and Non Labored Respirations
Cardiac: Regular Rhythm and S1/S2
Breast: Deferred by me
GI: Soft, Nontender, Nondistended and Normal Bowel Sounds
Genito-urinary: No Costovertebral Tender
Musculoskeletal: No Clubbing, No Cyanosis, Edema, Right Upper Extrem, Edema, Left Upper Extrem, Edema, Right Lower Extrem and Edema, Left Lower Extrem
Skin: Warm
Neuro: Awake, Alert, Oriented, AO x 3 and No Motor Deficits
Psych: Calm
Data Reviewed
-
Diagnostic Radiology: Image personally visualized and interpreted and Report Reviewed by me
CT Scan: Image personally visualized and interpreted and Report Reviewed by me
Ultrasound: Image personally visualized and interpreted and Report Reviewed by me
MRI: Image personally visualized and interpreted and Report Reviewed by me
Medical Tests (Nuc Med, Echo etc): Image personally visualized and interpreted and Report Reviewed by me
Labs: Labs Reviewed by me
Old Records: Reviewed
--- NOTE | 2025-03-10 12:13 | CON.MD ---
Consultation - Medical
-
Pt seen and full consult dictated.
Pt had what seems to have been right sided posterior epistaxis, exacerbated by anti-coagulation.
He is doing well packed.
We would plan on removing packing sometime this weekend to give him adequate time to heal; however, if he is discharged sooner we will see him in office on Friday for packing removal
--- NOTE | 2025-03-10 15:15 | W.PN.NEPH.PH ---
Today's Communication / Plan
-
Sign off
Assessment/Plan
-
Impression:
Hyperkalemia (7.6)
Metabolic acidosis
CKD stage IV (2.4)
Cardiorenal syndrome with chronic hemodynamic instability
Ischemic cardiomyopathy EF 30%, DD stage3, mod to severe MR, mod TR
CAD complex history s/p CABG
s/p [employer] single chamber ICD
Paroxysmal Afib
HTN
Orthostasis on midodrine
Hyperlipidemia
Former tobacco use
ELI
GERD/Caballero's esophagus
S/p Schatzki's ring dilatation
Severe LAUREN stenosis S/p stent (01/10/2015)
Severe LICA stenosis S/p stent (10/05/2010)
Hx Prostate Ca S/p robotic prostatectomy (2009)
Plan:
creatnine better then baseline at 1.7
K corrected
Hemodynamically stable
holding MRA for now. could consider restart at 12.5mg daily if BP remains stable, otherwise increase midodrine further if needed
Remains on 40 mg p.o. twice daily Eliquis
We will sign off
-
-
Date of Service: March 10, 2025
CC / HPI / ROS
-
Chief Complaint:
Hyperkalemia
History of Present Illness:
Acute on chronic kidney disease and severe hyperkalemia 7.6 improved with urinary retention status post Farah catheter
Potassium at 3.5
Creatinine at 1.7
Hemodynamically stable
diuresing with IV lasix for decompensated HF
Review of Systems:.
Nonoliguric
no SOB
Labs
-
Labs:
WBC 6.5 10^3/uL (4.8-10.8) 03/10/25 06:10
RBC 3.24 10^6/uL (4.70-6.10) L 03/10/25 06:10
Hgb 9.4 g/dL (13.0-18.0) L 03/10/25 06:10
Hct 29.1 % (39.0-52.0) L 03/10/25 06:10
Plt Count 168 10^3/uL (130-400) D 03/10/25 06:10
Sodium 134 mmol/L (135-145) L 03/10/25 06:10
Potassium 3.5 mmol/L (3.5-5.1) 03/10/25 06:10
Chloride 94 mmol/L (98-107) L 03/10/25 06:10
Carbon Dioxide 31 mmol/L (22-30) H 03/10/25 06:10
BUN 66 mg/dl (9-20) H 03/10/25 06:10
Creatinine 1.7 mg/dL (0.7-1.3) H 03/10/25 06:10
eGFR 41.52 03/10/25 06:10
Glucose 87 mg/dl (70-99) 03/10/25 06:10
Calcium 8.4 mg/dl (8.4-10.2) 03/10/25 06:10
Cvf-J-Hwdzhpeeuea Pept > 89900 pg/ml 03/01/25 06:46
Albumin 2.8 g/dl (3.5-5.0) L 03/09/25 04:44
Physical Exam
-
Vital Signs:
Vital Signs
Temp Pulse Resp BP Pulse Ox
97.5 F 70 16 111/58 98
03/10/25 11:25 03/10/25 11:25 03/10/25 11:25 03/10/25 11:03/10/25 12:51
Cardiovascular:: Regular rate and rhythm
Respiratory:: Bilateral: Coarse
Lung Excursion:: Normal
Abdomen:: Nontender and Soft
Bowel Sounds:: Normal
Extremity Edema:: None: Bilateral:
Farah Catheter: Yes
[2025-03-10] MEDS: LASIX 40 MG PO (15:50)
--- NOTE | 2025-03-10 15:57 | CM ---
Chart reviewed. Care ongoing.
ENT following
Plan: Home w/ [facility] and [facility] for VN. Referrals are needed
[2025-03-10] MEDS: SINGULAIR 10 MG PO (21:29)
[2025-03-11] VITALS (7 sets, daily range): BP systolic 108–129; BP diastolic 54–68; PULSE 76; BMI 21.7
[2025-03-11 06:27] LABS: Hematocrit 31.7 % (39.0-52.0); Hemoglobin 10.7 g/dL (13.0-18.0); Mean Corp Hgb Conc. 33.8 g/dL (33.0-37.0); Mean Corpuscular Hgb 30.1 pg (27.0-31.0); Mean Platelet Volume 11.4 fL (7.4-10.4); Platelet Count 194 10^3/uL (130-400); Red Blood Cell Count 3.56 10^6/uL (4.70-6.10); Red Cell Dist. Width 16.2 % (11.5-14.5); White Blood Cell Count 6.5 10^3/uL (4.8-10.8)
[2025-03-11 06:54] LABS: Blood Urea Nitrogen 60 mg/dl (9-20); Calcium 8.3 mg/dl (8.4-10.2); Carbon Dioxide 31 mmol/L (22-30); Chloride 95 mmol/L (98-107); Estimated Creatinine Clearance 35 ml/min; Glucose 80 mg/dl (70-99); Potassium 3.4 mmol/L (3.5-5.1); Sodium 137 mmol/L (135-145); eGFR 44.65
--- NOTE | 2025-03-11 07:18 | W.PN.URO.CBU ---
Today's Communication / Plan
-
continue armstrong due to mobility issues at this time
Assessment / Plan
-
hx of prostate cancer
urinary retention requiring dilation of meatal stenosis/ armstrong
psa under 1
urine clear
expected penile edema
reviewed possible armstrong removal today- pt says with ballons in nose and mobility issues- he would prefer to leave it in
if discharged over the weekend- then he can go with armstrong and have snif contact me for discussion of voiding trial
if remains in house on friday- will review removal at that time
Diagnosis
-
Date of Service: March 11, 2025
-
Patient Diagnosis:
prostate cancer
urinary retention
meatal stenosis
Subjective
-
pt generally stable
nose now packed due to bleed
urine clear- armstrong in place
Objective
-
Vital Signs
Temp Pulse Resp BP Pulse Ox
97.9 F 75 18 129/66 96
03/11/25 03:33 03/11/25 03:33 03/11/25 03:33 03/11/25 03:33 03/11/25 03:33
Intake and Output
03/10/25 03/11/25 03/12/25
06:59 06:59 06:59
Intake Total 720 / 720 480 / 480
Output Total 725 / 725 650 / 650 925 / 925
Balance -5 / -5 -170 / -170 -925 / -925
Intake:
Oral fluids 720 / 720 480 / 480
Output:
Urine, Armstrong 725 / 725 650 / 650 925 / 925
Laboratory Results
03/11/25 05:51
03/11/25 05:51
Physical Exam
-
General - no acute distress
Abdomen - soft, non-tender
Genitalia - penile shaft edema/armstrong in place
[2025-03-11] MEDS: MIRALAX 17 GRAMS PO (08:30)
[2025-03-11] MEDS: LASIX 40 MG PO ×2 (08:30→16:02)
[2025-03-11] MEDS: SYNTHROID 75 MCG PO (08:31)
[2025-03-11] MEDS: APRESOLINE 25 MG PO ×2 (08:31→21:15)
[2025-03-11] MEDS: ZOLOFT 25 MG PO (08:31)
[2025-03-11] MEDS: HYDROPHOR 1 APPLIC TOPICAL (08:31)
[2025-03-11] MEDS: PACERONE 200 MG PO (08:31)
[2025-03-11] MEDS: LOW STRENGTH ASPIRIN 81 MG PO (08:31)
--- NOTE | 2025-03-11 10:06 | PN.CDI ---
CDI
- -
CDI:
Physician Documentation Request
Admit Date: 03/01/25 09:33
Dear Doctor Sparkle,
Please review the following and provide your response in the progress notes.
Clinical Indicators:
03/02/25 14:30 (created 03/08/25 11:57) - Wound Note
#Wound Location and type/assessment:
#...admitted with stage 1 to sacrum and bilateral heels,
#...partial thickness wound to right anterior third toe, skin tear to right forearm,
#...and blister to left lower leg.
Selected Entries
03/02/25
14:45
Pressure injury stage [Present on admission Bilateral Heel] Stage 1
Physician documentation of the type and location of wounds is required for compliant documentation. Based on the above clinical findings and your assessment, please provide the following in your progress note:
Yes, Stage 1 pressure injury sacrum and Stage 1 pressure injury bilateral heels, POA
No, Stage 1 pressure injury sacrum and Stage 1 pressure injury bilateral heels
Stage 1 pressure injury sacrum, only
Stage 1 pressure injury bilateral heels, only
Other (please specify)
Location of the ulcer/wound, including laterality.
Type (etiology) of ulcer/wound:
- Diabetic ulcer
- Arterial (ischemic) ulcer
- Pressure (decubitus) ulcer
- Other
- Unable to determine
For a pressure ulcer, please also include the stage* of the ulcer:
- Stage 1 - Skin intact, non-blanchable redness
- Stage 2 - Partial thickness loss of dermis, includes intact or open blister
- Stage 3 - Full thickness tissue not including bone, tendon or muscle
- Stage 4 - Full thickness tissue loss, including exposed bone, tendon or muscle
- Unstageable - Full thickness loss in which the base of the ulcer is covered by slough (yellow, banda, abreu, green or brown) and/or eschar (banda, brown or black) in the wound bed.
Use of terms such as suspected, likely, concern for, or probable (associated with a specific diagnosis that is being evaluated, monitored, or treated as if it exists) are acceptable and can be coded in the inpatient setting, when documented at the
time of discharge.
Thank you,
Koki Ndiaye RN BSN CCDS
CDI Specialist
Please contact via tiger text
Please use your independent medical judgment in providing your response.
*Source: National Pressure Ulcer Advisory Panel (NPUAP)
--- NOTE | 2025-03-11 10:11 | W.PN.ENT ---
Today's Communication
-
pt seen at bedside
Impression / Plan
-
doing ok s/p bilateral nasal packing-bleeding controlled
portion of merocel sponge protruding from nose trimmed
keep packing in place
Subjective Data
-
no active bleeding
Objective Data
-
Vital Signs
Temp Pulse Resp BP Pulse Ox
98 F 72 18 123/67 95
03/11/25 08:15 03/11/25 08:31 03/11/25 08:15 03/11/25 08:31 03/11/25 08:15
Intake & Output
03/10/25 03/11/25 03/12/25
06:59 06:59 06:59
Intake:
Oral fluids 720 / 720 480 / 480
Output:
Urine, Farah 725 / 725 650 / 650 925 / 925
Lab Results
03/11/25 05:51
03/11/25 05:51
PT 26.7 Sec (11.4-14.6) H 03/10/25 06:10
INR 2.42 03/10/25 06:10
APTT 52.6 Sec (23.4-35.0) H 03/10/25 06:10
Calcium 8.3 mg/dl (8.4-10.2) L 03/11/25 05:51
Magnesium 2.0 mg/dl (1.6-2.3) 03/09/25 04:44
Total Bilirubin 1.7 mg/dl (0.2-1.3) H 03/09/25 04:44
Direct Bilirubin 1.0 mg/dl (0.0-0.4) H 03/09/25 04:44
AST 44 U/L (17-59) 03/09/25 04:44
ALT 145 U/L (0-50) H 03/09/25 04:44
Alkaline Phosphatase 125 U/L (38-126) 03/09/25 04:44
Free T4 2.25 ng/dl (0.78-2.19) H 03/01/25 06:46
Urine Color Yellow 03/02/25 14:28
Urine Clarity Clear (Clear) 03/02/25 14:28
Urine pH 7.0 (5.0-9.0) 03/02/25 14:28
Ur Specific [place] 1.005 (<1.030) 03/02/25 14:28
Urine Ketones Negative (Negative) 03/02/25 14:28
Physical Exam
-
no active bleeding
merocel sponge protruding from nose-trimmed off part out side of nose
Chest: Clear
Respiratory: Clear
Data Reviewed
-
Radiology Results: Report Reviewed
--- NOTE | 2025-03-11 10:51 | W.PN.HOSP.TC ---
Today's Communication/Plan
-
Continue to hold Xarelto
Remove nasal packing on Friday
Assessment / Plan
Assessment / Plan
Impression:
Patient is a 74-year-old male with past medical history of chronic systolic congestive heart failure, ischemic cardiomyopathy, severe mitral regurgitation, history of bypass/with redo bypass/PCI, paroxysmal atrial fibrillation, history of ICD
placement, essential hypertension, hyperlipidemia, sleep apnea, history of inguinal hernia repair, history of cataract surgery, cachexia/protein calorie malnutrition came from facility for combination symptoms of dyspnea/chest pain/generalized
weakness/fatigue.
Started on aggressive diuresis as per cardiology.
Kidney function improved.
Patient had episode of severe epistaxis requiring bilateral Rhino Rocket
Seen by ENT who recommended to keep packing till Friday.
Assessment/plan:
Acute on chronic systolic congestive heart failure
-Elevated proBNP > 27k, ER weight 66kg, some leg swelling
- Chest x-ray showing cardiomegaly and pulmonary vascular congestion
- Portable Lasix 40 mg in ER, further dosing per nephrology/cardiology.
Continue Lasix, currently 40 mg IV twice daily.
Echocardiogram with 15 to 20%.
Continue aggressive diuresing for now
5/
Lasix switched to oral
Hyperkalemia - Improving
- Patient presented with potassium of 7.6
- Multifactorial from potassium supplement/Aldactone/CKD/metabolic acidosis
- EKG showing problematic QRS widening with sine early sine wave forming
- Good calcium gluconate/Lasix/insulin glucose in ER
- Got Kayexalate as well
- Low K diet started
- slowly trending down
5/
Potassium 3.4 will replace.
Epistaxis
Epistaxis related to Xarelto use
Hold Xarelto for now.
ENT consulted.
Keep packing till Friday
Urinary retention/history of prostate cancer
Status post dilation of meatal stenosis and placement of Farah catheter.
Data urology input, voiding trial on Friday
Severe protein calorie malnutrition
-Patient have cardiac cachexia and decreased appetite/weight loss for some time.
Paroxysmal atrial fibrillation
-Continue home dose of Xarelto (on hold)
Anion gap metabolic acidosis - resolved
-Likely with underlying CKD
-Improved with bicarb drip, discontinued.
BRIGHT on Chronic kidney disease stage IV
- Lowest cr of 1.3 from last visit, comes in with cr of 2.6
- Patient found to have urinary retention, difficult Farah catheter urology had to place Farah today
- Monitor renal function recovery
Hypoglycemia - resolved
-From decreased oral intake
-Reported nausea vomiting and decreased oral intake for few days
- Required D5/IVF
- Diet advanced to low potassium diet
Chest pain
Troponin elevation
History of CAD with bypass/redo bypass/PCI
- Patient hav has history of multivessel CAD, was provided nitro pills in the facility x 3 before presenting
- With hyperkalemia related EKG changes unable to appreciate any significant ST segment deviation
- Troponin elevation likely felt to be type II NE related
- Appreciate cardiology input
Acute transaminitis -
- ALT 173/AST 287/ALP 152 at admission
- LFTs are rapidly uptrending and 1k +today
- Hold amiodarone dose
- Component of congestive hepatopathy is possibly
- Liver and abdominal ultrasound has been ordered
-
03/03
Us shows:
1. Diffuse intraperitoneal ascites.
2. Gallbladder sludge and small gallstones. Gallbladder wall thickening and fluid adjacent to the gallbladder, more likely to be related to ascites then acute cholecystitis. Negative sonographic Levy's sign.
3. Hepatic veins and main portal vein are patent.
4. Bilateral renal cortical thinning, suggestive of medical renal disease. No hydronephrosis on either side.
03/04
Liver enzymes improved
03/09
Liver enzymes continue to improve
Right arm swelling
- Patient had infiltration of dextrose in ER causing significant forearm/elbow swelling
-Hyaluronidase injection was provided
-Patient already on Xarelto low chance of new deep venous thrombosis. monitor
Left upper extremity basilic vein thrombosis.
Ultrasound left upper extremity shows mild thrombus formation in the basilic vein which is partially compressible only 2 to 3 cm in length.
Continue Xarelto (on hold for now for epistaxis)
Superficial skin wound
-wound care to be continued
- Patient had superficial denuding of the skin from friction injury in ER as well, Band-Aid in place
Bilateral here pressure stage I wound
Location of the ulcer/wound, Bilateral Heel.
Type (etiology) of ulcer/wound:
- Pressure (decubitus) ulcer
Stage
- Stage 1 - Skin intact, non-blanchable redness
Leukocytosis without fever
- Resolved
Lactic acidosis
Hyponatremia
CODE STATUS:DNR
DVT prophylaxis: Xarelto (on hold for now for epistaxis)
Diet: Regular diet
Disposition: Keep nasal packing till Friday
Total time spent on today's encounter was 65 minutes which included time spent in counseling the patient/family regarding diagnosis and treatment plan as listed above, goals of care, and symptom management. Case was discussed with nursing staff,
specialists, and care coordinators/case management. All labs and imaging personally reviewed by me. Remainder the time spent in detailed review of previous records, lab data, imaging, and other medical provider documentation.
Anticipated Discharge: 24 - 48 hours
Subjective/Interval History
-
Date of Service: March 11, 2025
Patient seen and examined at bedside.
Epistaxis controlled.
Seen by ENT.
Recommendation to keep packing and remove on Friday
Objective Data
-
Labs:
Laboratory Results
03/11/25
05:51
WBC 6.5
Hgb 10.7 L
Hct 31.7 L
Plt Count 194
Sodium 137
Potassium 3.4 L
Chloride 95 L
Carbon Dioxide 31 H
BUN 60 H
Creatinine 1.6 H
Glucose 80
Calcium 8.3 L
Vital Signs:
Vital Signs
Temp Pulse Resp BP Pulse Ox
98 F 72 18 123/67 95
03/11/25 08:15 03/11/25 08:31 03/11/25 08:15 03/11/25 08:31 03/11/25 08:15
I&O
03/10/25 03/11/25 03/12/25
06:59 06:59 06:59
Intake Total 720 / 720 480 / 480
Output Total 725 / 725 650 / 650 925 / 925
Balance -5 / -5 -170 / -170 -925 / -925
Physical Exam
-
General: Well Nourished, No Apparent Distress, Comfortable and Appears in Distress
HEENT: Normocephalic, Atraumatic, Moist Mucous Membranes, No Ptosis, PERRLA, Nose Appears Normal and Other (Bilateral Rhino Rockets)
Respiratory: Rales, Rhonchi, Crackles and Non Labored Respirations
Cardiac: Regular Rhythm and S1/S2
Breast: Deferred by me
GI: Soft, Nontender, Nondistended and Normal Bowel Sounds
Genito-urinary: No Costovertebral Tender
Musculoskeletal: No Clubbing, No Cyanosis, Edema, Right Upper Extrem, Edema, Left Upper Extrem, Edema, Right Lower Extrem and Edema, Left Lower Extrem
Skin: Warm
Neuro: Awake, Alert, Oriented, AO x 3 and No Motor Deficits
Psych: Calm
Data Reviewed
-
Diagnostic Radiology: Image personally visualized and interpreted and Report Reviewed by me
CT Scan: Image personally visualized and interpreted and Report Reviewed by me
Ultrasound: Image personally visualized and interpreted and Report Reviewed by me
MRI: Image personally visualized and interpreted and Report Reviewed by me
Medical Tests (Nuc Med, Echo etc): Image personally visualized and interpreted and Report Reviewed by me
Labs: Labs Reviewed by me
Old Records: Reviewed
[2025-03-11] MEDS: KCL 10 MEQ PO (11:17)
--- NOTE | 2025-03-11 15:18 | CM ---
Addendum entered by PASCUAL Lind 03/11/25 16:50:
Spoke with patient's son, Mohit on phone who stated that family would really prefer that patient returns right to [facility] and he is going to call two of the DONs that he has been dealing with to determine if he can come straight back. Mohit was made
aware that call was also made to [facility]. He is hopeful that they will take him back as he feels that the support at [facility] has been much better than any of the SNFs he has been to in the past.
Original Note:
Indication from PT/OT is for SNF prior to return to [facility]. Spoke with patient's who stated that if at all possible, she would like for patient to return directly to [facility] as patient is comfortable there. Patient's was advised that
patient will most likely need to go to a SNF first as that is the indication and she selected the following facilities: [facility], [facility], [facility], [facility], [facility] and [facility].
Placed a call to the DON at [facility], [facility], However had to leave a voice mail message. Requested return call to review functional status.
Plan: Case management will continue to follow and assist with discharge planning. Most likely SNF when stable.
[2025-03-11] MEDS: SINGULAIR 10 MG PO (21:15)
[2025-03-12 03:16] VITALS: BP 120/65
[2025-03-12 05:46] LABS: Hematocrit 29.6 % (39.0-52.0); Hemoglobin 9.5 g/dL (13.0-18.0); Mean Corp Hgb Conc. 32.1 g/dL (33.0-37.0); Mean Corpuscular Hgb 28.4 pg (27.0-31.0); Mean Corpuscular Volume 88.6 fL (80.0-94.0); Mean Platelet Volume 11.1 fL (7.4-10.4); Platelet Count 183 10^3/uL (130-400); Red Blood Cell Count 3.34 10^6/uL (4.70-6.10); Red Cell Dist. Width 16.2 % (11.5-14.5); White Blood Cell Count 7.3 10^3/uL (4.8-10.8)
[2025-03-12 06:00] VITALS: BMI 21.8
[2025-03-12 06:12] LABS: Blood Urea Nitrogen 55 mg/dl (9-20); Calcium 8.3 mg/dl (8.4-10.2); Carbon Dioxide 33 mmol/L (22-30); Chloride 96 mmol/L (98-107); Estimated Creatinine Clearance 38 ml/min; Glucose 85 mg/dl (70-99); Potassium 3.3 mmol/L (3.5-5.1); Sodium 137 mmol/L (135-145); eGFR 48.25
[2025-03-12 07:00] VITALS: BP 123/68
[2025-03-12] MEDS: LOW STRENGTH ASPIRIN 81 MG PO (08:13)
[2025-03-12] MEDS: LASIX 40 MG PO ×2 (08:13→16:08)
[2025-03-12] MEDS: SYNTHROID 75 MCG PO (08:13)
[2025-03-12] MEDS: APRESOLINE 25 MG PO ×2 (08:13→21:19)
[2025-03-12] MEDS: SENOKOT-S 1 TABLET PO (08:13)
[2025-03-12] MEDS: ZOLOFT 25 MG PO (08:13)
[2025-03-12] MEDS: PACERONE 200 MG PO (08:13)
[2025-03-12] MEDS: MIRALAX 17 GRAMS PO (08:14)
[2025-03-12] MEDS: HYDROPHOR 1 APPLIC TOPICAL (08:21)
[2025-03-12 11:00] VITALS: BP 121/67
[2025-03-12] MEDS: CITROMA 300 ML PO (11:09)
[2025-03-12] MEDS: KCL 40 MEQ PO (11:10)
--- NOTE | 2025-03-12 11:35 | W.PN.HOSP.TC ---
Today's Communication/Plan
-
Magnesium citrate
Replace potassium
Assessment / Plan
Assessment / Plan
Impression:
Patient is a 74-year-old male with past medical history of chronic systolic congestive heart failure, ischemic cardiomyopathy, severe mitral regurgitation, history of bypass/with redo bypass/PCI, paroxysmal atrial fibrillation, history of ICD
placement, essential hypertension, hyperlipidemia, sleep apnea, history of inguinal hernia repair, history of cataract surgery, cachexia/protein calorie malnutrition came from facility for combination symptoms of dyspnea/chest pain/generalized
weakness/fatigue.
Started on aggressive diuresis as per cardiology.
Kidney function improved.
Patient had episode of severe epistaxis requiring bilateral Rhino Rocket
Seen by ENT who recommended to keep packing till Friday.
Was complaining of constipation, ordered magnesium citrate.
Assessment/plan:
Acute on chronic systolic congestive heart failure
-Elevated proBNP > 27k, ER weight 66kg, some leg swelling
- Chest x-ray showing cardiomegaly and pulmonary vascular congestion
- Portable Lasix 40 mg in ER, further dosing per nephrology/cardiology.
Continue Lasix, currently 40 mg IV twice daily.
Echocardiogram with 15 to 20%.
Continue aggressive diuresing for now
03/11
Lasix switched to oral
Hyperkalemia - Improving
- Patient presented with potassium of 7.6
- Multifactorial from potassium supplement/Aldactone/CKD/metabolic acidosis
- EKG showing problematic QRS widening with sine early sine wave forming
- Good calcium gluconate/Lasix/insulin glucose in ER
- Got Kayexalate as well
- Low K diet started
- slowly trending down
03/11
Potassium 3.4 will replace.
03/12
Replace potassium
Epistaxis
Epistaxis related to Xarelto use
Hold Xarelto for now.
ENT consulted.
Keep packing till Friday
5/3
No further epistaxis
Urinary retention/history of prostate cancer
Status post dilation of meatal stenosis and placement of Farah catheter.
Data urology input, voiding trial on Friday
Severe protein calorie malnutrition
-Patient have cardiac cachexia and decreased appetite/weight loss for some time.
Paroxysmal atrial fibrillation
-Continue home dose of Xarelto (on hold)
Anion gap metabolic acidosis - resolved
-Likely with underlying CKD
-Improved with bicarb drip, discontinued.
BRIGHT on Chronic kidney disease stage IV
- Lowest cr of 1.3 from last visit, comes in with cr of 2.6
- Patient found to have urinary retention, difficult Farah catheter urology had to place Farah today
- Monitor renal function recovery
Hypoglycemia - resolved
-From decreased oral intake
-Reported nausea vomiting and decreased oral intake for few days
- Required D5/IVF
- Diet advanced to low potassium diet
Chest pain
Troponin elevation
History of CAD with bypass/redo bypass/PCI
- Patient hav has history of multivessel CAD, was provided nitro pills in the facility x 3 before presenting
- With hyperkalemia related EKG changes unable to appreciate any significant ST segment deviation
- Troponin elevation likely felt to be type II [place] related
- Appreciate cardiology input
Acute transaminitis -
- ALT 173/AST 287/ALP 152 at admission
- LFTs are rapidly uptrending and 1k +today
- Hold amiodarone dose
- Component of congestive hepatopathy is possibly
- Liver and abdominal ultrasound has been ordered
-
03/03
Us shows:
1. Diffuse intraperitoneal ascites.
2. Gallbladder sludge and small gallstones. Gallbladder wall thickening and fluid adjacent to the gallbladder, more likely to be related to ascites then acute cholecystitis. Negative sonographic Levy's sign.
3. Hepatic veins and main portal vein are patent.
4. Bilateral renal cortical thinning, suggestive of medical renal disease. No hydronephrosis on either side.
03/04
Liver enzymes improved
03/09
Liver enzymes continue to improve
Right arm swelling
- Patient had infiltration of dextrose in ER causing significant forearm/elbow swelling
-Hyaluronidase injection was provided
-Patient already on Xarelto low chance of new deep venous thrombosis. monitor
Left upper extremity basilic vein thrombosis.
Ultrasound left upper extremity shows mild thrombus formation in the basilic vein which is partially compressible only 2 to 3 cm in length.
Continue Xarelto (on hold for now for epistaxis)
Superficial skin wound
-wound care to be continued
- Patient had superficial denuding of the skin from friction injury in ER as well, Band-Aid in place
Bilateral here pressure stage I wound
Location of the ulcer/wound, Bilateral Heel.
Type (etiology) of ulcer/wound:
- Pressure (decubitus) ulcer
Stage
- Stage 1 - Skin intact, non-blanchable redness
Leukocytosis without fever
- Resolved
Lactic acidosis
Hyponatremia
CODE STATUS:DNR
DVT prophylaxis: Xarelto (on hold for now for epistaxis)
Diet: Regular diet
Disposition: Keep nasal packing till Friday, remove Farah and voiding trial on Friday, [facility].
Total time spent on today's encounter was 65 minutes which included time spent in counseling the patient/family regarding diagnosis and treatment plan as listed above, goals of care, and symptom management. Case was discussed with nursing staff,
specialists, and care coordinators/case management. All labs and imaging personally reviewed by me. Remainder the time spent in detailed review of previous records, lab data, imaging, and other medical provider documentation.
Anticipated Discharge: 24 - 48 hours
Subjective/Interval History
-
Date of Service: March 12, 2025
Patient seen and examined at bedside, overall patient feeling better.
Still having constipation but does not denies any chest pain or shortness of breath.
Objective Data
-
Labs:
Laboratory Results
03/12/25
05:24
WBC 7.3
Hgb 9.5 L
Hct 29.6 L
Plt Count 183
Sodium 137
Potassium 3.3 L
Chloride 96 L
Carbon Dioxide 33 H
BUN 55 H
Creatinine 1.5 H
Glucose 85
Calcium 8.3 L
Vital Signs:
Vital Signs
Temp Pulse Resp BP Pulse Ox
97.5 F 75 16 121/67 97
03/12/25 11:00 03/12/25 11:00 03/12/25 11:00 03/12/25 11:00 03/12/25 11:00
I&O
03/11/25 03/12/25 03/13/25
06:59 06:59 06:59
Intake Total 480 / 480 240 / 240
Output Total 650 / 650 2100 / 2100
Balance -170 / -170 -1860 / -1860
Physical Exam
-
General: Well Nourished, No Apparent Distress, Comfortable and Appears in Distress
HEENT: Normocephalic, Atraumatic, Moist Mucous Membranes, No Ptosis, PERRLA, Nose Appears Normal and Other (Bilateral Rhino Rockets)
Respiratory: Rales, Rhonchi, Crackles and Non Labored Respirations
Cardiac: Regular Rhythm and S1/S2
Breast: Deferred by me
GI: Soft, Nontender, Nondistended and Normal Bowel Sounds
Genito-urinary: No Costovertebral Tender
Musculoskeletal: No Clubbing, No Cyanosis, Edema, Right Upper Extrem, Edema, Left Upper Extrem, Edema, Right Lower Extrem and Edema, Left Lower Extrem
Skin: Warm
Neuro: Awake, Alert, Oriented, AO x 3 and No Motor Deficits
Psych: Calm
Data Reviewed
-
Diagnostic Radiology: Image personally visualized and interpreted and Report Reviewed by me
CT Scan: Image personally visualized and interpreted and Report Reviewed by me
Ultrasound: Image personally visualized and interpreted and Report Reviewed by me
MRI: Image personally visualized and interpreted and Report Reviewed by me
Medical Tests (Nuc Med, Echo etc): Image personally visualized and interpreted and Report Reviewed by me
Labs: Labs Reviewed by me
Old Records: Reviewed
[2025-03-12 15:00] VITALS: BP 115/64
[2025-03-12] MEDS: DULCOLAX 10 MG RECTAL (16:20)
[2025-03-12 21:18] VITALS: BP 124/67
[2025-03-12] MEDS: SINGULAIR 10 MG PO (21:19)
[2025-03-12 23:32] VITALS: BP 123/64
[2025-03-13 04:43] VITALS: BMI 21.2
[2025-03-13 06:43] LABS: Hematocrit 28.8 % (39.0-52.0); Hemoglobin 9.2 g/dL (13.0-18.0); Mean Corp Hgb Conc. 31.9 g/dL (33.0-37.0); Mean Corpuscular Hgb 28.8 pg (27.0-31.0); Mean Platelet Volume 11.2 fL (7.4-10.4); Platelet Count 188 10^3/uL (130-400); Red Cell Dist. Width 16.2 % (11.5-14.5); White Blood Cell Count 7.7 10^3/uL (4.8-10.8)
[2025-03-13 06:55] LABS: Blood Urea Nitrogen 51 mg/dl (9-20); Calcium 8.3 mg/dl (8.4-10.2); Carbon Dioxide 31 mmol/L (22-30); Chloride 98 mmol/L (98-107); Estimated Creatinine Clearance 37 ml/min; Glucose 75 mg/dl (70-99); Potassium 3.6 mmol/L (3.5-5.1); Sodium 137 mmol/L (135-145); eGFR 48.25
[2025-03-13 07:08] VITALS: BP 136/75
[2025-03-13] MEDS: LOW STRENGTH ASPIRIN 81 MG PO (07:35)
[2025-03-13] MEDS: PACERONE 200 MG PO (07:35)
[2025-03-13] MEDS: LASIX 40 MG PO ×2 (07:35→15:32)
[2025-03-13] MEDS: APRESOLINE 25 MG PO ×2 (07:35→21:36)
[2025-03-13] MEDS: SYNTHROID 75 MCG PO (07:35)
[2025-03-13] MEDS: ZOLOFT 25 MG PO (07:36)
[2025-03-13] MEDS: HYDROPHOR 1 APPLIC TOPICAL (07:37)
--- NOTE | 2025-03-13 09:07 | W.PN.ENT ---
Today's Communication
-
Bilateral packing removed, no nose blowing x 7 days, f/u w ENT prn
Impression / Plan
-
The patient is a 74yoM with a known septal perforation who was packed on 03/10 bilaterally. Both packs were removed this am. He was advised to NOT blow his nose for one week. He can dab the outside of the nose with a tissue. He can start using
saline mist in 1 day and also restart anticoagulation tomorrow if there is no further bleeding today. He can f/u with ENT as an outpatient. No intervention needed for the perforation.
Subjective Data
-
The patient has been doing well since packed without further bleeding.
Objective Data
-
Vital Signs
Temp Pulse Resp BP Pulse Ox
97.9 F 83 18 136/75 96
03/13/25 07:08 03/13/25 07:08 03/13/25 07:08 03/13/25 07:08 03/13/25 07:08
Physical Exam
-
GEN: NAD, Alert and oriented
HEENT: Nasal packing in place, dry OP. Merocel removed first, no bleeding, rapid rhino removed - no bleeding. Patient with a large nasal septal perforation. NO bleeding
Chest: Clear
Respiratory: Clear
--- NOTE | 2025-03-13 11:55 | W.PN.HOSP.TC ---
Today's Communication/Plan
-
Possible discharge Friday
Assessment / Plan
Assessment / Plan
Impression:
Patient is a 74-year-old male with past medical history of chronic systolic congestive heart failure, ischemic cardiomyopathy, severe mitral regurgitation, history of bypass/with redo bypass/PCI, paroxysmal atrial fibrillation, history of ICD
placement, essential hypertension, hyperlipidemia, sleep apnea, history of inguinal hernia repair, history of cataract surgery, cachexia/protein calorie malnutrition came from facility for combination symptoms of dyspnea/chest pain/generalized
weakness/fatigue.
Started on aggressive diuresis as per cardiology.
Kidney function improved.
Patient had episode of severe epistaxis requiring bilateral Rhino Rocket
Seen by ENT who recommended to keep packing till Friday.
Was complaining of constipation, ordered magnesium citrate.
Constipation improved.
ENT evaluated the patient on Monday 03/12 removed the nasal packing
Cleared to resume Xarelto on Friday if no further bleeding.
Assessment/plan:
Acute on chronic systolic congestive heart failure
-Elevated proBNP > 27k, ER weight 66kg, some leg swelling
- Chest x-ray showing cardiomegaly and pulmonary vascular congestion
- Portable Lasix 40 mg in ER, further dosing per nephrology/cardiology.
Continue Lasix, currently 40 mg IV twice daily.
Echocardiogram with 15 to 20%.
Continue aggressive diuresing for now
03/11
Lasix switched to oral
Hyperkalemia - Improving
- Patient presented with potassium of 7.6
- Multifactorial from potassium supplement/Aldactone/CKD/metabolic acidosis
- EKG showing problematic QRS widening with sine early sine wave forming
- Good calcium gluconate/Lasix/insulin glucose in ER
- Got Kayexalate as well
- Low K diet started
- slowly trending down
03/11
Potassium 3.4 will replace.
03/12
Replace potassium
Epistaxis
Epistaxis related to Xarelto use
Hold Xarelto for now.
ENT consulted.
Keep packing till Friday
03/12
No further epistaxis
03/13
Nasal packing removed.
Resume Xarelto on 03/14 if no further bleeding
Urinary retention/history of prostate cancer
Status post dilation of meatal stenosis and placement of Farah catheter.
Data urology input, voiding trial on Friday
Severe protein calorie malnutrition
-Patient have cardiac cachexia and decreased appetite/weight loss for some time.
Paroxysmal atrial fibrillation
-Continue home dose of Xarelto (on hold)
Anion gap metabolic acidosis - resolved
-Likely with underlying CKD
-Improved with bicarb drip, discontinued.
BRIGHT on Chronic kidney disease stage IV
- Lowest cr of 1.3 from last visit, comes in with cr of 2.6
- Patient found to have urinary retention, difficult Farah catheter urology had to place Farah today
- Monitor renal function recovery
Hypoglycemia - resolved
-From decreased oral intake
-Reported nausea vomiting and decreased oral intake for few days
- Required D5/IVF
- Diet advanced to low potassium diet
Chest pain
Troponin elevation
History of CAD with bypass/redo bypass/PCI
- Patient hav has history of multivessel CAD, was provided nitro pills in the facility x 3 before presenting
- With hyperkalemia related EKG changes unable to appreciate any significant ST segment deviation
- Troponin elevation likely felt to be type II [place] related
- Appreciate cardiology input
Acute transaminitis -
- ALT 173/AST 287/ALP 152 at admission
- LFTs are rapidly uptrending and 1k +today
- Hold amiodarone dose
- Component of congestive hepatopathy is possibly
- Liver and abdominal ultrasound has been ordered
-
03/03
Us shows:
1. Diffuse intraperitoneal ascites.
2. Gallbladder sludge and small gallstones. Gallbladder wall thickening and fluid adjacent to the gallbladder, more likely to be related to ascites then acute cholecystitis. Negative sonographic Levy's sign.
3. Hepatic veins and main portal vein are patent.
4. Bilateral renal cortical thinning, suggestive of medical renal disease. No hydronephrosis on either side.
03/04
Liver enzymes improved
03/09
Liver enzymes continue to improve
Right arm swelling
- Patient had infiltration of dextrose in ER causing significant forearm/elbow swelling
-Hyaluronidase injection was provided
-Patient already on Xarelto low chance of new deep venous thrombosis. monitor
Left upper extremity basilic vein thrombosis.
Ultrasound left upper extremity shows mild thrombus formation in the basilic vein which is partially compressible only 2 to 3 cm in length.
Continue Xarelto (on hold for now for epistaxis)
Superficial skin wound
-wound care to be continued
- Patient had superficial denuding of the skin from friction injury in ER as well, Band-Aid in place
Bilateral here pressure stage I wound
Location of the ulcer/wound, Bilateral Heel.
Type (etiology) of ulcer/wound:
- Pressure (decubitus) ulcer
Stage
- Stage 1 - Skin intact, non-blanchable redness
Leukocytosis without fever
- Resolved
Lactic acidosis
Hyponatremia
CODE STATUS:DNR
DVT prophylaxis: Xarelto (on hold for now for epistaxis , will resume on 03/14)
Diet: Regular diet
Disposition: remove Farah and voiding trial on Friday, resume Xarelto on Friday if no further bleeding and possible l discharge back to [facility] Friday.
Total time spent on today's encounter was 65 minutes which included time spent in counseling the patient/family regarding diagnosis and treatment plan as listed above, goals of care, and symptom management. Case was discussed with nursing staff,
specialists, and care coordinators/case management. All labs and imaging personally reviewed by me. Remainder the time spent in detailed review of previous records, lab data, imaging, and other medical provider documentation.
Anticipated Discharge: Within 24 hours
Subjective/Interval History
-
Date of Service: March 13, 2025
Patient seen and examined at bedside, denies any chest pain or shortness of breath, no abdominal pain, no nausea, no vomiting, no diarrhea or constipation.
Nasal packing removed.
Objective Data
-
Labs:
Laboratory Results
03/13/25
04:57
WBC 7.7
Hgb 9.2 L
Hct 28.8 L
Plt Count 188
Sodium 137
Potassium 3.6
Chloride 98
Carbon Dioxide 31 H
BUN 51 H
Creatinine 1.5 H
Glucose 75
Calcium 8.3 L
Vital Signs:
Vital Signs
Temp Pulse Resp BP Pulse Ox
97.9 F 83 18 136/75 96
03/13/25 07:08 03/13/25 07:08 03/13/25 07:08 03/13/25 07:08 03/13/25 07:08
I&O
03/12/25 03/13/25 03/14/25
06:59 06:59 06:59
Intake Total 240 / 240 318 / 318
Output Total 2100 / 2100 225 / 875 650 / 650
Balance -1860 / -1860 93 / -557 -650 / -650
Physical Exam
-
General: Well Nourished, No Apparent Distress, Comfortable and Appears in Distress
HEENT: Normocephalic, Atraumatic, Moist Mucous Membranes, No Ptosis, PERRLA, Nose Appears Normal and Other (Bilateral Rhino Rockets)
Respiratory: Rales, Rhonchi, Crackles and Non Labored Respirations
Cardiac: Regular Rhythm and S1/S2
Breast: Deferred by me
GI: Soft, Nontender, Nondistended and Normal Bowel Sounds
Genito-urinary: No Costovertebral Tender
Musculoskeletal: No Clubbing, No Cyanosis, Edema, Right Upper Extrem, Edema, Left Upper Extrem, Edema, Right Lower Extrem and Edema, Left Lower Extrem
Skin: Warm
Neuro: Awake, Alert, Oriented, AO x 3 and No Motor Deficits
Psych: Calm
Data Reviewed
-
Diagnostic Radiology: Image personally visualized and interpreted and Report Reviewed by me
CT Scan: Image personally visualized and interpreted and Report Reviewed by me
Ultrasound: Image personally visualized and interpreted and Report Reviewed by me
MRI: Image personally visualized and interpreted and Report Reviewed by me
Medical Tests (Nuc Med, Echo etc): Image personally visualized and interpreted and Report Reviewed by me
Labs: Labs Reviewed by me
Old Records: Reviewed
[2025-03-13 15:55] VITALS: BP 110/61
[2025-03-13 21:25] VITALS: BP 126/76
[2025-03-13] MEDS: SINGULAIR 10 MG PO (21:36)
[2025-03-13 23:47] VITALS: BP 127/74
[2025-03-14 06:00] VITALS: BMI 21.2
[2025-03-14 07:30] VITALS: BP 117/66
[2025-03-14] MEDS: PACERONE 200 MG PO (07:43)
[2025-03-14] MEDS: SYNTHROID 75 MCG PO (07:43)
[2025-03-14] MEDS: ZOLOFT 25 MG PO (07:44)
[2025-03-14] MEDS: APRESOLINE 25 MG PO ×2 (07:44→20:00)
[2025-03-14] MEDS: HYDROPHOR 1 APPLIC TOPICAL (07:45)
[2025-03-14 07:59] LABS: Hematocrit 30.3 % (39.0-52.0); Hemoglobin 9.5 g/dL (13.0-18.0); Mean Corp Hgb Conc. 31.4 g/dL (33.0-37.0); Mean Corpuscular Hgb 29.1 pg (27.0-31.0); Mean Corpuscular Volume 92.7 fL (80.0-94.0); Mean Platelet Volume 11.6 fL (7.4-10.4); Platelet Count 173 10^3/uL (130-400); Red Blood Cell Count 3.27 10^6/uL (4.70-6.10); Red Cell Dist. Width 16.1 % (11.5-14.5); White Blood Cell Count 7.4 10^3/uL (4.8-10.8)
[2025-03-14 08:07] LABS: Blood Urea Nitrogen 47 mg/dl (9-20); Calcium 8.3 mg/dl (8.4-10.2); Carbon Dioxide 31 mmol/L (22-30); Chloride 98 mmol/L (98-107); Estimated Creatinine Clearance 37 ml/min; Glucose 78 mg/dl (70-99); Potassium 3.5 mmol/L (3.5-5.1); Sodium 136 mmol/L (135-145); eGFR 48.25
[2025-03-14] MEDS: LOW STRENGTH ASPIRIN 81 MG PO (08:54)
[2025-03-14] MEDS: LASIX 40 MG PO ×2 (08:54→16:23)
[2025-03-14 14:46] VITALS: BP 100/56; BP 114/63; PULSE 73; O2SAT 95
[2025-03-14 15:13] VITALS: BP 113/61
--- NOTE | 2025-03-14 16:45 | CM ---
CM please communicate with son Mohit on dc planning.
PT indicates SNF.Several SNF accepted pt today. said dc not today.
PT done today .LM with [facility] [phone] to review PT and assess his ability to return to assisted living at [facility].
Spoke with pt and Mohit with above plan.
PLAN return to [facility] VS SNf
[2025-03-14] MEDS: XARELTO 15 MG PO (17:48)
--- NOTE | 2025-03-14 17:56 | W.PN.HOSP.TC ---
Today's Communication/Plan
-
Resuming Xarelto and monitor for recurrent epistaxis.
Discontinue Farah for trial of voiding.
PT assessment and discharge planning with consideration of SNF
Discussed with case management
Patient's updated at bedside
Assessment / Plan
Assessment / Plan
Impression:
Patient is a 74-year-old male with past medical history of chronic systolic congestive heart failure, ischemic cardiomyopathy, severe mitral regurgitation, history of bypass/with redo bypass/PCI, paroxysmal atrial fibrillation, history of ICD
placement, essential hypertension, hyperlipidemia, sleep apnea, history of inguinal hernia repair, history of cataract surgery, cachexia/protein calorie malnutrition came from facility for combination symptoms of dyspnea/chest pain/generalized
weakness/fatigue.
Started on aggressive diuresis as per cardiology.
Kidney function improved.
Patient had episode of severe epistaxis requiring bilateral Rhino Rocket
Seen by ENT who recommended to keep packing till Friday.
Was complaining of constipation, ordered magnesium citrate.
Constipation improved.
ENT evaluated the patient on Friday 5/ removed the nasal packing
Cleared to resume Xarelto on Friday if no further bleeding.
Assessment/plan:
Acute on chronic systolic congestive heart failure
-Elevated proBNP > 27k, ER weight 66kg, some leg swelling
- Chest x-ray showing cardiomegaly and pulmonary vascular congestion
- Portable Lasix 40 mg in ER, further dosing per nephrology/cardiology.
Continue Lasix, currently 40 mg IV twice daily.
Echocardiogram with 15 to 20%.
Continue aggressive diuresing for now
5/
Lasix switched to oral
Hyperkalemia - Improving
- Patient presented with potassium of 7.6
- Multifactorial from potassium supplement/Aldactone/CKD/metabolic acidosis
- EKG showing problematic QRS widening with sine early sine wave forming
- Good calcium gluconate/Lasix/insulin glucose in ER
- Got Kayexalate as well
- Low K diet started
- slowly trending down
03/11
Potassium 3.4 will replace.
03/12
Replace potassium
Epistaxis
Epistaxis related to Xarelto use
Hold Xarelto for now.
ENT consulted.
Keep packing till Friday
03/12
No further epistaxis
03/13
Nasal packing removed.
Resume Xarelto on 03/14 if no further bleeding
Urinary retention/history of prostate cancer
Status post dilation of meatal stenosis and placement of Farah catheter.
Data urology input, voiding trial on Friday
Severe protein calorie malnutrition
-Patient have cardiac cachexia and decreased appetite/weight loss for some time.
Paroxysmal atrial fibrillation
-Continue home dose of Xarelto (on hold)
Anion gap metabolic acidosis - resolved
-Likely with underlying CKD
-Improved with bicarb drip, discontinued.
BRIGHT on Chronic kidney disease stage IV
- Lowest cr of 1.3 from last visit, comes in with cr of 2.6
- Patient found to have urinary retention, difficult Farah catheter urology had to place Farah today
- Monitor renal function recovery
Hypoglycemia - resolved
-From decreased oral intake
-Reported nausea vomiting and decreased oral intake for few days
- Required D5/IVF
- Diet advanced to low potassium diet
Chest pain
Troponin elevation
History of CAD with bypass/redo bypass/PCI
- Patient hav has history of multivessel CAD, was provided nitro pills in the facility x 3 before presenting
- With hyperkalemia related EKG changes unable to appreciate any significant ST segment deviation
- Troponin elevation likely felt to be type II [place] related
- Appreciate cardiology input
Acute transaminitis -
- ALT 173/AST 287/ALP 152 at admission
- LFTs are rapidly uptrending and 1k +today
- Hold amiodarone dose
- Component of congestive hepatopathy is possibly
- Liver and abdominal ultrasound has been ordered
-
03/03
Us shows:
1. Diffuse intraperitoneal ascites.
2. Gallbladder sludge and small gallstones. Gallbladder wall thickening and fluid adjacent to the gallbladder, more likely to be related to ascites then acute cholecystitis. Negative sonographic Levy's sign.
3. Hepatic veins and main portal vein are patent.
4. Bilateral renal cortical thinning, suggestive of medical renal disease. No hydronephrosis on either side.
03/04
Liver enzymes improved
03/09
Liver enzymes continue to improve
Right arm swelling
- Patient had infiltration of dextrose in ER causing significant forearm/elbow swelling
-Hyaluronidase injection was provided
-Patient already on Xarelto low chance of new deep venous thrombosis. monitor
Left upper extremity basilic vein thrombosis.
Ultrasound left upper extremity shows mild thrombus formation in the basilic vein which is partially compressible only 2 to 3 cm in length.
Continue Xarelto (on hold for now for epistaxis)
Superficial skin wound
-wound care to be continued
- Patient had superficial denuding of the skin from friction injury in ER as well, Band-Aid in place
Bilateral here pressure stage I wound
Location of the ulcer/wound, Bilateral Heel.
Type (etiology) of ulcer/wound:
- Pressure (decubitus) ulcer
Stage
- Stage 1 - Skin intact, non-blanchable redness
Leukocytosis without fever
- Resolved
Lactic acidosis
Hyponatremia
CODE STATUS:DNR
DVT prophylaxis: Xarelto (on hold for now for epistaxis , will resume on 03/14)
Diet: Regular diet
Disposition: remove Farah and voiding trial on Friday, resume Xarelto on Friday if no further bleeding and possible l discharge back to [facility] on Friday.
Total time spent on today's encounter was 65 minutes which included time spent in counseling the patient/family regarding diagnosis and treatment plan as listed above, goals of care, and symptom management. Case was discussed with nursing staff,
specialists, and care coordinators/case management. All labs and imaging personally reviewed by me. Remainder the time spent in detailed review of previous records, lab data, imaging, and other medical provider documentation.
Anticipated Discharge: Within 24 hours
Subjective/Interval History
-
Date of Service: March 14, 2025
Objective Data
-
Labs:
Laboratory Results
03/14/25
06:29
WBC 7.4
Hgb 9.5 L
Hct 30.3 L
Plt Count 173
Sodium 136
Potassium 3.5
Chloride 98
Carbon Dioxide 31 H
BUN 47 H
Creatinine 1.5 H
Glucose 78
Calcium 8.3 L
Vital Signs:
Vital Signs
Temp Pulse Resp BP Pulse Ox
97.3 F 76 18 113/61 99
03/14/25 15:13 03/14/25 15:13 03/14/25 15:13 03/14/25 15:13 03/14/25 15:13
I&O
03/13/25 03/14/25 03/15/25
06:59 06:59 06:59
Intake Total 318 / 318 600 / 600 480 / 480
Output Total 225 / 875 1575 / 1575 300 / 300
Balance 93 / -557 -975 / -975 180 / 180
Physical Exam
-
General: Well Nourished, No Apparent Distress, Comfortable and Appears in Distress
HEENT: Normocephalic, Atraumatic, Moist Mucous Membranes, No Ptosis, PERRLA, Nose Appears Normal and Other (Bilateral Rhino Rockets)
Respiratory: Rales, Rhonchi, Crackles and Non Labored Respirations
Cardiac: Regular Rhythm and S1/S2
Breast: Deferred by me
GI: Soft, Nontender, Nondistended and Normal Bowel Sounds
Genito-urinary: No Costovertebral Tender
Musculoskeletal: No Clubbing, No Cyanosis, Edema, Right Upper Extrem, Edema, Left Upper Extrem, Edema, Right Lower Extrem and Edema, Left Lower Extrem
Skin: Warm
Neuro: Awake, Alert, Oriented, AO x 3 and No Motor Deficits
Psych: Calm
[2025-03-14] MEDS: SINGULAIR 10 MG PO (20:00)
[2025-03-14] MEDS: TYLENOL 650 MG PO (23:18)
[2025-03-14 23:44] VITALS: BP 116/66
--- NOTE | 2025-03-15 00:32 | PTCARENOTE ---
pt unable to void to empty bladder, pt uncomfortable. bladder scan completed >617, st cath done without difficulty but only 100cc output obtained. [employer] notified and urology, will attempt armstrong placement with a 22FR per urology.
--- NOTE | 2025-03-15 01:09 | PTCARENOTE ---
#22 fr armstrong placed with urimeter. irrigated with 120cc nss, and a return of 120cc was seen. balloon inflated after return of irrigation fluid. additional 100 cc yellow urine drained prior to irrigation.
[2025-03-15 06:00] VITALS: BMI 20.9
[2025-03-15 06:48] VITALS: BP 121/64
[2025-03-15 07:21] LABS: % Basophils 0.7 % (0-2); % Eosinophils 1.2 % (0-6); % Immature Granulocytes 0.4 % (0-0.5); % Lymphocytes 14.2 % (20.5-51.1); % Monocytes 10.8 % (1.7-9.3); % Neutrophils 72.7 % (42.2-75.2); Absolute Basophils 0.1 10^3/uL (0-0.2); Absolute Eosinophils 0.1 10^3/uL (0-0.7); Absolute Lymphocytes 1.1 10^3/uL (1.2-3.4); Absolute Monocytes 0.8 10^3/uL (0.1-0.6); Absolute Neutrophils 5.5 10^3/uL (1.4-6.5); Hematocrit 32.5 % (39.0-52.0); Hemoglobin 10.4 g/dL (13.0-18.0); Mean Corpuscular Hgb 28.8 pg (27.0-31.0); Mean Platelet Volume 11.3 fL (7.4-10.4); Nucleated Red Blood Cells % 0 % (-); Platelet Count 184 10^3/uL (130-400); Red Blood Cell Count 3.61 10^6/uL (4.70-6.10); Red Cell Dist. Width 15.9 % (11.5-14.5); White Blood Cell Count 7.6 10^3/uL (4.8-10.8)
[2025-03-15 07:55] LABS: Blood Urea Nitrogen 45 mg/dl (9-20); Calcium 8.1 mg/dl (8.4-10.2); Carbon Dioxide 28 mmol/L (22-30); Chloride 99 mmol/L (98-107); Estimated Creatinine Clearance 36 ml/min; Glucose 74 mg/dl (70-99); Potassium 3.5 mmol/L (3.5-5.1); Sodium 137 mmol/L (135-145); eGFR 48.25
[2025-03-15] MEDS: APRESOLINE 25 MG PO (08:59)
[2025-03-15] MEDS: SYNTHROID 75 MCG PO (08:59)
[2025-03-15] MEDS: LOW STRENGTH ASPIRIN 81 MG PO (08:59)
[2025-03-15] MEDS: ZOLOFT 25 MG PO (08:59)
[2025-03-15] MEDS: PACERONE 200 MG PO (08:59)
[2025-03-15] MEDS: HYDROPHOR 1 APPLIC TOPICAL (09:00)
[2025-03-15] MEDS: LASIX 40 MG PO (09:00)
--- NOTE | 2025-03-15 10:04 | W.PN.URO.CBU ---
Today's Communication / Plan
-
[facility] PT ARMSTRONG [facility] MAY D/C FROM POINT OF VIEW
Assessment / Plan
-
hx of prostate cancer
urinary retention requiring dilation of meatal stenosis/ armstrong
psa under 1
urine clear
expected penile edema
reviewed possible armstrong removal today- pt says with ballons in nose and mobility issues- he would prefer to leave it in
if discharged over the weekend- then he can go with armstrong and have snif contact me for discussion of voiding trial
if remains in house on friday- will review removal at that time FAILED TOV WILL SEND TO [facility] FOR REPEAT VOID TRIAL
Diagnosis
-
Date of Service: March 15, 2025
-
Patient Diagnosis:
Post Op Day:
Patient Diagnosis:
prostate cancer
urinary retention
meatal stenosis
Subjective
-
failed voiding trial had pain distension bladder scan 560c straight cathed now relief
Objective
-
Vital Signs
Temp Pulse Resp BP Pulse Ox
97.6 F 66 18 107/65 97
03/15/25 06:48 03/15/25 09:00 03/15/25 06:48 03/15/25 09:00 03/15/25 06:48
Intake and Output
03/14/25 03/15/25 03/16/25
06:59 06:59 06:59
Intake Total 600 / 600 600 / 600
Output Total 1575 / 1575 675 / 675
Balance -975 / -975 -75 / -75
Intake:
Oral fluids 600 / 600 480 / 480
Armstrong intermittent irrigation 120 / 120
Output:
Urine, Armstrong 1575 / 1575 575 / 575
Straight cath output 100 / 100
Other:
Number of approximated SMALL 2
amounts of urine
How many times incontinent 1
MODERATE amount urine
Laboratory Results
03/15/25 06:37
03/15/25 06:37
Review of Systems
-
: Difficulty Voiding
Physical Exam
-
General - well developed, well nourished, no acute distress
Chest - clear bilaterally
Abdomen - soft, non-tender, positive bowel sounds, no CVAT, no incisional pain or distention
Genitalia - normal
Rectal - normal
Skin - warm & dry with no rash
Neuro - AOx3, no motor deficits
Extremities - no clubbing, no cyanosis, no edema
Incision - clean, dry
Dressing - clean, dry, intact
Care Review
Data Reviewed
Discussed with: Nursing and Family
--- NOTE | 2025-03-15 11:49 | CM ---
Received meesage from attending that patient is cleared for discharge. Per previous conversation with patient and his as well as rest of family, they would like for patient to return right back to [facility] and not go to SNF. Placed a call to an
RN named, Yeny, at [facility] [phone]. Reviewed functional status. Yeny stated that patient can return back to [facility] and not have to go to SNF.
#For Report [phone]
#
Patient's stated that patient's son will be in to transport patient back.
Attending and RN aware.
IMM reviewed, signed and on chart.
Plan: Case management will continue to follow and assist with discharge planning. Back to [facility].
--- NOTE | 2025-03-15 13:45 | W.DS.TRANS ---
DC Summary - Foreclosure Paralegal
-
Discharge Instructions:
Discharge Diagnosis/Procedures Acute CHF
Diet 2 Gram Sodium
Instructions: *DCA Heart Failure Instructions
Stand-Alone Forms:
Changes to Home Medications: Yes
Discharge Medications:
DC Medications w/original date entered in [email or web address]
omega 6-ryq-phr-fish oil 300 mg-1,000 mg capsule (Fish Oil) 1 ea PO DAILY Supplement 02/19/17
amiodarone 200 mg tablet (Pacerone) 200 mg PO DAILY Heart disease/condition 06/23/20
multivitamin with folic acid 400 mcg tablet (Tab-A-Rickey) 1 tab PO DAILY Supplement 06/23/20
nitroglycerin 0.4 mg sublingual tablet 0.4 mg sublingual [id number] PRN chest pain 06/23/20
sertraline 25 mg tablet 25 mg PO DAILY Mental Health 06/23/20
aspirin 81 mg chewable tablet 81 mg PO DAILY Blood clot prevention/tx 06/30/20
pantoprazole 40 mg tablet,delayed release 40 mg PO DAILY Gastrointestinal issue ##0 06/30/20
rivaroxaban 15 mg tablet (Xarelto) 15 mg PO DAILY Blood clot prevention/tx 08/08/20
montelukast 10 mg tablet (Singulair) 10 mg PO DAILY asthma 03/13/23
coenzyme Q10 100 mg capsule (CoQ-10) 100 mg PO DAILY Supplement 07/07/24
peg 400-propylene glycol (PF) 0.4 %-0.3 % eye drops in a dropperette (Systane (PF)) 1 drp BOTH EYES Q3HPRN PRN dry eyes 07/07/24
acetaminophen 325 mg tablet (Tylenol) 650 mg PO Q4HPRN PRN mild pain 09/13/24
ferrous sulfate 325 mg (65 mg iron) tablet (iron) 325 mg PO Q48H Supplement 09/13/24
atorvastatin 20 mg tablet 20 mg PO QPM High Cholesterol 10/04/24
albuterol sulfate 90 mcg/actuation aerosol inhaler 2 puff inhalation R Q6HPRN PRN sob 03/01/25
fludrocortisone 0.1 mg tablet 0.1 mg PO DAILY adrenal insufficiency 03/01/25
fluticasone 500 mcg-salmeterol 50 mcg/dose blistr powdr for inhalation (Advair Diskus) 1 inh inhalation R BID Lung/Breathing Issues 03/01/25
levothyroxine 75 mcg tablet (Synthroid) 75 mcg PO DAILY Thyroid 03/01/25
midodrine 5 mg tablet 10 mg PO TID @ 0800,1200,1700 Blood Pressure 03/01/25
ondansetron HCl 4 mg tablet 4 mg PO Q6HPRN PRN nausea 03/01/25
polyethylene glycol 3350 17 gram oral powder packet 17 g PO BID Constipation 03/01/25
potassium chloride 20 mEq tablet,extended release(part/cryst) (Klor-Con M) 20 meq PO BID Electrolyte Repletion 03/01/25
sodium bicarbonate 650 mg tablet 650 mg PO Q6HPRN PRN stomach issuse 03/01/25
spironolactone 25 mg tablet 25 mg PO Q48H Heart Disease/Condition 03/01/25
vitamin E 268 mg (400 unit) capsule 268 mg PO DAILY Supplement 03/01/25
furosemide 40 mg tablet 40 mg PO BID AT 0800,1600 #60 tabs 03/15/25
hydralazine 25 mg tablet 25 mg PO BID #60 tabs 03/15/25
Home Medication Changes
Lasix increased
Hydralazine started
Pending Results: No
[2025-03-15 14:55] VITALS: BP 109/63
--- NOTE | 2025-03-15 15:22 | PTCARENOTE ---
Patient and educated on dc packet. Report called to [facility], BRIGIDA Saini. Educated on Farah leg bag. No questions at this time. Son to transport to [facility].
--- NOTE | 2025-03-16 09:57 | W.HF.CON ---
Heart Failure
- LV Function
Left ventricular function study result: LV Ejection fraction </= 35%
Ejection Fraction Percentage: 15-20
- ARNI
Patient already on ARNI: No
Heart Failure ARNI Contraindication: Acute Renal Failure, Hypotension
- ACEI/ARB
Patient already on ACEI/ARB: No
Heart Failure ACEI/ARB Contraindication: Acute Renal Failure, Hypotension
- Beta Eduard
Patient already on Evidence Based Beta Eduard: No
Heart Failure Evidence Based Beta Eduard: Mod/Severe Heart Failure
- Mineralocorticord Receptor Antagonist
Patient already on MRA: Yes
- SGLT-2 Inhibitor
Patient already on SGLT-2 Inhibitor: No
Heart Failure SGLT-2 Inhibitor Contraindication: Patient Refusal (nathaniel)
- Afib Anticoagulation
Patient already on Anticoagulation for Afib: Yes
- NYHA CHF Classification
NYHA CHF Classification Level: Class III - Symptoms w/ min exertion, interferes w/ nml daily activity
- ACC/AHA Stage
ACC/AHA Stage: Stage D: Advanced Heart Failure
== END 2025-03-15 15:22 | disposition home or self-care (01) | DRG 640 ==
LOC: 4 EAST ACU 09:33
PROVIDERS: General Practice; Internal Medicine; Nurse Practitioner Family; Nurse Practitioner Gerontology; Physician Assistant; Specialist; ADMITTING PHYSICIAN Hospitalist; ATTENDING PHYSICIAN Internal Medicine; CONSULT PHYSICIAN Internal Medicine Cardiovascular Disease; CONSULT PHYSICIAN Specialist; EMERGENCY PHYSICIAN Emergency Medicine; FAMILY PHYSICIAN Internal Medicine Geriatric Medicine; OTHER PHYSICIAN Otolaryngology; OTHER PHYSICIAN Specialist
DX: E87.5 Hyperkalemia (principal); E43 Unspecified severe protein-calorie malnutrition; I50.23 Acute on chronic systolic (congestive) heart failure; I21.A1 Myocardial infarction type 2; D68.32 Hemorrhagic disorder due to extrinsic circulating anticoagulants; I13.0 Hypertensive heart and chronic kidney disease with heart failure and stage 1 through stage 4 chronic kidney disease, or unspecified chronic kidney disease; N18.4 Chronic kidney disease, stage 4 (severe); N17.9 Acute kidney failure, unspecified; G93.40 Encephalopathy, unspecified; R64 Cachexia; E87.20 Acidosis, unspecified; R04.0 Epistaxis; Z68.20 Body mass index [BMI] 20.0-20.9, adult; I48.0 Paroxysmal atrial fibrillation; I25.5 Ischemic cardiomyopathy; I08.0 Rheumatic disorders of both mitral and aortic valves; G47.33 Obstructive sleep apnea (adult) (pediatric); E78.00 Pure hypercholesterolemia, unspecified; Z95.810 Presence of automatic (implantable) cardiac defibrillator; Z91.041 Radiographic dye allergy status; Z79.82 Long term (current) use of aspirin; Z79.899 Other long term (current) drug therapy; Z79.890 Hormone replacement therapy; I25.10 Atherosclerotic heart disease of native coronary artery without angina pectoris; Z85.46 Personal history of malignant neoplasm of prostate; Z95.5 Presence of coronary angioplasty implant and graft; K22.70 Barrett's esophagus without dysplasia; K21.9 Gastro-esophageal reflux disease without esophagitis; R73.03 Prediabetes; Z95.1 Presence of aortocoronary bypass graft; Z87.891 Personal history of nicotine dependence; Z82.49 Family history of ischemic heart disease and other diseases of the circulatory system; Z66 Do not resuscitate; Z79.01 Long term (current) use of anticoagulants; D50.9 Iron deficiency anemia, unspecified; F41.9 Anxiety disorder, unspecified; I25.2 Old myocardial infarction; I95.1 Orthostatic hypotension; J45.909 Unspecified asthma, uncomplicated; Z90.79 Acquired absence of other genital organ(s); L89.621 Pressure ulcer of left heel, stage 1; L89.611 Pressure ulcer of right heel, stage 1; L89.151 Pressure ulcer of sacral region, stage 1
CPT/HCPCS: 71045; 76700; 80048; 80053; 81003; 81015; 82248; 82947; 82962; 83605; 83735; 83880; 84132; 84153; 84439; 84443; 84484; 85014; 85018; 85025; 85027; 85610; 85730; 86850; 86900; 86901; 87086; 93005; 93306; 93971; 94640; 96374; 96375; 97116; 97163; 97166; 97530; 97535; 99291

== ENCOUNTER 2025-03-18 23:18 | Inpatient (IN) | payer MEDICARE, OTHER, SELFPAY ==
[2025-03-18 19:39] VITALS: BP 137/83
[2025-03-18 20:27] VITALS: BP 136/94
--- NOTE | 2025-03-18 21:20 | ED.GENMED ---
History of Present Illness
General
Chief Complaint: Nose Bleed
Source: patient and family
Time Seen by Provider: 03/18/25 19:43
History of Present Illness
History of Present Illness:
This 74-year-old male with a history of atrial fibrillation on Eliquis who presents with epistaxis. Patient states he has had this in the past. Family states he has had a tough time with it. Patient states he cannot get it to stop at home.
Denies any other complaints
Past History
Past History
ED Past Medical History: Arrthythmia (Atrial fib), Asthma, CAD, Cancer (prostate), CHF, GERD, HTN, Hypercholesterolemia, AR, Psychiatric (Anxiety, ) and Other (Headache, Numbness arms and legs. Sleep apnea, Bipap, Caballero's esophagus, Hiatal hernia,
Eczema, Iron def anemia)
ED Past Surgical History: Cardiac (Defib, CABG, Stents, Left and right carotid stents, ), Urological (Prostatectomy, ) and Other (Hemorrhoids, cataracts, Deviated septum, Hernia repair, )
Social History
Tobacco: Non-smoker
Alcohol: None
Drug: None
Personal:
Living: with family
Phy Exam
Physical Exam
Physical Exam:
CONSTITUTIONAL Vital signs reviewed, Patient alert and oriented to person, place and time. Well-appearing
HEAD atraumatic, normocephalic.
EYES eyelids normal to inspection, Extraocular muscles intact, Conjunctiva normal, Sclera normal.
ENT patient patient does have noted blood bilaterally. He has a large clot in the left nare that was evacuated during exam. He essentially has no septum. There is bleeding noted at the ridge of the base of what would be the septum. There is
clear communication to bilateral naris
NECK normal range of motion, Trachea midline, no jugular venous distention.
RESP no respiratory distress
BACK No obvious deformities
UPPER EXTREMITY Gross Range of motion normal, gross motor strength normal
LOWER EXTREMITY Gross range of motion normal, Gross motor strength normal
NEURO Speech normal, No focal motor deficits include, [place] coma scale 15, Memory normal, Cranial Nerves intact to screening exam.
SKIN Skin warm, dry, and normal in color.
PSYCHIATRIC Patient oriented to person place and time, Normal affect.
Course
Orders/Labs/Results
Orders:
Orders
03/18/25 19:48
Tranexamic Acid 1,000 mg .ROUTE .STK-MED ONE
03/18/25 21:19
Basic Metabolic Panel Urgent
Complete Blood Count/With Diff Urgent
Prothrombin Time Urgent
Vital Signs
Initial and Last Documented VS:
Initial Vital Signs
Temp Pulse Resp BP Pulse Ox
98.2 F 80 16 137/83 100
03/18/25 19:39 03/18/25 19:39 03/18/25 19:39 03/18/25 19:39 03/18/25 19:39
Last Documented Vital Signs
Temp Pulse Resp BP Pulse Ox
98.2 F 80 16 136/94 100
03/18/25 19:39 03/18/25 19:39 03/18/25 20:27 03/18/25 20:27 03/18/25 19:39
Procedures
Nosebleed
Drug treatment: Tranexamic Acid
Treatment: local pressure applied, Silver nitrate cautery, Epistat nasal catheter and Vaseline guaze
Additional information:
Patient initially was packed with a balloon 4.5 cm to the left side that was saturated in TXA. Cauterization was also performed to the ridge of the missing septum. Eventually due to persistent oozing, the right nare was packed with Vaseline gauze
MDM/Problems Addressed
MDM/Problems Addressed:
Severe acute epistaxis, therapeutic coagulopathy
*Pulse Oximetry
Patient hypoxic: no
*Critical Care Note
Total Time (30-74mins, 75-104mins- exclusive of procedures): Not Applicable
Data Reviewed
Review of Other/Old Records Reveals: Discharge Summary (Discharge summary reviewed from March 2025. Patient was just released on March 15)
Source: patient
Prescriptions/Medications Considered But Not Given:
Considered Eliquis reversal bleeding seems to be controlled with epistaxis management
Patient Management
Discussion with other providers: Hospitalist
Escalation/DeEscalation of care consider admission/obs:
Now with bilateral packing in place. Given his history and continued anticoagulant use, admit. Currently stable
ED Attending Note
-
Portions of this chart may have been created with voice recognition software.� Occasional wrong word or��sound alike� substitutions may have occurred due to the inherent limitations of voice recognition software.
Discharge Plan
Departure
Patient Disposition: Admit
Date of Disposition: 03/18/25
Time of Disposition: 21:24
Admit to: Med/Surg
Presentation/result/management discussed w/ accepting MD/DO: Hospitalist
Discharge Problem:
Acute anterior epistaxis
Prescriptions:
No Action
omega 2-ove-uir-fish oil [Fish Oil] 1 EACH capsule
1 ea PO DAILY
amiodarone [Pacerone] 200 MG tablet
200 mg PO DAILY
nitroglycerin 0.4 MG tablet, sublingual
0.4 mg sublingual [id number] PRN (Reason: chest pain)
sertraline 25 MG tablet
25 mg PO DAILY
multivitamin with folic acid [Tab-A-Rickey] 1 TABLET tablet
1 tab PO DAILY
aspirin 81 MG tablet,chewable
81 mg PO DAILY 0RF
pantoprazole 40 MG tablet,delayed release (DR/EC)
40 mg PO DAILY Qty: 0 0RF
Xarelto 15 MG tablet
15 mg PO DAILY
montelukast [Singulair] 10 mg Tablet
10 mg PO DAILY
coenzyme Q10 [CoQ-10] 100 mg Capsule
100 mg PO DAILY
Systane (PF) 0.4-0.3 % Dropperette
1 drp BOTH EYES Q3HPRN PRN (Reason: dry eyes)
acetaminophen [Tylenol] 325 mg Tablet
650 mg PO Q4HPRN PRN (Reason: mild pain)
ferrous sulfate [iron] 325 mg (65 mg iron) Tablet
325 mg PO Q48H
atorvastatin 20 mg Tablet
20 mg PO QPM
ondansetron HCl 4 mg Tablet
4 mg PO Q6HPRN PRN (Reason: nausea)
spironolactone 25 mg Tablet
25 mg PO Q48H
levothyroxine [Synthroid] 75 mcg Tablet
75 mcg PO DAILY
sodium bicarbonate 650 mg Tablet
650 mg PO Q6HPRN PRN (Reason: stomach issuse)
fluticasone propion-salmeterol [Advair Diskus] 500-50 mcg/dose Blister With Device
1 inh INHALATION R BID
albuterol sulfate 90 mcg/actuation Hfa Aerosol Inhaler
2 puff INHALATION R Q6HPRN PRN (Reason: sob)
fludrocortisone 0.1 mg Tablet
0.1 mg PO DAILY
vitamin E 268 mg (400 unit) Capsule
268 mg PO DAILY
polyethylene glycol 3350 17 gram powder in packet
17 g PO BID
midodrine 5 mg tablet
10 mg PO TID @ 0800,1200,1700
potassium chloride [Klor-Con M20] 20 MEQ tablet,ER particles/crystals
20 meq PO BID
furosemide 40 mg Tablet
40 mg PO BID AT 0800,1600 Qty: 60 0RF
hydralazine 25 mg Tablet
25 mg PO BID Qty: 60 0RF
Referrals:
NONE,* [Family Provider] -
Interventions
Interventions:
*Risk Screen - Suicide Last Done: 03/18/25 19:43
*General Assessment Last Done: 03/18/25 19:43
*Neglect/Abuse Screening Last Done: 03/18/25 19:43
*ED- Fall Risk Assessment Last Done: 03/18/25 19:43
*ED COVID-19 Vaccine History Last Done: 03/18/25 19:43
ED-EENT Assessment Last Done: 03/18/25 19:44
Discharge Date and Time
Print Language: ROMANSH
[2025-03-18 21:36] VITALS: BP 119/67
[2025-03-18 21:39] LABS: % Basophils 0.6 % (0-2); % Eosinophils 1.7 % (0-6); % Immature Granulocytes 0.4 % (0-0.5); % Lymphocytes 12.7 % (20.5-51.1); % Monocytes 13.5 % (1.7-9.3); % Neutrophils 71.1 % (42.2-75.2); Absolute Eosinophils 0.1 10^3/uL (0-0.7); Absolute Lymphocytes 0.9 10^3/uL (1.2-3.4); Absolute Neutrophils 5.2 10^3/uL (1.4-6.5); Hematocrit 30.4 % (39.0-52.0); Hemoglobin 9.4 g/dL (13.0-18.0); Mean Corp Hgb Conc. 30.9 g/dL (33.0-37.0); Mean Corpuscular Hgb 28.4 pg (27.0-31.0); Mean Corpuscular Volume 91.8 fL (80.0-94.0); Mean Platelet Volume 11.5 fL (7.4-10.4); Nucleated Red Blood Cells % 0 % (-); Platelet Count 210 10^3/uL (130-400); Red Blood Cell Count 3.31 10^6/uL (4.70-6.10); Red Cell Dist. Width 16.6 % (11.5-14.5); White Blood Cell Count 7.3 10^3/uL (4.8-10.8)
[2025-03-18 21:53] LABS: INR 2.47; PT 26.8 Sec (11.4-14.6)
[2025-03-18 21:57] LABS: Blood Urea Nitrogen 45 mg/dl (9-20); Calcium 8.5 mg/dl (8.4-10.2); Carbon Dioxide 27 mmol/L (22-30); Chloride 101 mmol/L (98-107); Estimated Creatinine Clearance 32 ml/min; Glucose 98 mg/dl (70-99); Potassium 4.8 mmol/L (3.5-5.1); Sodium 138 mmol/L (135-145); eGFR 38.77
--- NOTE | 2025-03-18 23:04 | HPS.HSE ---
Family Physician
-
Family Physician: * NONE
Chief Complaint
-
nose bleeding
History of Present Illness
HPI
74M HX epistaxis, known septal perforation, resumed Xarelto on 03/14/25 HX Prx AF on Eliquis , HX chr HFrEF seen at ER :
- pw recurent epistaxis
- Resume Eliquis 4 days ago as of 03/14/25
- reports epistaxin on last admission this in the past.
- known septal perforation
- Patient states he cannot get it to stop at home.
- Denies any other complaints
Medical History
Past Medical History
Past Medical History: Reports Other
Additional Past Medical History:
chronic systolic congestive heart failure, ischemic cardiomyopathy, severe mitral regurgitation, history of bypass/with redo bypass/PCI, paroxysmal atrial fibrillation, history of ICD placement, essential hypertension, hyperlipidemia, sleep apnea,
history of inguinal hernia repair, history of cataract surgery, cachexia/protein calorie malnutrition
Past Surgical History: Reports Other
Social History
Unable to obtain full social history at this time due to: Patient Non-verbal
Living: Assisted Living
Family History
Family History: Not pertinent
Allergies / Home Medications
Allergies reflects when Allergies were last updated in [employer].
Home Medications with original date entered in [employer]
Allergy/Medication List:
Allergies
Allergy/AdvReac Type Severity Reaction Status Date / Time
Iodinated Contrast Media Allergy Hives Verified 09/23/24 12:59
[IV Dye, Iodine Containing
Contrast ]
iodine Allergy Hives Verified 09/23/24 12:59
pollen extracts Allergy seasonal Verified 09/23/24 12:59
allergies
potassium clavulanate Allergy Itching Verified 09/23/24 12:59
[From Augmentin]
Home Medications
omega 8-ixt-brr-fish oil 300 mg-1,000 mg capsule (Fish Oil) 1 ea PO DAILY Supplement 02/19/17
amiodarone 200 mg tablet (Pacerone) 200 mg PO DAILY Heart disease/condition 06/23/20
multivitamin with folic acid 400 mcg tablet (Tab-A-Rickey) 1 tab PO DAILY Supplement 06/23/20
nitroglycerin 0.4 mg sublingual tablet 0.4 mg sublingual [id number] PRN chest pain 06/23/20
sertraline 25 mg tablet 25 mg PO DAILY Mental Health 06/23/20
aspirin 81 mg chewable tablet 81 mg PO DAILY Blood clot prevention/tx 06/30/20
pantoprazole 40 mg tablet,delayed release 40 mg PO DAILY Gastrointestinal issue ##0 06/30/20
rivaroxaban 15 mg tablet (Xarelto) 15 mg PO DAILY Blood clot prevention/tx 08/08/20
montelukast 10 mg tablet (Singulair) 10 mg PO DAILY asthma 03/13/23
coenzyme Q10 100 mg capsule (CoQ-10) 100 mg PO DAILY Supplement 07/07/24
peg 400-propylene glycol (PF) 0.4 %-0.3 % eye drops in a dropperette (Systane (PF)) 1 drp BOTH EYES Q3HPRN PRN dry eyes 07/07/24
acetaminophen 325 mg tablet (Tylenol) 650 mg PO Q4HPRN PRN mild pain 09/13/24
ferrous sulfate 325 mg (65 mg iron) tablet (iron) 325 mg PO Q48H Supplement 09/13/24
atorvastatin 20 mg tablet 20 mg PO QPM High Cholesterol 10/04/24
albuterol sulfate 90 mcg/actuation aerosol inhaler 2 puff inhalation R Q6HPRN PRN sob 03/01/25
fludrocortisone 0.1 mg tablet 0.1 mg PO DAILY 03/01/25
fluticasone 500 mcg-salmeterol 50 mcg/dose blistr powdr for inhalation (Advair Diskus) 1 inh inhalation R BID 03/01/25
furosemide 20 mg tablet (Lasix) 20 mg PO DAILY 03/01/25
levothyroxine 75 mcg tablet (Synthroid) 75 mcg PO DAILY 03/01/25
midodrine 5 mg tablet 10 mg PO TID @ 0800,1200,1700 03/01/25
ondansetron HCl 4 mg tablet 4 mg PO Q6HPRN PRN nausea 03/01/25
polyethylene glycol 3350 17 gram oral powder packet 17 g PO BID 03/01/25
potassium chloride 20 mEq tablet,extended release(part/cryst) (Klor-Con M) 20 meq PO BID Electrolyte Repletion 03/01/25
sodium bicarbonate 650 mg tablet 650 mg PO Q6HPRN PRN stomach issuse 03/01/25
spironolactone 25 mg tablet 25 mg PO Q48H 03/01/25
vitamin E 268 mg (400 unit) capsule 268 mg PO DAILY 03/01/25
Review of Systems
-
Constitutional: Reports No Symptoms
EENT: Reports See HPI and Other (recurrent nose bleed )
Respiratory: Reports No Symptoms
Cardiac: Reports No Symptoms
Abdomen/GI: Reports No Symptoms
: Reports No Symptoms
Musculoskeletal: Reports No Symptoms
Skin: Reports No Symptoms
Neurological: Reports No Symptoms
Endocrine: Reports No Symptoms
Hematologic/Lymphatic: Reports No Symptoms
Psych: Reports No Symptoms
Physical Exam
Vital Signs
Vital Signs
Temp Pulse Resp BP Pulse Ox
98.2 F 74 18 119/67 99
03/18/25 19:39 03/18/25 21:36 03/18/25 21:36 03/18/25 21:36 03/18/25 21:36
Physical Exam
General: No Apparent Distress
HEENT: Atraumatic and Other (On neb therapy)
Respiratory: Rhonchi
Cardiac: S1/S2 and Regular Rhythm; No Murmur or Rub
GI: Soft and Non Tender; No Organomegaly
Rectal: Deferred by Provider
Musculoskeletal: No Clubbing, No Cyanosis, Edema, Left Lower Extremity and Edema, Right Lower Extremity
Skin: Other (RLE 3rd toe supeficial denuding, black atrophic skin around great toe); No Rash
Neuro: Awake; No Oriented
Laboratory Results
-
03/18/25 21:32
03/18/25 21:32
Laboratory Results
PT 26.8 Sec (11.4-14.6) H 03/18/25 21:32
INR 2.47 03/18/25 21:32
Data Reviewed
-
Diagnostic Radiology: Report Reviewed by me
Medical Tests (Nuc Med, Echo, EKG etc): Report Reviewed by me
Lab Data: Labs Reviewed by me
Old Records: Reviewed
Impression/Plan
-
Vital Signs
Temp Pulse Resp BP Pulse Ox
98.2 F 74 18 119/67 99
03/18/25 19:39 03/18/25 21:36 03/18/25 21:36 03/18/25 21:36 03/18/25 21:36
Abnormal Lab
03/18/25
21:32
RBC 3.31 L
Hgb 9.4 L
Hct 30.4 L
MCHC 30.9 L
RDW 16.6 H
MPV 11.5 H
Absolute Lymphs (auto) 0.9 L
Absolute Monos (auto) 1.0 H
Lymphocytes % 12.7 L
Monocytes % 13.5 H
PT 26.8 H
BUN 45 H
Creatinine 1.8 H
03/02/25 TTE
- Left ventricular ejection fraction is 15-20%
- Flattened septum in diastole consistent with RV volume overload.
- Stage I diastolic dysfunction suggestive of abnormal relaxation.
- Enlarged right ventricular size. Reduced right ventricular systolic function.
- Moderate to severe mitral regurgitation.
- Severe tricuspid regurgitation.
- Pleural effusion present.
- The IVC is dilated and does not collapse consistent with severely elevated right atrial pressure.
- Compared to THANH dated 10/07/24, left ventricular systolic function has declined, previously EF estimated at 25-30%.
Last hospitalist admission: 03/01/2025 - 03/15/2025
DISCHARGE DIAGNOSES:
1. Acute on chronic systolic congestive heart failure.
2. Epistaxis.
3. Acute urinary retention.
4. Severe protein calorie malnutrition.
5. Paroxysmal atrial fibrillation.
6. Acute kidney injury on chronic kidney disease stage 4.
7. Hypoglycemia, improved.
ASSESSMENT & PLAN
Pending Rx reconciliation
Acute recurrent epistaxis in setting of recently resume Xarelto on 03/14
Arrested Epistaxis with b/l nasal packing
HX Epistaxis related to Xarelto use
HX known septal perforation
- Hold Fish oil
- Hold Xarelto
- NOT blow his nose for one week
- No intervention needed for the perforation per last admission ENT consultation
- ENT consult
Lt UEx basilic vein thrombosis per 03/07 Lt UEx US
- Mild nonocclusive thrombus formation in the proximal left basilic vein.
- Partially compressible suggesting chronic or early thrombus formation.
- Holding Xarelto for now due to epistaxis
- serial US for any clot progression
Paroxysmal AF
- Hold Xarelto due to recurrent epistaxix
HX chr HFrEF with LVEF 15 to 20%.
HX Hypotension
HX hyperkalemia duue to spiranolactone
- on PO Lasix 40 mg twice daily
- GDMT had been down-titrated as an outpatient prior to last admission due to hypotension.
- Outpatient dose of Toprol XL stopped prior to admission due to hypotension.
- not chronically on JANE/ARB/ARNI due to CKD 4
- Hold spironolactone due to element of BRIGHT
- Hydralazine 25 mg BID added last admission for afterload reduction
- Midodrine 10 mg TID
- Patient goal is to return home with his and that he would not want any invasive measures and is a DNR.
- Hospice care candidate to consider evalaution
HX CKD4
- current Cr 1.8, baseline Cr 1.5
- baseline eGFR 30s
- HX cardiorenal syndrome in the past
- Trend RFTs daily
Urinary retention HX
HX prostate cancer
Status post dilation of meatal stenosis and placement of Farah catheter.
- f/u UO
- Bladder scan protocol
Severe protein calorie malnutrition
- Patient have cardiac cachexia and decreased appetite/weight loss for some time.
Bilateral heel pressure stage I wound
Location of the ulcer/wound, Bilateral Heel.
- Stage 1 - Skin intact, non-blanchable redness
- Wd care consult
DVT Px: SCD
DNR per patient
IP TLM
[2025-03-19] VITALS (10 sets, daily range): BP systolic 109–130; BP diastolic 60–82; PULSE 73–94; O2SAT 99
[2025-03-19] MEDS: FLUSH (NSS) 10 FLUSH IV (00:23)
[2025-03-19 05:06] LABS: Hematocrit 28.4 % (39.0-52.0); Hemoglobin 9.1 g/dL (13.0-18.0); Mean Corpuscular Hgb 29.4 pg (27.0-31.0); Mean Corpuscular Volume 91.6 fL (80.0-94.0); Mean Platelet Volume 11.3 fL (7.4-10.4); Platelet Count 208 10^3/uL (130-400); Red Cell Dist. Width 16.5 % (11.5-14.5); White Blood Cell Count 6.3 10^3/uL (4.8-10.8)
[2025-03-19 05:31] LABS: Blood Urea Nitrogen 43 mg/dl (9-20); Calcium 8.6 mg/dl (8.4-10.2); Carbon Dioxide 29 mmol/L (22-30); Chloride 103 mmol/L (98-107); Estimated Creatinine Clearance 34 ml/min; Glucose 87 mg/dl (70-99); Potassium 4.4 mmol/L (3.5-5.1); Sodium 139 mmol/L (135-145); eGFR 41.52
--- NOTE | 2025-03-19 08:35 | W.PN.HOSP.TC ---
Addendum entered and electronically signed by Gosia Munoz MD 03/19/25 14:44:
d/w ENT, pt can follow up in the office for packing removal
Updated extensively on the phone
Total DC time 45 minutes
Original Note:
Today's Communication/Plan
-
see AP
Assessment / Plan
Assessment / Plan
HPI: 74 yo M PMH epistaxis, known septal perforation, chronic HFrEF, resumed Xarelto on 03/14/25 for AF; p/w recurrent epistaxis.
Denies any other complaints.
A/P:
# Acute recurrent epistaxis 2/2 recently resumed Xarelto on 03/14
# HX Epistaxis related to Xarelto use
# HX known septal perforation
Epistaxis stopped with BL nasal packing
Hold Xarelto for now
No intervention needed for the perforation per last admission ENT consultation
ENT consult
# Lt UE basilic vein thrombosis per LUE US 03/07
Mild nonocclusive thrombus formation in the proximal left basilic vein.
basilic vein is a superficial vein, hence would not require OAC treatment
Would recc follow up US in 2 weeks to evaluate left basilic vein clot.
# Paroxysmal AF
Hold Xarelto due to recurrent epistaxis
# Chronic HFrEF, EF 15 to 20%.
# HX Hypotension
Cont DINKEY SKINNER oral Lasix 40 mg twice daily
not on ACEI/ARB/ARNI due to CKD 4
Need med recc, it appears pt on Hydralazine, Aldactone and Midodrine
# CKD stage 3
SCr 1.7 today, baseline around 1.7
Cr 1.5
Follow SCr
# h/o urinary retention
# h/o prostate cancer
# Status post dilation of meatal stenosis and placement of Armstrong catheter.
last armstrong changed on DOA per pt
# Severe protein calorie malnutrition
Patient with cardiac cachexia and temporal wasting
# Bilateral heel pressure ulcer stage I
local wound care
DVT Px: SCD
DNR per patient
total time 51 min
Anticipated Discharge: > 48 hours
Subjective/Interval History
-
Date of Service: March 19, 2025
Objective Data
-
Labs:
Laboratory Results
03/18/25 03/19/25
21:32 04:58
WBC 7.3 6.3
Hgb 9.4 L 9.1 L
Hct 30.4 L 28.4 L
Plt Count 210 208
PT 26.8 H
INR 2.47
Sodium 138 139
Potassium 4.8 4.4
Chloride 101 103
Carbon Dioxide 27 29
BUN 45 H 43 H
Creatinine 1.8 H 1.7 H
Glucose 98 87
Calcium 8.5 8.6
Vital Signs:
Vital Signs
Temp Pulse Resp BP Pulse Ox
36.5 C 90 16 130/70 100
03/19/25 07:20 03/19/25 07:20 03/19/25 07:20 03/19/25 07:20 03/19/25 07:20
I&O
03/18/25 03/19/25 03/20/25
06:59 06:59 06:59
Output Total 800 / 800
Balance -800 / -800
Review of Systems
-
History Source: Patient
All other systems: Reviewed and negative
Physical Exam
-
General: Well Developed, No Apparent Distress, Comfortable, Appears Chronically Ill and Cachectic
HEENT: Normocephalic, Atraumatic and Other (L nostril packed)
Respiratory: Clear to Auscultation and Non Labored Respirations; Negative Accessory Resp Muscle Use
Cardiac: Regular Rhythm and S1/S2
Breast: Deferred by me
GI: Soft, Nontender, Nondistended and Normal Bowel Sounds
Genito-urinary: Armstrong (chronic per pt )
Musculoskeletal: No Clubbing, No Cyanosis, Edema, Right Lower Extrem (mild) and Edema, Left Lower Extrem (mild)
Skin: Warm
Neuro: Awake and Alert
Psych: Calm and Intact Judgement/Insight (somewhat)
Data Reviewed
-
Ultrasound: Report Reviewed by me
Labs: Labs Reviewed by me
[2025-03-19] MEDS: PACERONE 200 MG PO (09:13)
--- NOTE | 2025-03-19 12:45 | CON.MD ---
Consultation - Medical
-
dictated.
Bilateral epistaxis from septal perforation, xarelto, ASA, fish oil, Vit E
controlled with packing
Will remove packing 03/21. If he is discharged, will see in my office then.
He was told septal perforation was too large for button placement.
minimize anticoagulation.
--- NOTE | 2025-03-19 14:20 | W.DCSUMMARY ---
Discharge Summary
Discharge Data
Date of Admission: 03/18/25
Date of Discharge: 03/19/25
-
Pending Results: No
Hospital Course
Principal Diagnosis:
Acute recurrent epistaxis 2/2 recently resumed Xarelto on 03/14/2025
Chronic Diagnoses:�
Recent Lt UE basilic vein thrombosis per LUE US 03/07.
h/o Epistaxis related to Xarelto use
Known nasal septal perforation
Paroxysmal atrial fibrillation, recently restarted Xarelto which resulted in recurrent nosebleed
Chronic heart failure with reduced ejection fraction, EF 15 to 20%.
Chronic hypotension on midodrine
Chronic kidney disease stage 3
h/o urinary retention
h/o prostate cancer
Status post dilation of meatal stenosis and placement of Farah catheter.
Severe protein calorie malnutrition
Bilateral heel pressure ulcer stage I
Consultations:�
ENT
Procedures:�
Nasal packing for nosebleed
Clinical course:�
This is a 74-year-old male, with past medical history as stated above, who presented with recurrent nosebleed.
Of note, he recently resumed Xarelto on 03/14/2025 for paroxysmal A-fib per his window cleaner.
Problem 1:
Acute recurrent epistaxis 2/2 recently resumed Xarelto on 03/14
His epistaxis stopped following nasal packing.
He was seen by ENT and was recommended to follow-up for packing removal in 2 days in the office.
He can hold Xarelto for now, and discuss risk-benefit ratio of anticoagulation with his window cleaner following discharge.
Problem 2:
Recent Lt UE basilic vein thrombosis per LUE US 03/07.
Mild nonocclusive thrombus formation in the proximal left basilic vein.
Since basilic vein is a superficial vein, would not require OAC treatment.
He can check repeat LUE US in 2 weeks to evaluate the left basilic vein clot.
As for the rest of his medical problems, they were stable during his hospital stay.
Discharge Plan
-
Patient Disposition: [facility]
Discharge Diagnosis/Procedures: Acute recurrent epistaxis due to recently resumed Xarelto on 03/14, status post packing
Condition: Fair
Diet: As tolerated, Low Fat, Low Cholesterol and Low Sodium
Activity: As tolerated
Driving Restrictions: As prior to admission
Blood Work: CBC in 1 week, result to PCP
Others Tests: L arm ultrasound to evaluate the L basilic vein mild nonocclusive thrombus in 2 weeks, with your PCP
Activity Restrictions/Additional Instructions:
Follow up with ENT for nasal packing removal on Wednesday 03/21
Follow up with your window cleaner to discuss risk vs benefit of anticoagulation
Referrals:
NONE,* [Family Provider] - in less than 1 week
Additional Discharge Medication Instructions: Hold hydralazine and Spironolactone due to low blood pressure
Hold Xarelto due to nose bleed
Prescriptions:
Continued
omega 2-cbd-kny-fish oil [Fish Oil] 1 EACH capsule
1 ea PO DAILY
amiodarone [Pacerone] 200 MG tablet
200 mg PO DAILY
nitroglycerin 0.4 MG tablet, sublingual
0.4 mg sublingual [id number] PRN (Reason: chest pain)
sertraline 25 MG tablet
25 mg PO DAILY
multivitamin with folic acid [Tab-A-Rickey] 1 TABLET tablet
1 tab PO DAILY
aspirin 81 MG tablet,chewable
81 mg PO DAILY 0RF
pantoprazole 40 MG tablet,delayed release (DR/EC)
40 mg PO DAILY Qty: 0 0RF
montelukast [Singulair] 10 mg Tablet
10 mg PO DAILY
coenzyme Q10 [CoQ-10] 100 mg Capsule
100 mg PO DAILY
Systane (PF) 0.4-0.3 % Dropperette
1 drp BOTH EYES Q3HPRN PRN (Reason: dry eyes)
acetaminophen [Tylenol] 325 mg Tablet
650 mg PO Q4HPRN PRN (Reason: mild pain)
atorvastatin 20 mg Tablet
20 mg PO QPM
ondansetron HCl 4 mg Tablet
4 mg PO Q6HPRN PRN (Reason: nausea)
levothyroxine [Synthroid] 75 mcg Tablet
75 mcg PO DAILY
sodium bicarbonate 650 mg Tablet
650 mg PO Q6HPRN
fluticasone propion-salmeterol [Advair Diskus] 500-50 mcg/dose Blister With Device
1 inh INHALATION R BID
albuterol sulfate 90 mcg/actuation Hfa Aerosol Inhaler
2 puff INHALATION R Q6HPRN PRN (Reason: sob)
fludrocortisone 0.1 mg Tablet
0.1 mg PO DAILY
vitamin E 268 mg (400 unit) Capsule
268 mg PO DAILY
polyethylene glycol 3350 17 gram powder in packet
17 g PO BID
midodrine 5 mg tablet
10 mg PO TID @ 0800,1200,1700
potassium chloride [Klor-Con M20] 20 MEQ tablet,ER particles/crystals
20 meq PO BID
furosemide 40 mg Tablet
40 mg PO BID AT 0800,1600 Qty: 60 0RF
bisacodyl 5 mg Suppository
5 mg MN DAILY PRN (Reason: if no BM in 4 days)
docusate sodium 100 mg Capsule
100 mg PO DAILY PRN (Reason: constipation)
ipratropium-albuterol 0.5 mg-3 mg(2.5 mg base)/3 mL Solution For Nebulization
3 ml INHALATION QID PRN (Reason: SOB or wheezing)
Held
Xarelto 15 MG tablet
15 mg PO DAILY
Hold Instructions: Resume on 04/13/25. due to nose bleed
spironolactone 25 mg Tablet
25 mg PO Q48H
Hold Instructions: Resume on 03/23/25. hold due to low blood pressure
hydralazine 25 mg Tablet
25 mg PO BID Qty: 60 0RF
Hold Instructions: Resume on 03/23/25. hold due to low blood pressure
Discharge Orders:
Discharge Patient (As Directed); Ordered 03/19/25
Ordered By: Gosia Munoz
Discharge Date and Time
Print Language: ANGOLAN
--- NOTE | 2025-03-19 14:41 | CM ---
media manager reviewed patient's chart and patient was admitted from [facility] where patient requires assist with adl's, transfers and ambulating with a walker. Patient also uses a w/c with ambulation. media manager reached out to [facility] and spoke
with RN Yeny [phone] and she is aware that patient is returning today, per spouse she will transport patient back to [facility].
[facility]
Report [phone]

[facility]
Patient to return to [facility], spouse to transport with visiting nurses from [facility].
== END 2025-03-19 16:41 | DRG 150 ==
LOC: ED 23:18
PROVIDERS: ADMITTING PHYSICIAN Internal Medicine; ATTENDING PHYSICIAN Internal Medicine; CONSULT PHYSICIAN Otolaryngology; EMERGENCY PHYSICIAN Emergency Medicine
PROC: 2Y41X5Z Packing of Nasal Region using Packing Material (ICD-10-PCS; 2025-03-18)
DX: R04.0 Epistaxis (principal); E43 Unspecified severe protein-calorie malnutrition; D68.32 Hemorrhagic disorder due to extrinsic circulating anticoagulants; I13.0 Hypertensive heart and chronic kidney disease with heart failure and stage 1 through stage 4 chronic kidney disease, or unspecified chronic kidney disease; N17.9 Acute kidney failure, unspecified; I82.612 Acute embolism and thrombosis of superficial veins of left upper extremity; I50.22 Chronic systolic (congestive) heart failure; I48.0 Paroxysmal atrial fibrillation; N18.30 Chronic kidney disease, stage 3 unspecified; L89.611 Pressure ulcer of right heel, stage 1; L89.621 Pressure ulcer of left heel, stage 1; I95.89 Other hypotension; R33.9 Retention of urine, unspecified; Z79.01 Long term (current) use of anticoagulants; Z68.21 Body mass index [BMI] 21.0-21.9, adult; Z85.46 Personal history of malignant neoplasm of prostate; Z66 Do not resuscitate
CPT/HCPCS: 30901; 80048; 85025; 85027; 85610; 97163; 99284

== ENCOUNTER → 2025-03-22 10:12 | Outpatient (REF) | payer MEDICARE, OTHER, SELFPAY ==
[2025-03-22 11:23] LABS: % Basophils 0.7 % (0-2); % Immature Granulocytes 0.2 % (0-0.5); % Monocytes 16.2 % (1.7-9.3); % Neutrophils 63.9 % (42.2-75.2); Absolute Eosinophils 0.1 10^3/uL (0-0.7); Absolute Neutrophils 3.9 10^3/uL (1.4-6.5); Hematocrit 27.7 % (39.0-52.0); Hemoglobin 8.7 g/dL (13.0-18.0); Mean Corp Hgb Conc. 31.4 g/dL (33.0-37.0); Mean Corpuscular Hgb 28.9 pg (27.0-31.0); Mean Platelet Volume 11.9 fL (7.4-10.4); Nucleated Red Blood Cells % 0 % (-); Platelet Count 258 10^3/uL (130-400); Red Blood Cell Count 3.01 10^6/uL (4.70-6.10); White Blood Cell Count 6.1 10^3/uL (4.8-10.8)
== END ==
LOC: OLABPATH 10:12
PROVIDERS: ATTENDING PHYSICIAN Internal Medicine
DX: I50.22 Chronic systolic (congestive) heart failure (principal); I48.0 Paroxysmal atrial fibrillation; R62.7 Adult failure to thrive
CPT/HCPCS: 36415; 85025

== ENCOUNTER → 2025-04-06 11:32 | Outpatient (REF) | payer MEDICARE, OTHER, SELFPAY ==
[2025-04-06 12:07] LABS: % Basophils 0.5 % (0-2); % Eosinophils 1.2 % (0-6); % Immature Granulocytes 0.3 % (0-0.5); % Lymphocytes 16.2 % (20.5-51.1); % Monocytes 11.6 % (1.7-9.3); % Neutrophils 70.2 % (42.2-75.2); Absolute Eosinophils 0.1 10^3/uL (0-0.7); Absolute Monocytes 0.7 10^3/uL (0.1-0.6); Absolute Neutrophils 4.1 10^3/uL (1.4-6.5); Hematocrit 32.2 % (39.0-52.0); Hemoglobin 10.2 g/dL (13.0-18.0); Mean Corp Hgb Conc. 31.7 g/dL (33.0-37.0); Mean Corpuscular Hgb 27.8 pg (27.0-31.0); Mean Corpuscular Volume 87.7 fL (80.0-94.0); Mean Platelet Volume 11.5 fL (7.4-10.4); Nucleated Red Blood Cells % 0 % (-); Platelet Count 179 10^3/uL (130-400); Red Blood Cell Count 3.67 10^6/uL (4.70-6.10); Red Cell Dist. Width 17.2 % (11.5-14.5); White Blood Cell Count 5.9 10^3/uL (4.8-10.8)
[2025-04-06 12:47] LABS: Free T4 2.17 ng/dl (0.78-2.19)
[2025-04-09 02:34] LABS: Total T3 (Sendout) 45 ng/dL (80-200)
== END ==
LOC: OLABPATH 11:32
PROVIDERS: ATTENDING PHYSICIAN Internal Medicine
DX: R94.6 Abnormal results of thyroid function studies (principal); I50.22 Chronic systolic (congestive) heart failure; E03.9 Hypothyroidism, unspecified
CPT/HCPCS: 36415; 84439; 84443; 84480; 85025

== ENCOUNTER → 2025-04-20 11:13 | Outpatient (REF) | payer MEDICARE, OTHER, SELFPAY ==
[2025-04-20 11:38] LABS: % Basophils 0.2 % (0-2); % Immature Granulocytes 0.2 % (0-0.5); % Lymphocytes 10.2 % (20.5-51.1); % Monocytes 11.8 % (1.7-9.3); % Neutrophils 77.6 % (42.2-75.2); Absolute Lymphocytes 0.5 10^3/uL (1.2-3.4); Absolute Monocytes 0.6 10^3/uL (0.1-0.6); Absolute Neutrophils 3.8 10^3/uL (1.4-6.5); Hematocrit 30.7 % (39.0-52.0); Hemoglobin 9.9 g/dL (13.0-18.0); Mean Corp Hgb Conc. 32.2 g/dL (33.0-37.0); Mean Corpuscular Volume 83.9 fL (80.0-94.0); Mean Platelet Volume 11.1 fL (7.4-10.4); Nucleated Red Blood Cells % 0 % (-); Platelet Count 177 10^3/uL (130-400); Red Blood Cell Count 3.66 10^6/uL (4.70-6.10); Red Cell Dist. Width 19.1 % (11.5-14.5); White Blood Cell Count 4.9 10^3/uL (4.8-10.8)
[2025-04-20 13:42] LABS: ALT (SGPT) 57 U/L (0-50); AST (SGOT) 104 U/L (17-59); Albumin 2.9 g/dl (3.5-5.0); Alkaline Phosphatase 127 U/L (38-126); Blood Urea Nitrogen 61 mg/dl (9-20); Calcium 8.8 mg/dl (8.4-10.2); Carbon Dioxide 23 mmol/L (22-30); Chloride 104 mmol/L (98-107); Glucose 95 mg/dl (70-99); Potassium 5.6 mmol/L (3.5-5.1); Sodium 135 mmol/L (135-145); Total Bilirubin 1.4 mg/dl (0.2-1.3); Total Protein 6.4 g/dl (6.3-8.2); eGFR 27.45
== END ==
LOC: OLABPATH 11:13
PROVIDERS: ATTENDING PHYSICIAN Internal Medicine
DX: E03.9 Hypothyroidism, unspecified (principal); N18.9 Chronic kidney disease, unspecified; I48.0 Paroxysmal atrial fibrillation
CPT/HCPCS: 36415; 80053; 84439; 84443; 85025